=== PATIENT | male | born 1960 | race Caucasian/White ===

== ENCOUNTER 2016-06-27 09:33 | Emergency (ER) | payer MEDICAID, OTHER ==
[~2016-06-27 09:33] MED LIST: /CELE20CA; /CELE20CA OR; /CELE20CA PO; /DULO30CA OR; ASPI81TA21 PO; CARISOPRODOL; CARISOPRODOL PO; CLEO300C2 PO; CYMB1CAP PO; DICL0.1S7 TOP; DICL75TA PO; DRIS50002 PO; DULO30CA PO; FLEXERIL OR; HYDROCODONE OR; NICO21DI5 TD; OMEP40CA2 PO; SIMV40TA2 PO; SOMA350T PO; TPS CREAM TOP; TRAM100T; TRAM50TA2 OR; TRAM50TA2 PO; ULTR200T; ULTR200T OR; ULTR50TA PO; VICO5TAB; VOLT1GEL EX; ZANA4CAP
[2016-06-27] MEDS ORDERED: AMIODARONE 150MG/3ML INJ (J0282) ONE (09:34)
[2016-06-27] MEDS ORDERED: ASPIRIN 81 MG CHEW TABLET As Ordered ONE (10:31)
[2016-06-27] MEDS ORDERED: CLOPIDOGREL 300 MG TAB (PLAVIX) As Ordered ONE (10:32)
[2016-06-27 10:41] LABS: BASO % 0.4 % (0.0-1.0); EOS % 0.4 % (0.0-3.0); LARGE UNSTAINED CELL # 0.2 K/mm3 (0.0-0.4); LARGE UNSTAINED CELL % 1.4 % (0.0-4.0); LYMPH # 1.5 K/mm3 (1.5-4.5); LYMPH % 13.8 % (24.0-44.0); MEAN CORPUSCULAR HEMOGLOBIN 31.2 pg (27.0-33.0); MEAN CORPUSCULAR HGB CONC 32.9 g/dl (32.0-36.5); MEAN CORPUSCULAR VOLUME 94.7 fl (80.0-96.0); MONO # 0.4 K/mm3 (0.0-0.8); MONO % 3.5 % (0.0-5.0); NEUTROPHILS # 8.7 K/mm3 (1.8-7.7); NEUTROPHILS % 80.5 % (36.0-66.0); PLATELET COUNT, AUTOMATED 509 k/mm3 (150-450); RED CELL DISTRIBUTION WIDTH 13.9 % (11.5-14.5); WHITE BLOOD COUNT 10.8 K/mm3 (4.0-10.0)
[2016-06-27 10:44] LABS: INR 0.95
[2016-06-27 10:54] LABS: ANION GAP 10 MEQ/L (8-16); BLOOD UREA NITROGEN 19 MG/DL (7-18); CALCIUM LEVEL 9.1 MG/DL (8.5-10.1); CARBON DIOXIDE LEVEL 23 MEQ/L (21-32); CHLORIDE LEVEL 108 MEQ/L (98-107); CREATININE FOR GFR 0.99 MG/DL (0.70-1.30); GLOMERULAR FILTRATION RATE > 60.0 (>56); GLUCOSE, FASTING 103 MG/DL (70-105); POTASSIUM SERUM 4.1 MEQ/L (3.5-5.1); SODIUM LEVEL 141 MEQ/L (136-145)
--- NOTE | 2016-06-27 11:02 | REP ---
PORTABLE CHEST X-RAY: Supine AP view. HISTORY: Chest pain. FINDINGS: EKG monitoring electrodes overlie the chest. The lungs are well inflated and clear. Pleural angles are sharp. Heart size is borderline. Pulmonary vasculature is not increased. No significant bony abnormality is seen. IMPRESSION: No active disease. Borderline heart size. Signed by Doe Navarro MD 06/27/2016 08:10 P
[2016-06-27] MEDS ORDERED: HEPARIN SOD (PORCINE) 5000 UNITS/ML VIAL As Ordered ONE (11:05)
[2016-06-27] MEDS ORDERED: HEPARIN 25,000 UNITS/250 ML D5W BAG (100 UNITS/ML) As Ordered ONE (11:05)
[2016-06-27] MEDS ORDERED: ONDANSETRON 4MG/2ML VIAL (J2405) As Ordered ONE (11:16)
[2016-06-27 11:18] LABS: FREE T4 1.12 NG/DL (0.76-1.46); MAGNESIUM LEVEL 2.1 MG/DL (1.8-2.4)
--- NOTE | 2016-06-27 11:50 | EDDOCDS ---
Physician Documentation [facility] Name: Wilmar Josue Age: 55 yrs Sex: Male : 1960 Arrival Date: 06/27/2016 Time: 09:33 Bed 3 Private MD: Berhane Pereyra MD Disposition: 06/27 11:22 Critical Care:. pc Disposition: 06/27/16 11:[address] [facility]. Diagnosis are Cardiac arrest, Ventricular fibrillation, Non-ST elevation (NSTEMI) myocardial infarction. - Reason for transfer: Higher level of care. - Accepting physician is Dr. Moncada. - Condition is Stable. - Problem is new. - Symptoms have improved. HPI: 11:09 This 55 yrs old Male presents to ER via Walkin/Carried/Asstd with complaints pc of General Weakness. 11:09 The history is obtained from the patient. He says he has felt unwell, "like crap", for pc a few weeks. He has been treated for an infected puncture wound to his left knee, with 2 days of ABX left. He awoke at 1am this morning drenched in sweat. He felt SOB but denies any pain. Just as the EKG was performed, while starting this interview, the patient went into VFib arrest. CPR was started by myself and a LINING MAKER, and the patient moved into a CC room. CPR was continued and he was hooked up to the LifePak and defibrillated once at 300J. He was converted to NSR with frequent PVCs. He regained consciousness soon after defibrillation. He received 300mg of amiodarone. His pulse is 55-60, his BP 117/59 and his only complaint is of feeling tired. 11:15 The patient has been recently seen at an urgent care, a couple of weeks ago. pc Historical: - Allergies: hydrocodone (Vomit); - Home Meds: 1. unknown antibiotic three times a day - PMHx: Chronic Back pain; hyperlipidemia; vit d defic; Erectile Dysfunction; GERD; - PSHx: left total hip replacement; closed reduction right hip with revision; Endoscopy, Upper; Colonoscopy; Cataract Surgery- Bilateral; - The history from nurses notes was reviewed: and I agree with what is documented. - Social history: Smoking status: Patient uses tobacco products, heavy tobacco smoker. No barriers to communication noted, The patient speaks fluent Luxembourgish, Speaks appropriately for age. - Family history: Not pertinent. - : The pt / caregiver states he / she is not on anticoagulants. Home medication list is obtained from the patient. - Hospitalizations: : No recent hospitalization is reported. - Exposure Risk Screening:: None identified. - Immunization history:: All immunizations up-to-date. - Social history:: the patient smokes cigarettes the patient drinks alcohol. ROS: 11:15 All systems are negative except as listed. pc Exam: 11:15 General Appearance: no acute distress, alert. pc 11:15 EENT: normal eye inspection, ears, nose and throat normal, pharynx normal, mucous membranes moist 11:15 Neck: The exam reveals no acute abnormalities. ROM is normal and painless. No nuchal rigidity is noted.. 11:15 Respiratory: no respiratory distress, Breath sounds: wheezing, scattered. 11:15 CVS: regular pulse rate, regular rhythm, normal S1 and S2, no murmurs, strong peripheral pulses, normal capillary refill. 11:15 Abdomen: soft, non-tender, no organomegaly, normal bowel sounds. 11:15 Back: normal inspection. 11:15 Skin: skin color is normal, warm, dry. 11:15 Extremities: grossly normal except: noted in the left knee: healing wound at lateral edge of patella superiorly.. 11:15 Neuro: oriented x 3, cranial nerves normal as tested, no motor deficits, no sensory deficits. 11:15 Psych: normal mood. Vital Signs: 09:35 BP 107 / 60; Pulse 93; Resp 18; Temp 96.6(O); Pulse Ox 100% on R/A; Weight 63.5 kg / elp 139.99 lbs (R); Height 5 ft. 5 in. (165.10 cm) (R); 10:14 Resp 30; Temp 98.3(TE); kc3 10:15 Pulse 66 MON; Pulse Ox 100% ; kc3 10:16 BP 119 / 57 (auto/); kc3 10:23 BP 109 / 51 (auto/); kc3 10:26 BP 189 / 83 (auto/); kc3 10:27 Pulse 133 MON; Pulse Ox 100% ; kc3 10:29 BP 114 / 58 (auto/); kc3 10:29 Pulse 69 MON; Pulse Ox 100% ; kc3 10:32 BP 107 / 57 (auto/); kc3 10:32 Pulse 67 MON; Pulse Ox 100% ; kc3 10:34 Pulse 73 MON; Pulse Ox 100% ; kc3 10:35 BP 106 / 55 (auto/); kc3 10:38 BP 121 / 56 (auto/); kc3 10:38 Pulse 65 MON; Pulse Ox 100% ; kc3 10:41 BP 101 / 59 (auto/); kc3 10:41 Pulse 65 MON; Pulse Ox 100% ; kc3 10:50 BP 112 / 62 (auto/); kc3 10:50 Pulse 63 MON; Pulse Ox 100% ; kc3 11:00 BP 118 / 60 (auto/); kc3 11:00 Pulse 62 MON; Pulse Ox 100% ; kc3 11:10 BP 117 / 59 (auto/); kc3 11:10 Pulse 58 MON; Pulse Ox 100% ; kc3 11:20 BP 122 / 63 (auto/); kc3 11:20 Pulse 60 MON; Pulse Ox 100% ; kc3 11:30 BP 123 / 60 (auto/); kc3 11:30 Pulse 57 MON; Pulse Ox 100% ; kc3 11:46 BP 124 / 64; Pulse 60; Resp 22; Temp 97.3(O); Pulse Ox 99% 3 lpm ; Pain 8/10; kc3 09:35 Body Mass Index 23.30 (63.50 kg, 165.10 cm) elp 10:14 Dr. Dickerson aware of pt status. kc3 MDM: 10:14 ECG WITH READING ER PHYS+CARDIAG ordered. EDMS 10:29 Face And Fill Packer/Pulse Ox/q 15 min VS ordered. pc 10:29 IV Saline Lock ordered. pc 10:29 Rhythm Strip to chart ordered. pc 10:29 Oxygen at 15 Liters/Minute NRB Mask ordered. pc 10:29 Aspirin Chewable Tablet 324 mg PO once ordered. pc 10:30 Plavix - Clopidogrel 300 mg PO once ordered. pc 10:31 B-Type Natiuretic Peptide Ordered. EDMS 10:31 Basic Metabolic Profile Ordered. EDMS 10:31 CBC with Diff Ordered. EDMS 10:31 Cardiac Injury Profile Ordered. EDMS 10:31 Partial Thromboplastin Time Ordered. EDMS 10:31 Prothrombin Time Profile\\E\\INR Ordered. EDMS 10:31 Troponin Ordered. EDMS 10:31 portable chest Ordered. EDMS 10:31 amiodarone 300 mg IVP once ordered. pc 11:01 FT4&TSH PANEL Ordered. EDMS 11:01 MAGNESIUM LEVEL Ordered. EDMS 11:03 heparin (Thrombolytic Protocol, 60 units/kg)) 3800 units IVP once; max 4000 units. pc Ensure no Lovenox in past 18hr, labs drawn ordered. 11:04 heparin (Thrombolytic Protocol, 12 units/kg/hr)) 62994 units IV at 760 units/hr once; pc Max. dose 1000units/hr. No Lovenox past 18hrs/ draw labs. ordered. 11:15 Ondansetron 4 mg IVP once ordered. pc 11:15 Differential Diagnosis: VFib arrest of unknown etiology. Plan: labs, CXR, meds, d/w Dr. corona Moncada. Data reviewed: old medical records, vital signs, nurses notes, EKG(s), lab test results, all radiology studies and available results. Test interpretation: EKG. 11:21 Test interpretation: EKG. pc 11:21 Test interpretation: X-RAY - interpreted by Radiologist and personally reviewed, 1 view pc chest borderline CM, else nad. 11:22 Basic Metabolic Profile Reviewed. pc 11:22 CBC with Diff Reviewed. pc 11:22 Troponin Reviewed. pc 11:22 Cardiac Injury Profile Reviewed. pc 11:22 Partial Thromboplastin Time Reviewed. pc 11:22 Prothrombin Time Profile\\E\\INR Reviewed. pc 11:22 FT4&TSH PANEL Reviewed. pc 11:22 MAGNESIUM LEVEL Reviewed. pc 11:22 The patient has been re-examined and re-evaluated. The patient's symptoms have resolved pc after treatment. Physician consultation: Dr. Nancie Moncada regarding patient's condition, and he accepts in transfer to [facility]. Disposition: The historical points, examination findings, and any diagnostic results supporting the provided diagnosis, were discussed with the patient or legal guardian. The decision to transfer to the patient to another facility was explained, based on the need for a required specialist that [facility] does not immediately have available. 11:34 ECG WITH READING ER PHYS+CARDIAG ordered. EDMS 11:36 Repeat EKG (put time details section) ordered. pc 11:39 ECG WITH READING ER PHYS ordered. EDMS 11:42 Repeat EKG (put time details section) complete. [email or web address] 11:47 Test interpretation: EKG. EC:22 Rate is 68 beats/min. Rhythm is regular, Normal Sinus Rhythm with Occasional PVCs. QRS pc [place] is Normal. [place] interval is normal. QRS interval is normal. QT interval is normal. No Q waves. T waves are Normal. ST Segment is elevated in leads aVF, V2, V3, V4, V5, V6, <1mm. Clinical impression: Normal Sinus Rhythm, Nonspecific ST-T changes, and occ. PVC. 10:33 Rate is 67 beats/min. Rhythm is regular, Normal Sinus Rhythm. Left axis deviation pc noted. QRS is negative in leads II, aVF. [place] interval is normal. QRS interval is normal. QT interval is normal. No Q waves. T waves are Normal. No ST changes noted. Clinical impression: Normal Sinus Rhythm. 11:47 Rate is 57 beats/min. Rhythm is regular, Sinus bradycardia. QRS [place] is Normal. [place] pc interval is normal. QRS interval is normal. QT interval is normal. No Q waves. T waves are Normal. ST Segment is elevated in leads II, III, aVF, <1mm. Clinical impression: Normal Sinus Rhythm and possible early IMII, but asymptomatic. Administered Medications: 10:28 Drug: amiodarone 300 mg [amiodarone 150 mg/100 mL (1.5 mg/mL) in dextrose, iso-osmotic kc3 IV (200 mL)] {Note: administered by AMANDA Cummings.} Route: IVP; Site: left antecubital; 10:41 Drug: Aspirin 324 mg [aspirin 81 mg chewable tablet (4 tabs)] Route: PO; kc3 10:41 Drug: Plavix - Clopidogrel 300 mg [clopidogrel 75 mg tablet (4 tabs)] Route: PO; kc3 11:13 Drug: heparin (Thrombolytic Protocol, 60 units/kg)) 3800 units [heparin (porcine) 5,000 mcp unit/mL injection solution (0.76 mL)] {Co-Signature: bckaylee (Emiliano Yarbrough RN).} Route: IVP; Site: right antecubital; 11:13 Drug: heparin (Thrombolytic Protocol, 12 units/kg/hr)) 74549 units [heparin (porcine) mcp 25,000 unit/250 mL (100 unit/mL) in dextrose 5 % IV] {Co-Signature: artie (Emiliano Yarbrough RN).} Route: IV; Rate: 760 units/hr; Site: right antecubital; 11:24 Drug: Ondansetron 4 mg [ondansetron HCl 2 mg/mL intravenous solution (2 mL)] Route: kc3 IVP; Site: left antecubital; Critical Care Time: 11:22 Critical care time: Bedside Care: 45 minutes, Consultation: 20 minutes, Family pc Intervention: 15 minutes. Total time: 80 minutes Signatures: Dispatcher [employer] EDMS Ubaldo Dickerson MD MD pc Peters, Mary, RN RN mcp Barney, Michael B, RN RN mlb1 Forney, Jordain, PCA PCA jlf Crane, Kelsi, RN RN kc3 Bruce Johnson RN bcj The chart was reviewed and I authenticate all verbal orders and agree with the evaluation and treatment provided.Corrections: (The following items were deleted from the chart) 10:43 09:46 PSHx: none; mlb1 [facility] 11:01 10:52 MAGNESIUM LEVEL+LAB ordered. EDPA EDPA 11:01 10:52 FT4&TSH PANEL+LAB ordered. EDPA EDPA 11:16 11:09 He says he has felt unwell, "like crap", for a few weeks. He has been treated for pc an infected puncture wound to his left knee, with 2 days of ABX left. He awoke at 1am this morning drenched in sweat. He felt SOB but denies any pain. Just as the EKG was performed, while starting this interview, the patient went into VFib arrest. CPR was started by myself and a LINING MAKER, and the patient moved into a CC room. CPR was continued and he was hooked up to the LifePak and defibrillated once at 300J. He was converted to NSR with frequent PVCs. He regained consciousness soon after defibrillation. He received 300mg of amiodarone pc MTDD
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
--- NOTE | 2016-06-28 08:25 | ECGEPIP ---
Stationary ECG Study 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
--- NOTE | 2016-06-28 08:26 | ECGEPIP ---
Stationary ECG Study [facility] - ED Test Date: 2016-06-27 Pat Name: MIAH BENNETT Department: Room: - Gender: M Deputy Register Of Deeds: marlin : 1960 Requested By: Ubaldo Whitfield Order Number: [id number] Reading MD: Ubaldo Dickerson Measurements Intervals [place] Rate: 57 P: 60 MO: 194 QRS: 10 QRSD: 94 T: 47 QT: 402 QTc: 392 Interpretive Statements SINUS BRADYCARDIA NONSPECIFIC ST CHANGES Electronically Signed On 06-28-2016 8:26:23 EST by Ubaldo Dickerson
--- NOTE | 2016-06-28 08:26 | ECGEPIP ---
Stationary ECG Study [facility] - ED Test Date: 2016-06-27 Pat Name: MIAH BENNETT Department: Room: - Gender: M Community Coordinator: arnold : 1960 Requested By: Ubaldo Whitfield Order Number: [id number] Reading MD: Ubaldo Dickerson Measurements Intervals [place] Rate: 67 P: 64 [place]: 169 QRS: -30 QRSD: 108 T: 69 QT: 317 QTc: 336 Interpretive Statements SINUS RHYTHM BORDERLINE LEFT AXIS DEVIATION MINIMAL VOLTAGE CRITERIA FOR LVH, CONSIDER NORMAL VARIANT NONSPECIFIC T-WAVE ABNORMALITY Electronically Signed On 06-28-2016 8:25:42 EST by Ubaldo Dickerson
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
--- NOTE | 2016-06-29 12:50 | EDDOCDS ---
Physician Documentation [facility] Name: Wilmar Josue Age: 55 yrs Sex: Male : 1960 Arrival Date: 06/27/2016 Time: 09:33 Bed 3 Private MD: Berhane Pereyra MD Disposition: 06/27 11:22 Critical Care:. pc Disposition: 06/27/16 11:24 Transfer ordered to [facility]. Diagnosis are Cardiac arrest, Ventricular fibrillation, Non-ST elevation (NSTEMI) myocardial infarction. - Reason for transfer: Higher level of care. - Accepting physician is Dr. Moncada. - Condition is Stable. - Problem is new. - Symptoms have improved. HPI: 11:09 This 55 yrs old Male presents to ER via Walkin/Carried/Asstd with complaints pc of General Weakness. 11:09 The history is obtained from the patient. He says he has felt unwell, "like crap", for pc a few weeks. He has been treated for an infected puncture wound to his left knee, with 2 days of ABX left. He awoke at 1am this morning drenched in sweat. He felt SOB but denies any pain. Just as the EKG was performed, while starting this interview, the patient went into VFib arrest. CPR was started by myself and a BRIM SETTER, and the patient moved into a CC room. CPR was continued and he was hooked up to the LifePak and defibrillated once at 300J. He was converted to NSR with frequent PVCs. He regained consciousness soon after defibrillation. He received 300mg of amiodarone. His pulse is 55-60, his BP 117/59 and his only complaint is of feeling tired. 11:15 The patient has been recently seen at an urgent care, a couple of weeks ago. pc Historical: - Allergies: hydrocodone (Vomit); - Home Meds: 1. unknown antibiotic three times a day - PMHx: Chronic Back pain; hyperlipidemia; vit d defic; Erectile Dysfunction; GERD; - PSHx: left total hip replacement; closed reduction right hip with revision; Endoscopy, Upper; Colonoscopy; Cataract Surgery- Bilateral; - The history from nurses notes was reviewed: and I agree with what is documented. - Social history: Smoking status: Patient uses tobacco products, heavy tobacco smoker. No barriers to communication noted, The patient speaks fluent Kiswahili, Speaks appropriately for age. - Family history: Not pertinent. - : The pt / caregiver states he / she is not on anticoagulants. Home medication list is obtained from the patient. - Hospitalizations: : No recent hospitalization is reported. - Exposure Risk Screening:: None identified. - Immunization history:: All immunizations up-to-date. - Social history:: the patient smokes cigarettes the patient drinks alcohol. ROS: 11:15 All systems are negative except as listed. pc Exam: 11:15 General Appearance: no acute distress, alert. pc 11:15 EENT: normal eye inspection, ears, nose and throat normal, pharynx normal, mucous membranes moist 11:15 Neck: The exam reveals no acute abnormalities. ROM is normal and painless. No nuchal rigidity is noted.. 11:15 Respiratory: no respiratory distress, Breath sounds: wheezing, scattered. 11:15 CVS: regular pulse rate, regular rhythm, normal S1 and S2, no murmurs, strong peripheral pulses, normal capillary refill. 11:15 Abdomen: soft, non-tender, no organomegaly, normal bowel sounds. 11:15 Back: normal inspection. 11:15 Skin: skin color is normal, warm, dry. 11:15 Extremities: grossly normal except: noted in the left knee: healing wound at lateral edge of patella superiorly.. 11:15 Neuro: oriented x 3, cranial nerves normal as tested, no motor deficits, no sensory deficits. 11:15 Psych: normal mood. Vital Signs: 09:35 BP 107 / 60; Pulse 93; Resp 18; Temp 96.6(O); Pulse Ox 100% on R/A; Weight 63.5 kg / elp 139.99 lbs (R); Height 5 ft. 5 in. (165.10 cm) (R); 10:14 Resp 30; Temp 98.3(TE); kc3 10:15 Pulse 66 MON; Pulse Ox 100% ; kc3 10:16 BP 119 / 57 (auto/); kc3 10:23 BP 109 / 51 (auto/); kc3 10:26 BP 189 / 83 (auto/); kc3 10:27 Pulse 133 MON; Pulse Ox 100% ; kc3 10:29 BP 114 / 58 (auto/); kc3 10:29 Pulse 69 MON; Pulse Ox 100% ; kc3 10:32 BP 107 / 57 (auto/); kc3 10:32 Pulse 67 MON; Pulse Ox 100% ; kc3 10:34 Pulse 73 MON; Pulse Ox 100% ; kc3 10:35 BP 106 / 55 (auto/); kc3 10:38 BP 121 / 56 (auto/); kc3 10:38 Pulse 65 MON; Pulse Ox 100% ; kc3 10:41 BP 101 / 59 (auto/); kc3 10:41 Pulse 65 MON; Pulse Ox 100% ; kc3 10:50 BP 112 / 62 (auto/); kc3 10:50 Pulse 63 MON; Pulse Ox 100% ; kc3 11:00 BP 118 / 60 (auto/); kc3 11:00 Pulse 62 MON; Pulse Ox 100% ; kc3 11:10 BP 117 / 59 (auto/); kc3 11:10 Pulse 58 MON; Pulse Ox 100% ; kc3 11:20 BP 122 / 63 (auto/); kc3 11:20 Pulse 60 MON; Pulse Ox 100% ; kc3 11:30 BP 123 / 60 (auto/); kc3 11:30 Pulse 57 MON; Pulse Ox 100% ; kc3 11:46 BP 124 / 64; Pulse 60; Resp 22; Temp 97.3(O); Pulse Ox 99% 3 lpm ; Pain 8/10; kc3 09:35 Body Mass Index 23.30 (63.50 kg, 165.10 cm) elp 10:14 Dr. Dickerson aware of pt status. kc3 MDM: 10:14 ECG WITH READING ER PHYS+CARDIAG ordered. EDMS 10:29 Cfd Engineer/Pulse Ox/q 15 min VS ordered. pc 10:29 IV Saline Lock ordered. pc 10:29 Rhythm Strip to chart ordered. pc 10:29 Oxygen at 15 Liters/Minute NRB Mask ordered. pc 10:29 Aspirin Chewable Tablet 324 mg PO once ordered. pc 10:30 Plavix - Clopidogrel 300 mg PO once ordered. pc 10:31 B-Type Natiuretic Peptide Ordered. EDMS 10:31 Basic Metabolic Profile Ordered. EDMS 10:31 CBC with Diff Ordered. EDMS 10:31 Cardiac Injury Profile Ordered. EDMS 10:31 Partial Thromboplastin Time Ordered. EDMS 10:31 Prothrombin Time Profile\\E\\INR Ordered. EDMS 10:31 Troponin Ordered. EDMS 10:31 portable chest Ordered. EDMS 10:31 amiodarone 300 mg IVP once ordered. pc 11:01 FT4&TSH PANEL Ordered. EDMS 11:01 MAGNESIUM LEVEL Ordered. EDMS 11:03 heparin (Thrombolytic Protocol, 60 units/kg)) 3800 units IVP once; max 4000 units. pc Ensure no Lovenox in past 18hr, labs drawn ordered. 11:04 heparin (Thrombolytic Protocol, 12 units/kg/hr)) 82414 units IV at 760 units/hr once; pc Max. dose 1000units/hr. No Lovenox past 18hrs/ draw labs. ordered. 11:15 Ondansetron 4 mg IVP once ordered. pc 11:15 Differential Diagnosis: VFib arrest of unknown etiology. Plan: labs, CXR, meds, d/w Dr. corona Moncada. Data reviewed: old medical records, vital signs, nurses notes, EKG(s), lab test results, all radiology studies and available results. Test interpretation: EKG. 11:21 Test interpretation: EKG. pc 11:21 Test interpretation: X-RAY - interpreted by Radiologist and personally reviewed, 1 view pc chest borderline CM, else nad. 11:22 Basic Metabolic Profile Reviewed. pc 11:22 CBC with Diff Reviewed. pc 11:22 Troponin Reviewed. pc 11:22 Cardiac Injury Profile Reviewed. pc 11:22 Partial Thromboplastin Time Reviewed. pc 11:22 Prothrombin Time Profile\\E\\INR Reviewed. pc 11:22 FT4&TSH PANEL Reviewed. pc 11:22 MAGNESIUM LEVEL Reviewed. pc 11:22 The patient has been re-examined and re-evaluated. The patient's symptoms have resolved pc after treatment. Physician consultation: Dr. Nancie Moncada regarding patient's condition, and he accepts in transfer to [facility]. Disposition: The historical points, examination findings, and any diagnostic results supporting the provided diagnosis, were discussed with the patient or legal guardian. The decision to transfer to the patient to another facility was explained, based on the need for a required specialist that [facility] does not immediately have available. 11:34 ECG WITH READING ER PHYS+CARDIAG ordered. EDMS 11:36 Repeat EKG (put time details section) ordered. pc 11:39 ECG WITH READING ER PHYS ordered. EDMS 11:42 Repeat EKG (put time details section) complete. jlf 11:47 Test interpretation: EKG. pc 12:10 Test interpretation: EKG. ED course: Discussed with Dr. Moncada, re: patient's new pc pleuritic chest pain and ST changes inferiorly, and he advises no thrombolysis and to ship to [facility] immediately. 13:53 ECG/EKG was scanned into [employer] and attached to record. gb 13:53 Rhythm Strip was scanned into [employer] and attached to record. gb EC:22 Rate is 68 beats/min. Rhythm is regular, Normal Sinus Rhythm with Occasional PVCs. QRS pc [place] is Normal. [place] interval is normal. QRS interval is normal. QT interval is normal. No Q waves. T waves are Normal. ST Segment is elevated in leads aVF, V2, V3, V4, V5, V6, <1mm. Clinical impression: Normal Sinus Rhythm, Nonspecific ST-T changes, and occ. PVC. 10:33 Rate is 67 beats/min. Rhythm is regular, Normal Sinus Rhythm. Left axis deviation pc noted. QRS is negative in leads II, aVF. [place] interval is normal. QRS interval is normal. QT interval is normal. No Q waves. T waves are Normal. No ST changes noted. Clinical impression: Normal Sinus Rhythm. 11:47 Rate is 57 beats/min. Rhythm is regular, Sinus bradycardia. QRS [place] is Normal. [place] pc interval is normal. QRS interval is normal. QT interval is normal. No Q waves. T waves are Normal. ST Segment is elevated in leads II, III, aVF, <1mm. Clinical impression: Normal Sinus Rhythm and possible early IMII, but asymptomatic. 12:10 Rate is 76 beats/min. Rhythm is regular, Normal Sinus Rhythm with Occasional PVCs. QRS pc [place] is Normal. [place] interval is normal. QRS interval is normal. QT interval is normal. No Q waves. T waves are Normal. ST Segment is elevated in leads III, aVF, <1mm. Clinical impression: Normal Sinus Rhythm and Nonspecific ST-T changes. Administered Medications: 10:28 Drug: amiodarone 300 mg [amiodarone 150 mg/100 mL (1.5 mg/mL) in dextrose, iso-osmotic kc3 IV (200 mL)] {Note: administered by AMANDA Cummings.} Route: IVP; Site: left antecubital; 10:41 Drug: Aspirin 324 mg [aspirin 81 mg chewable tablet (4 tabs)] Route: PO; kc3 10:41 Drug: Plavix - Clopidogrel 300 mg [clopidogrel 75 mg tablet (4 tabs)] Route: PO; kc3 11:13 Drug: heparin (Thrombolytic Protocol, 60 units/kg)) 3800 units [heparin (porcine) 5,000 mcp unit/mL injection solution (0.76 mL)] {Co-Signature: artie (Emiliano Yarbrough RN).} Route: IVP; Site: right antecubital; 11:13 Drug: heparin (Thrombolytic Protocol, 12 units/kg/hr)) 45226 units [heparin (porcine) mcp 25,000 unit/250 mL (100 unit/mL) in dextrose 5 % IV] {Co-Signature: artie (Emiliano Yarbrough RN).} Route: IV; Rate: 760 units/hr; Site: right antecubital; 11:24 Drug: Ondansetron 4 mg [ondansetron HCl 2 mg/mL intravenous solution (2 mL)] Route: kc3 IVP; Site: left antecubital; Critical Care Time: 11:22 Critical care time: Bedside Care: 45 minutes, Consultation: 20 minutes, Family pc Intervention: 15 minutes. Total time: 80 minutes Signatures: Dispatcher [employer] Ubaldo Grant MD MD pc Peters, Mary, RN RN Maya Oneill, Terrance Wei RN RN mlShanel Montenegro, JEN BRIM SETTER Hazel Ventura RN RN kc3 Bruce Johnson RN bcj The chart was reviewed and I authenticate all verbal orders and agree with the evaluation and treatment provided.Corrections: (The following items were deleted from the chart) 10:43 09:46 PSHx: none; mlb1 [facility] [place] 11:01 10:52 MAGNESIUM LEVEL+LAB ordered. EDDC EDDC 11:01 10:52 FT4&TSH PANEL+LAB ordered. [facility] EDMS 11:16 11:09 He says he has felt unwell, "like crap", for a few weeks. He has been treated for pc an infected puncture wound to his left knee, with 2 days of ABX left. He awoke at 1am this morning drenched in sweat. He felt SOB but denies any pain. Just as the EKG was performed, while starting this interview, the patient went into VFib arrest. CPR was started by myself and a BRIM SETTER, and the patient moved into a CC room. CPR was continued and he was hooked up to the LifePak and defibrillated once at 300J. He was converted to NSR with frequent PVCs. He regained consciousness soon after defibrillation. He received 300mg of amiodarone pc Attachments: 13:53 ECG/EKG gb Chart Complete MTDD
--- NOTE | 2016-06-29 12:50 | EDDOCDS ---
Physician Documentation [facility] Name: Wilmar Josue Age: 55 yrs Sex: Male : 1960 Arrival Date: 06/27/2016 Time: 09:33 Bed 3 Private MD: Berhane Pereyra MD Disposition: 06/27 11:22 Critical Care:. pc Disposition: 06/27/16 11:24 Transfer ordered to [facility]. Diagnosis are Cardiac arrest, Ventricular fibrillation, Non-ST elevation (NSTEMI) myocardial infarction. - Reason for transfer: Higher level of care. - Accepting physician is Dr. Moncada. - Condition is Stable. - Problem is new. - Symptoms have improved. HPI: 11:09 This 55 yrs old Male presents to ER via Walkin/Carried/Asstd with complaints pc of General Weakness. 11:09 The history is obtained from the patient. He says he has felt unwell, "like crap", for pc a few weeks. He has been treated for an infected puncture wound to his left knee, with 2 days of ABX left. He awoke at 1am this morning drenched in sweat. He felt SOB but denies any pain. Just as the EKG was performed, while starting this interview, the patient went into VFib arrest. CPR was started by myself and a MOTOR POWER CONNECTOR, and the patient moved into a CC room. CPR was continued and he was hooked up to the LifePak and defibrillated once at 300J. He was converted to NSR with frequent PVCs. He regained consciousness soon after defibrillation. He received 300mg of amiodarone. His pulse is 55-60, his BP 117/59 and his only complaint is of feeling tired. 11:15 The patient has been recently seen at an urgent care, a couple of weeks ago. pc Historical: - Allergies: hydrocodone (Vomit); - Home Meds: 1. unknown antibiotic three times a day - PMHx: Chronic Back pain; hyperlipidemia; vit d defic; Erectile Dysfunction; GERD; - PSHx: left total hip replacement; closed reduction right hip with revision; Endoscopy, Upper; Colonoscopy; Cataract Surgery- Bilateral; - The history from nurses notes was reviewed: and I agree with what is documented. - Social history: Smoking status: Patient uses tobacco products, heavy tobacco smoker. No barriers to communication noted, The patient speaks fluent Greek, Speaks appropriately for age. - Family history: Not pertinent. - : The pt / caregiver states he / she is not on anticoagulants. Home medication list is obtained from the patient. - Hospitalizations: : No recent hospitalization is reported. - Exposure Risk Screening:: None identified. - Immunization history:: All immunizations up-to-date. - Social history:: the patient smokes cigarettes the patient drinks alcohol. ROS: 11:15 All systems are negative except as listed. pc Exam: 11:15 General Appearance: no acute distress, alert. pc 11:15 EENT: normal eye inspection, ears, nose and throat normal, pharynx normal, mucous membranes moist 11:15 Neck: The exam reveals no acute abnormalities. ROM is normal and painless. No nuchal rigidity is noted.. 11:15 Respiratory: no respiratory distress, Breath sounds: wheezing, scattered. 11:15 CVS: regular pulse rate, regular rhythm, normal S1 and S2, no murmurs, strong peripheral pulses, normal capillary refill. 11:15 Abdomen: soft, non-tender, no organomegaly, normal bowel sounds. 11:15 Back: normal inspection. 11:15 Skin: skin color is normal, warm, dry. 11:15 Extremities: grossly normal except: noted in the left knee: healing wound at lateral edge of patella superiorly.. 11:15 Neuro: oriented x 3, cranial nerves normal as tested, no motor deficits, no sensory deficits. 11:15 Psych: normal mood. Vital Signs: 09:35 BP 107 / 60; Pulse 93; Resp 18; Temp 96.6(O); Pulse Ox 100% on R/A; Weight 63.5 kg / elp 139.99 lbs (R); Height 5 ft. 5 in. (165.10 cm) (R); 10:14 Resp 30; Temp 98.3(TE); kc3 10:15 Pulse 66 MON; Pulse Ox 100% ; kc3 10:16 BP 119 / 57 (auto/); kc3 10:23 BP 109 / 51 (auto/); kc3 10:26 BP 189 / 83 (auto/); kc3 10:27 Pulse 133 MON; Pulse Ox 100% ; kc3 10:29 BP 114 / 58 (auto/); kc3 10:29 Pulse 69 MON; Pulse Ox 100% ; kc3 10:32 BP 107 / 57 (auto/); kc3 10:32 Pulse 67 MON; Pulse Ox 100% ; kc3 10:34 Pulse 73 MON; Pulse Ox 100% ; kc3 10:35 BP 106 / 55 (auto/); kc3 10:38 BP 121 / 56 (auto/); kc3 10:38 Pulse 65 MON; Pulse Ox 100% ; kc3 10:41 BP 101 / 59 (auto/); kc3 10:41 Pulse 65 MON; Pulse Ox 100% ; kc3 10:50 BP 112 / 62 (auto/); kc3 10:50 Pulse 63 MON; Pulse Ox 100% ; kc3 11:00 BP 118 / 60 (auto/); kc3 11:00 Pulse 62 MON; Pulse Ox 100% ; kc3 11:10 BP 117 / 59 (auto/); kc3 11:10 Pulse 58 MON; Pulse Ox 100% ; kc3 11:20 BP 122 / 63 (auto/); kc3 11:20 Pulse 60 MON; Pulse Ox 100% ; kc3 11:30 BP 123 / 60 (auto/); kc3 11:30 Pulse 57 MON; Pulse Ox 100% ; kc3 11:46 BP 124 / 64; Pulse 60; Resp 22; Temp 97.3(O); Pulse Ox 99% 3 lpm ; Pain 8/10; kc3 09:35 Body Mass Index 23.30 (63.50 kg, 165.10 cm) elp 10:14 Dr. Dickerson aware of pt status. kc3 MDM: 10:14 ECG WITH READING ER PHYS+CARDIAG ordered. EDMS 10:29 Senior Manager Creative Services/Pulse Ox/q 15 min VS ordered. pc 10:29 IV Saline Lock ordered. pc 10:29 Rhythm Strip to chart ordered. pc 10:29 Oxygen at 15 Liters/Minute NRB Mask ordered. pc 10:29 Aspirin Chewable Tablet 324 mg PO once ordered. pc 10:30 Plavix - Clopidogrel 300 mg PO once ordered. pc 10:31 B-Type Natiuretic Peptide Ordered. EDMS 10:31 Basic Metabolic Profile Ordered. EDMS 10:31 CBC with Diff Ordered. EDMS 10:31 Cardiac Injury Profile Ordered. EDMS 10:31 Partial Thromboplastin Time Ordered. EDMS 10:31 Prothrombin Time Profile\\E\\INR Ordered. EDMS 10:31 Troponin Ordered. EDMS 10:31 portable chest Ordered. EDMS 10:31 amiodarone 300 mg IVP once ordered. pc 11:01 FT4&TSH PANEL Ordered. EDMS 11:01 MAGNESIUM LEVEL Ordered. EDMS 11:03 heparin (Thrombolytic Protocol, 60 units/kg)) 3800 units IVP once; max 4000 units. pc Ensure no Lovenox in past 18hr, labs drawn ordered. 11:04 heparin (Thrombolytic Protocol, 12 units/kg/hr)) 38708 units IV at 760 units/hr once; pc Max. dose 1000units/hr. No Lovenox past 18hrs/ draw labs. ordered. 11:15 Ondansetron 4 mg IVP once ordered. pc 11:15 Differential Diagnosis: VFib arrest of unknown etiology. Plan: labs, CXR, meds, d/w Dr. corona Moncada. Data reviewed: old medical records, vital signs, nurses notes, EKG(s), lab test results, all radiology studies and available results. Test interpretation: EKG. 11:21 Test interpretation: EKG. pc 11:21 Test interpretation: X-RAY - interpreted by Radiologist and personally reviewed, 1 view pc chest borderline CM, else nad. 11:22 Basic Metabolic Profile Reviewed. pc 11:22 CBC with Diff Reviewed. pc 11:22 Troponin Reviewed. pc 11:22 Cardiac Injury Profile Reviewed. pc 11:22 Partial Thromboplastin Time Reviewed. pc 11:22 Prothrombin Time Profile\\E\\INR Reviewed. pc 11:22 FT4&TSH PANEL Reviewed. pc 11:22 MAGNESIUM LEVEL Reviewed. pc 11:22 The patient has been re-examined and re-evaluated. The patient's symptoms have resolved pc after treatment. Physician consultation: Dr. Nancie Moncada regarding patient's condition, and he accepts in transfer to [facility]. Disposition: The historical points, examination findings, and any diagnostic results supporting the provided diagnosis, were discussed with the patient or legal guardian. The decision to transfer to the patient to another facility was explained, based on the need for a required specialist that [facility] does not immediately have available. 11:34 ECG WITH READING ER PHYS+CARDIAG ordered. EDMS 11:36 Repeat EKG (put time details section) ordered. pc 11:39 ECG WITH READING ER PHYS ordered. EDMS 11:42 Repeat EKG (put time details section) complete. jlf 11:47 Test interpretation: EKG. pc 12:10 Test interpretation: EKG. ED course: Discussed with Dr. Moncada, re: patient's new pc pleuritic chest pain and ST changes inferiorly, and he advises no thrombolysis and to ship to [facility] immediately. 13:53 ECG/EKG was scanned into [email or web address] and attached to record. gb 13:53 Rhythm Strip was scanned into [email or web address] and attached to record. gb EC:22 Rate is 68 beats/min. Rhythm is regular, Normal Sinus Rhythm with Occasional PVCs. QRS pc [place] is Normal. [place] interval is normal. QRS interval is normal. QT interval is normal. No Q waves. T waves are Normal. ST Segment is elevated in leads aVF, V2, V3, V4, V5, V6, <1mm. Clinical impression: Normal Sinus Rhythm, Nonspecific ST-T changes, and occ. PVC. 10:33 Rate is 67 beats/min. Rhythm is regular, Normal Sinus Rhythm. Left axis deviation pc noted. QRS is negative in leads II, aVF. [place] interval is normal. QRS interval is normal. QT interval is normal. No Q waves. T waves are Normal. No ST changes noted. Clinical impression: Normal Sinus Rhythm. 11:47 Rate is 57 beats/min. Rhythm is regular, Sinus bradycardia. QRS [place] is Normal. [place] pc interval is normal. QRS interval is normal. QT interval is normal. No Q waves. T waves are Normal. ST Segment is elevated in leads II, III, aVF, <1mm. Clinical impression: Normal Sinus Rhythm and possible early IMII, but asymptomatic. 12:10 Rate is 76 beats/min. Rhythm is regular, Normal Sinus Rhythm with Occasional PVCs. QRS pc [place] is Normal. [place] interval is normal. QRS interval is normal. QT interval is normal. No Q waves. T waves are Normal. ST Segment is elevated in leads III, aVF, <1mm. Clinical impression: Normal Sinus Rhythm and Nonspecific ST-T changes. Administered Medications: 10:28 Drug: amiodarone 300 mg [amiodarone 150 mg/100 mL (1.5 mg/mL) in dextrose, iso-osmotic kc3 IV (200 mL)] {Note: administered by AMANDA Cummings.} Route: IVP; Site: left antecubital; 10:41 Drug: Aspirin 324 mg [aspirin 81 mg chewable tablet (4 tabs)] Route: PO; kc3 10:41 Drug: Plavix - Clopidogrel 300 mg [clopidogrel 75 mg tablet (4 tabs)] Route: PO; kc3 11:13 Drug: heparin (Thrombolytic Protocol, 60 units/kg)) 3800 units [heparin (porcine) 5,000 mcp unit/mL injection solution (0.76 mL)] {Co-Signature: artie (Emiliano Yarbrough RN).} Route: IVP; Site: right antecubital; 11:13 Drug: heparin (Thrombolytic Protocol, 12 units/kg/hr)) 67465 units [heparin (porcine) mcp 25,000 unit/250 mL (100 unit/mL) in dextrose 5 % IV] {Co-Signature: artie (Emiliano Yarbrough RN).} Route: IV; Rate: 760 units/hr; Site: right antecubital; 11:24 Drug: Ondansetron 4 mg [ondansetron HCl 2 mg/mL intravenous solution (2 mL)] Route: kc3 IVP; Site: left antecubital; Critical Care Time: 11:22 Critical care time: Bedside Care: 45 minutes, Consultation: 20 minutes, Family pc Intervention: 15 minutes. Total time: 80 minutes Signatures: Dispatcher [employer] Ubaldo Grant MD MD pc Peters, Mary, RN RN Maya Oneill, Terrance Wei RN RN mlShanel Montenegro, JEN MOTOR POWER CONNECTOR Hazel Ventura RN RN kc3 Bruce Johnson RN bcj The chart was reviewed and I authenticate all verbal orders and agree with the evaluation and treatment provided.Corrections: (The following items were deleted from the chart) 10:43 09:46 PSHx: none; mlb1 [facility] 11:01 10:52 MAGNESIUM LEVEL+LAB ordered. EDAR EDAR 11:01 10:52 FT4&TSH PANEL+LAB ordered. [facility] EDMS 11:16 11:09 He says he has felt unwell, "like crap", for a few weeks. He has been treated for pc an infected puncture wound to his left knee, with 2 days of ABX left. He awoke at 1am this morning drenched in sweat. He felt SOB but denies any pain. Just as the EKG was performed, while starting this interview, the patient went into VFib arrest. CPR was started by myself and a MOTOR POWER CONNECTOR, and the patient moved into a CC room. CPR was continued and he was hooked up to the LifePak and defibrillated once at 300J. He was converted to NSR with frequent PVCs. He regained consciousness soon after defibrillation. He received 300mg of amiodarone pc Attachments: 13:53 ECG/EKG gb Chart Complete MTDD
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
--- NOTE | 2016-07-01 14:28 | EDDOCDS ---
Physician Documentation [facility] Name: Wilmar Josue Age: 55 yrs Sex: Male : 1960 Arrival Date: 06/27/2016 Time: 09:33 Bed 3 Private MD: Berhane Pereyra MD Disposition: 06/27 11:22 Critical Care:. pc Disposition: 06/27/16 11:24 Transfer ordered to [facility]. Diagnosis are Cardiac arrest, Ventricular fibrillation, Non-ST elevation (NSTEMI) myocardial infarction. - Reason for transfer: Higher level of care. - Accepting physician is Dr. Moncada. - Condition is Stable. - Problem is new. - Symptoms have improved. HPI: 11:09 This 55 yrs old Male presents to ER via Walkin/Carried/Asstd with complaints pc of General Weakness. 11:09 The history is obtained from the patient. He says he has felt unwell, "like crap", for pc a few weeks. He has been treated for an infected puncture wound to his left knee, with 2 days of ABX left. He awoke at 1am this morning drenched in sweat. He felt SOB but denies any pain. Just as the EKG was performed, while starting this interview, the patient went into VFib arrest. CPR was started by myself and a FOOD AND BEVERAGE ASSISTANT, and the patient moved into a CC room. CPR was continued and he was hooked up to the LifePak and defibrillated once at 300J. He was converted to NSR with frequent PVCs. He regained consciousness soon after defibrillation. He received 300mg of amiodarone. His pulse is 55-60, his BP 117/59 and his only complaint is of feeling tired. 11:15 The patient has been recently seen at an urgent care, a couple of weeks ago. pc Historical: - Allergies: hydrocodone (Vomit); - Home Meds: 1. unknown antibiotic three times a day - PMHx: Chronic Back pain; hyperlipidemia; vit d defic; Erectile Dysfunction; GERD; - PSHx: left total hip replacement; closed reduction right hip with revision; Endoscopy, Upper; Colonoscopy; Cataract Surgery- Bilateral; - The history from nurses notes was reviewed: and I agree with what is documented. - Social history: Smoking status: Patient uses tobacco products, heavy tobacco smoker. No barriers to communication noted, The patient speaks fluent Latvian, Speaks appropriately for age. - Family history: Not pertinent. - : The pt / caregiver states he / she is not on anticoagulants. Home medication list is obtained from the patient. - Hospitalizations: : No recent hospitalization is reported. - Exposure Risk Screening:: None identified. - Immunization history:: All immunizations up-to-date. - Social history:: the patient smokes cigarettes the patient drinks alcohol. ROS: 11:15 All systems are negative except as listed. pc Exam: 11:15 General Appearance: no acute distress, alert. pc 11:15 EENT: normal eye inspection, ears, nose and throat normal, pharynx normal, mucous membranes moist 11:15 Neck: The exam reveals no acute abnormalities. ROM is normal and painless. No nuchal rigidity is noted.. 11:15 Respiratory: no respiratory distress, Breath sounds: wheezing, scattered. 11:15 CVS: regular pulse rate, regular rhythm, normal S1 and S2, no murmurs, strong peripheral pulses, normal capillary refill. 11:15 Abdomen: soft, non-tender, no organomegaly, normal bowel sounds. 11:15 Back: normal inspection. 11:15 Skin: skin color is normal, warm, dry. 11:15 Extremities: grossly normal except: noted in the left knee: healing wound at lateral edge of patella superiorly.. 11:15 Neuro: oriented x 3, cranial nerves normal as tested, no motor deficits, no sensory deficits. 11:15 Psych: normal mood. Vital Signs: 09:35 BP 107 / 60; Pulse 93; Resp 18; Temp 96.6(O); Pulse Ox 100% on R/A; Weight 63.5 kg / elp 139.99 lbs (R); Height 5 ft. 5 in. (165.10 cm) (R); 10:14 Resp 30; Temp 98.3(TE); kc3 10:15 Pulse 66 MON; Pulse Ox 100% ; kc3 10:16 BP 119 / 57 (auto/); kc3 10:23 BP 109 / 51 (auto/); kc3 10:26 BP 189 / 83 (auto/); kc3 10:27 Pulse 133 MON; Pulse Ox 100% ; kc3 10:29 BP 114 / 58 (auto/); kc3 10:29 Pulse 69 MON; Pulse Ox 100% ; kc3 10:32 BP 107 / 57 (auto/); kc3 10:32 Pulse 67 MON; Pulse Ox 100% ; kc3 10:34 Pulse 73 MON; Pulse Ox 100% ; kc3 10:35 BP 106 / 55 (auto/); kc3 10:38 BP 121 / 56 (auto/); kc3 10:38 Pulse 65 MON; Pulse Ox 100% ; kc3 10:41 BP 101 / 59 (auto/); kc3 10:41 Pulse 65 MON; Pulse Ox 100% ; kc3 10:50 BP 112 / 62 (auto/); kc3 10:50 Pulse 63 MON; Pulse Ox 100% ; kc3 11:00 BP 118 / 60 (auto/); kc3 11:00 Pulse 62 MON; Pulse Ox 100% ; kc3 11:10 BP 117 / 59 (auto/); kc3 11:10 Pulse 58 MON; Pulse Ox 100% ; kc3 11:20 BP 122 / 63 (auto/); kc3 11:20 Pulse 60 MON; Pulse Ox 100% ; kc3 11:30 BP 123 / 60 (auto/); kc3 11:30 Pulse 57 MON; Pulse Ox 100% ; kc3 11:46 BP 124 / 64; Pulse 60; Resp 22; Temp 97.3(O); Pulse Ox 99% 3 lpm ; Pain 8/10; kc3 09:35 Body Mass Index 23.30 (63.50 kg, 165.10 cm) elp 10:14 Dr. Dickerson aware of pt status. kc3 MDM: 10:14 ECG WITH READING ER PHYS+CARDIAG ordered. EDMS 10:29 Ball Fringe Machine Operator/Pulse Ox/q 15 min VS ordered. pc 10:29 IV Saline Lock ordered. pc 10:29 Rhythm Strip to chart ordered. pc 10:29 Oxygen at 15 Liters/Minute NRB Mask ordered. pc 10:29 Aspirin Chewable Tablet 324 mg PO once ordered. pc 10:30 Plavix - Clopidogrel 300 mg PO once ordered. pc 10:31 B-Type Natiuretic Peptide Ordered. EDMS 10:31 Basic Metabolic Profile Ordered. EDMS 10:31 CBC with Diff Ordered. EDMS 10:31 Cardiac Injury Profile Ordered. EDMS 10:31 Partial Thromboplastin Time Ordered. EDMS 10:31 Prothrombin Time Profile\\E\\INR Ordered. EDMS 10:31 Troponin Ordered. EDMS 10:31 portable chest Ordered. EDMS 10:31 amiodarone 300 mg IVP once ordered. pc 11:01 FT4&TSH PANEL Ordered. EDMS 11:01 MAGNESIUM LEVEL Ordered. EDMS 11:03 heparin (Thrombolytic Protocol, 60 units/kg)) 3800 units IVP once; max 4000 units. pc Ensure no Lovenox in past 18hr, labs drawn ordered. 11:04 heparin (Thrombolytic Protocol, 12 units/kg/hr)) 95206 units IV at 760 units/hr once; pc Max. dose 1000units/hr. No Lovenox past 18hrs/ draw labs. ordered. 11:15 Ondansetron 4 mg IVP once ordered. pc 11:15 Differential Diagnosis: VFib arrest of unknown etiology. Plan: labs, CXR, meds, d/w Dr. corona Moncada. Data reviewed: old medical records, vital signs, nurses notes, EKG(s), lab test results, all radiology studies and available results. Test interpretation: EKG. 11:21 Test interpretation: EKG. pc 11:21 Test interpretation: X-RAY - interpreted by Radiologist and personally reviewed, 1 view pc chest borderline CM, else nad. 11:22 Basic Metabolic Profile Reviewed. pc 11:22 CBC with Diff Reviewed. pc 11:22 Troponin Reviewed. pc 11:22 Cardiac Injury Profile Reviewed. pc 11:22 Partial Thromboplastin Time Reviewed. pc 11:22 Prothrombin Time Profile\\E\\INR Reviewed. pc 11:22 FT4&TSH PANEL Reviewed. pc 11:22 MAGNESIUM LEVEL Reviewed. pc 11:22 The patient has been re-examined and re-evaluated. The patient's symptoms have resolved pc after treatment. Physician consultation: Dr. Nancie Moncada regarding patient's condition, and he accepts in transfer to [facility]. Disposition: The historical points, examination findings, and any diagnostic results supporting the provided diagnosis, were discussed with the patient or legal guardian. The decision to transfer to the patient to another facility was explained, based on the need for a required specialist that [facility] does not immediately have available. 11:34 ECG WITH READING ER PHYS+CARDIAG ordered. EDMS 11:36 Repeat EKG (put time details section) ordered. pc 11:39 ECG WITH READING ER PHYS ordered. EDMS 11:42 Repeat EKG (put time details section) complete. jlf 11:47 Test interpretation: EKG. pc 12:10 Test interpretation: EKG. ED course: Discussed with Dr. Moncada, re: patient's new pc pleuritic chest pain and ST changes inferiorly, and he advises no thrombolysis and to ship to [facility] immediately. 13:53 ECG/EKG was scanned into [employer] and attached to record. gb 13:53 Rhythm Strip was scanned into [employer] and attached to record. gb EC:22 Rate is 68 beats/min. Rhythm is regular, Normal Sinus Rhythm with Occasional PVCs. QRS pc [place] is Normal. CT interval is normal. QRS interval is normal. QT interval is normal. No Q waves. T waves are Normal. ST Segment is elevated in leads aVF, V2, V3, V4, V5, V6, <1mm. Clinical impression: Normal Sinus Rhythm, Nonspecific ST-T changes, and occ. PVC. 10:33 Rate is 67 beats/min. Rhythm is regular, Normal Sinus Rhythm. Left axis deviation pc noted. QRS is negative in leads II, aVF. CT interval is normal. QRS interval is normal. QT interval is normal. No Q waves. T waves are Normal. No ST changes noted. Clinical impression: Normal Sinus Rhythm. 11:47 Rate is 57 beats/min. Rhythm is regular, Sinus bradycardia. QRS [place] is Normal. CT pc interval is normal. QRS interval is normal. QT interval is normal. No Q waves. T waves are Normal. ST Segment is elevated in leads II, III, aVF, <1mm. Clinical impression: Normal Sinus Rhythm and possible early IMII, but asymptomatic. 12:10 Rate is 76 beats/min. Rhythm is regular, Normal Sinus Rhythm with Occasional PVCs. QRS pc [place] is Normal. CT interval is normal. QRS interval is normal. QT interval is normal. No Q waves. T waves are Normal. ST Segment is elevated in leads III, aVF, <1mm. Clinical impression: Normal Sinus Rhythm and Nonspecific ST-T changes. Administered Medications: 10:28 Drug: amiodarone 300 mg [amiodarone 150 mg/100 mL (1.5 mg/mL) in dextrose, iso-osmotic kc3 IV (200 mL)] {Note: administered by AMANDA Cummings.} Route: IVP; Site: left antecubital; 10:41 Drug: Aspirin 324 mg [aspirin 81 mg chewable tablet (4 tabs)] Route: PO; kc3 10:41 Drug: Plavix - Clopidogrel 300 mg [clopidogrel 75 mg tablet (4 tabs)] Route: PO; kc3 11:13 Drug: heparin (Thrombolytic Protocol, 60 units/kg)) 3800 units [heparin (porcine) 5,000 mcp unit/mL injection solution (0.76 mL)] {Co-Signature: artie (Emiliano Yarbrough RN).} Route: IVP; Site: right antecubital; 11:13 Drug: heparin (Thrombolytic Protocol, 12 units/kg/hr)) 93857 units [heparin (porcine) mcp 25,000 unit/250 mL (100 unit/mL) in dextrose 5 % IV] {Co-Signature: artie (Emiliano Yarbrough RN).} Route: IV; Rate: 760 units/hr; Site: right antecubital; 11:24 Drug: Ondansetron 4 mg [ondansetron HCl 2 mg/mL intravenous solution (2 mL)] Route: kc3 IVP; Site: left antecubital; Critical Care Time: 11:22 Critical care time: Bedside Care: 45 minutes, Consultation: 20 minutes, Family pc Intervention: 15 minutes. Total time: 80 minutes Signatures: Dispatcher [employer] Ubaldo Grant MD MD pc Peters, Mary, RN RN Maya Oneill, Terrance Wei RN RN mlShanel Montenegro, JEN FOOD AND BEVERAGE ASSISTANT Hazel Ventura RN RN kc3 Bruce Johnson RN bcj The chart was reviewed and I authenticate all verbal orders and agree with the evaluation and treatment provided.Corrections: (The following items were deleted from the chart) 10:43 09:46 PSHx: none; mlb1 [facility] 11:01 10:52 MAGNESIUM LEVEL+LAB ordered. EDKY EDKY 11:01 10:52 FT4&TSH PANEL+LAB ordered. [facility] EDMS 11:16 11:09 He says he has felt unwell, "like crap", for a few weeks. He has been treated for pc an infected puncture wound to his left knee, with 2 days of ABX left. He awoke at 1am this morning drenched in sweat. He felt SOB but denies any pain. Just as the EKG was performed, while starting this interview, the patient went into VFib arrest. CPR was started by myself and a FOOD AND BEVERAGE ASSISTANT, and the patient moved into a CC room. CPR was continued and he was hooked up to the LifePak and defibrillated once at 300J. He was converted to NSR with frequent PVCs. He regained consciousness soon after defibrillation. He received 300mg of amiodarone pc Attachments: 13:53 ECG/EKG gb Chart Complete MTDD
--- NOTE | 2016-07-01 14:28 | EDDOCDS ---
Physician Documentation [facility] Name: Wilmar Josue Age: 55 yrs Sex: Male : 1960 Arrival Date: 06/27/2016 Time: 09:33 Bed 3 Private MD: Berhane Pereyra MD Disposition: 06/27 11:22 Critical Care:. pc Disposition: 06/27/16 11:24 Transfer ordered to [facility]. Diagnosis are Cardiac arrest, Ventricular fibrillation, Non-ST elevation (NSTEMI) myocardial infarction. - Reason for transfer: Higher level of care. - Accepting physician is Dr. Moncada. - Condition is Stable. - Problem is new. - Symptoms have improved. HPI: 11:09 This 55 yrs old Male presents to ER via Walkin/Carried/Asstd with complaints pc of General Weakness. 11:09 The history is obtained from the patient. He says he has felt unwell, "like crap", for pc a few weeks. He has been treated for an infected puncture wound to his left knee, with 2 days of ABX left. He awoke at 1am this morning drenched in sweat. He felt SOB but denies any pain. Just as the EKG was performed, while starting this interview, the patient went into VFib arrest. CPR was started by myself and a HIGH SCHOOL MUSIC DIRECTOR, and the patient moved into a CC room. CPR was continued and he was hooked up to the LifePak and defibrillated once at 300J. He was converted to NSR with frequent PVCs. He regained consciousness soon after defibrillation. He received 300mg of amiodarone. His pulse is 55-60, his BP 117/59 and his only complaint is of feeling tired. 11:15 The patient has been recently seen at an urgent care, a couple of weeks ago. pc Historical: - Allergies: hydrocodone (Vomit); - Home Meds: 1. unknown antibiotic three times a day - PMHx: Chronic Back pain; hyperlipidemia; vit d defic; Erectile Dysfunction; GERD; - PSHx: left total hip replacement; closed reduction right hip with revision; Endoscopy, Upper; Colonoscopy; Cataract Surgery- Bilateral; - The history from nurses notes was reviewed: and I agree with what is documented. - Social history: Smoking status: Patient uses tobacco products, heavy tobacco smoker. No barriers to communication noted, The patient speaks fluent Polish, Speaks appropriately for age. - Family history: Not pertinent. - : The pt / caregiver states he / she is not on anticoagulants. Home medication list is obtained from the patient. - Hospitalizations: : No recent hospitalization is reported. - Exposure Risk Screening:: None identified. - Immunization history:: All immunizations up-to-date. - Social history:: the patient smokes cigarettes the patient drinks alcohol. ROS: 11:15 All systems are negative except as listed. pc Exam: 11:15 General Appearance: no acute distress, alert. pc 11:15 EENT: normal eye inspection, ears, nose and throat normal, pharynx normal, mucous membranes moist 11:15 Neck: The exam reveals no acute abnormalities. ROM is normal and painless. No nuchal rigidity is noted.. 11:15 Respiratory: no respiratory distress, Breath sounds: wheezing, scattered. 11:15 CVS: regular pulse rate, regular rhythm, normal S1 and S2, no murmurs, strong peripheral pulses, normal capillary refill. 11:15 Abdomen: soft, non-tender, no organomegaly, normal bowel sounds. 11:15 Back: normal inspection. 11:15 Skin: skin color is normal, warm, dry. 11:15 Extremities: grossly normal except: noted in the left knee: healing wound at lateral edge of patella superiorly.. 11:15 Neuro: oriented x 3, cranial nerves normal as tested, no motor deficits, no sensory deficits. 11:15 Psych: normal mood. Vital Signs: 09:35 BP 107 / 60; Pulse 93; Resp 18; Temp 96.6(O); Pulse Ox 100% on R/A; Weight 63.5 kg / elp 139.99 lbs (R); Height 5 ft. 5 in. (165.10 cm) (R); 10:14 Resp 30; Temp 98.3(TE); kc3 10:15 Pulse 66 MON; Pulse Ox 100% ; kc3 10:16 BP 119 / 57 (auto/); kc3 10:23 BP 109 / 51 (auto/); kc3 10:26 BP 189 / 83 (auto/); kc3 10:27 Pulse 133 MON; Pulse Ox 100% ; kc3 10:29 BP 114 / 58 (auto/); kc3 10:29 Pulse 69 MON; Pulse Ox 100% ; kc3 10:32 BP 107 / 57 (auto/); kc3 10:32 Pulse 67 MON; Pulse Ox 100% ; kc3 10:34 Pulse 73 MON; Pulse Ox 100% ; kc3 10:35 BP 106 / 55 (auto/); kc3 10:38 BP 121 / 56 (auto/); kc3 10:38 Pulse 65 MON; Pulse Ox 100% ; kc3 10:41 BP 101 / 59 (auto/); kc3 10:41 Pulse 65 MON; Pulse Ox 100% ; kc3 10:50 BP 112 / 62 (auto/); kc3 10:50 Pulse 63 MON; Pulse Ox 100% ; kc3 11:00 BP 118 / 60 (auto/); kc3 11:00 Pulse 62 MON; Pulse Ox 100% ; kc3 11:10 BP 117 / 59 (auto/); kc3 11:10 Pulse 58 MON; Pulse Ox 100% ; kc3 11:20 BP 122 / 63 (auto/); kc3 11:20 Pulse 60 MON; Pulse Ox 100% ; kc3 11:30 BP 123 / 60 (auto/); kc3 11:30 Pulse 57 MON; Pulse Ox 100% ; kc3 11:46 BP 124 / 64; Pulse 60; Resp 22; Temp 97.3(O); Pulse Ox 99% 3 lpm ; Pain 8/10; kc3 09:35 Body Mass Index 23.30 (63.50 kg, 165.10 cm) elp 10:14 Dr. Dickerson aware of pt status. kc3 MDM: 10:14 ECG WITH READING ER PHYS+CARDIAG ordered. EDMS 10:29 Event Security Officer/Pulse Ox/q 15 min VS ordered. pc 10:29 IV Saline Lock ordered. pc 10:29 Rhythm Strip to chart ordered. pc 10:29 Oxygen at 15 Liters/Minute NRB Mask ordered. pc 10:29 Aspirin Chewable Tablet 324 mg PO once ordered. pc 10:30 Plavix - Clopidogrel 300 mg PO once ordered. pc 10:31 B-Type Natiuretic Peptide Ordered. EDMS 10:31 Basic Metabolic Profile Ordered. EDMS 10:31 CBC with Diff Ordered. EDMS 10:31 Cardiac Injury Profile Ordered. EDMS 10:31 Partial Thromboplastin Time Ordered. EDMS 10:31 Prothrombin Time Profile\\E\\INR Ordered. EDMS 10:31 Troponin Ordered. EDMS 10:31 portable chest Ordered. EDMS 10:31 amiodarone 300 mg IVP once ordered. pc 11:01 FT4&TSH PANEL Ordered. EDMS 11:01 MAGNESIUM LEVEL Ordered. EDMS 11:03 heparin (Thrombolytic Protocol, 60 units/kg)) 3800 units IVP once; max 4000 units. pc Ensure no Lovenox in past 18hr, labs drawn ordered. 11:04 heparin (Thrombolytic Protocol, 12 units/kg/hr)) 43283 units IV at 760 units/hr once; pc Max. dose 1000units/hr. No Lovenox past 18hrs/ draw labs. ordered. 11:15 Ondansetron 4 mg IVP once ordered. pc 11:15 Differential Diagnosis: VFib arrest of unknown etiology. Plan: labs, CXR, meds, d/w Dr. corona Moncada. Data reviewed: old medical records, vital signs, nurses notes, EKG(s), lab test results, all radiology studies and available results. Test interpretation: EKG. 11:21 Test interpretation: EKG. pc 11:21 Test interpretation: X-RAY - interpreted by Radiologist and personally reviewed, 1 view pc chest borderline CM, else nad. 11:22 Basic Metabolic Profile Reviewed. pc 11:22 CBC with Diff Reviewed. pc 11:22 Troponin Reviewed. pc 11:22 Cardiac Injury Profile Reviewed. pc 11:22 Partial Thromboplastin Time Reviewed. pc 11:22 Prothrombin Time Profile\\E\\INR Reviewed. pc 11:22 FT4&TSH PANEL Reviewed. pc 11:22 MAGNESIUM LEVEL Reviewed. pc 11:22 The patient has been re-examined and re-evaluated. The patient's symptoms have resolved pc after treatment. Physician consultation: Dr. Nancie Moncada regarding patient's condition, and he accepts in transfer to [facility]. Disposition: The historical points, examination findings, and any diagnostic results supporting the provided diagnosis, were discussed with the patient or legal guardian. The decision to transfer to the patient to another facility was explained, based on the need for a required specialist that [facility] does not immediately have available. 11:34 ECG WITH READING ER PHYS+CARDIAG ordered. EDMS 11:36 Repeat EKG (put time details section) ordered. pc 11:39 ECG WITH READING ER PHYS ordered. EDMS 11:42 Repeat EKG (put time details section) complete. jlf 11:47 Test interpretation: EKG. pc 12:10 Test interpretation: EKG. ED course: Discussed with Dr. Moncada, re: patient's new pc pleuritic chest pain and ST changes inferiorly, and he advises no thrombolysis and to ship to [facility] immediately. 13:53 ECG/EKG was scanned into [email or web address] and attached to record. gb 13:53 Rhythm Strip was scanned into [email or web address] and attached to record. gb EC:22 Rate is 68 beats/min. Rhythm is regular, Normal Sinus Rhythm with Occasional PVCs. QRS pc [place] is Normal. [place] interval is normal. QRS interval is normal. QT interval is normal. No Q waves. T waves are Normal. ST Segment is elevated in leads aVF, V2, V3, V4, V5, V6, <1mm. Clinical impression: Normal Sinus Rhythm, Nonspecific ST-T changes, and occ. PVC. 10:33 Rate is 67 beats/min. Rhythm is regular, Normal Sinus Rhythm. Left axis deviation pc noted. QRS is negative in leads II, aVF. ND interval is normal. QRS interval is normal. QT interval is normal. No Q waves. T waves are Normal. No ST changes noted. Clinical impression: Normal Sinus Rhythm. 11:47 Rate is 57 beats/min. Rhythm is regular, Sinus bradycardia. QRS [place] is Normal. ND pc interval is normal. QRS interval is normal. QT interval is normal. No Q waves. T waves are Normal. ST Segment is elevated in leads II, III, aVF, <1mm. Clinical impression: Normal Sinus Rhythm and possible early IMII, but asymptomatic. 12:10 Rate is 76 beats/min. Rhythm is regular, Normal Sinus Rhythm with Occasional PVCs. QRS pc [place] is Normal. ND interval is normal. QRS interval is normal. QT interval is normal. No Q waves. T waves are Normal. ST Segment is elevated in leads III, aVF, <1mm. Clinical impression: Normal Sinus Rhythm and Nonspecific ST-T changes. Administered Medications: 10:28 Drug: amiodarone 300 mg [amiodarone 150 mg/100 mL (1.5 mg/mL) in dextrose, iso-osmotic kc3 IV (200 mL)] {Note: administered by AMANDA Cummings.} Route: IVP; Site: left antecubital; 10:41 Drug: Aspirin 324 mg [aspirin 81 mg chewable tablet (4 tabs)] Route: PO; kc3 10:41 Drug: Plavix - Clopidogrel 300 mg [clopidogrel 75 mg tablet (4 tabs)] Route: PO; kc3 11:13 Drug: heparin (Thrombolytic Protocol, 60 units/kg)) 3800 units [heparin (porcine) 5,000 mcp unit/mL injection solution (0.76 mL)] {Co-Signature: artie (Emiliano Yarbrough RN).} Route: IVP; Site: right antecubital; 11:13 Drug: heparin (Thrombolytic Protocol, 12 units/kg/hr)) 58848 units [heparin (porcine) mcp 25,000 unit/250 mL (100 unit/mL) in dextrose 5 % IV] {Co-Signature: artie (Emiliano Yarbrough RN).} Route: IV; Rate: 760 units/hr; Site: right antecubital; 11:24 Drug: Ondansetron 4 mg [ondansetron HCl 2 mg/mL intravenous solution (2 mL)] Route: kc3 IVP; Site: left antecubital; Critical Care Time: 11:22 Critical care time: Bedside Care: 45 minutes, Consultation: 20 minutes, Family pc Intervention: 15 minutes. Total time: 80 minutes Signatures: Dispatcher [employer] Ubaldo Grant MD MD pc Peters, Mary, RN RN Maya Oneill, Terrance Wei RN RN mlShanel Montenegro, JEN HIGH SCHOOL MUSIC DIRECTOR Hazel Ventura RN RN kc3 Bruce Johnson RN bcj The chart was reviewed and I authenticate all verbal orders and agree with the evaluation and treatment provided.Corrections: (The following items were deleted from the chart) 10:43 09:46 PSHx: none; mlb1 [facility] 11:01 10:52 MAGNESIUM LEVEL+LAB ordered. EDAR EDAR 11:01 10:52 FT4&TSH PANEL+LAB ordered. [facility] EDMS 11:16 11:09 He says he has felt unwell, "like crap", for a few weeks. He has been treated for pc an infected puncture wound to his left knee, with 2 days of ABX left. He awoke at 1am this morning drenched in sweat. He felt SOB but denies any pain. Just as the EKG was performed, while starting this interview, the patient went into VFib arrest. CPR was started by myself and a HIGH SCHOOL MUSIC DIRECTOR, and the patient moved into a CC room. CPR was continued and he was hooked up to the LifePak and defibrillated once at 300J. He was converted to NSR with frequent PVCs. He regained consciousness soon after defibrillation. He received 300mg of amiodarone pc Attachments: 13:53 ECG/EKG gb Chart Complete MTDD
== END 2016-06-27 11:49 | disposition short-term general hospital (02) ==
LOC: M ED 09:33
DX: I21.4 Non-ST elevation (NSTEMI) myocardial infarction (principal); I49.01 Ventricular fibrillation; I46.9 Cardiac arrest, cause unspecified; E78.5 Hyperlipidemia, unspecified; K21.9 Gastro-esophageal reflux disease without esophagitis; M54.9 Dorsalgia, unspecified; G89.29 Other chronic pain; E55.9 Vitamin D deficiency, unspecified; N52.9 Male erectile dysfunction, unspecified; Z88.5 Allergy status to narcotic agent; F17.210 Nicotine dependence, cigarettes, uncomplicated
CPT/HCPCS: 36415; 71010; 80048; 82550; 82553; 83735; 83880; 84439; 84443; 85025; 85610; 85730; 92950; 93005; 93041; 96374; 96375; 99291; J0282; J2405

== ENCOUNTER → 2016-07-03 | Outpatient (REF) | payer OTHER, MEDICAID ==
[2016-07-03 15:43] LABS: ALBUMIN 3.6 GM/DL (3.2-5.2); ALBUMIN/GLOBULIN RATIO 0.92 (1.00-1.93); ALKALINE PHOSPHATASE 92 U/L (45-117); ALT/SGPT 57 U/L (12-78); ANION GAP 8 MEQ/L (8-16); AST/SGOT 26 U/L (15-37); BILIRUBIN,TOTAL 0.7 MG/DL (0.2-1.0); BLOOD UREA NITROGEN 27 MG/DL (7-18); CALCIUM LEVEL 9.5 MG/DL (8.5-10.1); CARBON DIOXIDE LEVEL 30 MEQ/L (21-32); CHLORIDE LEVEL 104 MEQ/L (98-107); CHOLESTEROL LEVEL 193 MG/DL (<200); FREE T4 1.05 NG/DL (0.76-1.46); GLOMERULAR FILTRATION RATE > 60.0 (>56); GLUCOSE, FASTING 93 MG/DL (70-105); MAGNESIUM LEVEL 2.3 MG/DL (1.8-2.4); POTASSIUM SERUM 4.8 MEQ/L (3.5-5.1); SODIUM LEVEL 142 MEQ/L (136-145); TOTAL PROTEIN 7.5 GM/DL (6.4-8.2); TRIGLYCERIDES LEVEL 205 MG/DL (<150)
[2016-07-03 15:57] LABS: MEAN CORPUSCULAR HEMOGLOBIN 31.3 pg (27.0-33.0); MEAN CORPUSCULAR HGB CONC 32.9 g/dl (32.0-36.5); MEAN CORPUSCULAR VOLUME 95.2 fl (80.0-96.0); WHITE BLOOD COUNT 10.6 K/mm3 (4.0-10.0)
== END | disposition home or self-care (01) ==
LOC: M SFHCADAM 10:17
PROVIDERS: ATTEND Family Medicine
DX: I21.4 Non-ST elevation (NSTEMI) myocardial infarction (principal); I47.2 Ventricular tachycardia; E78.5 Hyperlipidemia, unspecified

== ENCOUNTER 2016-07-10 07:02 | Inpatient (IN) | payer MEDICAID, OTHER ==
[~2016-07-10] VITALS: Ht 162.6 cm; Wt 63.7 kg
[2016-07-10] MEDS ORDERED: AMIODARONE HCL 150 MG/100 ML PREMIXED BAG (NEXTERONE) As Ordered ONE (07:24)
[2016-07-10 07:36] LABS: BASO # 0.2 K/mm3 (0.0-0.2); BASO % 1.7 % (0.0-1.0); EOS # 0.2 K/mm3 (0.0-0.50); EOS % 1.7 % (0.0-3.0); LARGE UNSTAINED CELL # 0.3 K/mm3 (0.0-0.4); LARGE UNSTAINED CELL % 2.7 % (0.0-4.0); LYMPH # 2.6 K/mm3 (1.5-4.5); LYMPH % 21.7 % (24.0-44.0); MEAN CORPUSCULAR HEMOGLOBIN 30.8 pg (27.0-33.0); MEAN CORPUSCULAR HGB CONC 32.5 g/dl (32.0-36.5); MEAN CORPUSCULAR VOLUME 94.6 fl (80.0-96.0); MONO # 0.5 K/mm3 (0.0-0.8); NEUTROPHILS # 7.1 K/mm3 (1.8-7.7); NEUTROPHILS % 67.2 % (36.0-66.0); PLATELET COUNT, AUTOMATED 381 k/mm3 (150-450); RED CELL DISTRIBUTION WIDTH 14.7 % (11.5-14.5); WHITE BLOOD COUNT 10.6 K/mm3 (4.0-10.0)
--- NOTE | 2016-07-10 07:46 | REP ---
Clinical: Chest pain . Comparison: 06/27/2016 . Findings: The mediastinum and cardiac silhouette are stable and within normal limits for portable technique. The lung varma are clear without acute consolidation, effusion, or pneumothorax. Skeletal structures are intact. Impression: Normal portable chest x-ray Signed by Anish Hale MD 07/10/2016 07:37 A
[2016-07-10] MEDS ORDERED: AMIODARONE HCL 360 MG/200 ML PREMIXED BAG (NEXTERONE) As Ordered ONE (07:48)
[2016-07-10 07:58] LABS: ANION GAP 9 MEQ/L (8-16); BLOOD UREA NITROGEN 20 MG/DL (7-18); CALCIUM LEVEL 9.1 MG/DL (8.5-10.1); CARBON DIOXIDE LEVEL 24 MEQ/L (21-32); CHLORIDE LEVEL 109 MEQ/L (98-107); CREATININE FOR GFR 0.83 MG/DL (0.70-1.30); FREE T4 1.16 NG/DL (0.76-1.46); GLOMERULAR FILTRATION RATE > 60.0 (>56); GLUCOSE, FASTING 107 MG/DL (70-105); PHOSPHORUS LEVEL 0.9 MG/DL (2.5-4.9); POTASSIUM SERUM 4.1 MEQ/L (3.5-5.1); SODIUM LEVEL 142 MEQ/L (136-145)
[2016-07-10] MEDS ORDERED: AMIODARONE HCL 360 MG in APPROPRIATE DILUENT 1 EA IV SCH (08:00)
[2016-07-10] MEDS ORDERED: NEUTRA-PHOS 1.25 GM PACKET PO ONE (08:45)
[2016-07-10] MEDS ORDERED: METO25TA74 PO (09:08)
[2016-07-10] MEDS ORDERED: ASPI1TAB PO (09:08)
[2016-07-10 09:55] VITALS: BP 118/68
--- NOTE | 2016-07-10 11:13 | CR.PDOC ---
[facility] Cardiology Consultation Date of Consultation 07/10/16 Cadiology Consultation REFERRING PHYSICIAN: REASON FOR REFERRAL: Defibrillator discharge HISTORY OF PRESENT ILLNESS: Mr Josue is a 55 y/o male who presents after his defibrillator discharged early this morning. The patient states that two days ago, he woke up in a sweat and had to relocate himself from his bedroom to his couch, where he subsequently fell asleep again. The patient states that he was seen at [facility] Jun 27, 2016 after presenting to [facility] for syncope, upon arrival to our facility he experienced cardiac from ventricular fibrillation, was defibrillated and then transferred to [facility] for angiogram. The cardiac catheterization done at [facility] on 06-27-2016 showed no blockages, thus he had no stent placement. He received a dual chamber defibrillator for prevention of sudden cardiac arrest and bradycardia. He also demonstrated sustained ventricular tachycardia while at [facility]. The patient denies taking any new [id number] or pain medications recently. PAST MEDICAL: chronic back pain GERD hyperlipidemia vitamin D Deficiency SURGICAL HISTORY: b/l cataract surgery FAMILY HISTORY: Uncle had a myocardial infarction of which he from, grandmother had pacemaker implantation. SOCIAL HISTORY: Has not drank in 2-4 weeks, active smoker. 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 REVIEW OF SYSTEMS: Cardiovascular: denies chest pain, palpitations, shortness of breath, syncope. Respiratory: Denies shortness of breath, wheezing or cough. GI/: Denies changes in urinary or bowel habits. HEENT: Denies headache, or blurred vision. . All other 10 point review of systems questions negative. PHYSICAL EXAMINATION: VITAL SIGNS: Please see below. GENERAL APPEARANCE: Appears comfortable, patient is laying in hospital bed, in no active distress. EYES: EOMI ENT/Mouth: Tongue midline, moist mucous membranes. NECK: No JVD appreciated. EXTREMITIES: No edema, cyanosis, clubbing appreciated. SKIN: Intact NEUROLOGIC/PSYCHOLOGIC: No focal deficits appreciated, affect is appropriate. HEART: Normal S1, S2, no murmurs, gallops, rubs appreciated with rate in the 90s. ARTERIAL PULSES: +2 radial bilaterally, +2 dorsalis pedis bilaterally. ABDOMEN: Soft, nondistended. ALLERGIES: Please see below. HOME MEDICATIONS: Please see below. CURRENT MEDICATIONS: Please see below. Electrocardiogram: 06/27/2016. Sinus bradycardia, nonspecific ST changes. LABORATORY DATA: Please see below. IMAGING: Chest x-ray 07/10/2016 Normal portable chest x-ray ASSESSMENT/PLAN: Will obtain old medical records from [facility]. Patient takes aspirin and metoprolol 25 mg daily at home, also given Plavix medical therapy, would suggest continuation of these medications. Interrogation of the patients device showed multiple discharges due to ventricular tachycardia rhythm that occurred early this morning, most spontaneously terminated, however at 6:30 AM the patient apparently had sustaned ventricular tachycardia and was defibrillated twice. It appears that he usually begins with PVC's and then will enter the v. tach. Most recent echocardiogram showed no LV dysfunction, this was done 2 weeks ago at [facility]. After conversation with the EP in [place], it appears that in this relatively young male with no cardiac history and minimal risk factors, that this sudden presentation may be hereditary such as cardiac sarcoid or right ventricular dysplasia. He is on IV Amiodorone therapy now, we will continue this and also add on Amiododonr 400 mg TID. There is a plan in place for cardiac MRI in [place], as per EP physician. However the patient must wait 6 weeks past the device implantation for cardiac MRI to be performed, thus he will be medically managed until that point. No further recommendations at this time. Thank you kindly for asking me to participate in the care of your patient. 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 Appropriate ICD discharges. D/w - EP. Plan for Amiodarone iv and po loading. If effective tentative discharge in 2-3 days. Vital Signs/I&O Vital Signs Date Time Temp Pulse Resp B/P Pulse Ox O2 Delivery O2 Flow Rate FiO2 07/10/16 09:55 98.6 60 20 118/68 97 Room Air Laboratory Data Labs 24H Laboratory Tests 2 07/10/16 07:25: Anion Gap 9, Blood Urea Nitrogen 20H, Creatinine 0.83, Sodium Level 142, Potassium Level 4.1, Chloride Level 109H, Carbon Dioxide Level 24, Calcium Level 9.1, Phosphorus Level 0.9L, Total Creatine Kinase 51, Creatine Kinase MB 1.0, Creatine Kinase MB Relative Index 1.96, Free Thyroxine 1.16, Glomerular Filtration Rate > 60.0, Magnesium Level 2.0, Thyroid Stimulating Hormone (TSH) 4.330H, Troponin I < 0.02 07/10/16 07:26: White Blood Count 10.6H, Red Blood Count 4.49, Hemoglobin 13.8L, Hematocrit 42.5 , Mean Corpuscular Volume 94.6, Mean Corpuscular Hemoglobin 30.8, Mean Corpuscular Hemoglobin Concent 32.5, Red Cell Distribution Width 14.7H, Platelet Count 381, Neutrophils (%) (Auto) 67.2H, Lymphocytes (%) (Auto) 21.7L, Monocytes (%) (Auto) 5.0, Eosinophils (%) (Auto) 1.7, Basophils (%) (Auto) 1.7H , Neutrophils # (Auto) 7.1, Lymphocytes # (Auto) 2.6, Monocytes # (Auto) 0.5, Eosinophils # (Auto) 0.2, Basophils # (Auto) 0.2, Large Unclassified Cells # 0.3 , Large Unclassified Cells % 2.7 CBC/BMP Laboratory Tests 07/10/16 07:25 Calcium Level 9.1, Phosphorus Level 0.9 L, Total Creatine Kinase 51 07/10/16 07:26 Red Blood Count 4.49, Mean Corpuscular Volume 94.6, Mean Corpuscular Hemoglobin 30.8, Mean Corpuscular Hemoglobin Concent 32.5, Red Cell Distribution Width 14.7 H, Neutrophils (%) (Auto) 67.2 H, Lymphocytes (%) (Auto) 21.7 L, Monocytes (%) (Auto) 5.0, Eosinophils (%) (Auto) 1.7, Basophils (%) (Auto) 1.7 H, Neutrophils # (Auto) 7.1, Lymphocytes # (Auto) 2.6, Monocytes # (Auto) 0.5, Eosinophils # (Auto) 0.2, Basophils # (Auto) 0.2 Home Medications Scheduled Aspirin (Aspirin 81) 81 Mg Tab 81 MG PO QHS (Reported) Metoprolol Succinate (Metoprolol Succinate ER) 25 Mg Tab 25 MG PO QHS (Reported ) Current Medications Current Medications Medications (Trade) Dose Ordered Sig/Fariba Route PRN Reason Start Time Stop Time Status Last Admin Dose Admin Home Med (Med Rec Complete!) ASDIRECTED XX 07/10/16 09:15 07/10/16 09:15 DC Allergies Allergies: Coded Allergies: Hydrocodone (Unverified Adverse Reaction, Unknown, N/V, 09/09/12) NORMA QIULES DO Jul 10, 2016 11:13 Meggan Dao MD Jul 11, 2016 23:40
[2016-07-10 11:35] LABS: CREATININE FOR GFR 0.65 MG/DL (0.70-1.30); GLOMERULAR FILTRATION RATE > 60.0 (>56)
--- NOTE | 2016-07-10 13:04 | EDDOCDS ---
Physician Documentation [facility] Name: Wilmar Josue Age: 55 yrs Sex: Male : 1960 Arrival Date: 07/10/2016 Time: 07:02 Bed 3 Private MD: Berhane Pereyra MD Disposition: 07/10/16 08:59 Hospitalization ordered by Marco Antonio Jackson for Inpatient Admission. Preliminary diagnosis is Ventricular tachycardia - Hypophosphatemia. - Bed requested for PCU. - Status is Inpatient Admission. jc4 - Condition is Stable. - Problem is new. - Symptoms are unchanged. Historical: - Allergies: hydrocodone (Vomit); - Home Meds: 1. metoprolol succinate 25 mg Tb24 1 tab once daily 2. aspirin 81 mg Oral tab 1 tab once daily - PMHx: Chronic Back pain; GERD; hyperlipidemia; vit d defic; - PSHx: Cataract Surgery- Bilateral; - Social history: Smoking status: Patient states former smoker of tobacco. No barriers to communication noted. - Family history: Not pertinent. - : The pt / caregiver states he / she is not on anticoagulants. Home medication list is obtained from the patient, Home medication list is obtained from the patient. - Exposure Risk Screening:: None identified. Vital Signs: 07/10 07:10 BP 161 / 83 (auto/); ja5 07:11 Pulse 73 MON; Pulse Ox 100% ; ja5 07:14 Pulse 71 MON; Pulse Ox 100% ; ja5 07:15 BP 148 / 71 (auto/); ja5 07:19 BP 148 / 71; Pulse 91; Resp 24; Temp 97.6(O); Pulse Ox 99% ; Pain 0/10; ja5 07:23 Weight 68.72 kg / 151.5 lbs (M); Height 5 ft. 4 in. (162.56 cm); jrd 07:29 Pulse 73 MON; Pulse Ox 100% ; ja5 07:30 BP 146 / 79 (auto/); ja5 07:44 Pulse 67 MON; Pulse Ox 100% ; ja5 07:45 BP 143 / 72 (auto/); ja5 07:59 Pulse 63 MON; Pulse Ox 99% ; ja5 08:00 BP 129 / 67 (auto/); ja5 08:14 Pulse 61 MON; Pulse Ox 97% ; ja5 08:15 BP 122 / 70 (auto/); ja5 08:29 Pulse 64 MON; Pulse Ox 97% ; ja5 08:30 BP 130 / 73 (auto/); ja5 08:44 Pulse 61 MON; Pulse Ox 97% ; ja5 08:45 BP 116 / 64 (auto/); ja5 08:59 Pulse 67 MON; Pulse Ox 98% ; ja5 09:00 BP 119 / 63 (auto/); ja5 09:14 Pulse 67 MON; Pulse Ox 97% ; ja5 09:15 BP 123 / 69 (auto/); ja5 09:29 Pulse 65 MON; Pulse Ox 98% ; ja5 09:30 BP 130 / 68 (auto/); ja5 09:44 Pulse 65 MON; Pulse Ox 98% ; ja5 09:45 BP 118 / 68 (auto/); ja5 09:59 Pulse 60 MON; Pulse Ox 98% ; ja5 10:00 BP 107 / 63 (auto/); ja5 10:14 Pulse 66 MON; Pulse Ox 97% ; ja5 10:15 BP 143 / 80 (auto/); ja5 10:29 Pulse 65 MON; Pulse Ox 98% ; ja5 10:30 BP 121 / 79 (auto/); ja5 10:44 Pulse 72 MON; Pulse Ox 97% ; ja5 10:45 BP 120 / 61 (auto/); ja5 10:59 Pulse 65 MON; Pulse Ox 97% ; ja5 11:00 BP 121 / 68 (auto/); ja5 11:14 Pulse 64 MON; Pulse Ox 97% ; ja5 11:15 BP 118 / 68 (auto/); ja5 11:29 Pulse 66 MON; Pulse Ox 97% ; ja5 11:30 BP 118 / 67 (auto/); ja5 11:45 BP 145 / 109 (auto/); jc4 11:45 Pulse 60 MON; Pulse Ox 97% ; jc4 11:49 BP 125 / 63; Pulse 62; Resp 16; Temp 98.0(A); Pulse Ox 98% on R/A; Pain 0/10; ja5 11:49 BP 125 / 63 (auto/); jc4 11:49 Pulse 66 MON; Pulse Ox 98% ; jc4 12:00 BP 120 / 76 (auto/); jc4 12:00 Pulse 67 MON; Pulse Ox 98% ; jc4 12:15 BP 121 / 76 (auto/); jc4 12:15 Pulse 64 MON; Pulse Ox 96% ; jc4 12:30 BP 120 / 70 (auto/); jc4 12:30 Pulse 62 MON; Pulse Ox 98% ; jc4 12:45 BP 120 / 59 (auto/); jc4 12:45 Pulse 65 MON; Pulse Ox 97% ; jc4 12:57 BP 123 / 65; Pulse 65; Resp 20; Temp 99.5(TE); Pulse Ox 97% on R/A; Pain 0/10; jc4 07:23 Body Mass Index 26.00 (68.72 kg, 162.56 cm) jrd MDM: 07:09 ECG WITH READING ER PHYS+CARDIAG ordered. EDMS 07:17 Boat Fueler/Pulse Ox/q 30 min VS ordered. br1 07:17 IV Saline Lock ordered. br1 07:17 Rhythm Strip to chart ordered. br1 07:17 Undress patient appropriately for examination ordered. br1 07:17 Basic Metabolic Profile Ordered. EDMS 07:17 CBC with Diff Ordered. EDMS 07:17 Cardiac Injury Profile Ordered. EDMS 07:17 Troponin Ordered. EDMS 07:17 Magnesium Level Ordered. EDMS 07:17 Phosphorous Level Ordered. EDMS 07:17 TSH with Free T4 Ordered. EDMS 07:18 Chest, 1 View Ordered. EDMS 07:27 amiodarone 150 mg IVP once ordered. br1 07:38 Misc Printing Grey Cloth Tender Order ordered. br1 07:45 amiodarone- Slow load (1mg/min) 360 mg IV at 33 mL/hr continuous over 6 hrs; br1 360mg/200mL D5W ordered. 07:45 Misc Printing Grey Cloth Tender Order complete. lbd 07:47 Financial registration complete. lg 08:00 [facility] Payment Agreement was scanned into [employer] and attached to record. lg 08:10 Basic Metabolic Profile Reviewed. br1 08:10 CBC with Diff Reviewed. br1 08:10 Phosphorous Level Reviewed. br1 08:10 TSH with Free T4 Reviewed. br1 08:10 Cardiac Injury Profile Reviewed. br1 08:10 Troponin Reviewed. br1 08:10 Magnesium Level Reviewed. br1 08:10 Chest, 1 View Reviewed. br1 08:12 Potassium & Sodium Phosphates Packet 280 mg-160 mg-250 mg 1 packets PO once; mix packet br1 with 75ml water or juice, stir well and administer promptly ordered. 08:33 BED REQUEST+ADM ordered. EDMS 11:00 Admission / Observation Status ordered. EDMS 11:00 Admission / Observation Status ordered. EDMS 11:00 ELECTROCARDIOGRAM ADULT ordered. EDMS 11:00 REGULAR DIET ordered. EDMS 11:01 CREATININE Ordered. EDMS 11:01 TROPONIN Ordered. EDMS 11:01 TROPONIN Ordered. EDMS 11:01 CARDIAC INJURY PROFILE Ordered. EDMS 11:02 CARDIAC INJURY PROFILE Ordered. EDMS Administered Medications: 07:28 Drug: amiodarone 150 mg [amiodarone 150 mg/100 mL (1.5 mg/mL) in dextrose, iso-osmotic jc4 IV (100 mL)] Route: IVP; Site: right antecubital; 07:39 Follow up: IV infusion complete jc4 07:55 Drug: amiodarone- Slow load (1mg/min) 360 mg [amiodarone 360 mg/200 mL (1.8 mg/mL) in ja5 dextrose, iso-osmotic IV] Route: IV; Rate: 33 mL/hr; Infused Over: 6 hrs; Site: right antecubital; 13:01 Follow up: IV Status: Infusion continued upon admit; IV Intake: 150ml 4 09:08 Drug: Potassium & Sodium Phosphates 1 packets [potassium, sodium phosphates 280 mg-160 ja5 mg-250 mg oral powder packet (1 powder in packet)] Route: PO; Signatures: Dispatcher [employer] EDMS Danette Miguel, Packing Room Worker Unit lbd Milind Erwin, Reg Reg lg Dave Corrales MD MD br1 Hilary Oliver, RN RN jc4 Xenia Koch RN RN lmg Anderson, JessicaRN RN ja5 The chart was reviewed and I authenticate all verbal orders and agree with the evaluation and treatment provided.Attachments: 08:00 [facility] Payment Agreement lg [email or web address]
--- NOTE | 2016-07-10 13:04 | EDDOCDS ---
Nurse's Notes Name: Wilmar Josue Age: 55 yrs Sex: Male : 1960 Arrival Date: 07/10/2016 Time: 07:02 Bed 3 Private MD: Berhane Pereyra MD Diagnosis: Ventricular tachycardia-Hypophosphatemia Presentation: 07/10 07:05 Presenting complaint: Patient states: Defib went off at 05:00 and 06:15, woke patient ja5 from a dream. He called EMS. Presenting complaint: EMS states: 06/27 came from [facility] with pacemaker, difib implant after MO. Today he awoke to defib going off in his chest 05:00 and again at 06:15. EMS arrived and patient went into vtach, 150mg amiodarone. Vtach became intermittent. Patient arrived to ED in . Adult Sepsis Screening: The patient does not have new or worsening altered mentation. Patient has a respiratory rate of greater than or equal to 22 (1 point). Adult Sepsis Screening: Systolic blood pressure is greater than 100. Patient has a qSOFA score of 1- Negative Sepsis Screen. Suicide/Homicide risk assessment- the patient denies having any suicidal and/or homicidal ideations and does not present with any other emotional, behavioral or mental health complaints. Status: Patient is not a medical services coordinator or dependent. Transition of care: patient was not received from another setting of care. 07:05 Acuity: TRACEY Level 2 ja5 07:05 Method Of Arrival: Ambulance ja5 Triage Assessment: 07:15 General: Appears distressed, Behavior is anxious, cooperative. Pain: Denies pain. Pt ja5 Declines HIV testing. Neurological: Level of Consciousness is awake, alert, Oriented to person, place, time. Cardiovascular: Rhythm is sinus rhythm No ectopy. Respiratory: Airway is patent Respiratory effort is even, labored. Derm: Skin is intact, Skin is pink, warm & dry. Historical: - Allergies: hydrocodone (Vomit); - Home Meds: 1. metoprolol succinate 25 mg Tb24 1 tab once daily 2. aspirin 81 mg Oral tab 1 tab once daily - PMHx: Chronic Back pain; GERD; hyperlipidemia; vit d defic; - PSHx: Cataract Surgery- Bilateral; - Social history: Smoking status: Patient states former smoker of tobacco. No barriers to communication noted. - Family history: Not pertinent. - : The pt / caregiver states he / she is not on anticoagulants. Home medication list is obtained from the patient, Home medication list is obtained from the patient. - Exposure Risk Screening:: None identified. Screenin:28 Screening information is obtained from the patient. Fall risk: No risks identified. ja5 07:29 Assistance ADL's: requires no assistance with activities of daily living. Abuse/DV ja5 Screen: The patient / caregiver reports he/she is: not in a situation that causes fear, pain or injury. Nutritional screening: On no prescribed diet. Advance Directives: Currently, there is no health care proxy. There is no active DNR order. There is no living will. There is no Power of Private Duty Rn. home support is adequate. Assessment: 07:21 General: Appears comfortable, Behavior is anxious, cooperative. Pain: Denies pain. ja5 Neurological: Level of Consciousness is awake, alert, Oriented to person, place, time. Cardiovascular: Capillary refill Heart tones S1 S2 present Rhythm is SR with intermittent vtac. Respiratory: Airway is patent Respiratory effort is even, unlabored. Derm: Skin is intact, Skin is pink, warm & dry. 08:53 General: Dr. Dao in to examine patient at this time. jc4 09:09 General: Patient resting in stretcher, no complaints of pain or dizziness at this time..ja5 10:07 General: Patient resting comfortably in stretcher, in no apparent distress, HR 69 NSR ja5 at this time, color is pink, IV amiodarone infusing, IV site x2 are clear.. Respiratory: Breath sounds are clear bilaterally. 11:52 General: Patient eating lunch in stretcher, no pain or dizziness noted, color is pink, ja5 amiodarone is still infusing through IV at this time.. 13:00 General: Appears in no apparent distress, comfortable, Behavior is cooperative. Pain: jc4 Denies pain. Neurological: Level of Consciousness is awake, alert, Oriented to person, place, time, Denies dizziness. Cardiovascular: Capillary refill < 3 seconds Rhythm is sinus rhythm with unifocal PVCs. Respiratory: Airway is patent Respiratory effort is even, unlabored, Respiratory pattern is regular, symmetrical. Derm: Skin is pink, warm & dry. Vital Signs: 07:10 BP 161 / 83 (auto/); ja5 07:11 Pulse 73 MON; Pulse Ox 100% ; ja5 07:14 Pulse 71 MON; Pulse Ox 100% ; ja5 07:15 BP 148 / 71 (auto/); ja5 07:19 BP 148 / 71; Pulse 91; Resp 24; Temp 97.6(O); Pulse Ox 99% ; Pain 0/10; ja5 07:23 Weight 68.72 kg (M); Height 5 ft. 4 in. (162.56 cm); jrd 07:29 Pulse 73 MON; Pulse Ox 100% ; ja5 07:30 BP 146 / 79 (auto/); ja5 07:44 Pulse 67 MON; Pulse Ox 100% ; ja5 07:45 BP 143 / 72 (auto/); ja5 07:59 Pulse 63 MON; Pulse Ox 99% ; ja5 08:00 BP 129 / 67 (auto/); ja5 08:14 Pulse 61 MON; Pulse Ox 97% ; ja5 08:15 BP 122 / 70 (auto/); ja5 08:29 Pulse 64 MON; Pulse Ox 97% ; ja5 08:30 BP 130 / 73 (auto/); ja5 08:44 Pulse 61 MON; Pulse Ox 97% ; ja5 08:45 BP 116 / 64 (auto/); ja5 08:59 Pulse 67 MON; Pulse Ox 98% ; ja5 09:00 BP 119 / 63 (auto/); ja5 09:14 Pulse 67 MON; Pulse Ox 97% ; ja5 09:15 BP 123 / 69 (auto/); ja5 09:29 Pulse 65 MON; Pulse Ox 98% ; ja5 09:30 BP 130 / 68 (auto/); ja5 09:44 Pulse 65 MON; Pulse Ox 98% ; ja5 09:45 BP 118 / 68 (auto/); ja5 09:59 Pulse 60 MON; Pulse Ox 98% ; ja5 10:00 BP 107 / 63 (auto/); ja5 10:14 Pulse 66 MON; Pulse Ox 97% ; ja5 10:15 BP 143 / 80 (auto/); ja5 10:29 Pulse 65 MON; Pulse Ox 98% ; ja5 10:30 BP 121 / 79 (auto/); ja5 10:44 Pulse 72 MON; Pulse Ox 97% ; ja5 10:45 BP 120 / 61 (auto/); ja5 10:59 Pulse 65 MON; Pulse Ox 97% ; ja5 11:00 BP 121 / 68 (auto/); ja5 11:14 Pulse 64 MON; Pulse Ox 97% ; ja5 11:15 BP 118 / 68 (auto/); ja5 11:29 Pulse 66 MON; Pulse Ox 97% ; ja5 11:30 BP 118 / 67 (auto/); ja5 11:45 BP 145 / 109 (auto/); jc4 11:45 Pulse 60 MON; Pulse Ox 97% ; jc4 11:49 BP 125 / 63; Pulse 62; Resp 16; Temp 98.0(A); Pulse Ox 98% on R/A; Pain 0/10; ja5 11:49 BP 125 / 63 (auto/); jc4 11:49 Pulse 66 MON; Pulse Ox 98% ; jc4 12:00 BP 120 / 76 (auto/); jc4 12:00 Pulse 67 MON; Pulse Ox 98% ; jc4 12:15 BP 121 / 76 (auto/); jc4 12:15 Pulse 64 MON; Pulse Ox 96% ; jc4 12:30 BP 120 / 70 (auto/); jc4 12:30 Pulse 62 MON; Pulse Ox 98% ; jc4 12:45 BP 120 / 59 (auto/); jc4 12:45 Pulse 65 MON; Pulse Ox 97% ; jc4 12:57 BP 123 / 65; Pulse 65; Resp 20; Temp 99.5(TE); Pulse Ox 97% on R/A; Pain 0/10; jc4 07:23 Body Mass Index 26.00 (68.72 kg, 162.56 cm) [facility] Vitals: 07:19 Log In Time: July 10, 2016 at 07:10. ja5 ED Course: 07:03 Patient visited by Danette Miguel, International Specialist. lbd 07:03 Patient moved to Waiting lbd 07:04 Berhane Pereyra is Private Physician. lbd 07:04 Agnes Jamil,RN is Primary Nurse. lbd 07:04 Patient moved to 3 lbd 07:12 Triage Initiated ja5 07:12 The patient / caregiver is instructed regarding the plan of care and ED course. Cardiac ja5 monitor on. Pulse ox on. NIBP on. 07:19 EKG done. (by ED staff). Reviewed by Dave Corrales MD. jrd 07:24 Patient visited by Berhane Buchanan PCA. jrd 07:27 Dave Corrales MD is Attending Physician. br1 07:27 Patient visited by Dave Corrales MD. br1 07:29 Inserted saline lock: 20 gauge in right antecubital area The patient tolerated the jc4 procedure well. 07:30 Hilary Oliver, AMANDA is Primary Nurse. jc4 07:32 Maintain field IV. Dressing intact. Site clean & dry. Gauge & site: 18g LAC. ja5 07:56 Chest, 1 View Returned. EDMS 08:00 [facility] Payment Agreement was scanned into [employer] and attached to record. lg 08:21 Patient visited by Rimma Romero PCA. ct3 08:53 Patient visited by Hilary Oliver, AMANDA. jc4 08:54 Primary Nurse role handed off by Agnes Jamil RN jc4 08:59 Marco Antonio Jackson MD is Hospitalizing Provider. br1 09:09 Patient visited by Mindy Josue,AMANDA. ja5 10:11 Patient visited by Mindy Josue RN. ja5 13:00 No procedures done that require assistance. jc4 Administered Medications: 07:28 Drug: amiodarone 150 mg [amiodarone 150 mg/100 mL (1.5 mg/mL) in dextrose, iso-osmotic jc4 IV (100 mL)] Route: IVP; Site: right antecubital; 07:39 Follow up: IV infusion complete jc4 07:55 Drug: amiodarone- Slow load (1mg/min) 360 mg [amiodarone 360 mg/200 mL (1.8 mg/mL) in ja5 dextrose, iso-osmotic IV] Route: IV; Rate: 33 mL/hr; Infused Over: 6 hrs; Site: right antecubital; 13:01 Follow up: IV Status: Infusion continued upon admit; IV Intake: 150ml jc4 09:08 Drug: Potassium & Sodium Phosphates 1 packets [potassium, sodium phosphates 280 mg-160 ja5 mg-250 mg oral powder packet (1 powder in packet)] Route: PO; Intake: 07:39 IV: 100.00ml; Total: 100.00ml. jc4 13:01 IV: 150.00ml; Total: 250.00ml. jc4 Order Results: Lab Order: Basic Metabolic Profile; SPEC'M 07/10/16 07:25 Test: GLUCOSE, FASTING; Value: 107; Range: 70-105; Abnormal: Above high normal; Units: MG/DL; Status: F Test: BLOOD UREA NITROGEN; Value: 20; Range: 7-18; Abnormal: Above high normal; Units: MG/DL; Status: F Test: CREATININE FOR GFR; Value: 0.83; Range: 0.70-1.30; Units: MG/DL; Status: F Test: GLOMERULAR FILTRATION RATE; Value: > 60.0; Range: >56; Status: F Test: SODIUM LEVEL; Value: 142; Range: 136-145; Units: MEQ/L; Status: F Test: POTASSIUM SERUM; Value: 4.1; Range: 3.5-5.1; Units: MEQ/L; Status: F Test: CHLORIDE LEVEL; Value: 109; Range: 98-107; Abnormal: Above high normal; Units: MEQ/L; Status: F Test: CARBON DIOXIDE LEVEL; Value: 24; Range: 21-32; Units: MEQ/L; Status: F Test: ANION GAP; Value: 9; Range: 8-16; Units: MEQ/L; Status: F Test: CALCIUM LEVEL; Value: 9.1; Range: 8.5-10.1; Units: MG/DL; Status: F Test Note: ; Units are mL/min/1.73 m2 Chronic Kidney Disease Staging per NKF: Stage I & II GFR >=60 Normal to Mildly Decreased Stage III GFR 30-59 Moderately Decreased Stage IV GFR 15-29 Severely Decreased Stage V GFR <15 Very Little GFR Left ESRD GFR <15 on COMPUTER NUMERICAL CONTROL MACHINIST Lab Order: CBC with Diff; SPEC'M 07/10/16 07:26 Test: WHITE BLOOD COUNT; Value: 10.6; Range: 4.0-10.0; Abnormal: Above high normal; Units: K/mm3; Status: F Test: RED BLOOD COUNT; Value: 4.49; Range: 4.30-6.10; Units: M/mm3; Status: F Test: HEMOGLOBIN; Value: 13.8; Range: 14.0-18.0; Abnormal: Below low normal; Units: g/dl; Status: F Test: HEMATOCRIT; Value: 42.5; Range: 42.0-52.0; Units: %; Status: F Test: MEAN CORPUSCULAR VOLUME; Value: 94.6; Range: 80.0-96.0; Units: fl; Status: F Test: MEAN CORPUSCULAR HEMOGLOBIN; Value: 30.8; Range: 27.0-33.0; Units: pg; Status: F Test: MEAN CORPUSCULAR HGB CONC; Value: 32.5; Range: 32.0-36.5; Units: g/dl; Status: F Test: RED CELL DISTRIBUTION WIDTH; Value: 14.7; Range: 11.5-14.5; Abnormal: Above high normal; Units: %; Status: F Test: PLATELET COUNT, AUTOMATED; Value: 381; Range: 150-450; Units: k/mm3; Status: F Test: NEUTROPHILS %; Value: 67.2; Range: 36.0-66.0; Abnormal: Above high normal; Units: %; Status: F Test: LYMPH %; Value: 21.7; Range: 24.0-44.0; Abnormal: Below low normal; Units: %; Status: F Test: MONO %; Value: 5.0; Range: 0.0-5.0; Units: %; Status: F Test: EOS %; Value: 1.7; Range: 0.0-3.0; Units: %; Status: F Test: BASO %; Value: 1.7; Range: 0.0-1.0; Abnormal: Above high normal; Units: %; Status: F Test: LARGE UNSTAINED CELL %; Value: 2.7; Range: 0.0-4.0; Units: %; Status: F Test: NEUTROPHILS #; Value: 7.1; Range: 1.8-7.7; Units: K/mm3; Status: F Test: LYMPH #; Value: 2.6; Range: 1.5-4.5; Units: K/mm3; Status: F Test: MONO #; Value: 0.5; Range: 0.0-0.8; Units: K/mm3; Status: F Test: EOS #; Value: 0.2; Range: 0.0-0.50; Units: K/mm3; Status: F Test: BASO #; Value: 0.2; Range: 0.0-0.2; Units: K/mm3; Status: F Test: LARGE UNSTAINED CELL #; Value: 0.3; Range: 0.0-0.4; Units: K/mm3; Status: F Lab Order: Cardiac Injury Profile; [facility]07/10/16 07:25 Test: CPK CREATINE PHOSPHOKINASE; Value: 51; Range: 39-308; Units: U/L; Status: F Test: CK-MB VALUE MASS; Value: 1.0; Range: 0.0-3.6; Units: NG/ML; Status: F Test: MB/CK RELATIVE INDEX; Value: 1.96; Range: < OR =4; Status: F Test Note: ; DIAGNOSIS CRITERIA MMB ng/ml Relative Index (RI) NON-AMI < or = 5 N/A PAULINO ZONE > 5 < or = 4 AMI > 5 > 4 Lab Order: Troponin; 07/10/16 07:25 Test: TROPONIN I; Value: < 0.02; Range: < 0.10; Units: NG/ML; Status: F Test Note: ; Troponin I Reference Interval for [employer] LOCI: 99th Percentile= 0.00-0.045 ng/ml Risk Stratification: <= 0.10 ng/ml Decreased Risk for Adverse Clinical Events. 0.10-1.50 ng/ml Increased Risk for Adverse Clinical Events. Evaluation of additional criterion and/or repeat testing in 2-6 hours is suggested to rule out myocardial damage. >= 1.50 ng/ml Indicative of Myocardial Injury. Lab Order: Magnesium Level; 07/10/16 07:25 Test: MAGNESIUM LEVEL; Value: 2.0; Range: 1.8-2.4; Units: MG/DL; Status: F Lab Order: Phosphorous Level; 07/10/16 07:25 Test: PHOSPHORUS LEVEL; Value: 0.9; Range: 2.5-4.9; Abnormal: Below low normal; Units: MG/DL; Status: F Lab Order: TSH with Free T4; 07/10/16 07:25 Test: THYROID STIMULATING HORMONE; Value: 4.330; Range: 0.358-3.740; Abnormal: Above high normal; Units: uIU/ML; Status: F Test: FREE T4; Value: 1.16; Range: 0.76-1.46; Units: NG/DL; Status: F Lab Order: CREATININE; SPEC'M 07/10/16 11:09 Test: CREATININE FOR GFR; Value: 0.65; Range: 0.70-1.30; Abnormal: Below low normal; Units: MG/DL; Status: F Test: GLOMERULAR FILTRATION RATE; Value: > 60.0; Range: >56; Status: F Test Note: ; Units are mL/min/1.73 m2 Chronic Kidney Disease Staging per NKF: Stage I & II GFR >=60 Normal to Mildly Decreased Stage III GFR 30-59 Moderately Decreased Stage IV GFR 15-29 Severely Decreased Stage V GFR <15 Very Little GFR Left ESRD GFR <15 on COMPUTER NUMERICAL CONTROL MACHINIST Lab Order: TROPONIN; SPEC'M 07/10/16 11:09 Test: TROPONIN I; Value: < 0.02; Range: < 0.10; Units: NG/ML; Status: F Test Note: ; Troponin I Reference Interval for [employer] LOCI: 99th Percentile= 0.00-0.045 ng/ml Risk Stratification: <= 0.10 ng/ml Decreased Risk for Adverse Clinical Events. 0.10-1.50 ng/ml Increased Risk for Adverse Clinical Events. Evaluation of additional criterion and/or repeat testing in 2-6 hours is suggested to rule out myocardial damage. >= 1.50 ng/ml Indicative of Myocardial Injury. Lab Order: CARDIAC INJURY PROFILE; SPEC'M 07/10/16 11:09 Test: CPK CREATINE PHOSPHOKINASE; Value: 41; Range: 39-308; Units: U/L; Status: F Test: CK-MB VALUE MASS; Value: 1.0; Range: 0.0-3.6; Units: NG/ML; Status: F Test: MB/CK RELATIVE INDEX; Value: 2.43; Range: < OR =4; Status: F Test Note: ; DIAGNOSIS CRITERIA MMB ng/ml Relative Index (RI) NON-AMI < or = 5 N/A PAULINO ZONE > 5 < or = 4 AMI > 5 > 4 Radiology Order: Chest, 1 View Test: Chest, 1 View REASON FOR EXAMINATION: Chest Pain; Clinical: Chest pain .; ; Comparison: 06/27/2016 .; ; Findings:; The mediastinum and cardiac silhouette are stable and within normal limits for; portable technique. The lung varma are clear without acute consolidation,; effusion, or pneumothorax. Skeletal structures are intact.; ; Impression:; Normal portable chest x-ray; ; ; Signed by; Anish Hale MD 07/10/2016 07:37 A; Outcome: 08:59 Decision to Hospitalize by Provider. br1 12:59 Discharge Assessment: Patient awake, alert and oriented x 3. No cognitive and/or jc4 functional deficits noted. Patient verbalized understanding of disposition instructions. patient administered narcotics - no. The following High Risk Discharge criteria are identified: None. Admitted to PCU accompanied by nurse, family with patient, via stretcher, on monitor, with chart. Condition: stable. No special radiology studies were completed. Admission hand-off: Report Faxed Fax receipt verified by Amy. Property :Personal belongings accompany Pt. 13:02 Patient left the ED. jc4 Signatures: Dispatcher [employer] EDMS Danette Miguel, International Specialist Unit lbd Milind Erwin, Reg Reg Dave Ferrera MD MD br1 Hilary Oliver, RN RN jc4 Rimma Romero, PIG FARMER PIG FARMER ct3 Berhane Buchanan, PIG FARMER PIG FARMER d Mindy Josue,RN RN ja5 Corrections: (The following items were deleted from the chart) 09:16 07:05 Presenting complaint: EMS states: 06/27 came from [facility] pacemaker, difib ja5 implant after MO. Today he awoke to defib going off in his chest 05:00 and again at 06:15. EMS arrived and patient went into vtac, 150mg amiodarone. Vtac became intermittent. Patient arrived to ED in SR. ja5 MTDD
[2016-07-10 13:08] VITALS: BP 130/58
[2016-07-10] MEDS: ENOXAPARIN 40 MG/0.4 ML SYRINGE (J1650) SC SCH (13:36)
[2016-07-10] MEDS: METOPROLOL SUCC *XL* 25MG TAB (TopROL *XL*) PO SCH ×2 (13:37→21:28)
[2016-07-10] MEDS: AMIODARONE HCL 360 MG in APPROPRIATE DILUENT 1 EA IV SCH (14:00)
[2016-07-10 15:45] VITALS: BP 111/65
--- NOTE | 2016-07-10 20:49 | ECGEPIP ---
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
[2016-07-10 23:25] VITALS: BP 118/67
[2016-07-11] VITALS (8 sets, daily range): BP systolic 108–137; BP diastolic 66–76
[2016-07-11] MEDS: AMIODARONE HCL 360 MG in APPROPRIATE DILUENT 1 EA IV SCH (01:39)
[2016-07-11] MEDS ORDERED: SLF 3 ML SYR IV PRN (02:00)
[2016-07-11] MEDS: SLF 3 ML SYR IV SCH ×3 (05:16→21:37)
[2016-07-11 05:31] LABS: MEAN CORPUSCULAR HEMOGLOBIN 30.5 pg (27.0-33.0); MEAN CORPUSCULAR VOLUME 95.4 fl (80.0-96.0); WHITE BLOOD COUNT 10.5 K/mm3 (4.0-10.0)
[2016-07-11 05:44] LABS: ALBUMIN/GLOBULIN RATIO 0.86 (1.00-1.93); ALKALINE PHOSPHATASE 82 U/L (45-117); ALT/SGPT 25 U/L (12-78); ANION GAP 7 MEQ/L (8-16); AST/SGOT 13 U/L (15-37); BILIRUBIN,TOTAL 0.4 MG/DL (0.2-1.0); BLOOD UREA NITROGEN 17 MG/DL (7-18); CALCIUM LEVEL 8.4 MG/DL (8.5-10.1); CARBON DIOXIDE LEVEL 26 MEQ/L (21-32); CHLORIDE LEVEL 110 MEQ/L (98-107); CREATININE FOR GFR 0.85 MG/DL (0.70-1.30); GLOMERULAR FILTRATION RATE > 60.0 (>56); GLUCOSE, FASTING 91 MG/DL (70-105); POTASSIUM SERUM 3.9 MEQ/L (3.5-5.1); SODIUM LEVEL 143 MEQ/L (136-145); TOTAL PROTEIN 6.5 GM/DL (6.4-8.2)
--- NOTE | 2016-07-11 07:29 | IPN ---
DATE: 07/11/2016 Mr. Josue had a good night since his admission and since he got two doses of amiodarone there has not been any recurrence of ventricular tachycardia (VT) and he does not have hardly any PVCs. He has no complaints. Blood pressure 120/66. Heart rate is 60s. He is afebrile. Saturation 96% on room air. Weight 64 kg. He is alert and oriented and appropriate. Lungs are clear to auscultation. Heart exam reveals regular rhythm without gallop, rub or murmur. Abdomen is soft and nontender. There is no peripheral edema. Peripheral pulses are of good quality. LABORATORY DATA: His ECG from yesterday was essentially normal with minimal right ventricle conduction delay. Blood work is also unremarkable. ASSESSMENT AND PLAN: Mr. Josue is a 55-year-old man who presents with primary ventricle tachycardia. He has a structurally normal heart and has no coronary artery disease based on recent evaluation at [facility] in [place]. It appears that the episode of ventricular tachycardia that did tend to quickly degenerate into ventricular fibrillation are triggered by PVCs. His laboratory data are unremarkable. There is no QT prolongation. The differential diagnosis includes primary ventricular fibrillation versus RV dysplasia even though the ECG is not typical of this abnormality. At this point, we will continue loading with amiodarone. He will continue the IV loading protocol and will finish later today. I would continue the oral administration. If no arrhythmias occur, I think he can be discharged home tomorrow.
--- NOTE | 2016-07-11 08:25 | IPNPDOC ---
Assessment/Plan Date Seen The patient was seen on 07/11/16. Attending Note: Patient seen and examined and discussed with KAYLAH Head and I agree with her note below. The patient has no complaints at present. Loading dose of amiodarone was completed today and patient is now on oral amiodarone only. If tele remains uneventful overnight, will consider discharge home tomorrow. (KES) Problems Problems: (1) Ventricular tachycardia Status: Acute Response to Treatment: Improving Problem Text: 07/11 - continue Amiodarone load per protocol Switching to oral amiodarone today continue to monitor on tele No events since admission Dr. 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 Events since last encounter Feels well. No concerns or complaints Constitutional: Denies: Chills, Fever Pulmonary: Denies: Cough, Dyspnea Cardiovascular: Denies: Chest Pain, Orthopnea, Palpitations Gastrointestinal: Denies: Abdominal Pain, Constipation, Diarrhea, Nausea, Vomiting Objective Physical Examination General Exam: Positive: Alert, No Acute Distress Chest Exam: Positive: Diminished (No W/R/R) Heart Exam: Positive: Rate Normal, Negative: Murmurs Telemetry: Positive: No significant arrhythmia Abdomen Exam: Positive: Normal bowel sounds, Soft, Negative: Tenderness Male Exam: Negative: Edema Vital Signs/I&O Vital Signs Date Time Temp Pulse Resp B/P Pulse Ox O2 Delivery O2 Flow Rate FiO2 07/11/16 05:17 96.7 66 18 120/66 96 Room Air I&O- Last 24 Hours up to 6 AM 07/11/16 06:00 Intake Total 824 ml Output Total 1100 ml Balance -276 ml Laboratory Data Labs 24H Laboratory Tests 2 07/10/16 11:09: Creatine Kinase MB 1.0, Creatine Kinase MB Relative Index 2.43, Glomerular Filtration Rate > 60.0, Total Creatine Kinase 41, Troponin I < 0.02 07/10/16 18:03: Creatine Kinase MB 1.0, Creatine Kinase MB Relative Index 2.22, Total Creatine Kinase 45, Troponin I < 0.02 07/11/16 04:50: Creatine Kinase MB 1.0, Creatine Kinase MB Relative Index 2.56, Glomerular Filtration Rate > 60.0, Total Creatine Kinase 39, Troponin I < 0.02, Blood Urea Nitrogen 17, Creatinine 0.85, Sodium Level 143, Potassium Level 3.9, Chloride Level 110H, Carbon Dioxide Level 26, Calcium Level 8.4L, Aspartate Amino Transf (AST/SGOT) 13L, Alanine Aminotransferase (ALT/SGPT) 25, Alkaline Phosphatase 82 , Total Bilirubin 0.4, Total Protein 6.5, Albumin 3.0L, Albumin/Globulin Ratio 0.86L, Anion Gap 7L CBC/BMP Laboratory Tests 07/10/16 11:09 07/11/16 04:50 Calcium Level 8.4 L, Aspartate Amino Transf (AST/SGOT) 13 L, Alanine Aminotransferase (ALT/SGPT) 25, Total Creatine Kinase 39, Alkaline Phosphatase 82, Total Bilirubin 0.4, Total Protein 6.5, Albumin 3.0 L 07/11/16 04:51 Red Blood Count 4.09 L, Mean Corpuscular Volume 95.4, Mean Corpuscular Hemoglobin 30.5, Mean Corpuscular Hemoglobin Concent 32.0, Red Cell Distribution Width 14.0 SOHAM BAH PA-C Jul 11, 2016 08:25 AYSHA JOHNSON MD Jul 11, 2016 16:19
[2016-07-11] MEDS: ENOXAPARIN 40 MG/0.4 ML SYRINGE (J1650) SC SCH (08:29)
[2016-07-11] MEDS: AMIODARONE 200 MG TAB (PACERONE) PO SCH ×3 (08:30→21:37)
[2016-07-11] MEDS ORDERED: METOPROLOL SUCC *XL* 25MG TAB (TopROL *XL*) PO SCH (09:00)
--- NOTE | 2016-07-11 23:10 | ECGEPIP ---
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
[2016-07-12 04:00] VITALS: BP 132/60
[2016-07-12] MEDS: SLF 3 ML SYR IV SCH (06:00)
[2016-07-12 07:30] VITALS: BP 126/70
[2016-07-12] MEDS ORDERED: AMIO20TA PO (08:38)
[2016-07-12] MEDS: AMIODARONE 200 MG TAB (PACERONE) PO SCH (08:41)
[2016-07-12] MEDS: ENOXAPARIN 40 MG/0.4 ML SYRINGE (J1650) SC SCH (08:42)
--- NOTE | 2016-07-12 09:12 | DSES ---
DATE OF ADMISSION: 07/10/2016 DATE OF DISCHARGE: BRIEF HISTORY AND PHYSICAL: The patient is a 55-year-old patient with past medical history of sudden cardiac arrest with ventricular tachycardia requiring implantable cardioverter defibrillator (ICD) placement who was recently discharged from [facility] after ICD was placed and after undergoing cardiac catheterization which showed no blockages. He was doing well on metoprolol and aspirin after that discharge and was sitting at home when he felt his defibrillator shock him at night. The next morning, it did it again and prompted him to come to the emergency room where he was admitted for ventricular tachycardia. Amiodarone was loaded in the emergency room. He has undergone loading with amiodarone IV and has been transitioned to oral amiodarone at this time. The dose of this will be tapered gradually as an outpatient. At this time, he will go home on 400 mg three times a day for a week and then 400 mg twice a day for a week and then 400 mg daily indefinitely. He will be following up with Dr. Dao next week. He remains on his usual dose of metoprolol 25 mg daily as well as aspirin. He has had no further arrhythmias during the hospitalization. He feels fairly well at the time of discharge. He gets a little dizzy which he attributes to the metoprolol and states that when he takes that at night that he feels better. DISPOSITION: He is stable for discharge home. He will followup with Dr. Pereyra in one week. Diet regular. Activity as tolerated. MEDICATIONS: - aspirin 81 mg daily - metoprolol 25 mg at bedtime - amiodarone 400 mg three times a day for a week, then 400 mg twice a day, then 400 mg daily indefinitely DISCHARGE DIAGNOSES: 1. Ventricular tachycardia. 2. History of sudden cardiac arrest with ICD dual chamber defibrillator placement. 3. Chronic back pain. 4. Nicotine dependence. 5. Gastroesophageal reflux disease. 6. Hyperlipidemia. 7. Vitamin D deficiency. [facility]
--- NOTE | 2016-07-12 14:04 | EDDOCDS ---
Physician Documentation [facility] Name: Wilmar Josue Age: 55 yrs Sex: Male : 1960 Arrival Date: 07/10/2016 Time: 07:02 Bed 3 Private MD: Berhane Pereyra MD Disposition: 07/10/16 08:59 Hospitalization ordered by Marco Antonio Jackson for Inpatient Admission. Preliminary diagnosis is Ventricular tachycardia - Hypophosphatemia. - Bed requested for PCU. - Status is Inpatient Admission. jc4 - Condition is Stable. - Problem is new. - Symptoms are unchanged. Historical: - Allergies: hydrocodone (Vomit); - Home Meds: 1. metoprolol succinate 25 mg Tb24 1 tab once daily 2. aspirin 81 mg Oral tab 1 tab once daily - PMHx: Chronic Back pain; GERD; hyperlipidemia; vit d defic; - PSHx: Cataract Surgery- Bilateral; - Social history: Smoking status: Patient states former smoker of tobacco. No barriers to communication noted. - Family history: Not pertinent. - : The pt / caregiver states he / she is not on anticoagulants. Home medication list is obtained from the patient, Home medication list is obtained from the patient. - Exposure Risk Screening:: None identified. Vital Signs: 07/10 07:10 BP 161 / 83 (auto/); ja5 07:11 Pulse 73 MON; Pulse Ox 100% ; ja5 07:14 Pulse 71 MON; Pulse Ox 100% ; ja5 07:15 BP 148 / 71 (auto/); ja5 07:19 BP 148 / 71; Pulse 91; Resp 24; Temp 97.6(O); Pulse Ox 99% ; Pain 0/10; ja5 07:23 Weight 68.72 kg / 151.5 lbs (M); Height 5 ft. 4 in. (162.56 cm); jrd 07:29 Pulse 73 MON; Pulse Ox 100% ; ja5 07:30 BP 146 / 79 (auto/); ja5 07:44 Pulse 67 MON; Pulse Ox 100% ; ja5 07:45 BP 143 / 72 (auto/); ja5 07:59 Pulse 63 MON; Pulse Ox 99% ; ja5 08:00 BP 129 / 67 (auto/); ja5 08:14 Pulse 61 MON; Pulse Ox 97% ; ja5 08:15 BP 122 / 70 (auto/); ja5 08:29 Pulse 64 MON; Pulse Ox 97% ; ja5 08:30 BP 130 / 73 (auto/); ja5 08:44 Pulse 61 MON; Pulse Ox 97% ; ja5 08:45 BP 116 / 64 (auto/); ja5 08:59 Pulse 67 MON; Pulse Ox 98% ; ja5 09:00 BP 119 / 63 (auto/); ja5 09:14 Pulse 67 MON; Pulse Ox 97% ; ja5 09:15 BP 123 / 69 (auto/); ja5 09:29 Pulse 65 MON; Pulse Ox 98% ; ja5 09:30 BP 130 / 68 (auto/); ja5 09:44 Pulse 65 MON; Pulse Ox 98% ; ja5 09:45 BP 118 / 68 (auto/); ja5 09:59 Pulse 60 MON; Pulse Ox 98% ; ja5 10:00 BP 107 / 63 (auto/); ja5 10:14 Pulse 66 MON; Pulse Ox 97% ; ja5 10:15 BP 143 / 80 (auto/); ja5 10:29 Pulse 65 MON; Pulse Ox 98% ; ja5 10:30 BP 121 / 79 (auto/); ja5 10:44 Pulse 72 MON; Pulse Ox 97% ; ja5 10:45 BP 120 / 61 (auto/); ja5 10:59 Pulse 65 MON; Pulse Ox 97% ; ja5 11:00 BP 121 / 68 (auto/); ja5 11:14 Pulse 64 MON; Pulse Ox 97% ; ja5 11:15 BP 118 / 68 (auto/); ja5 11:29 Pulse 66 MON; Pulse Ox 97% ; ja5 11:30 BP 118 / 67 (auto/); ja5 11:45 BP 145 / 109 (auto/); jc4 11:45 Pulse 60 MON; Pulse Ox 97% ; jc4 11:49 BP 125 / 63; Pulse 62; Resp 16; Temp 98.0(A); Pulse Ox 98% on R/A; Pain 0/10; ja5 11:49 BP 125 / 63 (auto/); jc4 11:49 Pulse 66 MON; Pulse Ox 98% ; jc4 12:00 BP 120 / 76 (auto/); jc4 12:00 Pulse 67 MON; Pulse Ox 98% ; jc4 12:15 BP 121 / 76 (auto/); jc4 12:15 Pulse 64 MON; Pulse Ox 96% ; jc4 12:30 BP 120 / 70 (auto/); jc4 12:30 Pulse 62 MON; Pulse Ox 98% ; jc4 12:45 BP 120 / 59 (auto/); jc4 12:45 Pulse 65 MON; Pulse Ox 97% ; jc4 12:57 BP 123 / 65; Pulse 65; Resp 20; Temp 99.5(TE); Pulse Ox 97% on R/A; Pain 0/10; jc4 07:23 Body Mass Index 26.00 (68.72 kg, 162.56 cm) jrd MDM: 07:09 ECG WITH READING ER PHYS+CARDIAG ordered. EDMS 07:17 Collar Turner Operator/Pulse Ox/q 30 min VS ordered. br1 07:17 IV Saline Lock ordered. br1 07:17 Rhythm Strip to chart ordered. br1 07:17 Undress patient appropriately for examination ordered. br1 07:17 Basic Metabolic Profile Ordered. EDMS 07:17 CBC with Diff Ordered. EDMS 07:17 Cardiac Injury Profile Ordered. EDMS 07:17 Troponin Ordered. EDMS 07:17 Magnesium Level Ordered. EDMS 07:17 Phosphorous Level Ordered. EDMS 07:17 TSH with Free T4 Ordered. EDMS 07:18 Chest, 1 View Ordered. EDMS 07:27 amiodarone 150 mg IVP once ordered. br1 07:38 Misc Electrical Checkout Mechanic Order ordered. br1 07:45 amiodarone- Slow load (1mg/min) 360 mg IV at 33 mL/hr continuous over 6 hrs; br1 360mg/200mL D5W ordered. 07:45 Misc Electrical Checkout Mechanic Order complete. lbd 07:47 Financial registration complete. lg 08:00 [facility] Payment Agreement was scanned into [employer] and attached to record. lg 08:10 Basic Metabolic Profile Reviewed. br1 08:10 CBC with Diff Reviewed. br1 08:10 Phosphorous Level Reviewed. br1 08:10 TSH with Free T4 Reviewed. br1 08:10 Cardiac Injury Profile Reviewed. br1 08:10 Troponin Reviewed. br1 08:10 Magnesium Level Reviewed. br1 08:10 Chest, 1 View Reviewed. br1 08:12 Potassium & Sodium Phosphates Packet 280 mg-160 mg-250 mg 1 packets PO once; mix packet br1 with 75ml water or juice, stir well and administer promptly ordered. 08:33 BED REQUEST+ADM ordered. EDMS 11:00 Admission / Observation Status ordered. EDMS 11:00 Admission / Observation Status ordered. EDMS 11:00 ELECTROCARDIOGRAM ADULT ordered. EDMS 11:00 REGULAR DIET ordered. EDMS 11:01 CREATININE Ordered. EDMS 11:01 TROPONIN Ordered. EDMS 11:01 TROPONIN Ordered. EDMS 11:01 CARDIAC INJURY PROFILE Ordered. EDMS 11:02 CARDIAC INJURY PROFILE Ordered. EDMS 15:13 T-Sheet-- Draft Copy was scanned into [employer] and attached to record. gb 15:36 ECG/EKG was scanned into [employer] and attached to record. gb 15:36 Trend VS was scanned into [employer] and attached to record. gb Administered Medications: 07:28 Drug: amiodarone 150 mg [amiodarone 150 mg/100 mL (1.5 mg/mL) in dextrose, iso-osmotic 4 IV (100 mL)] Route: IVP; Site: right antecubital; 07:39 Follow up: IV infusion complete jc4 07:55 Drug: amiodarone- Slow load (1mg/min) 360 mg [amiodarone 360 mg/200 mL (1.8 mg/mL) in ja5 dextrose, iso-osmotic IV] Route: IV; Rate: 33 mL/hr; Infused Over: 6 hrs; Site: right antecubital; 13:01 Follow up: IV Status: Infusion continued upon admit; IV Intake: 150ml 4 09:08 Drug: Potassium & Sodium Phosphates 1 packets [potassium, sodium phosphates 280 mg-160 ja5 mg-250 mg oral powder packet (1 powder in packet)] Route: PO; Signatures: Dispatcher [employer] EDMS Danette Miguel, Upper Shaper Unit lbd Maya Rose, Reg Reg gb Milind Erwin, Reg Reg lg Dave Corrales MD MD br1 Hilary Oliver, RN RN jc4 Xenia Koch RN RN Mindy AlcarazRN RN ja5 The chart was reviewed and I authenticate all verbal orders and agree with the evaluation and treatment provided.Attachments: 08:00 [facility] Payment Agreement lg 15:13 T-Sheet-- Draft Copy gb 15:36 ECG/EKG gb Chart Complete MTDD
--- NOTE | 2016-07-12 14:04 | EDDOCDS ---
Nurse's Notes [facility] Name: Wilmar Josue Age: 55 yrs Sex: Male : 1960 Arrival Date: 07/10/2016 Time: 07:02 Bed 3 Private MD: Berhane Pereyra MD Diagnosis: Ventricular tachycardia-Hypophosphatemia Presentation: 07/10 07:05 Presenting complaint: Patient states: Defib went off at 05:00 and 06:15, woke patient ja5 from a dream. He called EMS. Presenting complaint: EMS states: 06/27 came from [facility] with pacemaker, difib implant after [place]. Today he awoke to defib going off in his chest 05:00 and again at 06:15. EMS arrived and patient went into vtach, 150mg amiodarone. Vtach became intermittent. Patient arrived to ED in . Adult Sepsis Screening: The patient does not have new or worsening altered mentation. Patient has a respiratory rate of greater than or equal to 22 (1 point). Adult Sepsis Screening: Systolic blood pressure is greater than 100. Patient has a qSOFA score of 1- Negative Sepsis Screen. Suicide/Homicide risk assessment- the patient denies having any suicidal and/or homicidal ideations and does not present with any other emotional, behavioral or mental health complaints. Status: Patient is not a cash register servicer or dependent. Transition of care: patient was not received from another setting of care. 07:05 Acuity: TRACEY Level 2 ja5 07:05 Method Of Arrival: Ambulance ja5 Triage Assessment: 07:15 General: Appears distressed, Behavior is anxious, cooperative. Pain: Denies pain. Pt ja5 Declines HIV testing. Neurological: Level of Consciousness is awake, alert, Oriented to person, place, time. Cardiovascular: Rhythm is sinus rhythm No ectopy. Respiratory: Airway is patent Respiratory effort is even, labored. Derm: Skin is intact, Skin is pink, warm & dry. Historical: - Allergies: hydrocodone (Vomit); - Home Meds: 1. metoprolol succinate 25 mg Tb24 1 tab once daily 2. aspirin 81 mg Oral tab 1 tab once daily - PMHx: Chronic Back pain; GERD; hyperlipidemia; vit d defic; - PSHx: Cataract Surgery- Bilateral; - Social history: Smoking status: Patient states former smoker of tobacco. No barriers to communication noted. - Family history: Not pertinent. - : The pt / caregiver states he / she is not on anticoagulants. Home medication list is obtained from the patient, Home medication list is obtained from the patient. - Exposure Risk Screening:: None identified. Screenin:28 Screening information is obtained from the patient. Fall risk: No risks identified. ja5 07:29 Assistance ADL's: requires no assistance with activities of daily living. Abuse/DV ja5 Screen: The patient / caregiver reports he/she is: not in a situation that causes fear, pain or injury. Nutritional screening: On no prescribed diet. Advance Directives: Currently, there is no health care proxy. There is no active DNR order. There is no living will. There is no Power of Clinical Trials Assistant. home support is adequate. Assessment: 07:21 General: Appears comfortable, Behavior is anxious, cooperative. Pain: Denies pain. ja5 Neurological: Level of Consciousness is awake, alert, Oriented to person, place, time. Cardiovascular: Capillary refill Heart tones S1 S2 present Rhythm is SR with intermittent vtac. Respiratory: Airway is patent Respiratory effort is even, unlabored. Derm: Skin is intact, Skin is pink, warm & dry. 08:53 General: Dr. Dao in to examine patient at this time. jc4 09:09 General: Patient resting in stretcher, no complaints of pain or dizziness at this time..ja5 10:07 General: Patient resting comfortably in stretcher, in no apparent distress, HR 69 NSR ja5 at this time, color is pink, IV amiodarone infusing, IV site x2 are clear.. Respiratory: Breath sounds are clear bilaterally. 11:52 General: Patient eating lunch in stretcher, no pain or dizziness noted, color is pink, ja5 amiodarone is still infusing through IV at this time.. 13:00 General: Appears in no apparent distress, comfortable, Behavior is cooperative. Pain: jc4 Denies pain. Neurological: Level of Consciousness is awake, alert, Oriented to person, place, time, Denies dizziness. Cardiovascular: Capillary refill < 3 seconds Rhythm is sinus rhythm with unifocal PVCs. Respiratory: Airway is patent Respiratory effort is even, unlabored, Respiratory pattern is regular, symmetrical. Derm: Skin is pink, warm & dry. Vital Signs: 07:10 BP 161 / 83 (auto/); ja5 07:11 Pulse 73 MON; Pulse Ox 100% ; ja5 07:14 Pulse 71 MON; Pulse Ox 100% ; ja5 07:15 BP 148 / 71 (auto/); ja5 07:19 BP 148 / 71; Pulse 91; Resp 24; Temp 97.6(O); Pulse Ox 99% ; Pain 0/10; ja5 07:23 Weight 68.72 kg (M); Height 5 ft. 4 in. (162.56 cm); jrd 07:29 Pulse 73 MON; Pulse Ox 100% ; ja5 07:30 BP 146 / 79 (auto/); ja5 07:44 Pulse 67 MON; Pulse Ox 100% ; ja5 07:45 BP 143 / 72 (auto/); ja5 07:59 Pulse 63 MON; Pulse Ox 99% ; ja5 08:00 BP 129 / 67 (auto/); ja5 08:14 Pulse 61 MON; Pulse Ox 97% ; ja5 08:15 BP 122 / 70 (auto/); ja5 08:29 Pulse 64 MON; Pulse Ox 97% ; ja5 08:30 BP 130 / 73 (auto/); ja5 08:44 Pulse 61 MON; Pulse Ox 97% ; ja5 08:45 BP 116 / 64 (auto/); ja5 08:59 Pulse 67 MON; Pulse Ox 98% ; ja5 09:00 BP 119 / 63 (auto/); ja5 09:14 Pulse 67 MON; Pulse Ox 97% ; ja5 09:15 BP 123 / 69 (auto/); ja5 09:29 Pulse 65 MON; Pulse Ox 98% ; ja5 09:30 BP 130 / 68 (auto/); ja5 09:44 Pulse 65 MON; Pulse Ox 98% ; ja5 09:45 BP 118 / 68 (auto/); ja5 09:59 Pulse 60 MON; Pulse Ox 98% ; ja5 10:00 BP 107 / 63 (auto/); ja5 10:14 Pulse 66 MON; Pulse Ox 97% ; ja5 10:15 BP 143 / 80 (auto/); ja5 10:29 Pulse 65 MON; Pulse Ox 98% ; ja5 10:30 BP 121 / 79 (auto/); ja5 10:44 Pulse 72 MON; Pulse Ox 97% ; ja5 10:45 BP 120 / 61 (auto/); ja5 10:59 Pulse 65 MON; Pulse Ox 97% ; ja5 11:00 BP 121 / 68 (auto/); ja5 11:14 Pulse 64 MON; Pulse Ox 97% ; ja5 11:15 BP 118 / 68 (auto/); ja5 11:29 Pulse 66 MON; Pulse Ox 97% ; ja5 11:30 BP 118 / 67 (auto/); ja5 11:45 BP 145 / 109 (auto/); jc4 11:45 Pulse 60 MON; Pulse Ox 97% ; jc4 11:49 BP 125 / 63; Pulse 62; Resp 16; Temp 98.0(A); Pulse Ox 98% on R/A; Pain 0/10; ja5 11:49 BP 125 / 63 (auto/); jc4 11:49 Pulse 66 MON; Pulse Ox 98% ; jc4 12:00 BP 120 / 76 (auto/); jc4 12:00 Pulse 67 MON; Pulse Ox 98% ; jc4 12:15 BP 121 / 76 (auto/); jc4 12:15 Pulse 64 MON; Pulse Ox 96% ; jc4 12:30 BP 120 / 70 (auto/); jc4 12:30 Pulse 62 MON; Pulse Ox 98% ; jc4 12:45 BP 120 / 59 (auto/); jc4 12:45 Pulse 65 MON; Pulse Ox 97% ; jc4 12:57 BP 123 / 65; Pulse 65; Resp 20; Temp 99.5(TE); Pulse Ox 97% on R/A; Pain 0/10; jc4 07:23 Body Mass Index 26.00 (68.72 kg, 162.56 cm) [facility] Vitals: 07:19 Log In Time: July 10, 2016 at 07:10. ja5 ED Course: 07:03 Patient visited by Danette Miguel, Airplane Navigator. lbd 07:03 Patient moved to Waiting lbd 07:04 Berhane Pereyra is Private Physician. lbd 07:04 Agnes Jamil,RN is Primary Nurse. lbd 07:04 Patient moved to 3 lbd 07:12 Triage Initiated ja5 07:12 The patient / caregiver is instructed regarding the plan of care and ED course. Cardiac ja5 monitor on. Pulse ox on. NIBP on. 07:19 EKG done. (by ED staff). Reviewed by Dave Corrales MD. jrd 07:24 Patient visited by Berhane Buchanan PCA. jrd 07:27 Dave Corrales MD is Attending Physician. br1 07:27 Patient visited by Dave Corrales MD. br1 07:29 Inserted saline lock: 20 gauge in right antecubital area The patient tolerated the jc4 procedure well. 07:30 Hilary Oliver, RN is Primary Nurse. jc4 07:32 Maintain field IV. Dressing intact. Site clean & dry. Gauge & site: 18g LAC. ja5 07:56 Chest, 1 View Returned. EDMS 08:00 [facility] Payment Agreement was scanned into [employer] and attached to record. lg 08:21 Patient visited by Rimma Romero PCA. ct3 08:53 Patient visited by Hilary Oliver, AMANDA. jc4 08:54 Primary Nurse role handed off by Agnes Jamil RN jc4 08:59 Marco Antonio Jackson MD is Hospitalizing Provider. br1 09:09 Patient visited by Mindy Josue,AMANDA. ja5 10:11 Patient visited by Mindy Josue,AMANDA. ja5 13:00 No procedures done that require assistance. jc4 15:13 T-Sheet-- Draft Copy was scanned into [employer] and attached to record. gb 15:36 ECG/EKG was scanned into [employer] and attached to record. gb 15:36 Trend VS was scanned into [employer] and attached to record. gb Administered Medications: 07:28 Drug: amiodarone 150 mg [amiodarone 150 mg/100 mL (1.5 mg/mL) in dextrose, iso-osmotic jc4 IV (100 mL)] Route: IVP; Site: right antecubital; 07:39 Follow up: IV infusion complete jc4 07:55 Drug: amiodarone- Slow load (1mg/min) 360 mg [amiodarone 360 mg/200 mL (1.8 mg/mL) in ja5 dextrose, iso-osmotic IV] Route: IV; Rate: 33 mL/hr; Infused Over: 6 hrs; Site: right antecubital; 13:01 Follow up: IV Status: Infusion continued upon admit; IV Intake: 150ml jc4 09:08 Drug: Potassium & Sodium Phosphates 1 packets [potassium, sodium phosphates 280 mg-160 ja5 mg-250 mg oral powder packet (1 powder in packet)] Route: PO; Attachments: 15:36 Trend VS gb Intake: 07:39 IV: 100.00ml; Total: 100.00ml. jc4 13:01 IV: 150.00ml; Total: 250.00ml. jc4 Order Results: Lab Order: Basic Metabolic Profile; SPEC'M 07/10/16 07:25 Test: GLUCOSE, FASTING; Value: 107; Range: 70-105; Abnormal: Above high normal; Units: MG/DL; Status: F Test: BLOOD UREA NITROGEN; Value: 20; Range: 7-18; Abnormal: Above high normal; Units: MG/DL; Status: F Test: CREATININE FOR GFR; Value: 0.83; Range: 0.70-1.30; Units: MG/DL; Status: F Test: GLOMERULAR FILTRATION RATE; Value: > 60.0; Range: >56; Status: F Test: SODIUM LEVEL; Value: 142; Range: 136-145; Units: MEQ/L; Status: F Test: POTASSIUM SERUM; Value: 4.1; Range: 3.5-5.1; Units: MEQ/L; Status: F Test: CHLORIDE LEVEL; Value: 109; Range: 98-107; Abnormal: Above high normal; Units: MEQ/L; Status: F Test: CARBON DIOXIDE LEVEL; Value: 24; Range: 21-32; Units: MEQ/L; Status: F Test: ANION GAP; Value: 9; Range: 8-16; Units: MEQ/L; Status: F Test: CALCIUM LEVEL; Value: 9.1; Range: 8.5-10.1; Units: MG/DL; Status: F Test Note: ; Units are mL/min/1.73 m2 Chronic Kidney Disease Staging per NKF: Stage I & II GFR >=60 Normal to Mildly Decreased Stage III GFR 30-59 Moderately Decreased Stage IV GFR 15-29 Severely Decreased Stage V GFR <15 Very Little GFR Left ESRD GFR <15 on FRAMING SPECIALIST Lab Order: CBC with Diff; SPEC'M 07/10/16 07:26 Test: WHITE BLOOD COUNT; Value: 10.6; Range: 4.0-10.0; Abnormal: Above high normal; Units: K/mm3; Status: F Test: RED BLOOD COUNT; Value: 4.49; Range: 4.30-6.10; Units: M/mm3; Status: F Test: HEMOGLOBIN; Value: 13.8; Range: 14.0-18.0; Abnormal: Below low normal; Units: g/dl; Status: F Test: HEMATOCRIT; Value: 42.5; Range: 42.0-52.0; Units: %; Status: F Test: MEAN CORPUSCULAR VOLUME; Value: 94.6; Range: 80.0-96.0; Units: fl; Status: F Test: MEAN CORPUSCULAR HEMOGLOBIN; Value: 30.8; Range: 27.0-33.0; Units: pg; Status: F Test: MEAN CORPUSCULAR HGB CONC; Value: 32.5; Range: 32.0-36.5; Units: g/dl; Status: F Test: RED CELL DISTRIBUTION WIDTH; Value: 14.7; Range: 11.5-14.5; Abnormal: Above high normal; Units: %; Status: F Test: PLATELET COUNT, AUTOMATED; Value: 381; Range: 150-450; Units: k/mm3; Status: F Test: NEUTROPHILS %; Value: 67.2; Range: 36.0-66.0; Abnormal: Above high normal; Units: %; Status: F Test: LYMPH %; Value: 21.7; Range: 24.0-44.0; Abnormal: Below low normal; Units: %; Status: F Test: MONO %; Value: 5.0; Range: 0.0-5.0; Units: %; Status: F Test: EOS %; Value: 1.7; Range: 0.0-3.0; Units: %; Status: F Test: BASO %; Value: 1.7; Range: 0.0-1.0; Abnormal: Above high normal; Units: %; Status: F Test: LARGE UNSTAINED CELL %; Value: 2.7; Range: 0.0-4.0; Units: %; Status: F Test: NEUTROPHILS #; Value: 7.1; Range: 1.8-7.7; Units: K/mm3; Status: F Test: LYMPH #; Value: 2.6; Range: 1.5-4.5; Units: K/mm3; Status: F Test: MONO #; Value: 0.5; Range: 0.0-0.8; Units: K/mm3; Status: F Test: EOS #; Value: 0.2; Range: 0.0-0.50; Units: K/mm3; Status: F Test: BASO #; Value: 0.2; Range: 0.0-0.2; Units: K/mm3; Status: F Test: LARGE UNSTAINED CELL #; Value: 0.3; Range: 0.0-0.4; Units: K/mm3; Status: F Lab Order: Cardiac Injury Profile; [facility]07/10/16 07:25 Test: CPK CREATINE PHOSPHOKINASE; Value: 51; Range: 39-308; Units: U/L; Status: F Test: CK-MB VALUE MASS; Value: 1.0; Range: 0.0-3.6; Units: NG/ML; Status: F Test: MB/CK RELATIVE INDEX; Value: 1.96; Range: < OR =4; Status: F Test Note: ; DIAGNOSIS CRITERIA MMB ng/ml Relative Index (RI) NON-AMI < or = 5 N/A PAULINO ZONE > 5 < or = 4 AMI > 5 > 4 Lab Order: Troponin; 07/10/16 07:25 Test: TROPONIN I; Value: < 0.02; Range: < 0.10; Units: NG/ML; Status: F Test Note: ; Troponin I Reference Interval for seedchange LOCI: 99th Percentile= 0.00-0.045 ng/ml Risk Stratification: <= 0.10 ng/ml Decreased Risk for Adverse Clinical Events. 0.10-1.50 ng/ml Increased Risk for Adverse Clinical Events. Evaluation of additional criterion and/or repeat testing in 2-6 hours is suggested to rule out myocardial damage. >= 1.50 ng/ml Indicative of Myocardial Injury. Lab Order: Magnesium Level; [facility]07/10/16 07:25 Test: MAGNESIUM LEVEL; Value: 2.0; Range: 1.8-2.4; Units: MG/DL; Status: F Lab Order: Phosphorous Level; 07/10/16 07:25 Test: PHOSPHORUS LEVEL; Value: 0.9; Range: 2.5-4.9; Abnormal: Below low normal; Units: MG/DL; Status: F Lab Order: TSH with Free T4; [facility]07/10/16 07:25 Test: THYROID STIMULATING HORMONE; Value: 4.330; Range: 0.358-3.740; Abnormal: Above high normal; Units: uIU/ML; Status: F Test: FREE T4; Value: 1.16; Range: 0.76-1.46; Units: NG/DL; Status: F Lab Order: CREATININE; 07/10/16 11:09 Test: CREATININE FOR GFR; Value: 0.65; Range: 0.70-1.30; Abnormal: Below low normal; Units: MG/DL; Status: F Test: GLOMERULAR FILTRATION RATE; Value: > 60.0; Range: >56; Status: F Test Note: ; Units are mL/min/1.73 m2 Chronic Kidney Disease Staging per NKF: Stage I & II GFR >=60 Normal to Mildly Decreased Stage III GFR 30-59 Moderately Decreased Stage IV GFR 15-29 Severely Decreased Stage V GFR <15 Very Little GFR Left ESRD GFR <15 on FRAMING SPECIALIST Lab Order: TROPONIN; 07/10/16 11:09 Test: TROPONIN I; Value: < 0.02; Range: < 0.10; Units: NG/ML; Status: F Test Note: ; Troponin I Reference Interval for seedchange LOCI: 99th Percentile= 0.00-0.045 ng/ml Risk Stratification: <= 0.10 ng/ml Decreased Risk for Adverse Clinical Events. 0.10-1.50 ng/ml Increased Risk for Adverse Clinical Events. Evaluation of additional criterion and/or repeat testing in 2-6 hours is suggested to rule out myocardial damage. >= 1.50 ng/ml Indicative of Myocardial Injury. Lab Order: CARDIAC INJURY PROFILE; 07/10/16 11:09 Test: CPK CREATINE PHOSPHOKINASE; Value: 41; Range: 39-308; Units: U/L; Status: F Test: CK-MB VALUE MASS; Value: 1.0; Range: 0.0-3.6; Units: NG/ML; Status: F Test: MB/CK RELATIVE INDEX; Value: 2.43; Range: < OR =4; Status: F Test Note: ; DIAGNOSIS CRITERIA MMB ng/ml Relative Index (RI) NON-AMI < or = 5 N/A PAULINO ZONE > 5 < or = 4 AMI > 5 > 4 Radiology Order: Chest, 1 View Test: Chest, 1 View REASON FOR EXAMINATION: Chest Pain; Clinical: Chest pain .; ; Comparison: 06/27/2016 .; ; Findings:; The mediastinum and cardiac silhouette are stable and within normal limits for; portable technique. The lung varma are clear without acute consolidation,; effusion, or pneumothorax. Skeletal structures are intact.; ; Impression:; Normal portable chest x-ray; ; ; Signed by; Anish Hale MD 07/10/2016 07:37 A; Outcome: 08:59 Decision to Hospitalize by Provider. br1 12:59 Discharge Assessment: Patient awake, alert and oriented x 3. No cognitive and/or jc4 functional deficits noted. Patient verbalized understanding of disposition instructions. patient administered narcotics - no. The following High Risk Discharge criteria are identified: None. Admitted to PCU accompanied by nurse, family with patient, via stretcher, on monitor, with chart. Condition: stable. No special radiology studies were completed. Admission hand-off: Report Faxed Fax receipt verified by Amy. Property :Personal belongings accompany Pt. 13:02 Patient left the ED. jc4 Signatures: Dispatcher [employer] EDMS Danette Miguel, Airplane Navigator Unit lbd Maya Rose, Reg Reg gb Milind Erwin, Reg Reg lg Dave Corrales MD MD br1 Hilary Oliver, RN RN jc4 Rimma Romero, RAILROAD CAR INSPECTOR RAILROAD CAR INSPECTOR ct3 Berhane Buchanan, RAILROAD CAR INSPECTOR RAILROAD CAR INSPECTOR Mindy Montanez,RN RN ja5 Corrections: (The following items were deleted from the chart) 09:16 07:05 Presenting complaint: EMS states: 06/27 came from [facility] pacemaker, difib ja5 implant after [place]. Today he awoke to defib going off in his chest 05:00 and again at 06:15. EMS arrived and patient went into vtac, 150mg amiodarone. Vtac became intermittent. Patient arrived to ED in SR. ja5 Chart Complete MTDD
--- NOTE | 2016-07-12 14:04 | EDDOCDS ---
Physician Documentation [facility] Name: Wilmar Josue Age: 55 yrs Sex: Male : 1960 Arrival Date: 07/10/2016 Time: 07:02 Bed 3 Private MD: Berhane Pereyra MD Disposition: 07/10/16 08:59 Hospitalization ordered by Marco Antonio Jackson for Inpatient Admission. Preliminary diagnosis is Ventricular tachycardia - Hypophosphatemia. - Bed requested for PCU. - Status is Inpatient Admission. jc4 - Condition is Stable. - Problem is new. - Symptoms are unchanged. Historical: - Allergies: hydrocodone (Vomit); - Home Meds: 1. metoprolol succinate 25 mg Tb24 1 tab once daily 2. aspirin 81 mg Oral tab 1 tab once daily - PMHx: Chronic Back pain; GERD; hyperlipidemia; vit d defic; - PSHx: Cataract Surgery- Bilateral; - Social history: Smoking status: Patient states former smoker of tobacco. No barriers to communication noted. - Family history: Not pertinent. - : The pt / caregiver states he / she is not on anticoagulants. Home medication list is obtained from the patient, Home medication list is obtained from the patient. - Exposure Risk Screening:: None identified. Vital Signs: 07/10 07:10 BP 161 / 83 (auto/); ja5 07:11 Pulse 73 MON; Pulse Ox 100% ; ja5 07:14 Pulse 71 MON; Pulse Ox 100% ; ja5 07:15 BP 148 / 71 (auto/); ja5 07:19 BP 148 / 71; Pulse 91; Resp 24; Temp 97.6(O); Pulse Ox 99% ; Pain 0/10; ja5 07:23 Weight 68.72 kg / 151.5 lbs (M); Height 5 ft. 4 in. (162.56 cm); jrd 07:29 Pulse 73 MON; Pulse Ox 100% ; ja5 07:30 BP 146 / 79 (auto/); ja5 07:44 Pulse 67 MON; Pulse Ox 100% ; ja5 07:45 BP 143 / 72 (auto/); ja5 07:59 Pulse 63 MON; Pulse Ox 99% ; ja5 08:00 BP 129 / 67 (auto/); ja5 08:14 Pulse 61 MON; Pulse Ox 97% ; ja5 08:15 BP 122 / 70 (auto/); ja5 08:29 Pulse 64 MON; Pulse Ox 97% ; ja5 08:30 BP 130 / 73 (auto/); ja5 08:44 Pulse 61 MON; Pulse Ox 97% ; ja5 08:45 BP 116 / 64 (auto/); ja5 08:59 Pulse 67 MON; Pulse Ox 98% ; ja5 09:00 BP 119 / 63 (auto/); ja5 09:14 Pulse 67 MON; Pulse Ox 97% ; ja5 09:15 BP 123 / 69 (auto/); ja5 09:29 Pulse 65 MON; Pulse Ox 98% ; ja5 09:30 BP 130 / 68 (auto/); ja5 09:44 Pulse 65 MON; Pulse Ox 98% ; ja5 09:45 BP 118 / 68 (auto/); ja5 09:59 Pulse 60 MON; Pulse Ox 98% ; ja5 10:00 BP 107 / 63 (auto/); ja5 10:14 Pulse 66 MON; Pulse Ox 97% ; ja5 10:15 BP 143 / 80 (auto/); ja5 10:29 Pulse 65 MON; Pulse Ox 98% ; ja5 10:30 BP 121 / 79 (auto/); ja5 10:44 Pulse 72 MON; Pulse Ox 97% ; ja5 10:45 BP 120 / 61 (auto/); ja5 10:59 Pulse 65 MON; Pulse Ox 97% ; ja5 11:00 BP 121 / 68 (auto/); ja5 11:14 Pulse 64 MON; Pulse Ox 97% ; ja5 11:15 BP 118 / 68 (auto/); ja5 11:29 Pulse 66 MON; Pulse Ox 97% ; ja5 11:30 BP 118 / 67 (auto/); ja5 11:45 BP 145 / 109 (auto/); jc4 11:45 Pulse 60 MON; Pulse Ox 97% ; jc4 11:49 BP 125 / 63; Pulse 62; Resp 16; Temp 98.0(A); Pulse Ox 98% on R/A; Pain 0/10; ja5 11:49 BP 125 / 63 (auto/); jc4 11:49 Pulse 66 MON; Pulse Ox 98% ; jc4 12:00 BP 120 / 76 (auto/); jc4 12:00 Pulse 67 MON; Pulse Ox 98% ; jc4 12:15 BP 121 / 76 (auto/); jc4 12:15 Pulse 64 MON; Pulse Ox 96% ; jc4 12:30 BP 120 / 70 (auto/); jc4 12:30 Pulse 62 MON; Pulse Ox 98% ; jc4 12:45 BP 120 / 59 (auto/); jc4 12:45 Pulse 65 MON; Pulse Ox 97% ; jc4 12:57 BP 123 / 65; Pulse 65; Resp 20; Temp 99.5(TE); Pulse Ox 97% on R/A; Pain 0/10; jc4 07:23 Body Mass Index 26.00 (68.72 kg, 162.56 cm) jrd MDM: 07:09 ECG WITH READING ER PHYS+CARDIAG ordered. EDMS 07:17 Occupational Therapist Home Based/Pulse Ox/q 30 min VS ordered. br1 07:17 IV Saline Lock ordered. br1 07:17 Rhythm Strip to chart ordered. br1 07:17 Undress patient appropriately for examination ordered. br1 07:17 Basic Metabolic Profile Ordered. EDMS 07:17 CBC with Diff Ordered. EDMS 07:17 Cardiac Injury Profile Ordered. EDMS 07:17 Troponin Ordered. EDMS 07:17 Magnesium Level Ordered. EDMS 07:17 Phosphorous Level Ordered. EDMS 07:17 TSH with Free T4 Ordered. EDMS 07:18 Chest, 1 View Ordered. EDMS 07:27 amiodarone 150 mg IVP once ordered. br1 07:38 Misc Certified Professional Coder Order ordered. br1 07:45 amiodarone- Slow load (1mg/min) 360 mg IV at 33 mL/hr continuous over 6 hrs; br1 360mg/200mL D5W ordered. 07:45 Misc Certified Professional Coder Order complete. lbd 07:47 Financial registration complete. lg 08:00 [facility] Payment Agreement was scanned into [employer] and attached to record. lg 08:10 Basic Metabolic Profile Reviewed. br1 08:10 CBC with Diff Reviewed. br1 08:10 Phosphorous Level Reviewed. br1 08:10 TSH with Free T4 Reviewed. br1 08:10 Cardiac Injury Profile Reviewed. br1 08:10 Troponin Reviewed. br1 08:10 Magnesium Level Reviewed. br1 08:10 Chest, 1 View Reviewed. br1 08:12 Potassium & Sodium Phosphates Packet 280 mg-160 mg-250 mg 1 packets PO once; mix packet br1 with 75ml water or juice, stir well and administer promptly ordered. 08:33 BED REQUEST+ADM ordered. EDMS 11:00 Admission / Observation Status ordered. EDMS 11:00 Admission / Observation Status ordered. EDMS 11:00 ELECTROCARDIOGRAM ADULT ordered. EDMS 11:00 REGULAR DIET ordered. EDMS 11:01 CREATININE Ordered. EDMS 11:01 TROPONIN Ordered. EDMS 11:01 TROPONIN Ordered. EDMS 11:01 CARDIAC INJURY PROFILE Ordered. EDMS 11:02 CARDIAC INJURY PROFILE Ordered. EDMS 15:13 T-Sheet-- Draft Copy was scanned into [employer] and attached to record. gb 15:36 ECG/EKG was scanned into [employer] and attached to record. gb 15:36 Trend VS was scanned into [employer] and attached to record. gb Administered Medications: 07:28 Drug: amiodarone 150 mg [amiodarone 150 mg/100 mL (1.5 mg/mL) in dextrose, iso-osmotic 4 IV (100 mL)] Route: IVP; Site: right antecubital; 07:39 Follow up: IV infusion complete jc4 07:55 Drug: amiodarone- Slow load (1mg/min) 360 mg [amiodarone 360 mg/200 mL (1.8 mg/mL) in ja5 dextrose, iso-osmotic IV] Route: IV; Rate: 33 mL/hr; Infused Over: 6 hrs; Site: right antecubital; 13:01 Follow up: IV Status: Infusion continued upon admit; IV Intake: 150ml 4 09:08 Drug: Potassium & Sodium Phosphates 1 packets [potassium, sodium phosphates 280 mg-160 ja5 mg-250 mg oral powder packet (1 powder in packet)] Route: PO; Signatures: Dispatcher [employer] EDMS Danette Miguel, Mend Worker Unit lbd Maya Rose, Reg Reg gb Milind Erwin, Reg Reg lg Dave Corrales MD MD br1 Hilary Oliver, RN RN jc4 Xenia Koch RN RN Mindy AlcarazRN RN ja5 The chart was reviewed and I authenticate all verbal orders and agree with the evaluation and treatment provided.Attachments: 08:00 [facility] Payment Agreement lg 15:13 T-Sheet-- Draft Copy gb 15:36 ECG/EKG gb Chart Complete MTDD
--- NOTE | 2016-07-12 18:36 | ECGEPIP ---
Stationary ECG Study [place] Test Date: 2016-07-12 Pat Name: MIAH BENNETT Department: Room: [place] [address] Gender: M Resin Painter: OBDULIA : 1960 Requested By: Meggan Dao Order Number: [id number] Reading MD: Meggan Dao Measurements Intervals [place] Rate: 63 P: 67 ID: [id number] QRS: -5 QRSD: 90 T: 30 QT: 408 QTc: 420 Interpretive Statements ATRIAL PACED RHYTHM AV CONDUCTION 260MS NORMAL QRS MORPHOLOGY Electronically Signed On 07-12-2016 18:36:05 EST by Meggan Dao
== END 2016-07-12 09:57 | disposition home or self-care (01) | DRG 201 ==
LOC: M ED 07:02 → M ED INP 10:45 → M PCU 13:08
PROVIDERS: ADMIT Family Medicine; ATTEND Family Medicine
DX: I47.2 Ventricular tachycardia (principal); I49.01 Ventricular fibrillation; Z86.74 Personal history of sudden cardiac arrest; E55.9 Vitamin D deficiency, unspecified; F17.211 Nicotine dependence, cigarettes, in remission; N52.9 Male erectile dysfunction, unspecified; M51.36 Other intervertebral disc degeneration, lumbar region; K21.9 Gastro-esophageal reflux disease without esophagitis; E78.5 Hyperlipidemia, unspecified; Z95.810 Presence of automatic (implantable) cardiac defibrillator; Z88.6 Allergy status to analgesic agent; Z79.899 Other long term (current) drug therapy; Z79.82 Long term (current) use of aspirin

== ENCOUNTER → 2016-07-17 | Outpatient (REF) | payer MEDICAID, OTHER ==
[~2016-07-17] MED LIST changes: +AMIO20TA PO; +ASPI1TAB PO; +METO25TA74 PO
[2016-07-17 12:24] LABS: MEAN CORPUSCULAR HEMOGLOBIN 30.1 pg (27.0-33.0); MEAN CORPUSCULAR HGB CONC 31.4 g/dl (32.0-36.5); MEAN CORPUSCULAR VOLUME 95.6 fl (80.0-96.0); RED CELL DISTRIBUTION WIDTH 14.2 % (11.5-14.5); WHITE BLOOD COUNT 9.7 K/mm3 (4.0-10.0)
[2016-07-17 12:34] LABS: ALBUMIN 3.8 GM/DL (3.2-5.2); ALBUMIN/GLOBULIN RATIO 0.95 (1.00-1.93); ALKALINE PHOSPHATASE 102 U/L (45-117); ALT/SGPT 27 U/L (12-78); ANION GAP 7 MEQ/L (8-16); AST/SGOT 13 U/L (15-37); BILIRUBIN,TOTAL 0.7 MG/DL (0.2-1.0); BLOOD UREA NITROGEN 25 MG/DL (7-18); CALCIUM LEVEL 9.1 MG/DL (8.5-10.1); CARBON DIOXIDE LEVEL 28 MEQ/L (21-32); CHLORIDE LEVEL 106 MEQ/L (98-107); CREATININE FOR GFR 0.85 MG/DL (0.70-1.30); FREE T4 1.19 NG/DL (0.76-1.46); GLOMERULAR FILTRATION RATE > 60.0 (>56); GLUCOSE, FASTING 68 MG/DL (70-105); POTASSIUM SERUM 4.5 MEQ/L (3.5-5.1); SODIUM LEVEL 141 MEQ/L (136-145); TOTAL PROTEIN 7.8 GM/DL (6.4-8.2)
[2016-07-17 12:52] LABS: EOSINOPHILS 1 % (0-5)
--- NOTE | 2016-07-19 08:11 | ECWPN ---
PATIENT NAME: MIAH BENNETT : 1960 GENDER: MALE VISIT DATE: 07/10/2016 DISCHARGE DATE: 07/10/16 0000 VISIT LOCKED DATE TIME: PHYSICIAN: SOHAM BAH PHYSICIAN PAGER NO: [phone] RESOURCE: SOHAM BAH REASON FOR APPOINTMENT 1. ADMISSION H & P HISTORY OF PRESENT ILLNESS GENERAL: PATIENT'S ICD WENT OFF WHILE HE WAS SLEEPING LAST NIGHT AND THEN AGAIN THIS MORNING. OTHERWISE FEELS WELL. HAS SLIGHT COUGH THE LAST COUPLE OF DAY. NO SOB. NO CP. NO PALPATIONS. EATING AND DRINKING WELL. NON/V, DIARRHEA.HE IS TAKING METOPROLOL AND ASA ONLY. NO OTC MEDS. DENIES RECREATIONAL DRUGS OF ANY KIND. NO VIAGRA. HE HAS NOT ESTABLISHED WITH A LOCAL INFORMATION SERVICES ASSISTANT SINCE HIS EPISODE OF V-TACH WITH SUDDEN CARDIAC EARLIER THIS MONTH. CURRENT MEDICATIONS TAKING ASPIR-81 81 MG TABLET DELAYED RELEASE 1 TABLET ORALLY ONCE A DAY TAKING TOPROL XL 25 MG TABLET EXTENDED RELEASE 24 HOUR 1 TABLET ORALLY ONCE A DAY PAST MEDICAL HISTORY SUDDEN CARDIAC , V TACH IN ER 06/26, IMMEDIATE CPR/ACLS/SHOCK; ICD [facility] CARDIAC CATH 06/26 [facility]: EF 65%, NORMAL CORONARIES (MINIMAL PLAQUE) BACK INJURY APRIL 2004 WITH CHRONIC LBP AND DDD (COMP) SMOKER VIT D DEFIC HYPERLIPIDEMIA--PT STOPPED SIMVASTATIN 08/22 10 YR ASCVD RISK 10% 07/26 (IF QUITS SMOKING, RISK 5%--SEE NOTE) ERECTILE DYSFUNCTION ALLERGIES HYDROCODONE-ACETAMINOPHEN: NAUSEA/VOMITING: ALLERGY VITAL SIGNS WT 145 LBS, HT 63 IN, BMI 25.68 INDEX, BP 118/68 MM HG, HR 60 /MIN, RR 20 /MIN, TEMP 98.6 F, OXYGEN SAT % 97SEE ER VITAL SHEET. EXAMINATION GENERAL EXAMINATION: GENERAL APPEARANCE:WELL NOURISHED, WELL DEVELOPED, NO APPARENT DISTRESS. HEENT: EOMS INTACT, NO SCLERAL ICTERIS . NECK:NO LYMPHADENOPATHY, SUPPLE, NO THYROMEGALY, NO JVD, NO CAROTID BRUIT PRESENT. LUNGS:FEW BIBASILAR INSP CREPS. NO WHEEZES, RHONCHI, RALES. HEART:NO MURMURS, REGULAR RATE AND RHYTHM. ABDOMEN:SOFT, NONTENDER, BOWEL SOUNDS PRESENT, NO HEPATOSPLENOMEGALY, NO MASSES PALPATED. EXTREMITIES:NO CLUBBING, NO EDEMA. 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 SOLIS CONSULTED. HE RECOMMENDS CONTINUE IV AMIODARONE WITH LOADING PROTOCOLMONITOR ON PCUHE IS CONTACTING THE COMPANY THAT CAN COME AND INTEROGATE THE DEFIBRILLATOR. ELECTRONICALLY SIGNED BY SARAHI SKINNER ON 07/10/2016 AT 11:00 AM EST DISCLAIMER : THIS IS A VISIT SUMMARY EXTRACTED FROM THE [employer] retargeting CHART. IT IS NOT A COPY OF THE [employer] retargeting PROGRESS NOTE. NINA
== END | disposition home or self-care (01) ==
LOC: M SFHCADAM 08:59
PROVIDERS: ATTEND Family Medicine
DX: R61 Generalized hyperhidrosis (principal)

== ENCOUNTER 2016-08-05 19:20 | Emergency (ER) | payer MEDICAID, OTHER ==
--- NOTE | 2016-08-05 21:48 | EDDOCDS ---
Physician Documentation [facility] Name: Wilmar Josue Age: 55 yrs Sex: Male : 1960 Arrival Date: 08/05/2016 Time: 19:20 Bed 9 Private MD: Berhane Pereyra MD Disposition: 08/05/16 21:31 Discharged to Home/Self Care. Impression: Viral agents as the cause of diseases classified elsewhere. - Condition is Stable. - Medication Reconciliation, Local Pharmacy Hours form. - Follow up: Berhane Pereyra; When: Call to arrange an appointment; Reason: Recheck today's complaints. - Problem is new. - Symptoms have improved. Historical: - Allergies: hydrocodone (Vomit); - Home Meds: 1. aspirin 81 mg Oral tab 1 tab once daily (Last dose: 08/05/2016 07:30) 2. metoprolol succinate 25 mg Tb24 0.5 tabs once daily 3. amiodarone 200 mg Oral tab 1 tab 2 times per day (Last dose: 08/05/2016 07:00) - PMHx: Chronic Back pain; GERD; hyperlipidemia; vit d defic; 2 OR's---jun 27 2016; - PSHx: pacemaker --defibrillator; - Social history: Smoking status: Patient uses tobacco products, light tobacco smoker. No barriers to communication noted, The patient speaks fluent [place]. - Family history: Not pertinent. - : The pt / caregiver states he / she is not on anticoagulants. Home medication list is obtained from the patient, family members, [employer] import data. - Exposure Risk Screening:: None identified. Vital Signs: 08/05 19:32 BP 115 / 98; Pulse 67; Resp 20 S; Pulse Ox 96% on R/A; Weight 59.42 kg / 131 lbs (R); ms2 Height 5 ft. 4 in. (162.56 cm) (R); Pain 0/10; 19:34 BP 115 / 98 (auto/); ms2 19:36 Pulse 64 MON; Resp 20 S; Pulse Ox 97% ; ms2 19:49 BP 148 / 62 (auto/); ms2 19:49 Pulse 62 MON; Resp 20 S; Pulse Ox 97% ; ms2 20:04 BP 133 / 62 (auto/); ms2 20:05 Pulse 62 MON; Resp 20 S; Pulse Ox 95% ; ms2 20:13 Temp 98.4(O); cln 20:19 BP 129 / 64 (auto/); ms2 20:19 Pulse 68 MON; Resp 20 S; Pulse Ox 95% ; ms2 20:34 BP 124 / 62 (auto/); ms2 20:35 Pulse 62 MON; Resp 20 S; Pulse Ox 94% ; ms2 20:49 BP 120 / 60 (auto/); ms2 20:50 Pulse 62 MON; Resp 20 S; Pulse Ox 95% ; ms2 21:04 BP 122 / 64 (auto/); ms2 21:05 Pulse 62 MON; Resp 20 S; Pulse Ox 96% ; ms2 21:15 BP 123 / 63 Supine; Pulse 99; Resp 20 S; Pulse Ox 94% on R/A; ms2 21:15 BP 126 / 69 Sitting; Pulse 66; Resp 20 S; Pulse Ox 96% on R/A; ms2 21:15 BP 138 / 66 Standing; Pulse 63; Resp 20 S; Pulse Ox 97% on R/A; ms2 21:45 BP 127 / 63; Pulse 62; Resp 20 S; Temp 97(O); Pulse Ox 96% on R/A; Pain 0/10; ms2 19:32 Body Mass Index 22.49 (59.42 kg, 162.56 cm) ms2 21:15 pt states some dizziness with standing---states just adri up and feels that may be ms2 reason---pt nasally congested MDM: 19:43 Chest, 2 View (pa\E\lat) Ordered. EDMS 20:07 NS 0.9% 1000 ml IV at bolus once ordered. cs11 20:08 Vital Signs ordered. cs11 20:17 -Influenza A&B Rapid Antigen - Nose Ordered. EDMS 20:20 Metoprolol (Tartrate) 12.5 mg PO once; pt may take own med ordered. ms2 20:21 amiodarone 200 mg PO once; pt may take own med ordered. ms2 21:08 -Influenza A&B Rapid Antigen - Nose Reviewed. cs11 21:10 Orthostatic VS ordered. cs11 21:38 Financial registration complete. zo Administered Medications: 20:17 Drug: NS 0.9% 1000 ml [sodium chloride 0.9 % intravenous solution] Route: IV; Rate: ms2 bolus; Site: left antecubital; 20:33 Drug: amiodarone 200 mg [amiodarone 200 mg tablet (1 tabs)] Route: PO; ms2 20:34 Drug: Metoprolol 12.5 mg [metoprolol tartrate 25 mg tablet (0.5 tabs)] Route: PO; ms2 Signatures: Dispatcher [employer] Timothy Gomez RN RN ms2 Tena Rhodes Craig, DO DO cs11 MTDD
--- NOTE | 2016-08-05 21:48 | EDDOCDS ---
Nurse's Notes [facility] Name: Wilmar Josue Age: 55 yrs Sex: Male : 1960 Arrival Date: 08/05/2016 Time: 19:20 Bed 9 Private MD: Berhane Pereyra MD Diagnosis: Viral agents as the cause of diseases classified elsewhere Presentation: 08/05 19:25 Presenting complaint: EMS states: Sudden onset of fever, shaking and shortness of kmg1 breath. Recent placement of spacer. SR on monitor. Suicide/Homicide risk assessment- the patient denies having any suicidal and/or homicidal ideations and does not present with any other emotional, behavioral or mental health complaints. Status: Patient is not a business services sales agent or dependent. Transition of care: patient was not received from another setting of care. 19:25 Acuity: TRACYE Level 3 kmg1 19:25 Method Of Arrival: Walkin/Carried/Asstd kmg1 19:25 Care prior to arrival: See EMS report. IV initiated. Saline lock initiated. Oxygen kmg1 administered by EMS. 19:25 Adult Sepsis Screening: The patient does not have new or worsening altered mentation. ms2 Patient's respiratory rate is less than 22. Systolic blood pressure is greater than 100. Patient has a qSOFA score of 0- Negative Sepsis Screen. 19:25 Presenting complaint: Patient states: states only sleeps 2 hrs at a time --is afraid is ms2 going to in sleep --recent [place] pt was told he had this during his sleep. Triage Assessment: 19:40 General: Appears in no apparent distress, Behavior is anxious. Pain: Denies pain. HIV ms2 screening NA for this visit Offered previously. The patient is triaged at the bedside. See Assessment in Nurses Notes section of ED record. Neurological: Level of Consciousness is awake, alert, obeys commands. Cardiovascular: Rhythm is sinus rhythm No ectopy. Respiratory: Onset: The symptoms/episode began/occurred today. GI: Abdomen is flat, non- distended. Derm: Skin is pink, warm & dry. back noted to be mildly moist --did have chills and sweating short time ago. Musculoskeletal: Range of motion intact in all extremities. Historical: - Allergies: hydrocodone (Vomit); - Home Meds: 1. aspirin 81 mg Oral tab 1 tab once daily (Last dose: 08/05/2016 07:30) 2. metoprolol succinate 25 mg Tb24 0.5 tabs once daily 3. amiodarone 200 mg Oral tab 1 tab 2 times per day (Last dose: 08/05/2016 07:00) - PMHx: Chronic Back pain; GERD; hyperlipidemia; vit d defic; 2 AK's---jun 27 2016; - PSHx: pacemaker --defibrillator; - Social history: Smoking status: Patient uses tobacco products, light tobacco smoker. No barriers to communication noted, The patient speaks fluent Italian. - Family history: Not pertinent. - : The pt / caregiver states he / she is not on anticoagulants. Home medication list is obtained from the patient, family members, [employer] import data. - Exposure Risk Screening:: None identified. Screenin:36 Screening information is obtained from the patient. Fall risk: No risks identified. ms2 Assistance ADL's: requires no assistance with activities of daily living. Abuse/DV Screen: The patient / caregiver reports he/she is: not in a situation that causes fear, pain or injury. Nutritional screening: No deficits noted. Advance Directives: Currently, there is no health care proxy. There is no active DNR order. There is no living will. There is no Power of Tire Trucker. Advance directive information has not previously been placed in an [facility] medical record. Further advance directive information is declined. home support is adequate. Assessment: 19:37 Cardiovascular: Rhythm is Chest pain is denied. Respiratory: Airway is patent ms2 Respiratory effort is even, unlabored, Respiratory pattern is regular, symmetrical. Respiratory: occasional cough noted. GI: Abdomen is flat, non- distended. Derm: Skin is pink, warm & dry. Musculoskeletal: Range of motion intact in all extremities. 20:21 Respiratory: Breath sounds are clear bilaterally. GI: Bowel sounds present X 4 quads. ms2 20:21 General: given box lunch per order. ms2 20:34 General: took box lunch well. Neurological: No deficits noted. Cardiovascular: Rhythm ms2 is sinus rhythm No ectopy. Respiratory: No deficits noted. Derm: Skin is pink, warm & dry. Musculoskeletal: No deficits noted. 21:10 Adult Sepsis Screening: The patient does not have new or worsening altered mentation. ms2 Patient's respiratory rate is less than 22. Systolic blood pressure is greater than 100. Patient has a qSOFA score of 0- Negative Sepsis Screen. General: Appears in no apparent distress, comfortable, family with pt. Behavior is cooperative. Pain: Denies pain. Neurological: No deficits noted. Cardiovascular: Rhythm is sinus rhythm. Respiratory: No deficits noted. Derm: Skin is pink, warm & dry. Musculoskeletal: No deficits noted. 21:45 General: Appears in no apparent distress, comfortable, Behavior is cooperative. Pain: ms2 Denies pain. Neurological: Level of Consciousness is awake, alert, obeys commands. Cardiovascular: Rhythm is sinus rhythm No ectopy. Respiratory: No deficits noted. Airway is patent Respiratory effort is even, unlabored, Respiratory pattern is regular, symmetrical. Derm: Skin is pink, warm & dry. Musculoskeletal: Range of motion intact in all extremities. Vital Signs: 19:32 BP 115 / 98; Pulse 67; Resp 20 S; Pulse Ox 96% on R/A; Weight 59.42 kg (R); Height 5 ms2 ft. 4 in. (162.56 cm) (R); Pain 0/10; 19:34 BP 115 / 98 (auto/); ms2 19:36 Pulse 64 MON; Resp 20 S; Pulse Ox 97% ; ms2 19:49 BP 148 / 62 (auto/); ms2 19:49 Pulse 62 MON; Resp 20 S; Pulse Ox 97% ; ms2 20:04 BP 133 / 62 (auto/); ms2 20:05 Pulse 62 MON; Resp 20 S; Pulse Ox 95% ; ms2 20:13 Temp 98.4(O); cln 20:19 BP 129 / 64 (auto/); ms2 20:19 Pulse 68 MON; Resp 20 S; Pulse Ox 95% ; ms2 20:34 BP 124 / 62 (auto/); ms2 20:35 Pulse 62 MON; Resp 20 S; Pulse Ox 94% ; ms2 20:49 BP 120 / 60 (auto/); ms2 20:50 Pulse 62 MON; Resp 20 S; Pulse Ox 95% ; ms2 21:04 BP 122 / 64 (auto/); ms2 21:05 Pulse 62 MON; Resp 20 S; Pulse Ox 96% ; ms2 21:15 BP 123 / 63 Supine; Pulse 99; Resp 20 S; Pulse Ox 94% on R/A; ms2 21:15 BP 126 / 69 Sitting; Pulse 66; Resp 20 S; Pulse Ox 96% on R/A; ms2 21:15 BP 138 / 66 Standing; Pulse 63; Resp 20 S; Pulse Ox 97% on R/A; ms2 21:45 BP 127 / 63; Pulse 62; Resp 20 S; Temp 97(O); Pulse Ox 96% on R/A; Pain 0/10; ms2 19:32 Body Mass Index 22.49 (59.42 kg, 162.56 cm) ms2 21:15 pt states some dizziness with standing---states just adri up and feels that may be ms2 reason---pt nasally congested Vitals: 19:32 Log In Time N/A - ambulance arrival. ms2 ED Course: 19:21 Patient visited by Shanti Rob PCA. tmm1 19:21 Berhane Pereyra is Private Physician. tmm1 19:21 Patient moved to Waiting tmm1 19:21 Patient moved to 9 tmm1 19:27 Triage Initiated kmg1 19:29 Patient visited by Timothy Levine RN. ms2 19:35 IV is intact, is free of redness or swelling. has #18 in left ac by EMS. No procedures ms2 done that require assistance. 19:42 Jacob Santiago DO is Attending Physician. cs11 19:42 Patient visited by Jacob Santiago DO. cs11 19:44 Patient visited by Timothy Levine RN. ms2 20:13 Patient visited by Emily Perry PCA. cln 20:21 -Influenza A&B Rapid Antigen - Nose Sent. ms2 20:34 The patient / caregiver is instructed regarding the plan of care and ED course. Cardiac ms2 monitor on. Pulse ox on. NIBP on. 20:34 IV is patent, is intact, is free of redness or swelling. solution is infusing as ms2 ordered. 21:09 Patient visited by Timothy Levine RN. ms2 21:11 The patient / caregiver is instructed regarding the plan of care and ED course. Cardiac ms2 monitor on. Pulse ox on. NIBP on. 21:11 IV is patent, is intact, is free of redness or swelling. ms2 21:30 Berhane Pereyra is Referral Physician. cs11 21:45 Patient visited by Timothy Levine RN. ms2 21:46 The patient / caregiver is instructed regarding the plan of care and ED course. monitor ms2 dc'd. 21:46 Discontinued IV intact, bleeding controlled, pressure dressing applied, No ms2 redness/swelling at site. Administered Medications: 20:17 Drug: NS 0.9% 1000 ml [sodium chloride 0.9 % intravenous solution] Route: IV; Rate: ms2 bolus; Site: left antecubital; 20:33 Drug: amiodarone 200 mg [amiodarone 200 mg tablet (1 tabs)] Route: PO; ms2 20:34 Drug: Metoprolol 12.5 mg [metoprolol tartrate 25 mg tablet (0.5 tabs)] Route: PO; ms2 Intake: 21:17 PO: 236.00ml; IV: 1000.00ml (NS); Total: 1236.00ml. ms2 Output: 21:45 Urine: 0.00ml; Total: 0.00ml. ms2 Order Results: Lab Order: -Influenza A&B Rapid Antigen - Nose; SPEC'M 08/05/16 20:12 Test: INFLUENZA A RAPID SCR by ICA; Value: INFLUENZA A RESULTS NEGATIVE; Status: F Test: INFLUENZA A RAPID SCR by ICA; Value: Comments:; Status: F Test: INFLUENZA B RAPID SCR by ICA; Value: INFLUENZA B RESULTS NEGATIVE; Status: F Test Note: ; The Influenza test is a direct rapid immunoassay for the qualitative detection of Influenza viral antigen. Cell culture (Viral Culture) testing should be considered to confirm NEGATIVE results and to assist in detecting other viruses that can provide similar clinical symptoms. Please contact the lab within 24 hours ([phone]) if confirmatory testing is desired. Outcome: 21:31 Discharge ordered by Provider. cs11 21:46 Discharge Assessment: patient administered narcotics - no. The following High Risk ms2 Discharge criteria are identified: None. Discharged to home ambulatory, with family. Condition: stable. Discharge instructions given to patient, Instructed on discharge instructions, follow up and referral plans. Demonstrated understanding of instructions, Pt was receptive of discharge instructions/ teaching. No special radiology studies were completed. Property sent home with patient. 21:47 Patient left the ED. ms2 Signatures: Timothy Levine RN RN ms2 Rea Anders RN RN kmg1 Jacob Santiago, DO cs11 Shanti Rob, CORRECTIONAL OFFICER CAPTAIN CORRECTIONAL OFFICER CAPTAIN tmm1 Emily Perry, CORRECTIONAL OFFICER CAPTAIN CORRECTIONAL OFFICER CAPTAIN cln Corrections: (The following items were deleted from the chart) 20:38 19:40 Derm: Skin is pink, warm & dry. ms2 ms2 21:17 21:10 PO 120, IV 1000, (NS), Intake Total 1120. ms2 ms2 21:18 21:15 BP 138 / 66 Standing; Pulse 63bpm; Resp 20bpm; Spontaneous; Pulse Ox 97% RA; pt ms2 states some dizziness with standing---states just adri up and feels that may be reason; ms2 MTDD
--- NOTE | 2016-08-06 00:40 | REP ---
Clinical: Shortness of breath . Comparison: 07/10/2016 . Technique: PA and lateral. Findings: The mediastinum and cardiac silhouette are normal; pacemaker stable. The lung varma are clear and without acute consolidation, effusion, or pneumothorax. The skeletal structures are intact and normal. Impression: No acute cardiopulmonary process. Signed by Anish Hale MD 08/06/2016 12:31 A
--- NOTE | 2016-08-07 22:48 | EDDOCDS ---
Physician Documentation [facility] Name: Wilmar Josue Age: 55 yrs Sex: Male : 1960 Arrival Date: 08/05/2016 Time: 19:20 Bed 9 Private MD: Berhane Pereyra MD Disposition: 08/05/16 21:31 Discharged to Home/Self Care. Impression: Viral agents as the cause of diseases classified elsewhere. - Condition is Stable. - Medication Reconciliation, Local Pharmacy Hours form. - Follow up: Berhane Pereyra; When: Call to arrange an appointment; Reason: Recheck today's complaints. - Problem is new. - Symptoms have improved. Historical: - Allergies: hydrocodone (Vomit); - Home Meds: 1. aspirin 81 mg Oral tab 1 tab once daily (Last dose: 08/05/2016 07:30) 2. metoprolol succinate 25 mg Tb24 0.5 tabs once daily 3. amiodarone 200 mg Oral tab 1 tab 2 times per day (Last dose: 08/05/2016 07:00) - PMHx: Chronic Back pain; GERD; hyperlipidemia; vit d defic; 2 MA's---jun 27 2016; - PSHx: pacemaker --defibrillator; - Social history: Smoking status: Patient uses tobacco products, light tobacco smoker. No barriers to communication noted, The patient speaks fluent [place]. - Family history: Not pertinent. - : The pt / caregiver states he / she is not on anticoagulants. Home medication list is obtained from the patient, family members, [employer] import data. - Exposure Risk Screening:: None identified. Vital Signs: 08/05 19:32 BP 115 / 98; Pulse 67; Resp 20 S; Pulse Ox 96% on R/A; Weight 59.42 kg / 131 lbs (R); ms2 Height 5 ft. 4 in. (162.56 cm) (R); Pain 0/10; 19:34 BP 115 / 98 (auto/); ms2 19:36 Pulse 64 MON; Resp 20 S; Pulse Ox 97% ; ms2 19:49 BP 148 / 62 (auto/); ms2 19:49 Pulse 62 MON; Resp 20 S; Pulse Ox 97% ; ms2 20:04 BP 133 / 62 (auto/); ms2 20:05 Pulse 62 MON; Resp 20 S; Pulse Ox 95% ; ms2 20:13 Temp 98.4(O); cln 20:19 BP 129 / 64 (auto/); ms2 20:19 Pulse 68 MON; Resp 20 S; Pulse Ox 95% ; ms2 20:34 BP 124 / 62 (auto/); ms2 20:35 Pulse 62 MON; Resp 20 S; Pulse Ox 94% ; ms2 20:49 BP 120 / 60 (auto/); ms2 20:50 Pulse 62 MON; Resp 20 S; Pulse Ox 95% ; ms2 21:04 BP 122 / 64 (auto/); ms2 21:05 Pulse 62 MON; Resp 20 S; Pulse Ox 96% ; ms2 21:15 BP 123 / 63 Supine; Pulse 99; Resp 20 S; Pulse Ox 94% on R/A; ms2 21:15 BP 126 / 69 Sitting; Pulse 66; Resp 20 S; Pulse Ox 96% on R/A; ms2 21:15 BP 138 / 66 Standing; Pulse 63; Resp 20 S; Pulse Ox 97% on R/A; ms2 21:45 BP 127 / 63; Pulse 62; Resp 20 S; Temp 97(O); Pulse Ox 96% on R/A; Pain 0/10; ms2 19:32 Body Mass Index 22.49 (59.42 kg, 162.56 cm) ms2 21:15 pt states some dizziness with standing---states just adri up and feels that may be ms2 reason---pt nasally congested MDM: 19:43 Chest, 2 View (pa\E\lat) Ordered. EDMS 20:07 NS 0.9% 1000 ml IV at bolus once ordered. cs11 20:08 Vital Signs ordered. cs11 20:17 -Influenza A&B Rapid Antigen - Nose Ordered. EDMS 20:20 Metoprolol (Tartrate) 12.5 mg PO once; pt may take own med ordered. ms2 20:21 amiodarone 200 mg PO once; pt may take own med ordered. ms2 21:08 -Influenza A&B Rapid Antigen - Nose Reviewed. cs11 21:10 Orthostatic VS ordered. cs11 21:38 Financial registration complete. zo 22:10 [facility] Payment Agreement was scanned into [employer] and attached to record. zo 08/06 09:19 T-Sheet-- Draft Copy was scanned into [employer] and attached to record. gb Administered Medications: 08/05 20:17 Drug: NS 0.9% 1000 ml [sodium chloride 0.9 % intravenous solution] Route: IV; Rate: ms2 bolus; Site: left antecubital; 20:33 Drug: amiodarone 200 mg [amiodarone 200 mg tablet (1 tabs)] Route: PO; ms2 20:34 Drug: Metoprolol 12.5 mg [metoprolol tartrate 25 mg tablet (0.5 tabs)] Route: PO; ms2 Signatures: Dispatcher [employer] EDTimothy Brito,RN RN ms2 Maya Rose, Reg Reg gb Carmelo, Jacob Sigala DO DO cs11 The chart was reviewed and I authenticate all verbal orders and agree with the evaluation and treatment provided.Attachments: 22:10 [facility] Payment Agreement zo 08/06 09:19 T-Sheet-- Draft Copy Chart Complete MTDD
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
== END 2016-08-05 21:47 | disposition home or self-care (01) ==
LOC: M ED 19:20
DX: B34.9 Viral infection, unspecified (principal); G89.29 Other chronic pain; M54.9 Dorsalgia, unspecified; K21.9 Gastro-esophageal reflux disease without esophagitis; E78.00 Pure hypercholesterolemia, unspecified; E55.9 Vitamin D deficiency, unspecified; I25.2 Old myocardial infarction; Z79.899 Other long term (current) drug therapy; Z79.82 Long term (current) use of aspirin; Z88.5 Allergy status to narcotic agent; F17.210 Nicotine dependence, cigarettes, uncomplicated

== ENCOUNTER → 2016-08-14 | Outpatient (CLI) | payer OTHER, MEDICAID ==
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
== END ==
LOC: M PAIN 09:00
PROVIDERS: ATTEND Anesthesiology
DX: Z09 Encounter for follow-up examination after completed treatment for conditions other than malignant neoplasm (principal); G89.29 Other chronic pain; M79.1 Myalgia; M54.2 Cervicalgia; M54.5 Low back pain; I21.4 Non-ST elevation (NSTEMI) myocardial infarction; I47.2 Ventricular tachycardia; E55.9 Vitamin D deficiency, unspecified; E78.5 Hyperlipidemia, unspecified; Z88.5 Allergy status to narcotic agent; Z79.82 Long term (current) use of aspirin; Z79.899 Other long term (current) drug therapy; Z86.74 Personal history of sudden cardiac arrest; Z95.0 Presence of cardiac pacemaker

== ENCOUNTER 2016-08-17 14:33 | Emergency (ER) | payer MEDICAID, OTHER ==
[~2016-08-17] VITALS: Ht 162.6 cm; Wt 65.8 kg
[2016-08-17] MEDS ORDERED: MORPHINE 2 MG/ML 1ML SYRINGE IV PRN (14:45)
[2016-08-17 15:04] LABS: BASO % 0.5 % (0.0-1.0); EOS # 0.2 K/mm3 (0.0-0.50); EOS % 1.9 % (0.0-3.0); LARGE UNSTAINED CELL # 0.3 K/mm3 (0.0-0.4); LARGE UNSTAINED CELL % 2.5 % (0.0-4.0); LYMPH # 2.6 K/mm3 (1.5-4.5); LYMPH % 22.5 % (24.0-44.0); MEAN CORPUSCULAR HGB CONC 32.1 g/dl (32.0-36.5); MEAN CORPUSCULAR VOLUME 93.4 fl (80.0-96.0); MONO # 0.6 K/mm3 (0.0-0.8); MONO % 5.3 % (0.0-5.0); NEUTROPHILS # 7.7 K/mm3 (1.8-7.7); NEUTROPHILS % 67.3 % (36.0-66.0); PLATELET COUNT, AUTOMATED 450 k/mm3 (150-450); RED CELL DISTRIBUTION WIDTH 14.7 % (11.5-14.5); WHITE BLOOD COUNT 11.4 K/mm3 (4.0-10.0)
[2016-08-17 15:14] LABS: INR 0.97
[2016-08-17 15:33] LABS: ANION GAP 10 MEQ/L (8-16); BLOOD UREA NITROGEN 18 MG/DL (7-18); CARBON DIOXIDE LEVEL 25 MEQ/L (21-32); CHLORIDE LEVEL 109 MEQ/L (98-107); CREATININE FOR GFR 1.04 MG/DL (0.70-1.30); FREE T4 1.15 NG/DL (0.76-1.46); GLOMERULAR FILTRATION RATE > 60.0 (>56); GLUCOSE, FASTING 145 MG/DL (70-105); POTASSIUM SERUM 3.7 MEQ/L (3.5-5.1); SODIUM LEVEL 144 MEQ/L (136-145)
--- NOTE | 2016-08-17 16:15 | REP ---
Portable chest x-ray: Sitting AP view: History: Chest pain. Comparison chest x-ray 08/05/2016. Findings: EKG monitoring electrodes overlie the chest. Lungs are well inflated and clear. Heart size is normal. A multi lead pacemaker device is seen in place in the right heart via the left subclavian vein unchanged. Pulmonary vasculature is not increased. There is no evidence of pleural effusion or pulmonary edema. Impression: No active disease. Pacemaker in place. Signed by Doe Navarro MD 08/17/2016 05:19 P
[2016-08-17 16:27] LABS: ERYTHROCYTE SEDIMENTATION RATE 9 mm/hr (0-20)
[2016-08-17] MEDS ORDERED: ACETAMINOPHEN 325 MG TAB PO ONE (17:30)
[2016-08-17 21:21] VITALS: BP 117/64
--- NOTE | 2016-08-18 09:02 | ECGEPIP ---
Stationary ECG Study [facility] - ED Test Date: 2016-08-17 Pat Name: MIAH BENNETT Department: Room: - Gender: M Educational Technology Specialist: lynne : 1960 Requested By: KALYAN CUEVA Order Number: [id number] Reading MD: Vicki Vicente Measurements Intervals [place] Rate: 69 P: 55 [place]: 187 QRS: -16 QRSD: 97 T: 42 QT: 427 QTc: 459 Interpretive Statements SINUS RHYTHM POSSIBLE RIGHT VENTRICULAR CONDUCTION DELAY SEPTAL MYOCARDIAL INFARCTION, OF INDETERMINATE AGE PRIOR ATRIAL PACED 07/12/16 Electronically Signed On 08-18-2016 9:02:23 EST by Vicki Vicente
--- NOTE | 2016-08-18 09:08 | ECGEPIP ---
Stationary ECG Study [facility] - ED Test Date: 2016-08-17 Pat Name: MIAH BENNETT Department: Room: - Gender: M Grade Foreman: elzbieta : 1960 Requested By: KALYAN CUEVA Order Number: [id number] Reading MD: Vicki Vicente Measurements Intervals [place] Rate: 66 P: 101 [place]: 205 QRS: -13 QRSD: 98 T: 39 QT: 415 QTc: 438 Interpretive Statements ELECTRONIC ATRIAL PACEMAKER POSSIBLE RIGHT VENTRICULAR CONDUCTION DELAY ABNORMAL RHYTHM ECG ?PRIOR SEPTAL INFARCT Electronically Signed On 08-18-2016 9:08:10 EST by Vicki Vicente
== END 2016-08-17 21:22 | disposition home or self-care (01) ==
LOC: M ED 15:35
DX: R07.89 Other chest pain (principal); M25.50 Pain in unspecified joint; R51 Headache; I25.2 Old myocardial infarction; Z95.0 Presence of cardiac pacemaker; F17.200 Nicotine dependence, unspecified, uncomplicated; Z82.49 Family history of ischemic heart disease and other diseases of the circulatory system; Z79.82 Long term (current) use of aspirin; Z79.899 Other long term (current) drug therapy; Z88.5 Allergy status to narcotic agent

== ENCOUNTER 2016-10-16 07:49 | Emergency (ER) | payer OTHER ==
[~2016-10-16] VITALS: Ht 162.6 cm; Wt 65.8 kg
[2016-10-16] MEDS ORDERED: LISI10TA4 PO (08:03)
[2016-10-16] MEDS ORDERED: LIDOCAINE 1% MDV 20ML VIAL SC ONE (09:00)
[2016-10-16] MEDS ORDERED: BACT800T5 PO (09:34)
[2016-10-16] MEDS ORDERED: PERC5TAB6 PO (09:34)
[2016-10-16 09:36] VITALS: BP 160/77
[2016-10-17] MEDS ORDERED: AMIO20TA PO (11:49)
== END 2016-10-16 09:46 | disposition home or self-care (01) ==
LOC: M ED 09:03
DX: L02.416 Cutaneous abscess of left lower limb (principal); B95.62 Methicillin resistant Staphylococcus aureus infection as the cause of diseases classified elsewhere; F17.200 Nicotine dependence, unspecified, uncomplicated; Z79.82 Long term (current) use of aspirin; Z79.899 Other long term (current) drug therapy; Z88.5 Allergy status to narcotic agent

== ENCOUNTER 2016-10-17 09:05 | Inpatient (IN) | payer OTHER ==
[~2016-10-17] VITALS: Ht 162.6 cm; Wt 61.4 kg
[~2016-10-17 09:05] MED LIST changes: +BACT800T5 PO; +LISI10TA4 PO; +PERC5TAB6 PO
[2016-10-17] MEDS ORDERED: KETOROLAC 30 MG/ML VIAL (J1885) IV ONE (10:30)
[2016-10-17] MEDS ORDERED: CLINDAMYCIN 900 MG in APPROPRIATE DILUENT 1 EA IV ONE (10:30)
[2016-10-17] MEDS ORDERED: NS 1,000 ML IV ONE (10:30)
[2016-10-17 10:45] LABS: BASO % 0.2 % (0.0-1.0); EOS # 0.3 K/mm3 (0.0-0.50); EOS % 1.7 % (0.0-3.0); LARGE UNSTAINED CELL # 0.2 K/mm3 (0.0-0.4); LARGE UNSTAINED CELL % 1.2 % (0.0-4.0); LYMPH # 1.2 K/mm3 (1.5-4.5); MEAN CORPUSCULAR HEMOGLOBIN 31.5 pg (27.0-33.0); MEAN CORPUSCULAR HGB CONC 32.6 g/dl (32.0-36.5); MEAN CORPUSCULAR VOLUME 96.6 fl (80.0-96.0); MONO # 0.6 K/mm3 (0.0-0.8); MONO % 4.1 % (0.0-5.0); NEUTROPHILS # 12.8 K/mm3 (1.8-7.7); NEUTROPHILS % 84.8 % (36.0-66.0); PLATELET COUNT, AUTOMATED 421 k/mm3 (150-450); RED CELL DISTRIBUTION WIDTH 14.7 % (11.5-14.5); WHITE BLOOD COUNT 15.1 K/mm3 (4.0-10.0)
[2016-10-17 11:03] LABS: ANION GAP 5 MEQ/L (8-16); BLOOD UREA NITROGEN 20 MG/DL (7-18); CALCIUM LEVEL 8.9 MG/DL (8.5-10.1); CARBON DIOXIDE LEVEL 26 MEQ/L (21-32); CHLORIDE LEVEL 106 MEQ/L (98-107); CREATININE FOR GFR 0.88 MG/DL (0.70-1.30); GLOMERULAR FILTRATION RATE > 60.0 (>56); GLUCOSE, FASTING 85 MG/DL (70-105); POTASSIUM SERUM 4.4 MEQ/L (3.5-5.1); SODIUM LEVEL 137 MEQ/L (136-145)
--- NOTE | 2016-10-17 11:16 | REP ---
ULTRASOUND LEFT THIGH SOFT TISSUES: Real-time sonographic evaluation of the left thigh soft tissues performed in the region of redness. At this location, there is a small area of complex fluid which measures approximately 1.6 x 0.5 x 2.3 cm. This may represent an abscess. Signed by Andry Ulloa MD 10/17/2016 04:55 P
[2016-10-17] MEDS ORDERED: AMIO20TA PO (11:49)
[2016-10-17] MEDS ORDERED: PERCOCET 5MG/325MG TAB PO PRN (12:00)
[2016-10-17] MEDS ORDERED: CEFTAROLINE FOSAMIL 600 MG in D5W MINI-BAG PLUS 50 ML IV SCH (12:00)
[2016-10-17 14:00] VITALS: BP 111/69
[2016-10-17] MEDS ORDERED: NS 1,000 ML IV SCH (14:45)
--- NOTE | 2016-10-17 15:00 | HPEPDOC ---
General Date of Admission October 17, 2016 at 12:13 Chief Complaint The patient is a 56-year-old male Presented to the ER with complaints of left thigh pain after he had an I&D the day prior. History of Present Illness Patient is a 56 year old male with a PMHx of CAD, NSTEMI, s/p AICD placement who presented to the ER with complaints of left thigh pain. He noted that over the last 3 days he has been had a small bump on his left thigh that progressed to a large red bump that was tender without any drainage. He denied any trauma or bug bites to the area. Patient presented to the ER on 10/16/2016 and had an incision and drainage. After that point he was discharged home with Bactrim. He had taken 2 doses and woke up the next day with fever, chills and worsening erythema in the area. He did note that he was nauseous, but has not had any vomiting episodes. Patient denies any chest pain shortness of breath, cough, abdominal pain, constipation, diarrhea or urinary symptoms. Home Medications Scheduled Amiodarone HCl (Amiodarone HCl) 200 Mg Tab, 200 MG PO BID, (Reported) Aspirin (Aspirin 81) 81 Mg Tab, 81 MG PO QAM, (Reported) Lisinopril (Lisinopril) 10 Mg Tab, 10 MG PO QPM, (Reported) Metoprolol Succinate (Metoprolol Succinate ER) 25 Mg Tab, 12.5 MG PO QPM, ( Reported) Trimethoprim/Sulfamethoxazole (Bactrim Ds 800-160 mg) 1 Tab Tab, 1 TAB PO Q12H Scheduled PRN Oxycodone/Acetaminophen (Percocet 5-325 mg) 1 Tab Tab, 1 TAB PO Q6H PRN for PAIN Allergies Coded Allergies: Hydrocodone (Unverified Adverse Reaction, Mild, N/V, 08/17/16) Past Medical History Medical History CAD, NSTEMI, s/p AICD Surgical History Bilateral hip surgeries Skin grafts Bilateral cataract surgeries Right arm fracture s/p ORIF Left wrist fracture s/p ORIF Family History - Non-contributory Social History - Denies the use of alcohol or illicit drugs; Smoker of 40 years at [facility] - Denies recent travel or sick contacts - 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; 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 Review of Symptoms Other systems Constitutional: Denies weight loss, change in appetite, or recent trauma Eyes: No visual changes or eye pain Ears, Nose, Throat: Denies nose bleeds, or difficulty swallowing Cardiovascular: Denies chest pain, sweating, or orthopnea Respiratory: Denies cough, wheezing, or shortness of breath GI: Positive nausea, No vomiting, abdominal pain, diarrhea or constipation : Denies pain with urination or frequency Musculoskeletal: Denies joint pain or swelling Neuro / Psych: Denies muscle weakness or sensory loss Skin: Left inner thigh with draining wound, redness and tenderness All other review of systems negative; otherwise stated in history of present illness Screening: - Colonoscopy done 6 months ago; found to have several polyps Vital Signs - Vitals: BP 135/75, HR 73, RR 18, Sat 97%RA, Temp 100.9F - General: Lying in bed, No acute distress, Speaking in full sentences, AAOx3 - HEENT: NC, AT, PERRLA, EOMI - CVS: RRR, +S1S2, - Murmurs / rubs / gallops - Lungs: Fair air entry bilaterally, Clear to auscultation, No wheezing / rales / rhonchi - Abdomen: Soft, Non-distended, Non-tender, + Bowel sounds x 4 - Extremities: + PPx4, No lower extremity edema, No calf tenderness - Neuro: No focal motor or sensory deficit - Skin: Left inner thigh with 2.0 x 2.5cm indurated area with drainage, surrounding area with 10 by 20 cm erythema / tenderness Laboratory Data Labs 24H Laboratory Tests 2 10/17/16 00:00: Lactic Acid Level 1.1 10/17/16 10:29: White Blood Count 15.1H, Red Blood Count 4.77, Hemoglobin 15.0, Hematocrit 46.1 , Mean Corpuscular Volume 96.6H, Mean Corpuscular Hemoglobin 31.5, Mean Corpuscular Hemoglobin Concent 32.6, Red Cell Distribution Width 14.7H, Platelet Count 421, Neutrophils (%) (Auto) 84.8H, Lymphocytes (%) (Auto) 8.0L, Monocytes (%) (Auto) 4.1, Eosinophils (%) (Auto) 1.7, Basophils (%) (Auto) 0.2, Neutrophils # (Auto) 12.8H, Lymphocytes # (Auto) 1.2L, Monocytes # (Auto) 0.6, Eosinophils # (Auto) 0.3, Basophils # (Auto) 0.0, Large Unclassified Cells % 1.2 , Large Unclassified Cells # 0.2, Anion Gap 5L, Glomerular Filtration Rate > 60.0, Blood Urea Nitrogen 20H, Creatinine 0.88, Sodium Level 137, Potassium Level 4.4, Chloride Level 106, Carbon Dioxide Level 26, Calcium Level 8.9, C- Reactive Protein, Quantitative 9.95H CBC/BMP Laboratory Tests 10/17/16 10:29 Red Blood Count 4.77, Mean Corpuscular Volume 96.6 H, Mean Corpuscular Hemoglobin 31.5, Mean Corpuscular Hemoglobin Concent 32.6, Red Cell Distribution Width 14.7 H, Neutrophils (%) (Auto) 84.8 H, Lymphocytes (%) (Auto ) 8.0 L, Monocytes (%) (Auto) 4.1, Eosinophils (%) (Auto) 1.7, Basophils (%) ( Auto) 0.2, Neutrophils # (Auto) 12.8 H, Lymphocytes # (Auto) 1.2 L, Monocytes # (Auto) 0.6, Eosinophils # (Auto) 0.3, Basophils # (Auto) 0.0, Calcium Level 8.9 Microbiology Microbiology 10/17/16 Blood Culture, Received Pending 10/17/16 Blood Culture, Received Pending 10/17/16 Gram Stain, Received Pending 10/17/16 Wound Culture, Received Pending Plan / VTE VTE Prophylaxis Ordered?: Yes Plan Plan Left inner thigh cellulitis / abscess - Presented after he received an incision and drainage - Physical with large area of erythema, tenderness and drainage - Fever of 100.9F - Labs reveal leukocytosis and elevation in CRP - US 10/17: 1.5 x 0.5 x 2.3 cm fluid collection - Will trend CRP, check blood cultures - c/w Vancomycin and Zosyn CAD - History of NSTEMI - s/p AICD - c/w Amiodarone, ASA, Lisinopril and Metoprolol DVT prophylaxis - Will start YANET Garza MD October 17, 2016 15:00
[2016-10-17] MEDS: ENOXAPARIN 40 MG/0.4 ML SYRINGE (J1650) SC SCH (15:07)
[2016-10-17] MEDS: PIPERACILLIN/TAZOBACTAM SOD 3.375 GM in D5W MINI-BAG PLUS 50 ML IV SCH ×2 (15:18→22:36)
[2016-10-17] MEDS: VANCOMYCIN HCL 1,000 MG, VIAL MATE ADAPTER 1 EACH in D5W 250 ML IV SCH (16:37)
[2016-10-17] MEDS: ACETAMINOPHEN TAB 650MG DOSE (2X325MG) PO PRN (16:49)
[2016-10-17] MEDS ORDERED: VANCOMYCIN HCL 1,000 MG, VIAL MATE ADAPTER 1 EACH in D5W 250 ML IV SCH (17:00)
[2016-10-17 18:00] VITALS: BP 119/64
--- NOTE | 2016-10-17 18:39 | PHACANCOPD ---
PHARMACY VANCOMYCIN DOSING Pt Demographics Demographics Patient Age:56 , Weight:64.900 , Gender: male Adjusted Body Weight Date: 10/17/16, Adjusted Body Weight: [63.5] KgACTUAL WEIGHT Vancomycin Vancomycin indication: CELLULITIS Vancomycin Target Ranges: 15-20 mcg/ml Vancomycin Load Y/N: Yes Load Dose Date Time Vancomycin Load Dose: 2 GM Date: 10/17 Time: 1600 Vancomycin Dose Date: 10/17/16. Current Vancomycin Dose: [1 GM Q12H] Intermittent Dosing?: No Labs Labs Laboratory Tests 10/17/16 10:29 Red Blood Count 4.77, Mean Corpuscular Volume 96.6 H, Mean Corpuscular Hemoglobin 31.5, Mean Corpuscular Hemoglobin Concent 32.6, Red Cell Distribution Width 14.7 H, Neutrophils (%) (Auto) 84.8 H, Lymphocytes (%) (Auto ) 8.0 L, Monocytes (%) (Auto) 4.1, Eosinophils (%) (Auto) 1.7, Basophils (%) ( Auto) 0.2, Neutrophils # (Auto) 12.8 H, Lymphocytes # (Auto) 1.2 L, Monocytes # (Auto) 0.6, Eosinophils # (Auto) 0.3, Basophils # (Auto) 0.0, Calcium Level 8.9 Micro Microbiology 10/17/16 Blood Culture, Received Pending 10/17/16 Blood Culture, Received Pending 10/17/16 Gram Stain - Final, Resulted 10/17/16 Wound Culture, Resulted Pending Creatinine Clearance Date:10/17/16. Creatinine Clearance: [84].CALCULATED Pending Labs Vancomycin trough for 10/18@1500 Assessment and Plan Maintaining Current Dose?: Yes Reason for dose change: No Dose Change Pharmacist Note Pharmacist Note Date: 10/17/16. Pharmacist note:patient admitted for l.thigh cellulitis :therapy to include pip/tazo 3.375GM q8h and Vancomycin per consult. allergies: hydrocodone: scr=0.88: calculated crcl=84: Vancomycin 2 GM load administered @ 1600 10/17 with 1 GM iv Q12h regimen continued: Vancomycin trough to be drawn @1500: will continue to follow labs and levels IMAN ANAYA PHARMACY October 17, 2016 18:39
[2016-10-17] MEDS: LISINOPRIL 10 MG TAB PO SCH (21:00)
[2016-10-17] MEDS: METOPROLOL SUCC *XL* 25MG TAB (TopROL *XL*) PO SCH (21:00)
[2016-10-17] MEDS: AMIODARONE 200 MG TAB (PACERONE) PO SCH (21:34)
[2016-10-17 22:00] VITALS: BP 109/56
[2016-10-18] VITALS (8 sets, daily range): BP systolic 106–140; BP diastolic 54–80
[2016-10-18] MEDS: VANCOMYCIN HCL 1,000 MG, VIAL MATE ADAPTER 1 EACH in D5W 250 ML IV SCH ×2 (04:31→16:33)
[2016-10-18] MEDS: PIPERACILLIN/TAZOBACTAM SOD 3.375 GM in D5W MINI-BAG PLUS 50 ML IV SCH ×3 (06:15→23:10)
[2016-10-18 06:31] LABS: BASO % 0.3 % (0.0-1.0); EOS # 0.4 K/mm3 (0.0-0.50); EOS % 2.6 % (0.0-3.0); LARGE UNSTAINED CELL # 0.3 K/mm3 (0.0-0.4); LARGE UNSTAINED CELL % 1.9 % (0.0-4.0); LYMPH # 1.6 K/mm3 (1.5-4.5); LYMPH % 11.1 % (24.0-44.0); MEAN CORPUSCULAR HEMOGLOBIN 30.9 pg (27.0-33.0); MEAN CORPUSCULAR VOLUME 96.8 fl (80.0-96.0); MONO % 7.1 % (0.0-5.0); NEUTROPHILS # 11.2 K/mm3 (1.8-7.7); NEUTROPHILS % 77.1 % (36.0-66.0); PLATELET COUNT, AUTOMATED 379 k/mm3 (150-450); RED CELL DISTRIBUTION WIDTH 14.6 % (11.5-14.5); WHITE BLOOD COUNT 14.6 K/mm3 (4.0-10.0)
[2016-10-18] MEDS: ACETAMINOPHEN TAB 650MG DOSE (2X325MG) PO PRN (06:57)
[2016-10-18 07:13] LABS: ALBUMIN 2.6 GM/DL (3.2-5.2); ALBUMIN/GLOBULIN RATIO 0.67 (1.00-1.93); ALKALINE PHOSPHATASE 72 U/L (45-117); ALT/SGPT 30 U/L (12-78); ANION GAP 6 MEQ/L (8-16); AST/SGOT 19 U/L (15-37); BILIRUBIN,TOTAL 0.4 MG/DL (0.2-1.0); BLOOD UREA NITROGEN 17 MG/DL (7-18); CALCIUM LEVEL 7.6 MG/DL (8.5-10.1); CARBON DIOXIDE LEVEL 24 MEQ/L (21-32); CHLORIDE LEVEL 110 MEQ/L (98-107); CREATININE FOR GFR 1.14 MG/DL (0.70-1.30); GLOMERULAR FILTRATION RATE > 60.0 (>56); GLUCOSE, FASTING 103 MG/DL (70-105); SODIUM LEVEL 140 MEQ/L (136-145); TOTAL PROTEIN 6.5 GM/DL (6.4-8.2)
[2016-10-18] MEDS: AMIODARONE 200 MG TAB (PACERONE) PO SCH ×2 (08:00→20:39)
[2016-10-18] MEDS: ASPIRIN 81 MG ENTERIC TAB PO SCH (08:00)
[2016-10-18] MEDS: ENOXAPARIN 40 MG/0.4 ML SYRINGE (J1650) SC SCH (08:01)
[2016-10-18] MEDS: NITROGLYCERIN 0.4 MG SUBL TABLET SL PRN ×2 (17:45→18:00)
[2016-10-18] MEDS ORDERED: MORPHINE 2 MG/ML 1ML SYRINGE IV PRN (17:45)
[2016-10-18] MEDS ORDERED: ASPIRIN 81 MG CHEW TABLET PO ONE (18:00)
--- NOTE | 2016-10-18 20:09 | ECGEPIP ---
Stationary ECG Study [facility] Test Date: 2016-10-18 Pat Name: MIAH BENNETT Department: Room: [place] [address] Gender: M [employer]: : [id number] Requested By: Dipak Johnson Order Number: [id number] Reading MD: Meggan Dao Measurements Intervals [place] Rate: 63 P: 98 MT: 211 QRS: -17 QRSD: 100 T: 51 QT: 420 QTc: 430 Interpretive Statements ATRIAL PACED RHYTHM POSSIBLE RIGHT VENTRICULAR CONDUCTION DELAY SEPTAL MYOCARDIAL INFARCTION, OF INDETERMINATE AGE NO CHANGE SINCE 08/17/16 Electronically Signed On 10-18-2016 20:09:42 EDT by Meggan Dao
[2016-10-18] MEDS: LISINOPRIL 10 MG TAB PO SCH (20:25)
[2016-10-18] MEDS: METOPROLOL SUCC *XL* 25MG TAB (TopROL *XL*) PO SCH (20:25)
--- NOTE | 2016-10-19 03:07 | CR ---
DATE OF CONSULTATION: 10/18/2016 REFERRING PROVIDER: Dipak Castrejon MD. PRIMARY PHYSICIAN: Berhane Pereyra MD. REASON FOR CONSULTATION: Chest pain, abnormal EKG. HISTORY OF PRESENT ILLNESS: 56-year-old male well known by the office was admitted on 10/17/2016, with cellulitis/abscess of the left inner thigh. Patient came to the hospital earlier this week and his abscess was drained, but came back on 10/17/2016, because of continuous pain and the dressing was coming out. He was discharged first on Bactrim DS. He also was having fever and chills. He was then admitted for further management and monitoring. He was started on vancomycin and Zosyn. Today, he developed chest pain and he was found to have abnormal EKG, cardiology consult was called. He was transferred from the medical/surgical floor to progressive care unit (PCU) to be on telemetry. When I saw Mr. Josue, he was supine in bed in no acute distress at rest. He described his chest pain as an aching sensation in the left upper chest and left shoulder and this pain increases with motion of the left upper extremity. Earlier today, he was having a heaviness in the retrosternal area associated with shortness of breath. He also thinks it was diaphoresis. He denied any palpitations. He denies any orthopnea or paroxysmal nocturnal dyspnea (PND). There is no report of syncope or near syncope. He has a cough, but denies any hemoptysis. He denies any nausea, vomiting, diarrhea, melena or hematemesis. He has a past medical history positive for ventricular tachycardia/ventricular fibrillation, and cardiac arrest. On 06/27/2016, he woke up with dizziness and because he was not feeling well, he came to the emergency room (ER) for further evaluation and was found to be in ventricular tachycardia (V tach)/ventricular fibrillation (V fib). At the time, he had a cardiac arrest. He was resuscitated then transferred to [facility] for further evaluation. His serum troponin was minimally abnormal. His cardiac catheterization revealed a patent coronary artery tree with a normal left ventricular ejection fraction (LVEF). An automatic implantable cardioverter-defibrillator (AICD) was implanted, a dual-chamber AICD 2 days after his cardiac catheterization. While at [facility], he continued to have ventricular tachycardia. He was discharged home and came to the ER on 07/10/2016, with ventricular tachycardia and was started on amiodarone. Since then, he has been stable without any episode of ventricular tachycardia. On the last office visit on 09/16/2016, his blood pressure was elevated and he was started on lisinopril. He does have a history of hyperlipidemia, arthritis, and smoking. There is no history of CVA, significant valvular heart disease, atrial fibrillation, diabetes mellitus, kidney disease, thyroid disorders. PAST SURGICAL HISTORY: Positive for bilateral cataract extraction and AICD implantation on 06/29/2016, at [facility]. FAMILY HISTORY: Positive for heart disease. 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 He denies ethyl alcohol (EtOH) abuse. He does smoke. He has a son who is healthy. Both parents from complication of cancer. ALLERGIES: He has a critical reaction to HYDROCODONE. ADVANCED DIRECTIVES: Patient is a FULL CODE. MEDICATIONS: Prior to coming to the hospital: - amiodarone 200 mg by mouth twice a day - aspirin 81 mg by mouth daily - metoprolol succinate 12.5 mg by mouth daily - lisinopril 10 mg by mouth daily CURRENT MEDICATIONS: - nitroglycerin sublingually as needed for chest pain - morphine 2 mg intravenous (IV) every 2 hours as needed for pain - aspirin 81 mg by mouth daily - amiodarone 200 mg by mouth twice daily - lisinopril 10 mg by mouth daily - metoprolol succinate 12.5 mg by mouth daily - vancomycin 1 gram IV every 12 hours - piperacillin 3.375 grams IV every 8 hours - Percocet one tablet by mouth every 6 hours as needed for pain - Tylenol 650 mg every 4 hours as needed for mild pain or fever - Lovenox 40 mg subcutaneously daily PHYSICAL EXAMINATION: Patient is alert and oriented, in no acute distress at rest. His vital signs when I saw him revealed a blood pressure of 106/65 with a pulse of 64, respirations 18-20, and his temperature was 99.3 degrees Fahrenheit with an oxygen saturation of 99% on 2-liter nasal cannula. Examination of the head, ears, eyes, nose and throat: Atraumatic. Neck is supple. No jugular venous distention (JVD). The lungs did not reveal any wheezing or crackles. The heart examination revealed normal S1 and S2 without gallops. The point of maximal impulse (PMI) is not displaced. There is no rub. Abdomen is soft and nontender. Bowel sounds are active. Extremities reveal no pedal edema. Neurological examination grossly is negative for focal deficit. LABORATORIES: CBC done today revealed a WBC of 14.6, hemoglobin 13.0, hematocrit 40.8, and platelets 379,000. On admission, the CBC revealed a WBC of 15.1, hemoglobin 15.0, hematocrit 46.1, and platelets 421,000. BMP on 10/18/2016, revealed a sodium of 140, potassium 4.0, chloride 110, CO2 24, BUN 17, creatinine 1.14, GFR more than 60, fasting glucose 103, and calcium 7.6. Serum magnesium is 2.0. Liver enzymes reveal a total bilirubin of 0.4, AST 19, ALT 13, alkaline phosphatase 72, total protein 6.5, albumin 2.6. Serum troponin was less than 0.02 times two. Serum lactic acid on admission was 1.1. Ultrasound of the left thigh on 10/17/2016, revealed findings that may represent an abscess. Electrocardiogram was reviewed, done on 10/18/2016 at 1733:45, and it revealed at 63 beats per minute, Q waves noted in V1 and V2 with poor R wave progression from V1-V4 and minimal ST elevation noted in the same leads. This was compared to last EKG done in the office on 07/20/2016, there was then lead misplacement, poor R wave progression and more ST elevation noted on today's EKG. IMPRESSION: 1. Chest pain, atypical and most likely not related to angina in this 56-year-old male with recent cardiac catheterization that revealed patent coronary arteries. His EKG is abnormal likely related to lead misplacement versus underlying automatic implantable cardioverter-defibrillator (AICD) also from localized pericarditis. Unlikely to be myocarditis because his serum troponin is negative. His chest pain is currently not relieved with nitroglycerin, but morphine. He will continue the same, with the morphine. He will have an echocardiogram done tomorrow and it will be reviewed and further recommendation will be given. This was discussed with the patient, he was reassured. 2. History of ventricular tachycardia/ventricular fibrillation and cardiac arrest. Currently, has an AICD and also on antiarrhythmic with amiodarone. 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 3. Hypertension. He will be monitored for now, the lisinopril was discontinued because his blood pressure is now running low. It can be restarted as needed. He will continue with the beta emmy. 4. History of hyperlipidemia. On diet. 5. History of smoking. Patient is aware that he needs to quit smoking. 6. Cellulitis. This is being addressed. It was a pleasure to participate in the care of . Wilmar Josue for his underlying cardiac condition. I will continue to monitor him along with you while in the hospital. From a cardiac point of view, he appears to be stable.
--- NOTE | 2016-10-19 03:37 | IPN ---
DATE OF SERVICE: 10/18/2016 SUBJECTIVE: The patient was admitted yesterday with cellulitis involving the left thigh abscess, presumably methicillin-resistant Staphylococcus aureus (MRSA). Preliminary wound cultures collected yesterday have grown gram-positive cocci in clusters and Staphylococcus aureus identified. Sensitivities are pending. He has had previous infections on his face and most recent previous on his left knee a few months ago, which is healed. This one on his medial thigh, he was seen in the emergency department (ED) and started on antibiotics and then returned with worsening and actually beginning to drain. The large area of erythema in the medial thigh was encircled with purple marker. Today, he believes the size of redness within the purple marker is a little bit less, although it is tracking more proximally and up his thigh. There is some drainage and pain associated with this ventrally. He initially denied chest pain, dyspnea or palpitations, but about 2 minutes after I left the exam room, nurse reported the was having some substernal chest discomfort and was somewhat clammy. EKG shows ST-segment elevations In V3 and V4, which are more notable than the previous EKG. There is some difference in R-wave progression in V3 and V4 with loss of positive forces in V3 and V4 compared to previous record done on 08/17. The patient does have significant heart problem with known history of being a cardiac arrest survivor with ventricular tachycardia. He now has an implantable defibrillator pacemaker. His usual family services worker is Dr. Goddard. He had undergone coronary artery catheterization in June, which showed no significant coronary artery disease. 06/27/2016 catheterization [facility] revealed patent coronary arteries with an ejection fraction of 65% and implantable cardioverter defibrillator was implanted on 06/29 at [facility]. The patient was admitted 07/10 with defibrillator discharge. Coronary artery catheterization on 06/27 showed no significant coronary disease according to Dr. Moncada. ASSESSMENT: At this time, the cellulitis seems to be improving and he is on appropriate treatment. He has new chest pain with EKG abnormalities. Dr. Goddard has been contacted, situation reviewed, and plan of treatment outlined and the patient will be moving to progressive care unit (PCU) and nitroglycerin will be given, enzymes checked, morphine given for pain control and Dr. Goddard will see the patient this evening. History of ventricular tachycardia and implantable cardioverter defibrillator in place.
[2016-10-19 04:00] VITALS: BP 107/64
[2016-10-19] MEDS: VANCOMYCIN HCL 1,000 MG, VIAL MATE ADAPTER 1 EACH in D5W 250 ML IV SCH ×2 (04:02→15:56)
[2016-10-19 05:12] LABS: BASO % 0.4 % (0.0-1.0); EOS # 0.3 K/mm3 (0.0-0.50); LARGE UNSTAINED CELL # 0.2 K/mm3 (0.0-0.4); LARGE UNSTAINED CELL % 2.1 % (0.0-4.0); LYMPH # 1.3 K/mm3 (1.5-4.5); LYMPH % 12.1 % (24.0-44.0); MEAN CORPUSCULAR HEMOGLOBIN 31.1 pg (27.0-33.0); MEAN CORPUSCULAR HGB CONC 31.7 g/dl (32.0-36.5); MEAN CORPUSCULAR VOLUME 98.2 fl (80.0-96.0); MONO # 0.8 K/mm3 (0.0-0.8); MONO % 6.9 % (0.0-5.0); NEUTROPHILS # 8.4 K/mm3 (1.8-7.7); NEUTROPHILS % 75.5 % (36.0-66.0); PLATELET COUNT, AUTOMATED 389 k/mm3 (150-450); RED CELL DISTRIBUTION WIDTH 14.7 % (11.5-14.5); WHITE BLOOD COUNT 11.1 K/mm3 (4.0-10.0)
[2016-10-19 05:31] LABS: ALBUMIN 2.6 GM/DL (3.2-5.2); ALBUMIN/GLOBULIN RATIO 0.62 (1.00-1.93); ALKALINE PHOSPHATASE 71 U/L (45-117); ALT/SGPT 36 U/L (12-78); ANION GAP 5 MEQ/L (8-16); AST/SGOT 29 U/L (15-37); BILIRUBIN,TOTAL 0.3 MG/DL (0.2-1.0); BLOOD UREA NITROGEN 14 MG/DL (7-18); CALCIUM LEVEL 8.3 MG/DL (8.5-10.1); CARBON DIOXIDE LEVEL 27 MEQ/L (21-32); CHLORIDE LEVEL 109 MEQ/L (98-107); CREATININE FOR GFR 1.01 MG/DL (0.70-1.30); GLOMERULAR FILTRATION RATE > 60.0 (>56); GLUCOSE, FASTING 131 MG/DL (70-105); MAGNESIUM LEVEL 2.3 MG/DL (1.8-2.4); POTASSIUM SERUM 4.2 MEQ/L (3.5-5.1); SODIUM LEVEL 141 MEQ/L (136-145); TOTAL PROTEIN 6.8 GM/DL (6.4-8.2)
[2016-10-19] MEDS: PIPERACILLIN/TAZOBACTAM SOD 3.375 GM in D5W MINI-BAG PLUS 50 ML IV SCH (06:29)
[2016-10-19 08:00] VITALS: BP_SYST 122; BP_SYST 146; BP_DIAS 70; BP_DIAS 82
[2016-10-19] MEDS: AMIODARONE 200 MG TAB (PACERONE) PO SCH ×2 (09:03→20:41)
[2016-10-19] MEDS: ENOXAPARIN 40 MG/0.4 ML SYRINGE (J1650) SC SCH (09:03)
[2016-10-19] MEDS: ASPIRIN 81 MG ENTERIC TAB PO SCH (09:03)
--- NOTE | 2016-10-19 09:50 | IPNPDOC ---
Subjective Date Seen The patient was seen on 10/19/16. Subjective Chief Complaint/HPI The patient is a 56-year-old male admitted with a reason for visit of Cellulitis Of Left Thigh. General: Denies: Chills Constitutional: Denies: Malaise, Night Sweats ENT: Denies: Head Aches, Dysphagia Skin: Reports: Other (left thigh cellulitis hurts less, still draining) Pulmonary: Denies: Dyspnea, Cough, Pleuritic Chest Pain Cardiovascular: Reports: Other Symptoms (chest pain last night, not clearly responsive to nitro, was improved by MS and now symptom free. ), Denies: Chest Pain, Palpitations, Paroxysmal Noc. Dyspnea Gastrointestinal: Denies: Nausea, Abdominal Pain Hematologic: Denies: Bruising Endocrine: Denies: Polydipsia, Polyuria Objective Physical Examination General Exam: Positive: Alert, Cooperative, No Acute Distress Eye Exam: Positive: PERRLA Neck Exam: Positive: Supple, Negative: Lymphadenopathy Chest Exam: Positive: Clear to auscultation, Normal air movement, Negative: Rales, Rhonchi Heart Exam: Positive: Regular Rhythm, Negative: Murmurs Telemetry: Positive: No significant arrhythmia, Other Telemetry: (atrial pacing from AICD device) Abdomen Exam: Positive: Soft, Negative: Tenderness, Hepatospenomegaly Extremity Exam: Negative: Clubbing, Cyanosis, Edema Skin Exam: Positive: Lesion (left medial thigh. induration a little smaller. draining scant amount. culture pos for MRSA) Neuro Exam: Positive: Normal Speech, Normal Tone Psych Exam: Positive: Mental status NL, Oriented x 3, Negative: Anxiety Assessment /Plan Problems (1) Cellulitis of left thigh Status: Acute Response to Treatment: Improving Problem Specific Plan: Monitor Clinically Problem Text: MRSA on culture so drop zosyn, continue vanco (consider ceftaroline) order zyvox for outpatient when ready. Anticipate another 2 days. (2) Chest pain of uncertain etiology (3) Ventricular tachycardia Status: Acute Plan/VTE VTE Prophylaxis Ordered?: Yes Plan Activity: Continue Current Anticipated Discharge: Home VS, I&O, 24H, Fishbone Vital Signs/I&O Vital Signs Date Time Temp Pulse Resp B/P (MAP) Pulse Ox O2 Delivery O2 Flow Rate FiO2 10/19/16 08:00 98.2 80 18 122/70 (87) 96 Room Air 10/19/16 00:00 2.0 I&O- Last 24 Hours up to 6 AM 10/19/16 06:00 Intake Total 1280 ml Output Total 2300 ml Balance -1020 ml Laboratory Data 24H LABS Laboratory Tests 2 10/18/16 15:02: Vancomycin Level Trough 12.7 10/18/16 17:57: Total Creatine Kinase 38L, Creatine Kinase MB 1.0, Creatine Kinase MB Relative Index 2.63, Troponin I < 0.02 10/18/16 22:21: Total Creatine Kinase 36L, Creatine Kinase MB 1.0, Creatine Kinase MB Relative Index 2.77, Troponin I < 0.02 10/19/16 05:02: White Blood Count 11.1H, Red Blood Count 4.38, Hemoglobin 13.6L, Hematocrit 43.0 , Mean Corpuscular Volume 98.2H, Mean Corpuscular Hemoglobin 31.1, Mean Corpuscular Hemoglobin Concent 31.7L, Red Cell Distribution Width 14.7H, Platelet Count 389, Neutrophils (%) (Auto) 75.5H, Lymphocytes (%) (Auto) 12.1L, Monocytes (%) (Auto) 6.9H, Eosinophils (%) (Auto) 3.0, Basophils (%) (Auto) 0.4 , Neutrophils # (Auto) 8.4H, Lymphocytes # (Auto) 1.3L, Monocytes # (Auto) 0.8, Eosinophils # (Auto) 0.3, Basophils # (Auto) 0.0, Large Unclassified Cells % 2.1 , Large Unclassified Cells # 0.2, Anion Gap 5L, Glomerular Filtration Rate > 60.0, Blood Urea Nitrogen 14, Creatinine 1.01, Sodium Level 141, Potassium Level 4.2, Chloride Level 109H, Carbon Dioxide Level 27, Calcium Level 8.3L, Aspartate Amino Transf (AST/SGOT) 29, Alanine Aminotransferase (ALT/SGPT) 36, Alkaline Phosphatase 71, Total Bilirubin 0.3, Total Protein 6.8, Albumin 2.6L, Magnesium Level 2.3, C-Reactive Protein, Quantitative 10.60H, Albumin/Globulin Ratio 0.62L CBC/BMP Laboratory Tests 10/19/16 05:02 Red Blood Count 4.38, Mean Corpuscular Volume 98.2 H, Mean Corpuscular Hemoglobin 31.1, Mean Corpuscular Hemoglobin Concent 31.7 L, Red Cell Distribution Width 14.7 H, Neutrophils (%) (Auto) 75.5 H, Lymphocytes (%) (Auto ) 12.1 L, Monocytes (%) (Auto) 6.9 H, Eosinophils (%) (Auto) 3.0, Basophils (%) (Auto) 0.4, Neutrophils # (Auto) 8.4 H, Lymphocytes # (Auto) 1.3 L, Monocytes # (Auto) 0.8, Eosinophils # (Auto) 0.3, Basophils # (Auto) 0.0, Calcium Level 8.3 L, Aspartate Amino Transf (AST/SGOT) 29, Alanine Aminotransferase (ALT/SGPT) 36 , Alkaline Phosphatase 71, Total Bilirubin 0.3, Total Protein 6.8, Albumin 2.6 L Microbiology Microbiology 10/17/16 Blood Culture - Preliminary, Resulted No growth after 24 hours . All specim... 10/17/16 Blood Culture - Preliminary, Resulted No growth after 24 hours . All specim... 10/17/16 Gram Stain - Final, Complete 10/17/16 Wound Culture - Final, Complete Staph.aureus Methicillin Resis Dipak Castrejon MD October 19, 2016 09:50
[2016-10-19 12:00] VITALS: BP 120/68
[2016-10-19 16:00] VITALS: BP 119/75
[2016-10-19 19:36] VITALS: BP 110/57
--- NOTE | 2016-10-19 20:27 | IPN ---
DATE: 10/19/2016 Mr. Wilmar Josue was seen earlier this morning. He was supine in bed, in no acute distress at rest. He was seen yesterday because of chest pain and EKG changes that were thought to be new. His serum troponin remained negative. This morning, he denies any complaint of chest pain, shortness of breath, palpitations. He stated that he feels better, and he is having less pain in his left lower extremity. There is no report of nausea, vomiting, diarrhea, melena or hematemesis. There is no bleeding. There is no focal manifestation. On physical examination, the patient is alert and oriented, in no acute distress at rest and his vital signs this morning when I saw him revealed a blood pressure of 122/70, pulse 80, respirations 18 and his maximum temperature was 98.2 degrees Fahrenheit with an oxygen saturation of 96% on room air. He had a negative fluid balance of about 840 mL. Examination of the head, ears, eyes, nose and throat: Atraumatic. Neck is supple. No jugular venous distention (JVD). Lungs were clear bilaterally without any wheezing or crackles. The heart examination revealed normal S1 and S2 without gallops. The point of maximum impulse (PMI) is not displaced. There is no rub. I could not appreciate any murmurs. Abdomen is soft and nontender. Bowel sounds are active. Extremities revealed no pedal edema. Neurologic examination revealed no focal deficits. LABORATORY: CBC done today revealed a WBC of 11.1, hemoglobin 13.6, hematocrit 43.0 and platelets 389,000. BMP revealed a sodium of 141, potassium 4.2, chloride 109, CO2 27, BUN 14, creatinine 1.01, GFR more than 60, fasting glucose 131, calcium 8.3. Serum magnesium is 2.3. Liver enzymes revealed a total bilirubin of 0.3, AST 29, ALT 36, alkaline phosphatase 71 and total protein 6.8. Serum C-reactive protein is 10.6. Wound culture grew moderate gram-positive cocci in clusters, positive for methicillin-resistant Staphylococcus aureus (MRSA). Blood culture after 48 hours have been negative. Mr. Wilmar Josue is stable from a cardiac point of view. His chest pain was noncardiac in origin. He had an echocardiogram done earlier today and it revealed a normal global left ventricular systolic function, minimal valvular heart disease. Last evening, his lisinopril was discontinued because his blood pressure was low. He will continue current medications, and if his blood pressure increases, can restart the lisinopril at the same dose or it can be restarted upon discharge. At the present time, no further workup for his chest pain, I will only see him as needed. Please do not hesitate to call if any questions.
--- NOTE | 2016-10-19 20:36 | ECHO ---
DATE OF PROCEDURE: 10/19/2016 DATE OF : 1960 AGE: 56 REFERRING PROVIDER: Dr. Goddard PRIMARY PROVIDER: Dr. Berhane Pereyra REASON FOR THE ECHOCARDIOGRAM: Chest pain, abnormal EKG. 2D MEASUREMENT: IVS: 1.1 cm LV: 4.3 cm LVPW: 1.1 cm LA: 3.3 cm Aorta: 3.3 cm DOPPLER MEASUREMENT: Peak velocity across the aortic lilia: 1.3 m/s Peak velocity across the LVOT: 0.92 m/s Mitral E: 0.81, Mitral A: 0.61 with a ratio of 1.2 2D COMMENTS: 1. Normal left ventricular size, wall thickness and normal global left ventricular systolic function estimated at 60-65%. 2. Normal left atrium. Normal right atrium and right ventricle. 3. The atrial septum appeared to be normal without evidence of defect or shunt. 4. Normal aortic root. 5. No pericardial effusion seen. 6. Normal aortic valve. Minimally calcified mitral annulus with normal anterior mitral valve leaflet motion. Normal tricuspid valve and pulmonic valve. The proximal pulmonary artery branches were not well visualized. 7. Subjectively, the inferior vena cava appeared to be normal in size. DOPPLER: It detects trace aortic regurgitation, mild mitral regurgitation, trace tricuspid regurgitation, and trace pulmonic regurgitation. The calculated pulmonary artery systolic pressure was normal. Assessment of the left ventricular diastolic function was normal. IMPRESSION: 1. Normal global left ventricular systolic and diastolic function. 2. Trace aortic regurgitation and not mentioned above, minimal aortic valve sclerosis was noted. 3. Mitral annulus calcification with mild mitral regurgitation. No evidence of mitral stenosis. 4. Trace tricuspid regurgitation with a normal pulmonary artery systolic pressure. 5. Trace pulmonic regurgitation. 6. Pacemaker/automatic implantable cardioverter defibrillator (AICD) wire artifact noted in the right heart chamber.
[2016-10-19] MEDS: METOPROLOL SUCC *XL* 25MG TAB (TopROL *XL*) PO SCH (20:41)
[2016-10-20 00:20] VITALS: BP 111/57
[2016-10-20] MEDS: ACETAMINOPHEN TAB 650MG DOSE (2X325MG) PO PRN (00:29)
[2016-10-20] MEDS ORDERED: SLF 3 ML SYR IV PRN (01:15)
[2016-10-20] MEDS: VANCOMYCIN HCL 1,000 MG, VIAL MATE ADAPTER 1 EACH in D5W 250 ML IV SCH ×2 (04:00→16:30)
[2016-10-20 04:43] VITALS: BP 114/66
[2016-10-20 05:22] LABS: BASO % 0.4 % (0.0-1.0); EOS # 0.3 K/mm3 (0.0-0.50); LARGE UNSTAINED CELL # 0.3 K/mm3 (0.0-0.4); LARGE UNSTAINED CELL % 2.8 % (0.0-4.0); LYMPH # 1.8 K/mm3 (1.5-4.5); LYMPH % 16.7 % (24.0-44.0); MEAN CORPUSCULAR HEMOGLOBIN 31.3 pg (27.0-33.0); MEAN CORPUSCULAR HGB CONC 32.3 g/dl (32.0-36.5); MEAN CORPUSCULAR VOLUME 96.9 fl (80.0-96.0); MONO # 0.8 K/mm3 (0.0-0.8); MONO % 7.4 % (0.0-5.0); NEUTROPHILS # 7.5 K/mm3 (1.8-7.7); NEUTROPHILS % 69.8 % (36.0-66.0); PLATELET COUNT, AUTOMATED 422 k/mm3 (150-450); RED CELL DISTRIBUTION WIDTH 14.5 % (11.5-14.5); WHITE BLOOD COUNT 10.7 K/mm3 (4.0-10.0)
[2016-10-20 05:44] LABS: ALBUMIN 2.6 GM/DL (3.2-5.2); ALBUMIN/GLOBULIN RATIO 0.58 (1.00-1.93); ALKALINE PHOSPHATASE 71 U/L (45-117); ALT/SGPT 45 U/L (12-78); ANION GAP 8 MEQ/L (8-16); AST/SGOT 27 U/L (15-37); BILIRUBIN,TOTAL 0.3 MG/DL (0.2-1.0); BLOOD UREA NITROGEN 18 MG/DL (7-18); CALCIUM LEVEL 8.2 MG/DL (8.5-10.1); CARBON DIOXIDE LEVEL 24 MEQ/L (21-32); CHLORIDE LEVEL 109 MEQ/L (98-107); CREATININE FOR GFR 0.89 MG/DL (0.70-1.30); GLOMERULAR FILTRATION RATE > 60.0 (>56); GLUCOSE, FASTING 96 MG/DL (70-105); MAGNESIUM LEVEL 2.4 MG/DL (1.8-2.4); POTASSIUM SERUM 4.1 MEQ/L (3.5-5.1); SODIUM LEVEL 141 MEQ/L (136-145); TOTAL PROTEIN 7.1 GM/DL (6.4-8.2)
[2016-10-20] MEDS: SLF 3 ML SYR IV SCH ×3 (06:00→20:39)
[2016-10-20 08:00] VITALS: BP 131/80
[2016-10-20] MEDS: ASPIRIN 81 MG ENTERIC TAB PO SCH (08:16)
[2016-10-20] MEDS: AMIODARONE 200 MG TAB (PACERONE) PO SCH ×2 (08:16→20:40)
[2016-10-20] MEDS: ENOXAPARIN 40 MG/0.4 ML SYRINGE (J1650) SC SCH (08:17)
--- NOTE | 2016-10-20 11:01 | IPNPDOC ---
Subjective Date Seen The patient was seen on 10/20/16. Subjective Chief Complaint/HPI The patient is a 56-year-old male admitted with a reason for visit of Cellulitis Of Left Thigh. Events since last encounter States he is feeling a bit better. States he had hot packs on his leg yesterday , and has noted more drainage today. His leg is still sore. Chest feels fine unless he moves his L arm over his head. State the area around and just above his AICD is tender to the touch. Constitutional: Reports: Fatigue, Denies: Chills, Fever, Malaise ENT: Denies: Head Aches Pulmonary: Denies: Dyspnea, Cough Cardiovascular: Denies: Chest Pain Gastrointestinal: Reports: Diarrhea (loose stool this a.m. after constipation this week), Constipation, Denies: Nausea, Vomiting Psych: Reports: Mood Normal Objective Physical Examination General Exam: Positive: Alert, Cooperative, No Acute Distress Eye Exam: Positive: PERRLA Neck Exam: Positive: Supple, Negative: Lymphadenopathy Chest Exam: Positive: Clear to auscultation, Normal air movement, Negative: Rales, Rhonchi Heart Exam: Positive: Regular Rhythm, Negative: Murmurs Telemetry: Positive: No significant arrhythmia, Other Telemetry: (atrial pacing from AICD device) Abdomen Exam: Positive: Soft, Negative: Tenderness, Hepatospenomegaly Extremity Exam: Negative: Clubbing, Cyanosis, Edema Skin Exam: Positive: Lesion (left medial thigh. drainage on bandage. culture pos for MRSA) Neuro Exam: Positive: Normal Speech, Normal Tone Psych Exam: Positive: Mental status NL, Oriented x 3, Negative: Anxiety Assessment /Plan Problems (1) Cellulitis of left thigh Status: Acute Response to Treatment: Improving Problem Specific Plan: Monitor Clinically Problem Text: 10/20 Erythematous area decreasing, with good drainage today. May discharge tomorrow. MRSA on culture so drop zosyn, continue vanco (consider ceftaroline) order zyvox for outpatient when ready. Anticipate another 2 days. (2) Chest pain of uncertain etiology Status: Resolved Problem Text: 10/20 Seen by cardiology, s/p ECHO. Positional aspects sound more musculoskeletal, and cardiology feels that it is unlikely of cardiac etiology. (3) Ventricular tachycardia Status: Chronic Problem Text: 10/[address] for repeated episodes of VT/VF. Cardiology has seen during this admission. Plan/VTE VTE Prophylaxis Ordered?: Yes Plan Activity: Continue Current Anticipated Discharge: Home VS, I&O, 24H, [facility] Vital Signs/I&O Vital Signs Date Time Temp Pulse Resp B/P (MAP) Pulse Ox O2 Delivery O2 Flow Rate FiO2 10/20/16 08:00 97.2 67 18 131/80 (97) 98 Room Air 10/19/16 00:00 2.0 I&O- Last 24 Hours up to 6 AM 10/20/16 06:00 Intake Total 1200 ml Output Total 1425 ml Balance -225 ml Laboratory Data 24H LABS Laboratory Tests 2 10/20/16 05:06: White Blood Count 10.7H, Red Blood Count 4.40, Hemoglobin 13.8L, Hematocrit 42.7 , Mean Corpuscular Volume 96.9H, Mean Corpuscular Hemoglobin 31.3, Mean Corpuscular Hemoglobin Concent 32.3, Red Cell Distribution Width 14.5, Platelet Count 422, Neutrophils (%) (Auto) 69.8H, Lymphocytes (%) (Auto) 16.7L, Monocytes (%) (Auto) 7.4H, Eosinophils (%) (Auto) 3.0, Basophils (%) (Auto) 0.4 , Neutrophils # (Auto) 7.5, Lymphocytes # (Auto) 1.8, Monocytes # (Auto) 0.8, Eosinophils # (Auto) 0.3, Basophils # (Auto) 0.0, Large Unclassified Cells % 2.8 , Large Unclassified Cells # 0.3, Anion Gap 8, Glomerular Filtration Rate > 60.0 , Blood Urea Nitrogen 18, Creatinine 0.89, Sodium Level 141, Potassium Level 4.1 , Chloride Level 109H, Carbon Dioxide Level 24, Calcium Level 8.2L, Aspartate Amino Transf (AST/SGOT) 27, Alanine Aminotransferase (ALT/SGPT) 45, Alkaline Phosphatase 71, Total Bilirubin 0.3, Total Protein 7.1, Albumin 2.6L, Magnesium Level 2.4, C-Reactive Protein, Quantitative 8.72H, Albumin/Globulin Ratio 0.58L CBC/BMP Laboratory Tests 10/20/16 05:06 Red Blood Count 4.40, Mean Corpuscular Volume 96.9 H, Mean Corpuscular Hemoglobin 31.3, Mean Corpuscular Hemoglobin Concent 32.3, Red Cell Distribution Width 14.5, Neutrophils (%) (Auto) 69.8 H, Lymphocytes (%) (Auto) 16.7 L, Monocytes (%) (Auto) 7.4 H, Eosinophils (%) (Auto) 3.0, Basophils (%) ( Auto) 0.4, Neutrophils # (Auto) 7.5, Lymphocytes # (Auto) 1.8, Monocytes # (Auto ) 0.8, Eosinophils # (Auto) 0.3, Basophils # (Auto) 0.0, Calcium Level 8.2 L, Aspartate Amino Transf (AST/SGOT) 27, Alanine Aminotransferase (ALT/SGPT) 45, Alkaline Phosphatase 71, Total Bilirubin 0.3, Total Protein 7.1, Albumin 2.6 L Microbiology Microbiology 10/17/16 Blood Culture - Preliminary, Resulted No Growth after 72 hours. All specime... 10/17/16 Blood Culture - Preliminary, Resulted No Growth after 72 hours. All specime... 10/17/16 Gram Stain - Final, Complete 10/17/16 Wound Culture - Final, Complete Staph.aureus Methicillin Resis CELIA TOBAR DO October 20, 2016 11:01
[2016-10-20 12:00] VITALS: BP 112/62
[2016-10-20 16:00] VITALS: BP 125/58
[2016-10-20 19:45] VITALS: BP 138/75
[2016-10-20] MEDS: METOPROLOL SUCC *XL* 25MG TAB (TopROL *XL*) PO SCH (20:40)
[2016-10-21] VITALS (7 sets, daily range): BP systolic 99–121; BP diastolic 63–73
[2016-10-21] MEDS: UNRESOLVED CLARIFICATION ENTRY XX SCH (00:01)
[2016-10-21] MEDS: SLF 3 ML SYR IV SCH ×3 (04:18→20:23)
[2016-10-21] MEDS: VANCOMYCIN HCL 1,000 MG, VIAL MATE ADAPTER 1 EACH in D5W 250 ML IV SCH ×2 (04:18→17:20)
[2016-10-21 05:14] LABS: BASO % 0.4 % (0.0-1.0); EOS # 0.3 K/mm3 (0.0-0.50); EOS % 2.4 % (0.0-3.0); LARGE UNSTAINED CELL # 0.2 K/mm3 (0.0-0.4); LARGE UNSTAINED CELL % 1.9 % (0.0-4.0); LYMPH % 16.5 % (24.0-44.0); MEAN CORPUSCULAR HEMOGLOBIN 30.3 pg (27.0-33.0); MEAN CORPUSCULAR HGB CONC 32.2 g/dl (32.0-36.5); MEAN CORPUSCULAR VOLUME 94.1 fl (80.0-96.0); MONO # 0.9 K/mm3 (0.0-0.8); MONO % 8.2 % (0.0-5.0); NEUTROPHILS # 7.7 K/mm3 (1.8-7.7); NEUTROPHILS % 70.6 % (36.0-66.0); PLATELET COUNT, AUTOMATED 421 k/mm3 (150-450); RED CELL DISTRIBUTION WIDTH 14.4 % (11.5-14.5); WHITE BLOOD COUNT 10.9 K/mm3 (4.0-10.0)
[2016-10-21 05:41] LABS: ALBUMIN 2.7 GM/DL (3.2-5.2); ALKALINE PHOSPHATASE 77 U/L (45-117); ALT/SGPT 59 U/L (12-78); ANION GAP 6 MEQ/L (8-16); AST/SGOT 36 U/L (15-37); BILIRUBIN,TOTAL 0.4 MG/DL (0.2-1.0); BLOOD UREA NITROGEN 18 MG/DL (7-18); CALCIUM LEVEL 8.3 MG/DL (8.5-10.1); CARBON DIOXIDE LEVEL 24 MEQ/L (21-32); CHLORIDE LEVEL 108 MEQ/L (98-107); CREATININE FOR GFR 0.87 MG/DL (0.70-1.30); GLOMERULAR FILTRATION RATE > 60.0 (>56); GLUCOSE, FASTING 112 MG/DL (70-105); POTASSIUM SERUM 3.9 MEQ/L (3.5-5.1); SODIUM LEVEL 138 MEQ/L (136-145); TOTAL PROTEIN 7.2 GM/DL (6.4-8.2)
[2016-10-21] MEDS: ENOXAPARIN 40 MG/0.4 ML SYRINGE (J1650) SC SCH (09:55)
[2016-10-21] MEDS: ASPIRIN 81 MG ENTERIC TAB PO SCH (09:55)
[2016-10-21] MEDS: AMIODARONE 200 MG TAB (PACERONE) PO SCH ×2 (09:55→20:24)
[2016-10-21] MEDS: METOPROLOL SUCC *XL* 25MG TAB (TopROL *XL*) PO SCH (20:24)
--- NOTE | 2016-10-21 21:42 | IPNPDOC ---
Subjective Date Seen The patient was seen on 10/21/16. Subjective Chief Complaint/HPI The patient is a 56-year-old male admitted with a reason for visit of Cellulitis Of Left Thigh. Events since last encounter Patient seen in the a.m. He is anxious to leave the hospital, but had a low- grade temperature yesterday with a Tmax of 100.1 Otherwise, he reports that he is feeling fairly well. He notes that the cellulitis is much improved. Constitutional: Reports: Fever, Fatigue, Denies: Chills, Malaise Skin: Reports: Rash Pulmonary: Denies: Dyspnea, Cough Cardiovascular: Denies: Chest Pain Gastrointestinal: Denies: Nausea, Vomiting, Abdominal Pain, Diarrhea, Constipation Musculoskeletal: Reports: Leg Pain Objective Physical Examination General Exam: Positive: Alert, Cooperative, No Acute Distress Eye Exam: Positive: PERRLA Neck Exam: Positive: Supple, Negative: Lymphadenopathy Chest Exam: Positive: Clear to auscultation, Normal air movement, Negative: Rales, Rhonchi Heart Exam: Positive: Regular Rhythm, Negative: Murmurs Telemetry: Positive: No significant arrhythmia, Other Telemetry: (atrial pacing from AICD device) Abdomen Exam: Positive: Soft, Negative: Tenderness, Hepatospenomegaly Extremity Exam: Negative: Clubbing, Cyanosis, Edema Skin Exam: Positive: Lesion (left medial thigh. drainage on bandage. culture pos for MRSA) Neuro Exam: Positive: Normal Speech, Normal Tone Psych Exam: Positive: Mental status NL, Oriented x 3, Negative: Anxiety Assessment /Plan Problems (1) Cellulitis of left thigh Status: Acute Response to Treatment: Improving Problem Specific Plan: Monitor Clinically Problem Text: 10/21 Less drainage on bandage, erythema resolving. If afebrile today, probably DC tomorrow. 10/20 Erythematous area decreasing, with good drainage today. May discharge tomorrow. MRSA on culture so drop zosyn, continue vanco (consider ceftaroline) order zyvox for outpatient when ready. Anticipate another 2 days. (2) Chest pain of uncertain etiology Status: Resolved Problem Text: 10/21 Denies chest discomfort today 10/20 Seen by cardiology, s/p ECHO. Positional aspects sound more musculoskeletal, and cardiology feels that it is unlikely of cardiac etiology. (3) Ventricular tachycardia Status: Chronic Problem Text: 10/[address] for repeated episodes of VT/VF. Cardiology has seen during this admission. Plan/VTE VTE Prophylaxis Ordered?: Yes Plan Activity: Continue Current Anticipated Discharge: [facility] Vital Signs/I&O Vital Signs Date Time Temp Pulse Resp B/P (MAP) Pulse Ox O2 Delivery O2 Flow Rate FiO2 10/21/16 20:26 Room Air 10/21/16 20:24 60 119/69 10/21/16 19:28 98.8 18 96 10/19/16 00:00 2.0 I&O- Last 24 Hours up to 6 AM 10/21/16 05:59 Intake Total 2220 ml Output Total 1350 ml Balance 870 ml Laboratory Data 24H LABS Laboratory Tests 2 10/21/16 04:49: White Blood Count 10.9H, Red Blood Count 4.46, Hemoglobin 13.5L, Hematocrit 42.0 , Mean Corpuscular Volume 94.1, Mean Corpuscular Hemoglobin 30.3, Mean Corpuscular Hemoglobin Concent 32.2, Red Cell Distribution Width 14.4, Platelet Count 421, Neutrophils (%) (Auto) 70.6H, Lymphocytes (%) (Auto) 16.5L, Monocytes (%) (Auto) 8.2H, Eosinophils (%) (Auto) 2.4, Basophils (%) (Auto) 0.4 , Neutrophils # (Auto) 7.7, Lymphocytes # (Auto) 2.0, Monocytes # (Auto) 0.9H, Eosinophils # (Auto) 0.3, Basophils # (Auto) 0.0, Large Unclassified Cells % 1.9 , Large Unclassified Cells # 0.2, Anion Gap 6L, Glomerular Filtration Rate > 60.0, Blood Urea Nitrogen 18, Creatinine 0.87, Sodium Level 138, Potassium Level 3.9, Chloride Level 108H, Carbon Dioxide Level 24, Calcium Level 8.3L, Aspartate Amino Transf (AST/SGOT) 36, Alanine Aminotransferase (ALT/SGPT) 59, Alkaline Phosphatase 77, Total Bilirubin 0.4, Total Protein 7.2, Albumin 2.7L, Magnesium Level 2.0, C-Reactive Protein, Quantitative 7.10H, Albumin/Globulin Ratio 0.60L CBC/BMP Laboratory Tests 10/21/16 04:49 Red Blood Count 4.46, Mean Corpuscular Volume 94.1, Mean Corpuscular Hemoglobin 30.3, Mean Corpuscular Hemoglobin Concent 32.2, Red Cell Distribution Width 14.4 , Neutrophils (%) (Auto) 70.6 H, Lymphocytes (%) (Auto) 16.5 L, Monocytes (%) ( Auto) 8.2 H, Eosinophils (%) (Auto) 2.4, Basophils (%) (Auto) 0.4, Neutrophils # (Auto) 7.7, Lymphocytes # (Auto) 2.0, Monocytes # (Auto) 0.9 H, Eosinophils # (Auto) 0.3, Basophils # (Auto) 0.0, Calcium Level 8.3 L, Aspartate Amino Transf (AST/SGOT) 36, Alanine Aminotransferase (ALT/SGPT) 59, Alkaline Phosphatase 77, Total Bilirubin 0.4, Total Protein 7.2, Albumin 2.7 L Microbiology Microbiology 10/17/16 Blood Culture - Preliminary, Resulted No Growth after 72 hours. All specime... 10/17/16 Blood Culture - Preliminary, Resulted No Growth after 72 hours. All specime... 10/17/16 Gram Stain - Final, Complete 10/17/16 Wound Culture - Final, Complete Staph.aureus Methicillin Resis CELIA TOBAR DO October 21, 2016 21:42
[2016-10-22] MEDS: UNRESOLVED CLARIFICATION ENTRY XX SCH (00:01)
[2016-10-22 00:19] VITALS: BP 127/68
[2016-10-22 03:15] VITALS: BP 124/74
[2016-10-22] MEDS: VANCOMYCIN HCL 1,000 MG, VIAL MATE ADAPTER 1 EACH in D5W 250 ML IV SCH (04:32)
[2016-10-22] MEDS: SLF 3 ML SYR IV SCH (04:32)
[2016-10-22 06:00] VITALS: BP 116/66
[2016-10-22 06:13] LABS: BASO # 0.1 K/mm3 (0.0-0.2); BASO % 0.7 % (0.0-1.0); EOS # 0.2 K/mm3 (0.0-0.50); EOS % 2.4 % (0.0-3.0); LARGE UNSTAINED CELL # 0.2 K/mm3 (0.0-0.4); LARGE UNSTAINED CELL % 1.9 % (0.0-4.0); LYMPH # 1.8 K/mm3 (1.5-4.5); LYMPH % 15.5 % (24.0-44.0); MEAN CORPUSCULAR HEMOGLOBIN 30.6 pg (27.0-33.0); MEAN CORPUSCULAR HGB CONC 32.3 g/dl (32.0-36.5); MEAN CORPUSCULAR VOLUME 94.8 fl (80.0-96.0); MONO # 0.9 K/mm3 (0.0-0.8); MONO % 8.8 % (0.0-5.0); NEUTROPHILS # 7.4 K/mm3 (1.8-7.7); NEUTROPHILS % 70.6 % (36.0-66.0); PLATELET COUNT, AUTOMATED 460 k/mm3 (150-450); RED CELL DISTRIBUTION WIDTH 14.4 % (11.5-14.5); WHITE BLOOD COUNT 10.5 K/mm3 (4.0-10.0)
[2016-10-22 06:35] LABS: ALBUMIN 2.8 GM/DL (3.2-5.2); ALBUMIN/GLOBULIN RATIO 0.68 (1.00-1.93); ALKALINE PHOSPHATASE 78 U/L (45-117); ALT/SGPT 66 U/L (12-78); ANION GAP 7 MEQ/L (8-16); AST/SGOT 38 U/L (15-37); BILIRUBIN,TOTAL 0.3 MG/DL (0.2-1.0); BLOOD UREA NITROGEN 21 MG/DL (7-18); CALCIUM LEVEL 8.6 MG/DL (8.5-10.1); CARBON DIOXIDE LEVEL 25 MEQ/L (21-32); CHLORIDE LEVEL 108 MEQ/L (98-107); CREATININE FOR GFR 0.96 MG/DL (0.70-1.30); GLOMERULAR FILTRATION RATE > 60.0 (>56); GLUCOSE, FASTING 107 MG/DL (70-105); MAGNESIUM LEVEL 2.2 MG/DL (1.8-2.4); POTASSIUM SERUM 4.7 MEQ/L (3.5-5.1); SODIUM LEVEL 140 MEQ/L (136-145); TOTAL PROTEIN 6.9 GM/DL (6.4-8.2)
[2016-10-22] MEDS ORDERED: ZYVO100T PO (08:48)
[2016-10-22] MEDS: ENOXAPARIN 40 MG/0.4 ML SYRINGE (J1650) SC SCH (09:00)
[2016-10-22] MEDS: AMIODARONE 200 MG TAB (PACERONE) PO SCH (09:39)
[2016-10-22] MEDS: ASPIRIN 81 MG ENTERIC TAB PO SCH (09:39)
--- NOTE | 2016-10-22 09:57 | DSES ---
DATE OF ADMISSION: 10/17/2016 DATE OF DISCHARGE: 10/22/2016 PRIMARY CARE PHYSICIAN: Roddy Davis PA-C CONSULTATION: Edwin Goddard MD, cardiology. ATTENDING PHYSICIAN: Marco Antonio Jackson MD HISTORY OF PRESENT ILLNESS: 56-year-old male with past medical history of coronary artery disease (CAD) and non-ST elevation myocardial infarction (non-STEMI) with automatic implantable cardio converter-defibrillator (AICD) placement who presented to the emergency department with complaints of left side pain. The patient had noted three days prior a small bump on the left thigh that progressed as a large red bump, tender without any drainage. Denied any active trauma, insect bites, scratches to that area. He had presented to the emergency room the day prior and was discharged back on Bactrim. He had taken two doses, woke up the next day with fever, chills, worsening erythema. He presented himself again to the emergency room, subsequently deemed failed outpatient and admitted. Initial work-up proved a white blood cell count of 15,000 with a hemoglobin of 15 and hematocrit of 46. The rest of his labs were normal. IMAGING: Ultrasound of the left thigh soft tissues shows small area of complex fluid which measured 1.6 by 0.5 by 2.3 cm representing an abscess. HOSPITAL COURSE: The patient was subsequently admitted to progressive care unit (PCU) for monitoring as he did have some complaints of chest pain. Work-up was negative. See cardiology consultation for further recommendations. Echocardiogram was completed. The patient showed normal global left ventricular systolic and diastolic function, trace aortic regurgitation, mild annulus calcification with mild mitral regurgitation, trace tricuspid and pulmonic regurgitation and pacemaker with AICD wire artifact was noted in the right heart chamber. The patient was placed on vancomycin intravenous (IV) on 10/17, last dose was at 04:32 this morning. The patient did have fevers throughout hospitalizations which have slowly subsided and he has been afebrile for the last 24 hours. Wound culture positive for methicillin resistant Staphylococcus aureus (MRSA) with sensitivity to vancomycin, linezolid and trimethoprim sulfamethizole which the patient failed as an outpatient. PHYSICAL EXAMINATION: The patient denies chest pain, headache, blurry vision, dizziness, shortness of breath, dyspnea with exertion, or cough. He does admit to some mild tenderness to the left posterior thigh and is able to manage his dressing on his own. VITAL SIGNS: Stable. Blood pressure 116/66, respiratory rate 18, oxygen saturation 95% on room air, heart rate 63, temperature 98.2. HEENT: Neck is supple without lymphadenopathy or jugular venous distention (JVD). CARDIOVASCULAR: Heart rate and rhythm regular. PULMONARY: Lungs are clear. ABDOMEN: Soft, nontender with positive bowel sounds in all four quadrants. EXTREMITIES: Bilateral lower extremities are without edema. SKIN: The patient does have a dressing to the left thigh which was removed, very small nickel sized amount of drainage noted. No severe odor. The abscessed area has some mild erythema without warmth. Mildly tender. ASSESSMENT: 1. Cellulitis of the left lower extremity. 2. Chest pain, resolved. 3. History of coronary artery disease . PLAN: The patient will be discharged home. DIET: Two gram sodium. FOLLOWUP: He will followup with his PCP within the next 1-2 weeks. Activities as tolerated. DISCHARGE MEDICATIONS: - linezolid 600 mg 1 by mouth twice a day for the next ten days - Amiodarone 200 mg tablet, one by mouth twice a day - aspirin 81 mg one daily in the morning - lisinopril 10 mg by mouth every evening - metoprolol succinate 25 mg tablets, he is to take one-half tablet by mouth every evening - oxycodone with acetaminophen one tablet by mouth every six hours as needed for pain with a maximum daily dose of four. The patient is discharged in stable and satisfactory condition. No further questions at the time of discharge.
[2016-10-22 10:00] VITALS: BP 123/77
== END 2016-10-22 11:16 | disposition home or self-care (01) | DRG 383 ==
LOC: M ED 11:59 → M ED INP 12:13 → EEVIPCON 12:13 → M MSPAV 13:53 → M PCU 10-18 18:25 → M MSPAV 10-22 03:14
PROVIDERS: ADMIT Internal Medicine; ATTEND Family Medicine
DX: L03.116 Cellulitis of left lower limb (principal); Z86.74 Personal history of sudden cardiac arrest; R07.9 Chest pain, unspecified; F17.210 Nicotine dependence, cigarettes, uncomplicated; I25.10 Atherosclerotic heart disease of native coronary artery without angina pectoris; B95.62 Methicillin resistant Staphylococcus aureus infection as the cause of diseases classified elsewhere; I10 Essential (primary) hypertension; Z79.82 Long term (current) use of aspirin; Z79.899 Other long term (current) drug therapy; I25.2 Old myocardial infarction; Z95.810 Presence of automatic (implantable) cardiac defibrillator; Z88.5 Allergy status to narcotic agent; Z80.9 Family history of malignant neoplasm, unspecified; L02.416 Cutaneous abscess of left lower limb

== ENCOUNTER → 2016-11-13 | Outpatient (CLI) | payer OTHER, MEDICAID ==
[~2016-11-13] MED LIST changes: +ZYVO100T PO
--- NOTE | 2016-11-29 01:45 | ECWPNPC ---
PATIENT NAME: MIAH BENNETT : 1960 GENDER: MALE VISIT DATE: 11/13/2016 DISCHARGE DATE: 11/13/16 1412 VISIT LOCKED DATE TIME: PHYSICIAN: MARK DRUMMOND PHYSICIAN PAGER NO: [phone] RESOURCE: MARK DRUMMOND REASON FOR APPOINTMENT 1. NO FAULT HISTORY OF PRESENT ILLNESS HISTORY OF PRESENT ILLNESS: PAIN THE PATIENT DESCRIBES THE PAIN... 56 YEAR OLD MALE PATIENT WITH HISTORY OF CHRONIC NECK AND BACK PAIN. PATIENT DESCRIBES THE PAIN ACHING, TENDER, AND IT COMES AND GOES WITH A PAIN SCORE OF 0/10 ON TODAY'S VISIT. 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 PATIENT STATES THAT HE HAS NOT HAD ANY BACK SURGERIES. PATIENT REPORTS THAT HE HAS TRIED PHYSICAL THERAPY IN THE PAST WITHOUT ANY IMPROVEMENT IN PAIN RELIEF. PATIENT REPORTS THAT HE IS NOT ENGAGED IN ANY ACTIVITIES AT THIS TIME DUE TO A CARDIAC EVENT. , PATIENT DENIES UNEXPLAINABLE WEIGHT LOSS, FEVER, CHILLS, NEW CHANGES ON HER URINARY OR BOWEL CONTROL. FALL RISK SCREENING: SCREENING :NO FALLS IN THE PAST YEAR CURRENT MEDICATIONS TAKING ASPIR-81 81 MG TABLET DELAYED RELEASE 1 TABLET ORALLY ONCE A DAY TAKING TYLENOL EXTRA STRENGTH 500 MG TABLET 1 TABLETS NEEDED ORALLY DAILY TAKING TOPROL XL 25 MG TABLET EXTENDED RELEASE 24 HOUR 1/2 TABLET ORALLY ONCE A DAY TAKING AMIODARONE HCL 200 MG TABLET 1 TABLET ORALLY TWICE A DAY NOT-TAKING MUPIROCIN 2 % OINTMENT 1 APPLICATION TO AFFECTED AREA EXTERNALLY THREE TIMES A DAY TO NOSE SORE MEDICATION LIST REVIEWED AND RECONCILED WITH THE PATIENT PAST MEDICAL HISTORY SUDDEN CARDIAC , V TACH IN ER 06/26, IMMEDIATE CPR/ACLS/SHOCK; S/P AICD DUAL CHAMBER PACER [facility] CARDIAC CATH 06/26 [facility]: EF 65%, NORMAL CORONARIES (MINIMAL PLAQUE) BACK INJURY APRIL 2004 WITH CHRONIC LBP AND DDD (COMP) SMOKER VIT D DEFIC HYPERLIPIDEMIA--PT STOPPED SIMVASTATIN 08/22 10 YR ASCVD RISK 10% 07/26 (IF QUITS SMOKING, RISK 5%--SEE NOTE) ERECTILE DYSFUNCTION ALLERGIES HYDROCODONE-ACETAMINOPHEN: NAUSEA/VOMITING: ALLERGY SURGICAL HISTORY R HIP REVISION 11/2005 CLOSED REDUCTION R HIP 06/2006 L TOTAL HIP ARTHROPLASTY EGD (NL) COLONSOCOPY (MULTIPLE TUBULLOVILLOUS ADENOMAS) 01/21 CATARACTS BOTH EYES ICD 06/26 FAMILY HISTORY NO FAMILY HISTORY DOCUMENTED. SOCIAL HISTORY GENERAL: TOBACCO USE ARE YOU A:NONSMOKER ALCOHOL SCREENING DID YOU HAVE A DRINK CONTAINING ALCOHOL IN THE PAST YEAR?NO POINTS0 INTERPRETATIONNEGATIVE RECREATIONAL DRUG USE DRUG USE?NO CAFFEINE CAFFEINE USE?YES HOW OFTEN AND HOW MUCH? 2 CUPS OF COFFEE DAILY SEXUAL HX HAD SEX IN THE LAST 12 MONTHS (VAGINAL, ORAL, OR ANAL)?YES WITHWOMEN ONLY USE PROTECTION?YES HOW OFTEN?ALL OF THE TIME HAVE YOU EVER HAD AN STD?NO DIET: REGULAR. LANGUAGE [place]ONE[place]. LEARNING BARRIERS / SPECIAL NEEDS CHANGE FROM LAST VISIT?NO BARRIERS TO LEARNING?NO HEARING IMPAIRED?NO VISION IMPAIRED?NO COGNITIVELY IMPAIRED?NO READINESS TO LEARN?YES LEARNING PREFERENCES?NO LEARNING CAPABILITIES PRESENT?YES EMOTIONAL BARRIERS?NO SPECIAL DEVICES?NO REGISTERED MEDICAL TRANSCRIPTIONIST NEEDED?NO NEW PATIENT PAIN DIARY TODAY'S VISITNOTES FROM 0-10, WHAT LEVEL IS YOUR PAIN TODAY?0 PAIN CLINIC PFS, CLERGY, PUBLIC HEALTH REFERRALS PFS REFERRAL NEEDED?NO PFS REFERRAL NEEDED?NO CLERGY REFERRAL NEEDED?NO CLERGY REFERRAL NEEDED?NO PUBLIC HEALTH REFERRAL NEEDED?NO PUBLIC HEALTH REFERRAL NEEDED?NO WAS THE PROVIDER NOTIFIED OF ANY PERTINENT INFO?NO WAS THE PROVIDER NOTIFIED OF ANY PERTINENT INFO?NO HOSPITALIZATION/MAJOR DIAGNOSTIC PROCEDURE SURGERY RELATED [facility] STAPH INFECTION IN FACE 11/23 [facility]--ICD 06/26 [facility] 07/27 INFECTION-LEFT THIGH 10/2016 REVIEW OF SYSTEMS CONSTITUTIONAL: ANY CHANGE IN YOUR MEDICAL CONDITION? NO . CHILLS NO . FEVER NO . INFECTION: DO YOU HAVE NEW INFECTIONS? NO . DO YOU HAVE HISTORY OF MRSA? NO . MUSCULOSKELETAL: ANY NEW PATTERNS OF PAIN OR NUMBNESS? NO . GASTROENTEROLOGY: ANY NEW CHANGE IN BOWEL CONTROL? NO . GENITOURINARY: ANY NEW CHANGE IN BLADDER CONTROL? NO . IS THERE A CHANCE YOU COULD BE ? NO . HEMATOLOGY/LYMPH: DO YOU TAKE ANY BLOOD THINNERS? (FOR EXAMPLE- COUMADIN, PLAVIX, AGGRENOX, PLATEL, PRADAXA, OR XARELTO) NO . WHEN WAS YOUR LAST DOSE? DATE: TIME: . NEUROLOGY: HAVE YOU FALLEN IN THE PAST 6 MONTHS? NO . ANY NEW EXTREMITY NUMBNESS OR WEAKNESS? NO . CARDIOLOGY: DO YOU HAVE A PACEMAKER OR DEFIBRILLATOR? YES, PACEMAKER/DEFIBRILLATOR . RESPIRATORY: HAVE YOU BEEN SICK IN THE PAST WEEK? NO . FEVER NO . FLU LIKE SYMPTOMS? NO . COUGH NO . INTEGUMENTARY: DO YOU HAVE ANY RASHES OR OPEN SORES? NO . ALLERGIC/IMMUNO: ARE YOU ALLERGIC TO SHELLFISH OR IV DYE? NO . ANY NEW ALLERGIES? NO . PSYCHIATRIC: DO YOU HAVE THOUGHTS OF HURTING YOURSELF OR SOMEONE ELSE? NO . ARE YOU ABUSED, NEGLECTED, OR IN AN UNSAFE ENVIRONMENT? NO . ENDOCRINOLOGY: ARE YOU DIABETIC? NO . OTHER: DO YOU NEED ANY PRESCRIPTIONS? NO . IF YES, PLEASE LIST: ____ . ANY NEW PROBLEMS WITH YOUR MEDICATIONS? NO . WHEN DID YOU LAST EAT? ____ . WHEN DID YOU LAST DRINK? ____ . WHAT DID YOU LAST DRINK? ____ . NAME OF PERSON DRIVING YOU HOME? ____ . DO YOU HAVE ANY OTHER QUESTIONS OR CONCERNS YES, PATIENT IS TRYING TO QUIT SMOKING. . REVIEWED BY: PROVIDER: MARK DRUMMOND MD . VITAL SIGNS WT 148.0 LBS, HT 63 IN, BMI 26.21 INDEX, BP 126/74 MM HG, HR 60 /MIN, RR 16 /MIN, TEMP 98.4 F, OXYGEN SAT % 97%, NA INITIALS TL 1315, REVIEWED BY: CM. EXAMINATION : PATIENT IS ALERT O X 3 AND COOPERATIVE. THERE IS TENDERNESS IN THE LOW BACK PARASPINAL MUSCLE GROUP WITH BANDS OF TISSUES, RESTRICTION OF MOVEMENT, AND PRESENCE OF TRIGGER POINTS. PATIENT IS ABLE TO FLEX HIS BACK TO 80 DEGREES AND FLEX TO 20 DEGREES. MRI OF THE LUMBAR SPINE DONE ON 04-07-2016 SHOWS A DIFFUSE DISC BULGE AND SMALL RIGHT PARACENTRAL DISC EXTRUSION AT L2-L3. DIFFUSE DISC BULGE AT L3-L4. DIFFUSE DISC BULGE AND SMALL LEFT PARACENTRAL PROTRUSION AT L5-S1. ASSESSMENTS MYALGIA - M79.1 (PRIMARY) LOW BACK PAIN - M54.5 TREATMENT MYALGIA NOTES: WE DISCUSSED SEVERAL ISSUES WITH MR. BENNETT'S PAIN MANAGEMENT CASE. AT THIS TIME THE PATIENT WILL CONTINUE ON THE SAME MEDICATION REGIMEN BEFORE. WITH THE PATIENT REPORTING THAT HIS PAIN IS MANAGEABLE AT THIS TIME, MR. BENNETT WILL FOLLOW UP WITH ME IN 3 MONTHS. I DISCUSSED WITH THE PATIENT SHOULD HIS PAIN RETURN TO GIVE US A CALL. INSTRUCTIONS WERE GIVEN, QUESTIONS WERE ANSWERED, PATIENT REPORTS UNDERSTANDING AND AGREES WITH THE PLAN. I, [employer], DOCUMENTED THE ABOVE INFORMATION ACTING A SCRIBE FOR DR. DRUMMOND. I HAVE REVIEWED THE ABOVE DOCUMENT, WRITTEN BY [employer] SCRIBE AND I VERIFY THAT IT IS ACCURATE. PROCEDURES PN WORKMANS' COMP OPINION IN YOUR OPINION, WAS THE INCIDENT THAT THE PATIENT DESCRIBED THE COMPETENT MEDICAL CAUSE OF THIS INJURY/ILLNESS? YES ARE THE PATIENT'S COMPLAINTS CONSISTENT WITH HIS/HER HISTORY OF THE INJURY/ILLNESS? YES IS THE PATIENT'S HISTORY OF THE INJURY/ILLNESS CONSISTENT WITH YOUR OBJECTIVE FINDING? YES WHAT IS THE PERCENTAGE OF TEMPORARY IMPAIRMENT? MODERATE = 50% IS THE PATIENT WORKING? NO DOCTOR ON SITE: MARK SALAZAR MD PROCEDURE CODES FA211 ESTABILISHED PATIENT [facility] FACILITY CHARGE G8730 PAIN ASSESS POS TOOL F/U PLAN DOC G8427 DOC MEDS VERIFIED W/PT OR RE DISPOSITION & COMMUNICATION FOLLOW UP 3 WEEKS ELECTRONICALLY SIGNED BY MARK DRUMMOND MD ON 11/26/2016 AT 03:06 PM EDT DISCLAIMER : THIS IS A VISIT SUMMARY EXTRACTED FROM THE [employer] CHART. IT IS NOT A COPY OF THE [employer] PROGRESS NOTE. NINA
== END ==
LOC: M PAIN 13:00
PROVIDERS: ATTEND Anesthesiology
DX: G89.29 Other chronic pain (principal); M79.1 Myalgia; M54.5 Low back pain; E55.9 Vitamin D deficiency, unspecified; E78.5 Hyperlipidemia, unspecified; N52.9 Male erectile dysfunction, unspecified; Z79.82 Long term (current) use of aspirin; Z96.642 Presence of left artificial hip joint; Z95.0 Presence of cardiac pacemaker; Z87.891 Personal history of nicotine dependence; Z86.74 Personal history of sudden cardiac arrest; Z88.5 Allergy status to narcotic agent

== ENCOUNTER 2016-12-26 07:59 | Inpatient (IN) | payer MEDICAID, OTHER ==
[~2016-12-26] VITALS: Ht 165.1 cm; Wt 63.6 kg
[~2016-12-26 07:59] MED LIST changes: +AMIO200T PO; -AMIO20TA PO; +METO1TAB32 PO; -METO25TA74 PO; +PERC5TAB12 PO; -PERC5TAB6 PO
[2016-12-26] MEDS ORDERED: NITROGLYCERIN 0.4 MG SUBL TABLET SL STA (08:26)
[2016-12-26] MEDS ORDERED: ASPIRIN 81 MG CHEW TABLET PO ONE (08:30)
[2016-12-26 08:35] LABS: BASO # 0.1 K/mm3 (0.0-0.2); BASO % 0.6 % (0.0-1.0); EOS # 0.3 K/mm3 (0.0-0.50); EOS % 2.5 % (0.0-3.0); LARGE UNSTAINED CELL # 0.3 K/mm3 (0.0-0.4); LARGE UNSTAINED CELL % 2.6 % (0.0-4.0); LYMPH # 3.2 K/mm3 (1.5-4.5); LYMPH % 27.7 % (24.0-44.0); MEAN CORPUSCULAR HEMOGLOBIN 31.3 pg (27.0-33.0); MEAN CORPUSCULAR HGB CONC 33.1 g/dl (32.0-36.5); MEAN CORPUSCULAR VOLUME 94.6 fl (80.0-96.0); MONO # 0.7 K/mm3 (0.0-0.8); MONO % 6.2 % (0.0-5.0); NEUTROPHILS # 6.3 K/mm3 (1.8-7.7); NEUTROPHILS % 60.4 % (36.0-66.0); PLATELET COUNT, AUTOMATED 423 k/mm3 (150-450); RED CELL DISTRIBUTION WIDTH 15.7 % (11.5-14.5); WHITE BLOOD COUNT 10.4 K/mm3 (4.0-10.0)
--- NOTE | 2016-12-26 08:52 | REP ---
Chest x-ray: Two views. History: Chest pain. Comparison chest x-ray August 17, 2016. Findings: Bipolar pacemaker remains in the right heart via the left subclavian vein region. EKG electrodes are seen. The lungs are symmetrically aerated and clear. Pleural angles are sharp. The heart is not enlarged. Pulmonary vasculature is not increased. No significant bony abnormality is seen. Impression: No active disease. Pacemaker noted. Signed by Doe Navarro MD 12/26/2016 10:45 A
[2016-12-26 08:55] LABS: ALBUMIN 3.6 GM/DL (3.2-5.2); ALBUMIN/GLOBULIN RATIO 0.86 (1.00-1.93); ALKALINE PHOSPHATASE 78 U/L (45-117); ALT/SGPT 36 U/L (12-78); ANION GAP 9 MEQ/L (8-16); AST/SGOT 18 U/L (15-37); BILIRUBIN,DIRECT < 0.1 MG/DL (0.0-0.2); BILIRUBIN,TOTAL 0.5 MG/DL (0.2-1.0); BLOOD UREA NITROGEN 21 MG/DL (7-18); CARBON DIOXIDE LEVEL 22 MEQ/L (21-32); CHLORIDE LEVEL 106 MEQ/L (98-107); CREATININE FOR GFR 1.12 MG/DL (0.70-1.30); GLOMERULAR FILTRATION RATE > 60.0 (>56); GLUCOSE, FASTING 173 MG/DL (70-105); POTASSIUM SERUM 3.8 MEQ/L (3.5-5.1); SODIUM LEVEL 137 MEQ/L (136-145); TOTAL PROTEIN 7.8 GM/DL (6.4-8.2)
[2016-12-26] MEDS ORDERED: ISOVUE-370 76% 100ML VIAL (Q9967) As Ordered ONE (09:27)
--- NOTE | 2016-12-26 10:01 | REP ---
CT of the chest with IV contrast, CT pulmonary angiography: There are no emboli in the pulmonary trunk or central pulmonary arteries. There are no emboli in the lobe or segment branches of the pulmonary arteries. There are no infiltrates, effusions, masses or nodules except for A 6 mm calcified granuloma in the left lower lobe. There is a smaller calcified granuloma more inferiorly in the left lower lobe. There is no hilar, mediastinal or axillary adenopathy. The thoracic aorta is unremarkable. Cardiac size is normal. The visualized upper abdominal contents are unremarkable except for a nonobstructive left renal calculus. Impression: There is no pulmonary embolus. There are no infiltrates, effusions or masses. There are left lower lobe calcified granulomas. There is a nonobstructive left renal calculus. There is a left renal 2.0 cm cyst. Signed by Andry Dorsey MD 12/26/2016 09:52 A
[2016-12-26] MEDS ORDERED: ACETAMINOPHEN TAB 650MG DOSE (2X325MG) PO ONE (13:15)
[2016-12-26] MEDS ORDERED: NS 500 ML IV ONE (14:00)
[2016-12-26] MEDS ORDERED: NS 1,000 ML IV SCH (14:07)
[2016-12-26] MEDS ORDERED: ACETAMINOPHEN TAB 650MG DOSE (2X325MG) PO PRN (14:15)
[2016-12-26 14:57] LABS: MAGNESIUM LEVEL 2.3 MG/DL (1.8-2.4)
[2016-12-26] MEDS ORDERED: cefTRIAXone SOD 2 GM in D5W MINI-BAG PLUS 50 ML IV SCH (16:00)
--- NOTE | 2016-12-26 16:15 | HPE ---
DATE OF ADMISSION: 12/26/2016 PRIMARY CARE PHYSICIAN: Berhane Pereyra MD FLOW MANAGER: Edwin Goddard MD CHIEF COMPLAINT: Chest pain, lightheadedness and dizziness with coughing. HISTORY OF PRESENT ILLNESS: Mr. Josue is a 56-year-old male with multiple past medical history who presented to the emergency room (ER) due to experiencing 3 days of coughing as well as chest pain which started this morning around 7:10 a.m. and lasted for about 2 hours. Patient expressed that 3 days ago, patient noticed that he had a cough that usually produces sputum and patient described the sputum as white. Patient expressed that the coughing has increased. However, this morning when he woke up around 7:10 a.m., he noticed chest pain which was located in the mid sternum with no radiation. Patient described the pain as sharp, stationary, 5/10. Patient, however, denies coughing or movement increasing the pain. However, patient noticed that the coughing caused him to have lightheadedness and dizziness which had started 3 days ago and has been increased. The same time that patient developed coughing, patient was brought to the ER. Patient received two doses of aspirin, however, aspirin did not decrease the chest pain. However, after patient received one dose of nitroglycerin, patient expressed that the chest pain was decreased. At the time of interview, patient expressed that the chest pain is gone. However, patient continued to feel lightheaded and dizzy with coughing. Patient denies sick contacts. Patient denies fever, however, patient feels that he has chills and he continues to have chills in the ER. Patient also feels weak, however, this weakness started when patient had the heart attack on 06/27/2016. On 06/27/2016, patient came to the ER for further evaluation due to not feeling well and was found to have ventricular tachycardia/ventricular fibrillation. At that time, patient had cardiac arrest. Patient was resuscitated and transferred to [facility] for further evaluation. His serum troponin was mildly elevated. The cardiac catheterization revealed patent coronary artery tree with a normal left ventricular ejection fraction. An automatic implantable cardioverter defibrillator (AICD) was implanted. While patient was at [facility], he continued to have ventricular tachycardia. He was discharged home. He came to the ER on 07/10/2016, with the ventricular tachycardia and was started on amiodarone. However, patient was following with Dr. Goddard who continued patient on amiodarone and started patient on lisinopril. Patient has a history of hyperlipidemia, arthritis, and smoking. Patient has no history of CVA, significant valvular heart disease, atrial fibrillation, diabetes mellitus, thyroid disorder or kidney disorders. Patient has been smoking marijuana, however, patient denies using other illegal drugs. While patient was in the ER today, patient had 15 runs of ventricular tachycardia. However, the second EKG which was done in the ER, shows sinus rhythm. Patient was admitted. ALLERGIES: HYDROCODONE/ACETAMINOPHEN causes nausea and vomiting. PAST MEDICAL HISTORY: 1. Sudden cardiac arrest, ventricular tachycardia in ER 06/26/2016, immediate cardiopulmonary resuscitation (CPR), ACLS/shock status post AICD dual chamber pacemaker at [facility]. 2. Cardiac catheterization 06/26/2016, at [facility], shows ejection fraction of 65%. 3. Back injury in April 2004, with chronic lower back pain. 4. Tobacco abuse. 5. Vitamin D deficiency. 6. Hyperlipidemia. Patient stopped simvastatin on 08/22. 7. 10 year atherosclerotic cardiovascular disease (ASCVD) risk 10%. 8. Erectile dysfunction. PAST SURGICAL HISTORY: 1. Right hip revision November 2005. 2. Closed reduction of the right hip June 2006. 3. Left total hip arthroplasty. 4. EGD and colonoscopy in 2013. 5. Cataracts both eyes. 6. AICD. SOCIAL HISTORY: Patient lives alone, however, patient lives close to his brother. Patient stopped using alcohol when he had a heart attack, however, before that patient would occasionally drink alcoholic beverages. Patient still smokes cigarettes, about a pack a day. Patient said that he has been smoking for the past 25-30 years. Patient has been smoking marijuana occasionally, the last use of marijuana was last night. Patient expressed that he will occasionally use marijuana. Patient has no pets at home. Patient has not traveled outside of the [place]. Patient has one son. FAMILY HISTORY: Patient has a total of ten brothers and sisters (seven brothers , three sisters). One of his sisters has breast cancer. Patient's father in his 60s due to cancer and massive heart attack. Patient's mother in her 60s due to breast cancer. REVIEW OF SYSTEMS: GENERAL: Patient denies fever, however, patient has chills and night sweats. Patient also expressed that his weight has been fluctuating, both increase and decrease, for the past several months. HEENT: Patient denies acute hearing changes, however, when he has lightheadedness and dizziness he feels blurry vision. Patient denies problem with chewing food or sinusitis. NECK: Patient denies lumps, bumps, or decreased range of motion of his neck. HEART: Patient expressed that he had chest pain in the mid sternum, stationary, 5/10, which has not increased with activities. Patient expressed that the pain stayed for 2 hours, however, it was gone after patient took nitroglycerin. However, patient had two doses of aspirin which did not help with the pain. LUNGS: Patient expressed that he has been having cough with white sputum production that started 3 days ago and has been increased for the past 3 days. Patient also expressed lightheadedness and dizziness with the cough. However, patient denies shortness of breath. ABDOMEN: Patient denies abdominal pain, nausea, vomiting, diarrhea, constipation, melena, hematochezia, or hemoptysis. NEUROLOGIC: Patient denies history of transient ischemic attack (TIA), seizure or seizure-type activities. OBJECTIVE: VITAL SIGNS: Temperature 98.2, pulse 76, respiratory rate 16, blood pressure 153/73, pulse oximetry 98% on room air. GENERAL APPEARANCE: Patient was lying in bed, in no acute distress. Patient was awake, alert, and oriented to time, place, and person. HEENT: Normocephalic, atraumatic. Pupils are equal and reactive to light. Oral mucosa is moist. NECK: Soft, supple. No lymphadenopathy. No thyromegaly. No jugular venous distention (JVD). HEART: Regular rate and rhythm, normal S1, S2. ABDOMEN: Soft, nontender. Positive bowel sounds in all quadrants. LUNGS: Clear breath sounds bilaterally, good air movement. EXTREMITIES: No lower extremity edema. +2 pulses in both lower extremities. Patient has normal range of motion in both upper and lower extremities. NEUROLOGIC: Cranial nerves II-XII was intact. LABORATORY DATA: White blood cells 10.4, red blood cells 4.67, hemoglobin 14.6, hematocrit 44.2, MCV 94.6, MCH 31.3, MCHC 33.1, RDW 15.7, platelet count 423, neutrophil percentage 60.4, lymphocyte percentage 27.7, monocyte percentage 6.2, eosinophil percentage 2.5, basophil percentage 0.6, leukocyte percentage 2.6. Sodium 137, potassium 3.8, chloride 106, carbon dioxide 22, anion gap 9, BUN 21, creatinine 1.12, glomerular filtration rate more than 60, fasting glucose 173, calcium 9, total bilirubin 0.5, direct bilirubin less than 0.1, AST 18, ALT 36, alkaline phosphatase 78, total creatine kinase 61, CK-MB 1, CK-MB relative index 1.63, troponin I less than 0.02, BNP 19.5, total protein 7.8, albumin 3.6, lipase 258. Urine color yellow, urine appearance clear, urine pH 6, urine specific gravity 1.049, urine protein negative, urine glucose 1+, urine ketones negative, urine blood negative, urine nitrite negative, urine bilirubin negative, urine urobilinogen 0.2, urine leukocyte esterase negative, urine white blood cells 0, urine red blood cells 1, urine hyaline casts 0, urine bacteria 1+, urine squamous epithelial cells 0. Blood culture is pending. IMAGING STUDIES: Chest x-ray shows no active disease. Pacemaker noted. CT angio of the chest which shows no pulmonary embolism. There are no infiltrations, effusions, or masses. There are left lower lobe calcified granulomas. There is a nonobstructive left renal calculus. There is a left renal 2 cm cyst. ASSESSMENT AND PLAN: 1. Chest pain. The first EKG which was performed on the patient's arrival indicated sinus rhythm. Patient received aspirin as well as the nitroglycerin, however, after nitroglycerin patient's chest pain subsided. While patient was in the ER, patient had 15 runs of ventricular tachycardia. Patient has dual chamber automatic implantable cardioverter defibrillator (AICD), however, AICD did not activate, therefore we consulted Dr. Goddard and Dr. Goddard will evaluate the patient. We ordered a second EKG which indicated normal sinus. The first cardiac marker upon patient's arrival was negative. The second cardiac marker is pending. We will repeat it one more time. Also, we have ordered a magnesium level, result is pending. Due to history of illicit drug use (marijuana), I have added a urine toxicology, result is pending. Also, we have ordered a thyroid stimulating hormone (TSH), result is pending at this time. Also, we checked the orthostatic vitals due to patient's lightheadedness and dizziness, however it was negative. At this time, we will continue patient on home dosage, however, after speaking with Dr. Goddard we have increased the amiodarone to 200 mg twice a day. However, we will continue patient on the current dosage of Toprol XL and aspirin. 2. Deep venous thrombosis (DVT) prophylaxis. Patient is on heparin 5000 subcutaneous every 8 hours. 3. Hypertension. Will continue patient on current dosage of lisinopril (10 mg by mouth every evening). Patient is also on metoprolol succinate 25 mg by mouth every evening. 4. Hyperlipidemia. Based on the primary care note, patient was on simvastatin, however, it was stopped on 08/22, possibly secondary to adverse effect. 5. Smoker. This is a chronic issue. I have spoken with the patient regarding not smoking, however, at this time I have ordered a nicotine patch as needed daily. 6. Chronic back pain. Patient had the back injury in April 2004, with chronic low back pain, however, at this time patient is stable. My preceptor for this patient encounter was Dr. Montes. The preceptor was physically present in the building during the encounter and was fully available. As needed, all aspects of the patient interview, examination, medical decision making process, and medical care plan development were reviewed and approved by the preceptor. The preceptor is aware and concurs with the plan as stated in the body of this note and will attest to such by his/her cosignature. I, Rohan Montes, have both independently examined this patient as well as reviewed the documentation. I have discussed in detail with the resident the findings and plan of treatment as documented in the residents documentation. I will continue to follow the patient and offer further guidance to the patients care as necessary during this hospital stay. NINA
[2016-12-26 16:27] VITALS: BP 130/68
[2016-12-26] MEDS: HEPARIN SOD (PORCINE) 5000 UNITS/ML VIAL SC SCH ×2 (16:47→20:56)
[2016-12-26] MEDS ORDERED: AZITHROMYCIN INJ 500 MG, VIAL MATE ADAPTER 1 EACH in D5W 250 ML IV SCH (17:00)
[2016-12-26] MEDS ORDERED: ONDANSETRON 4 MG TAB (S0181) PO ONE (17:15)
--- NOTE | 2016-12-26 19:40 | ECGEPIP ---
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 RBBB NONSPECIFIC T-WAVE ABNORMALITY SIMILAR TO 10/18/16 Electronically Signed On 12-26-2016 19:39:30 EDT by Ubaldo Dickerson
--- NOTE | 2016-12-26 19:46 | ECGEPIP ---
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 RBBB SIMILAR TO PRIOR ON SAME DATE Electronically Signed On 12-26-2016 19:46:19 EDT by Ubaldo Dickerson
[2016-12-26 20:00] VITALS: BP 110/60
[2016-12-26] MEDS: AMIODARONE 200 MG TAB (PACERONE) PO SCH (20:55)
[2016-12-26] MEDS: METOPROLOL SUCC *XL* 25MG TAB (TopROL *XL*) PO SCH (20:55)
[2016-12-26] MEDS: LISINOPRIL 10 MG TAB PO SCH (20:55)
[2016-12-27] VITALS (7 sets, daily range): BP systolic 112–134; BP diastolic 56–78
[2016-12-27 01:46] LABS: METHADONE URINE NEGATIVE (NEGATIVE)
[2016-12-27] MEDS: HEPARIN SOD (PORCINE) 5000 UNITS/ML VIAL SC SCH ×3 (05:39→21:06)
[2016-12-27 05:47] LABS: BASO % 0.6 % (0.0-1.0); EOS # 0.2 K/mm3 (0.0-0.50); EOS % 2.5 % (0.0-3.0); LARGE UNSTAINED CELL # 0.2 K/mm3 (0.0-0.4); LYMPH # 2.5 K/mm3 (1.5-4.5); LYMPH % 25.2 % (24.0-44.0); MEAN CORPUSCULAR HGB CONC 32.4 g/dl (32.0-36.5); MEAN CORPUSCULAR VOLUME 95.6 fl (80.0-96.0); MONO # 0.7 K/mm3 (0.0-0.8); MONO % 7.8 % (0.0-5.0); NEUTROPHILS # 5.6 K/mm3 (1.8-7.7); NEUTROPHILS % 61.9 % (36.0-66.0); PLATELET COUNT, AUTOMATED 358 k/mm3 (150-450); RED CELL DISTRIBUTION WIDTH 15.7 % (11.5-14.5); WHITE BLOOD COUNT 9.1 K/mm3 (4.0-10.0)
[2016-12-27 06:02] LABS: ALBUMIN 2.8 GM/DL (3.2-5.2); ALBUMIN/GLOBULIN RATIO 0.74 (1.00-1.93); ALKALINE PHOSPHATASE 64 U/L (45-117); ALT/SGPT 30 U/L (12-78); ANION GAP 4 MEQ/L (8-16); AST/SGOT 17 U/L (15-37); BILIRUBIN,TOTAL 0.5 MG/DL (0.2-1.0); BLOOD UREA NITROGEN 15 MG/DL (7-18); CALCIUM LEVEL 8.2 MG/DL (8.5-10.1); CARBON DIOXIDE LEVEL 27 MEQ/L (21-32); CHLORIDE LEVEL 112 MEQ/L (98-107); GLOMERULAR FILTRATION RATE > 60.0 (>56); GLUCOSE, FASTING 82 MG/DL (70-105); MAGNESIUM LEVEL 2.2 MG/DL (1.8-2.4); POTASSIUM SERUM 4.4 MEQ/L (3.5-5.1); SODIUM LEVEL 143 MEQ/L (136-145); TOTAL PROTEIN 6.6 GM/DL (6.4-8.2)
[2016-12-27] MEDS: AMIODARONE 200 MG TAB (PACERONE) PO SCH ×2 (09:00→21:04)
[2016-12-27] MEDS: ASPIRIN 81 MG ENTERIC TAB PO SCH (09:00)
--- NOTE | 2016-12-27 09:59 | IPNPDOC ---
Subjective Date Seen The patient was seen on 12/27/16. Subjective Chief Complaint/HPI The patient is a 56-year-old male admitted with a reason for visit of Ventricular Tachycardia. Events since last encounter stated improvement in symptoms. has some residual dizziness, yet is improved. s/ p cardiology evaluation and Amiodarone increased to 200 mg po bid. Planned AICD interrogation today. Constitutional: Denies: Chills, Fever, Night Sweats ENT: Denies: Head Aches, Ear Pain, Dysphagia Skin: Denies: Rash, Lesions, Breakdown Pulmonary: Denies: Dyspnea, Cough Cardiovascular: Reports: Chest Pain (muskulosekeletal, reproducible), Lt Headedness, Denies: Palpitations Gastrointestinal: Denies: Nausea, Vomiting, Abdominal Pain, Diarrhea, Constipation Genitourinary: Denies: Dysuria, Frequency, Incontinence, Retention Psych: Reports: Mood Normal, Denies: Depression, Memory Issues Objective Physical Examination General Exam: Positive: Alert, No Acute Distress Eye Exam: Positive: PERRLA, Conjunctiva & lids normal, EOMI, Negative: Sclera icteric ENT Exam: Positive: Atraumatic, Mucous membr. moist/pink, Pharynx Normal Neck Exam: Positive: Supple, Negative: JVD, thyromegaly Chest Exam: Positive: Clear to auscultation, Normal air movement Heart Exam: Positive: Rate Normal, Regular Rhythm, Normal S1, Normal S2, Negative: Murmurs, Rubs Telemetry: Positive: No significant arrhythmia Abdomen Exam: Negative: Normal bowel sounds, BS Hyperactive, BS Hypoactive, Soft, Tenderness, Hepatospenomegaly, Mass, Hernia, Other Extremity Exam: Positive: Normal pulses, Negative: Clubbing, Cyanosis, Edema Skin Exam: Positive: Nl turgor and temperature, Negative: Rash, Breakdown Psych Exam: Positive: Mental status NL, Mood NL, Oriented x 3 Assessment /Plan Problems (1) Ventricular tachycardia Status: Acute Problem Specific Plan: Consult Specialist Problem Text: No recurrence c increased amiodarone 200 QD to BID, continues HD Toprol XL 25 12/27 K 4.4, Mg 2.2 appreciate Cardiology input (2) Chest pain Status: Acute Problem Text: Probably musculoskeletal due to cough and recent cardiac surgery. negative CIP. monitor. 12/26 - CTA chest for PE 12/26 BCX - x 2 12/26 UCX NGCS (3) ICD (implantable cardioverter-defibrillator) in place Status: Chronic Problem Specific Plan: Consult Specialist, Monitor Clinically Problem Text: AICD interrogation today with cardiology. (4) Chest pain, musculoskeletal Status: Acute Problem Specific Plan: Monitor Clinically Problem Text: encouraged to apply compression with pillow when coughing. Tylenol prn pain. Plan/VTE VTE Prophylaxis Ordered?: Yes (heparin) VS, I&O, 24H, Fishbone Vital Signs/I&O Vital Signs Date Time Temp Pulse Resp B/P (MAP) Pulse Ox O2 Delivery O2 Flow Rate FiO2 12/27/16 08:00 Room Air 12/27/16 07:48 98.8 63 18 112/67 (82) 97 I&O- Last 24 Hours up to 6 AM 12/27/16 06:00 Intake Total 1145 ml Output Total 825 ml Balance 320 ml Laboratory Data 24H LABS Laboratory Tests 2 12/26/16 13:24: Urine Appearance CLEAR, Urine Color YELLOW, Urine pH 6.0, Urine Specific [place] 1.049, Urine Protein NEGATIVE, Urine Glucose (UA) 1+H, Urine Ketones NEGATIVE, Urine Urobilinogen 0.2, Urine Bilirubin NEGATIVE, Urine Leukocyte Esterase NEGATIVE, Urine Blood NEGATIVE, Urine Nitrite NEGATIVE, Urine WBC (Auto ) 0, Urine RBC (Auto) 1, Urine Hyaline Casts (Auto) 0, Urine Bacteria (Auto) 1+H , Urine Squamous Epithelial Cells 0, Urine Sperm (Auto) 12/26/16 14:15: Magnesium Level 2.3, Total Creatine Kinase 57, Creatine Kinase MB 1.0, Creatine Kinase MB Relative Index 1.75, Troponin I < 0.02, Thyroid Stimulating Hormone ( TSH) 2.650 12/26/16 14:26: Lactic Acid Level 1.3 12/26/16 20:04: Total Creatine Kinase 60, Creatine Kinase MB 1.0, Creatine Kinase MB Relative Index 1.66, Troponin I < 0.02 12/27/16 00:25: Urine Amphetamines Screen NEGATIVE, Urine Benzodiazepines Screen NEGATIVE, Urine Opiates Screen NEGATIVE, Urine Methadone Screen NEGATIVE, Urine Barbiturates Screen NEGATIVE, Urine Phencyclidine Screen NEGATIVE, Urine Cocaine Metabolite Screen NEGATIVE, Urine Cannabinoids Screen POSITIVEH 12/27/16 04:36: White Blood Count 9.1, Red Blood Count 4.18L, Hemoglobin 13.0L, Hematocrit 40.0L , Mean Corpuscular Volume 95.6, Mean Corpuscular Hemoglobin 31.0, Mean Corpuscular Hemoglobin Concent 32.4, Red Cell Distribution Width 15.7H, Platelet Count 358, Neutrophils (%) (Auto) 61.9, Lymphocytes (%) (Auto) 25.2, Monocytes (%) (Auto) 7.8H, Eosinophils (%) (Auto) 2.5, Basophils (%) (Auto) 0.6 , Neutrophils # (Auto) 5.6, Lymphocytes # (Auto) 2.5, Monocytes # (Auto) 0.7, Eosinophils # (Auto) 0.2, Basophils # (Auto) 0.0, Large Unclassified Cells % 2.0 , Large Unclassified Cells # 0.2, Anion Gap 4L, Glomerular Filtration Rate > 60.0, Blood Urea Nitrogen 15, Creatinine 1.00, Sodium Level 143, Potassium Level 4.4, Chloride Level 112H, Carbon Dioxide Level 27, Calcium Level 8.2L, Aspartate Amino Transf (AST/SGOT) 17, Alanine Aminotransferase (ALT/SGPT) 30, Alkaline Phosphatase 64, Total Bilirubin 0.5, Total Protein 6.6, Albumin 2.8#L, Magnesium Level 2.2, Albumin/Globulin Ratio 0.74L CBC/BMP Laboratory Tests 12/27/16 04:36 Red Blood Count 4.18 L, Mean Corpuscular Volume 95.6, Mean Corpuscular Hemoglobin 31.0, Mean Corpuscular Hemoglobin Concent 32.4, Red Cell Distribution Width 15.7 H, Neutrophils (%) (Auto) 61.9, Lymphocytes (%) (Auto) 25.2, Monocytes (%) (Auto) 7.8 H, Eosinophils (%) (Auto) 2.5, Basophils (%) ( Auto) 0.6, Neutrophils # (Auto) 5.6, Lymphocytes # (Auto) 2.5, Monocytes # (Auto ) 0.7, Eosinophils # (Auto) 0.2, Basophils # (Auto) 0.0, Calcium Level 8.2 L, Aspartate Amino Transf (AST/SGOT) 17, Alanine Aminotransferase (ALT/SGPT) 30, Alkaline Phosphatase 64, Total Bilirubin 0.5, Total Protein 6.6, Albumin 2.8 #L Microbiology Microbiology 7/19/17 Blood Culture, Received Pending 12/26/16 Blood Culture, Received Pending 12/26/16 Urine Culture, Received Pending Caitlin Barrera Dec 27, 2016 09:59 Wily Rubin M.D. Dec 27, 2016 15:32
[2016-12-27] MEDS ORDERED: SLF 3 ML SYR IV PRN (11:00)
[2016-12-27] MEDS: SLF 3 ML SYR IV SCH ×2 (13:31→21:06)
--- NOTE | 2016-12-27 18:30 | CR ---
DATE OF CONSULTATION: 12/26/2016 REFERRING PROVIDER: Dr. Nery Montes. REASON FOR CONSULTATION: Ventricular tachycardia. PRIMARY PHYSICIAN: Drew Almanzar/Dr. Berhane Pereyra. HISTORY OF PRESENT ILLNESS: A 56-year-old male well known by the office with a history of ventricular fibrillation (V-fib) arrest/sudden cardiac on 06/26/2016, has been relatively stable from the cardiac point of view on current cardiac medications. She woke up this morning with chest pain described as an aching sensation across his chest without any severe radiation or associated shortness of breath or diaphoresis. He took nitroglycerin sublingual at home without any relief, and he also took aspirin. He decided to come to the emergency room (ER) for further evaluation. While in the ER, he was found to a 15-beat ventricular tachycardia, cardiology consult was called. When I saw Mr. Wilmar Josue, he was supine in bed in no acute distress at rest. He stated that about three days ago, he started having a cough associated with dizziness, but denies any hemoptysis or fever. He, however, was found to have low-grade fever since in the hospital. He has no nausea, vomiting, diarrhea , melena, or hematochezia. He has no pitting edema, orthopnea or paroxysmal nocturnal dyspnea (PND). He has no syncope or near syncope. He has been taking his medications regularly and recently he was started on lisinopril for uncontrolled hypertension. He also was recently treated for a cellulitis of his left lower extremity. He was admitted at that time for intravenous (IV) antibiotics. He has a past medical history positive for V-fib arrest on 06/26/2016, and at that time, he was resuscitated and was found to have abnormal serum troponin. He was transferred to [facility] and cardiac catheterization revealed a normal left ventricular ejection fraction (LVEF), no coronary artery disease (CAD). He was discharged home with an automatic implantable cardioverter defibrillator (AICD). This is being monitored at the [facility] and has been working well and has been functioning well. He also has a history of hypertension, hyperlipidemia, smoking, arthritis with degenerative joint disease and degenerative disc disease. There is no history of atrial fibrillation, significant valvular heart disease, left ventricular systolic dysfunction, cerebrovascular accident (CVA), diabetes mellitus, kidney disease, thyroid disorders. PAST SURGICAL HISTORY: Positive for right hip replacement in 2005, left total hip arthroplasty, bilateral cataracts, and in June 2016, he had an AICD implantation. FAMILY HISTORY: Noncontributory. 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 He denies any ethyl alcohol (EtOH) abuse. He was reported in his chart that he uses marijuana on occasion, and the last time was last night. ALLERGIES: HYDROCODONE and adverse reaction described were nausea and vomiting. ADVANCE DIRECTIVE: The patient is a FULL CODE. PHYSICAL EXAMINATION: On physical examination, the patient is alert and oriented, in no acute distress at rest, and his last vital signs revealed a blood pressure of 110/60 with a pulse os 62, respirations 16, and his maximum temperature was 99.4 degrees Fahrenheit, with an oxygen saturation of 97% on room air. HEENT: Atraumatic. NECK: Supple. No jugular venous distention (JVD) or carotid bruits. LUNGS: Clear bilaterally on auscultation without any wheezing or crackles. HEART: Examination revealed normal S1, S2 without gallops. The point of maximum impulse (PMI) is not displaced. There is no rub. I could not appreciate any murmurs. ABDOMEN: Soft and nontender, bowel sounds active. EXTREMITIES: Reveal no pitting edema. Peripheral pulses, dorsalis pedis are +2 and equal. NEUROLOGIC: Negative for focal deficit. LABORATORY DATA: CBC done today revealed a WBC of 10.4, hemoglobin 14.6, hematocrit 44.2, and platelets 423,000. BMP revealed a sodium 137, potassium 3.8, chloride 106, CO2 22, BUN 21, creatinine 1.12, GFR more than 60, fasting glucose 173, and calcium 9.0. Liver enzymes revealed a total bilirubin of 0.5, AST 18, ALT 36, alkaline phosphatase 78. Total protein 7.8, albumin 3.6. Serum TSH was 2.65. Serum troponin is less than 0.02 times three. Serum BNP was 19.5. Serum magnesium was 2.3. Serum lactic acid was 1.3. Urinalysis was positive for glucose and +1 bacteria. Urine and blood cultures are pending. IMAGING: Electrocardiogram on admission today, 12/26/2016, at 8:10:46, revealed underlying sinus rhythm, incomplete right bundle branch block, and there was artifact on the baseline. Repeat electrocardiogram done on the same day at 14:22:38, revealed sinus rhythm at 62 beats per minute and also incomplete right bundle branch block, and on demand atrial pacing. Chest x-ray done on admission 12/26/2016, revealed no acute disease process. No cardiomegaly. No manifestation of heart failure. CT angiogram of the chest done on 12/26/2016, revealed no evidence of pulmonary embolism. Calcified granulomas noted in the left lower lobe. There was also a small, nonobstructive left renal calculus and a left renal cyst of about 2 cm in diameter. IMPRESSION: 1. A 56-year-old male with history of ventricular fibrillation (V-fib) arrest with normal left ventricular ejection fraction (LVEF) and automatic implantable cardioverter defibrillator (AICD) implantation, no coronary artery disease, came to the hospital with chest pain and was found to have a 15-beat ventricular tachycardia. The patient has been on amiodarone, and it was decreased earlier this year, and his chart in the office will be reviewed, then further recommendation will be given. In the meantime, he will continue current medications. Since that episode, no significant arrhythmias noted on telemetry. He has some concern, he stated that at work there was a kid working and playing with magnet close to AICD, and I will try to re-interrogate the AICD prior to his discharge. 2. Chest pain, atypical, and this may be related to the underlying cough. He is currently on intravenous (IV) antibiotics in view of his low-grade fever. Urine and blood cultures are pending. 3. History of hyperlipidemia. It was a pleasure to participate in the care of Mr. Wilmar Josue for his underlying cardiac condition. Case was discussed on admission with emergency room (ER) physician and admitting hospitalist. I will continue to monitor him along with you. Please do not hesitate to call if any questions. NINA
--- NOTE | 2016-12-27 19:04 | ECGEPIP ---
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 First-degree AV block. Left axis deviation; Rule out prior IWMI Incomplete RBBB Q waves V1 through V3; rule out prior septal injury No change from earlier this same day Electronically Signed On 12-27-2016 19:03:45 EDT by Rich Almonte
--- NOTE | 2016-12-27 19:07 | ECGEPIP ---
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 Spontaneous AV conduction with first-degree AV block. Left axis deviation Incomplete RBBB. Marginal axis shift and slightly different precordial lead placement. From 12/26/16. Electronically Signed On 12-27-2016 19:06:39 EDT by Rich Almonte
[2016-12-27] MEDS: LISINOPRIL 10 MG TAB PO SCH (21:04)
[2016-12-27] MEDS: METOPROLOL SUCC *XL* 25MG TAB (TopROL *XL*) PO SCH (21:05)
[2016-12-28] VITALS: BP 131/73
[2016-12-28 04:00] VITALS: BP 121/72
[2016-12-28 05:33] LABS: BASO # 0.1 K/mm3 (0.0-0.2); BASO % 0.8 % (0.0-1.0); EOS # 0.2 K/mm3 (0.0-0.50); EOS % 2.3 % (0.0-3.0); LARGE UNSTAINED CELL # 0.2 K/mm3 (0.0-0.4); LARGE UNSTAINED CELL % 2.2 % (0.0-4.0); LYMPH # 2.3 K/mm3 (1.5-4.5); LYMPH % 25.5 % (24.0-44.0); MEAN CORPUSCULAR HEMOGLOBIN 30.9 pg (27.0-33.0); MEAN CORPUSCULAR HGB CONC 32.3 g/dl (32.0-36.5); MEAN CORPUSCULAR VOLUME 95.7 fl (80.0-96.0); MONO # 0.6 K/mm3 (0.0-0.8); MONO % 6.5 % (0.0-5.0); NEUTROPHILS # 5.6 K/mm3 (1.8-7.7); NEUTROPHILS % 62.7 % (36.0-66.0); PLATELET COUNT, AUTOMATED 404 k/mm3 (150-450); RED CELL DISTRIBUTION WIDTH 15.4 % (11.5-14.5)
[2016-12-28 05:52] LABS: ALBUMIN/GLOBULIN RATIO 0.79 (1.00-1.93); ALKALINE PHOSPHATASE 65 U/L (45-117); ALT/SGPT 27 U/L (12-78); ANION GAP 6 MEQ/L (8-16); AST/SGOT 16 U/L (15-37); BILIRUBIN,TOTAL 0.4 MG/DL (0.2-1.0); BLOOD UREA NITROGEN 19 MG/DL (7-18); CALCIUM LEVEL 8.6 MG/DL (8.5-10.1); CARBON DIOXIDE LEVEL 24 MEQ/L (21-32); CHLORIDE LEVEL 109 MEQ/L (98-107); CREATININE FOR GFR 0.91 MG/DL (0.70-1.30); GLOMERULAR FILTRATION RATE > 60.0 (>56); GLUCOSE, FASTING 94 MG/DL (70-105); MAGNESIUM LEVEL 2.3 MG/DL (1.8-2.4); POTASSIUM SERUM 4.2 MEQ/L (3.5-5.1); SODIUM LEVEL 139 MEQ/L (136-145); TOTAL PROTEIN 6.8 GM/DL (6.4-8.2)
[2016-12-28] MEDS: HEPARIN SOD (PORCINE) 5000 UNITS/ML VIAL SC SCH (06:26)
[2016-12-28] MEDS: SLF 3 ML SYR IV SCH (06:26)
[2016-12-28] MEDS: AMIODARONE 200 MG TAB (PACERONE) PO SCH (08:20)
[2016-12-28] MEDS: ASPIRIN 81 MG ENTERIC TAB PO SCH (08:20)
[2016-12-28 08:38] VITALS: BP 111/66
[2016-12-28] MEDS ORDERED: AMIO200T PO (10:02)
--- NOTE | 2016-12-28 20:40 | IPN ---
DATE: 12/27/2016 Mr. Wilmar Josue was seen in the morning of 12/27/2016 as well as in the evening after his automatic implantable cardioverter defibrillator (AICD) was interrogated. He was initially admitted with atypical chest pain, coughing and low grade fever. While in the emergency room (ER), he was found to have a 15- beat run ventricular tachycardia. Cardiology consult was called. Myocardial infarction was ruled out. He also was having episodes of dizziness and lightheadedness with his coughing. There was no hemoptysis. There was no nausea, vomiting, diarrhea, melena or hematemesis. He was treated with intravenous (IV) fluids and IV antibiotics. He was concerned with the pacemaker, and it was checked by the [employer] cash applications representative was called in order to check it prior to his discharge. Otherwise, he was doing fine and felt much better. His cough has improved significantly, and he was not having any chest pain. He also was not having any dizziness or lightheadedness, and he has been ambulating. On physical examination, the patient is alert and oriented, in no acute distress at rest and his vital signs when I saw him yesterday revealed a blood pressure of 112/67 with a pulse of 63, respirations 18 and his maximum temperature was 98.8 degrees Fahrenheit with an oxygen saturation of 97% on room air. Examination of the head, ears, eyes, nose and throat: Atraumatic. Neck is supple. No jugular venous distention (JVD) or carotid bruits. The lungs were clear bilaterally without any wheezing or crackles. The heart examination revealed normal S1 and S2 without gallops. The point of maximum impulse (PMI) is not displaced. There is no rub. Abdominal examination was unremarkable. Extremities reveal no pedal edema. Neurologic examination was negative for focal deficit. LABORATORY: CBC on 12/27/2016 revealed a WBC of 9.1, hemoglobin 13.0, hematocrit 40.0 and platelets 358,000. BMP on 12/27/2016 revealed a sodium of 143, potassium 4.4, chloride 112, CO2 27, BUN 15, creatinine 1.0, GFR more than 60, fasting glucose 82, calcium 8.2. Magnesium was 2.2. Liver enzymes revealed a total bilirubin of 0.5, AST 17, ALT 30, alkaline phosphatase 64, total protein 6.6, albumin 2.8. Toxicology was positive for cannabinoids. Urinalysis revealed +1 glucose and +1 bacteria. Urine culture revealed no growth. Blood culture: No growth. Final report is pending for the blood culture. IMPRESSION: Mr. Wilmar Josue has been stable since in the hospital from a cardiac point of view. No other arrhythmias were detected by telemetry. His automatic implantable cardioverter defibrillator (AICD) was interrogated by the cash applications representative from [employer] and it is working good. Besides that arrhythmia while in the ER on 12/26/2016, he has not had any other arrhythmias. If there is no other concern, he can be discharged home on current cardiac medications and I will follow him as an outpatient. When I see him again, I most likely will decrease the amiodarone. MTDD
--- NOTE | 2016-12-29 14:34 | DSES ---
DATE OF ADMISSION: 12/26/2016 DATE OF DISCHARGE: 12/28/2016 ATTENDING PHYSICIAN: Wily Rubin MD PRIMARY CARE PHYSICIAN: Berhane Pereyra MD HISTORY OF PRESENT ILLNESS: This is a 56-year-old with a significant cardiovascular medical history including heart attack, V-tach and ventricular fibrillation in June 2016, who presented to [facility] for complaints of coughing and chest pain for 2 hours prior to presentation. Three days prior, the patient had begun with cough with white productive sputum and the cough had increased. Workup in the emergency room demonstrated sinus rhythm. The patient received aspirin and nitroglycerin, and upon his presentation to the ER the patient's chest pain did subside after the nitroglycerin was given. The patient did have 15 runs of ventricular tachycardia in the ED. The patient's net architect was consulted and his amiodarone was increased from 200 mg daily to 200 mg twice a day. The patient was subsequently admitted to the family medicine service for monitoring and his net architect was consulted. HOSPITAL COURSE: The patient continued with amiodarone 200 mg by mouth twice a day. He is status post interrogation of his automatic implantable cardioverter-defibrillator (AICD) as there was some questionable disruption due to a child poking his back with a magnetic stick at his place of employment. The AICD did prove functional. The patient has remained without any further episodes of ventricular tachycardia on current dosing of amiodarone 200 mg twice a day and continuing his home dose of Toprol XL 25 mg daily. The patient does have reproducible chest pain on palpation of the left chest wall. The patient's CIPs were negative as well as repeat EKGs negative for any questionable recurrent cardiac injury. The patient did have a CT angio completed of the chest to rule pulmonary embolism to rule out PE and that was negative. Blood cultures and urine cultures obtained were both negative. On physical exam today, blood pressure is stable at 110/66. Heart rate 63. Temperature 98.1. Oxygen saturation is 98% on room air. HEENT: Neck is supple without lymphadenopathy or jugular venous distention (JVD). CARDIOVASCULAR: Heart rate and rhythm are regular. PULMONARY: Lungs are clear. ABDOMEN: Soft and nontender. DISCHARGE DIAGNOSES: Include: 1. Ventricular tachycardia. 2. Probable viral upper respiratory infection. 3. Chest pain, musculoskeletal in nature. SECONDARY DIAGNOSES: 1. Hypertension. PLAN: Patient will be discharged home. Diet is 2 gram sodium. Activity is as tolerated. He will followup with primary care physician Dr. Berhane Pereyra within the next 5-7 days. He will followup with is net architect Dr. Goddard within the next two weeks. MEDICATIONS: - amiodarone 200 mg by mouth twice a day - aspirin 81 mg daily - lisinopril 10 mg by mouth every evening - metoprolol succinate 25 mg by mouth every evening Patient is discharged in stable and satisfactory condition with no further questions at the time of discharge.
== END 2016-12-28 11:56 | disposition home or self-care (01) | DRG 198 ==
LOC: M ED 07:59 → M ED INP 14:07 → M PCU 16:13
PROVIDERS: ADMIT Internal Medicine; ATTEND Family Medicine
DX: R07.89 Other chest pain (principal); I47.2 Ventricular tachycardia; I25.2 Old myocardial infarction; Z86.74 Personal history of sudden cardiac arrest; E55.9 Vitamin D deficiency, unspecified; I25.10 Atherosclerotic heart disease of native coronary artery without angina pectoris; J06.9 Acute upper respiratory infection, unspecified; R42 Dizziness and giddiness; R05 Cough; M54.5 Low back pain; E78.5 Hyperlipidemia, unspecified; F17.210 Nicotine dependence, cigarettes, uncomplicated; N52.9 Male erectile dysfunction, unspecified; Z96.642 Presence of left artificial hip joint; Z95.810 Presence of automatic (implantable) cardiac defibrillator; Z88.5 Allergy status to narcotic agent; Z79.899 Other long term (current) drug therapy

== ENCOUNTER 2017-01-25 23:35 | Emergency (ER) | payer MEDICAID, OTHER ==
[~2017-01-25] VITALS: Ht 162.6 cm; Wt 64.0 kg
[2017-01-26 00:05] LABS: BASO # 0.1 K/mm3 (0.0-0.2); BASO % 1.5 % (0.0-1.0); EOS # 0.3 K/mm3 (0.0-0.50); EOS % 3.3 % (0.0-3.0); LARGE UNSTAINED CELL # 0.3 K/mm3 (0.0-0.4); LARGE UNSTAINED CELL % 2.9 % (0.0-4.0); LYMPH # 3.7 K/mm3 (1.5-4.5); LYMPH % 36.1 % (24.0-44.0); MEAN CORPUSCULAR HEMOGLOBIN 30.7 pg (27.0-33.0); MEAN CORPUSCULAR VOLUME 92.8 fl (80.0-96.0); MONO % 10.6 % (0.0-5.0); NEUTROPHILS # 4.3 K/mm3 (1.8-7.7); NEUTROPHILS % 45.6 % (36.0-66.0); PLATELET COUNT, AUTOMATED 398 k/mm3 (150-450); RED CELL DISTRIBUTION WIDTH 15.7 % (11.5-14.5); WHITE BLOOD COUNT 9.5 K/mm3 (4.0-10.0)
[2017-01-26 00:30] LABS: ANION GAP 6 MEQ/L (8-16); BLOOD UREA NITROGEN 29 MG/DL (7-18); CALCIUM LEVEL 8.9 MG/DL (8.5-10.1); CARBON DIOXIDE LEVEL 26 MEQ/L (21-32); CHLORIDE LEVEL 108 MEQ/L (98-107); CREATININE FOR GFR 0.92 MG/DL (0.70-1.30); GLOMERULAR FILTRATION RATE > 60.0 (>56); GLUCOSE, FASTING 98 MG/DL (70-105); POTASSIUM SERUM 4.3 MEQ/L (3.5-5.1); SODIUM LEVEL 140 MEQ/L (136-145)
[2017-01-26 01:33] LABS: MAGNESIUM LEVEL 2.3 MG/DL (1.8-2.4)
[2017-01-26 01:59] VITALS: BP 110/67
--- NOTE | 2017-01-26 08:25 | ECGEPIP ---
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
== END 2017-01-26 02:12 | disposition home or self-care (01) ==
LOC: EDBD 23:35 → M ED 23:35
DX: T82.198A Other mechanical complication of other cardiac electronic device, initial encounter (principal); X58.XXXA Exposure to other specified factors, initial encounter; Y92.9 Unspecified place or not applicable; Y93.9 Activity, unspecified; Y99.8 Other external cause status; I25.10 Atherosclerotic heart disease of native coronary artery without angina pectoris; I25.2 Old myocardial infarction; Z79.82 Long term (current) use of aspirin; Z79.899 Other long term (current) drug therapy; Z88.5 Allergy status to narcotic agent

== ENCOUNTER → 2017-03-28 | Outpatient (CLI) | payer OTHER ==
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
== END ==
LOC: M PAIN 13:45
PROVIDERS: ATTEND Nurse Practitioner Family
DX: G89.29 Other chronic pain (principal); M51.26 Other intervertebral disc displacement, lumbar region; M79.1 Myalgia; E55.9 Vitamin D deficiency, unspecified; E78.5 Hyperlipidemia, unspecified; Z95.810 Presence of automatic (implantable) cardiac defibrillator; F17.210 Nicotine dependence, cigarettes, uncomplicated; N52.9 Male erectile dysfunction, unspecified; Z79.82 Long term (current) use of aspirin; Z79.899 Other long term (current) drug therapy; Z86.74 Personal history of sudden cardiac arrest; Z88.5 Allergy status to narcotic agent

== ENCOUNTER → 2017-04-25 | Outpatient (CLI) | payer OTHER ==
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
== END ==
LOC: M PAIN 10:30
PROVIDERS: ATTEND Nurse Practitioner Family
DX: M51.26 Other intervertebral disc displacement, lumbar region (principal); M79.1 Myalgia; G89.29 Other chronic pain; E78.5 Hyperlipidemia, unspecified; F17.210 Nicotine dependence, cigarettes, uncomplicated; Z79.82 Long term (current) use of aspirin; Z79.891 Long term (current) use of opiate analgesic; Z79.899 Other long term (current) drug therapy

== ENCOUNTER → 2017-05-29 | Outpatient (CLI) | payer OTHER ==
[~2017-05-29] MED LIST changes: -/CELE20CA; -/CELE20CA OR; -/CELE20CA PO; -/DULO30CA OR; -AMIO200T PO; -ASPI1TAB PO; -ASPI81TA21 PO; -BACT800T5 PO; +BUPIVACAINE HCL 0.25% 10 ML VIAL As Ordered; +BUPIVACAINE HCL 0.25% 30 ML VIAL As Ordered; -CARISOPRODOL; -CARISOPRODOL PO; -CLEO300C2 PO; -CYMB1CAP PO; -DICL0.1S7 TOP; -DICL75TA PO; -DRIS50002 PO; -DULO30CA PO; -FLEXERIL OR; -HYDROCODONE OR; -LISI10TA4 PO; -METO1TAB32 PO; -NICO21DI5 TD; -OMEP40CA2 PO; -PERC5TAB12 PO; -SIMV40TA2 PO; -SOMA350T PO; -TPS CREAM TOP; -TRAM100T; -TRAM50TA2 OR; -TRAM50TA2 PO; +TRIAMCINOLONE ACETONIDE SUSP 40 MG/ML VIAL (J3301) As Ordered; -ULTR200T; -ULTR200T OR; -ULTR50TA PO; -VICO5TAB; -VOLT1GEL EX; -ZANA4CAP; -ZYVO100T PO; +diazePAM 5 MG TAB As Ordered; +oxyCODONE 5MG TAB As Ordered
== END ==
LOC: M PAIN 13:45
DX: G89.29 Other chronic pain (principal); M54.5 Low back pain; M79.1 Myalgia; F17.210 Nicotine dependence, cigarettes, uncomplicated; Z88.5 Allergy status to narcotic agent; Z79.82 Long term (current) use of aspirin; Z79.891 Long term (current) use of opiate analgesic; Z79.899 Other long term (current) drug therapy; Z95.0 Presence of cardiac pacemaker
CPT/HCPCS: J3301

== ENCOUNTER → 2017-06-28 | Outpatient (CLI) | payer OTHER | LOC: M PAIN 15:00 | DX: M51.26 Other intervertebral disc displacement, lumbar region (principal); M79.1 Myalgia; F17.210 Nicotine dependence, cigarettes, uncomplicated; E78.5 Hyperlipidemia, unspecified; Z79.82 Long term (current) use of aspirin; Z79.899 Other long term (current) drug therapy; Z88.5 Allergy status to narcotic agent; Z95.0 Presence of cardiac pacemaker | CPT/HCPCS: G0463 ==

== ENCOUNTER → 2017-07-15 | Outpatient (CLI) | payer OTHER | LOC: M RAD 10:43 | DX: R91.8 Other nonspecific abnormal finding of lung field (principal) | CPT/HCPCS: 71250 ==

== ENCOUNTER → 2017-07-22 | Outpatient (REF) | payer OTHER ==
[2017-07-22 14:13] LABS: PLATELET COUNT, AUTOMATED 323 10^3/uL (150-450)
[2017-07-22 14:23] LABS: INR 1.01; PROTHROMBIN TIME 13.4 SECONDS (12.4-14.5)
== END ==
LOC: M LAB REF 13:53
DX: R91.8 Other nonspecific abnormal finding of lung field (principal)

== ENCOUNTER → 2017-08-01 | Outpatient (CLI) | payer OTHER ==
[~2017-08-01] MED LIST changes: -BUPIVACAINE HCL 0.25% 10 ML VIAL As Ordered; -BUPIVACAINE HCL 0.25% 30 ML VIAL As Ordered; +LIDOCAINE 1% MDV 20ML VIAL As Ordered; -TRIAMCINOLONE ACETONIDE SUSP 40 MG/ML VIAL (J3301) As Ordered; -diazePAM 5 MG TAB As Ordered; -oxyCODONE 5MG TAB As Ordered
== END ==
LOC: M RADPRO 10:51
DX: R91.8 Other nonspecific abnormal finding of lung field (principal); C34.90 Malignant neoplasm of unspecified part of unspecified bronchus or lung; Z88.5 Allergy status to narcotic agent; Z79.82 Long term (current) use of aspirin; Z79.899 Other long term (current) drug therapy
CPT/HCPCS: 32405

== ENCOUNTER → 2017-08-10 | Outpatient (CLI) | payer OTHER | LOC: M SLEEP 20:00 | DX: R91.8 Other nonspecific abnormal finding of lung field (principal) | CPT/HCPCS: 95810 ==

== ENCOUNTER → 2017-08-13 | Outpatient (CLI) | payer OTHER | LOC: M PLARAD 09:04 | DX: C34.12 Malignant neoplasm of upper lobe, left bronchus or lung (principal) | CPT/HCPCS: 78815 ==

== ENCOUNTER 2017-08-26 06:54 | Day surgery (SDC) | payer OTHER ==
[2017-08-26] MEDS: LR 1,000 ML IV ×2 (07:30)
[2017-08-26] MEDS ORDERED: ONDANSETRON 4MG/2ML VIAL (J2405) As Ordered ×2 (08:07)
[2017-08-26] MEDS ORDERED: LIDOCAINE 2% INJ 100 MG/5 ML SDV (FOR ANES.) As Ordered ×2 (08:07)
[2017-08-26] MEDS ORDERED: METOCLOPRAMIDE INJ 10MG/2ML VIAL (J2765) As Ordered ×2 (08:07)
[2017-08-26] MEDS ORDERED: PROPOFOL 200 MG/20 ML VIAL As Ordered ×2 (08:07)
[2017-08-26] MEDS ORDERED: ROCURONIUM BROMIDE 50 MG/5 ML VIAL As Ordered ×2 (08:07)
[2017-08-26] MEDS ORDERED: fentaNYL 100 MCG/2 ML INJECTION (J3010) As Ordered ×2 (08:08)
[2017-08-26] MEDS ORDERED: MIDAZOLAM INJ 2 MG/2 ML VIAL (J2250) As Ordered ×2 (08:08)
[2017-08-26] MEDS: LIDOCAINE 1% SDV INJ 30 ML VIAL As Ordered ×2 (08:12)
[2017-08-26] MEDS: CETACAINE SPRAY 5GM As Ordered ×2 (08:47)
[2017-08-26] MEDS: LIDOCAINE VISCOUS 2% SOLN 15ML UDC As Ordered ×2 (08:47)
[2017-08-26] MEDS: EPINEPHrine 1MG/10ML SYRINGE 1.5IN As Ordered ×2 (08:47)
[2017-08-26] MEDS: THROMBIN SOLN 5,000 UNITS VIAL As Ordered ×2 (09:04)
[2017-08-26] MEDS ORDERED: GLYCOPYRROLATE INJ 0.2 MG/ML 2 ML VIAL As Ordered ×2 (09:31)
[2017-08-26] MEDS ORDERED: NEOSTIGMINE 10 MG/10 ML VIAL (J2710) As Ordered ×2 (09:31)
[2017-08-26] MEDS ORDERED: fentaNYL 100 MCG/2 ML INJECTION (J3010) IV ×2 (10:00)
[2017-08-26] MEDS ORDERED: METOCLOPRAMIDE INJ 10MG/2ML VIAL (J2765) IV ×2 (10:00)
[2017-08-26] MEDS ORDERED: LR 1,000 ML IV ×2 (10:00)
[2017-08-26] MEDS ORDERED: ONDANSETRON 4MG/2ML VIAL (J2405) IV ×2 (10:00)
[2017-08-26] MEDS: PERCOCET 5MG/325MG TAB PO ×2 (10:41)
== END 2017-08-26 15:15 | disposition home or self-care (01) ==
LOC: M SDC 06:54
DX: C34.12 Malignant neoplasm of upper lobe, left bronchus or lung (principal); F17.218 Nicotine dependence, cigarettes, with other nicotine-induced disorders; I25.2 Old myocardial infarction; M54.5 Low back pain; G89.29 Other chronic pain; M51.9 Unspecified thoracic, thoracolumbar and lumbosacral intervertebral disc disorder; E55.9 Vitamin D deficiency, unspecified; E78.5 Hyperlipidemia, unspecified; I48.91 Unspecified atrial fibrillation; I10 Essential (primary) hypertension; K21.9 Gastro-esophageal reflux disease without esophagitis; R51 Headache; F12.90 Cannabis use, unspecified, uncomplicated; Z88.5 Allergy status to narcotic agent; Z79.899 Other long term (current) drug therapy; Z79.82 Long term (current) use of aspirin; Z96.641 Presence of right artificial hip joint; Z96.1 Presence of intraocular lens; Z95.810 Presence of automatic (implantable) cardiac defibrillator
CPT/HCPCS: 31625

== ENCOUNTER → 2017-10-28 | Outpatient (CLI) | payer OTHER ==
[~2017-10-28] MED LIST changes: +ISOVUE-370 76% 100ML VIAL (Q9967) As Ordered; -LIDOCAINE 1% MDV 20ML VIAL As Ordered
[2017-10-28 09:36] LABS: HEMOGLOBIN 13.2 g/dl (13.5-17.5); MEAN CORPUSCULAR HEMOGLOBIN 31.8 pg (27.0-33.0); MEAN CORPUSCULAR VOLUME 96.4 fl (80.0-96.0); PLATELET COUNT, AUTOMATED 333 10^3/uL (150-450); RED BLOOD COUNT 4.15 10^6/uL (4.30-6.10); WHITE BLOOD COUNT 9.2 10^3/uL (4.0-10.0)
[2017-10-28 10:01] LABS: ANION GAP 4 MEQ/L (8-16); BLOOD UREA NITROGEN 18 MG/DL (7-18); CALCIUM LEVEL 8.2 MG/DL (8.5-10.1); CARBON DIOXIDE LEVEL 28 MEQ/L (21-32); CHLORIDE LEVEL 109 MEQ/L (98-107); CREATININE FOR GFR 0.92 MG/DL (0.70-1.30); GLOMERULAR FILTRATION RATE > 60.0 (>56); GLUCOSE, FASTING 75 MG/DL (70-100); POTASSIUM SERUM 4.7 MEQ/L (3.5-5.1); SODIUM LEVEL 141 MEQ/L (136-145)
[2017-10-28 10:22] LABS: INR 0.99; PROTHROMBIN TIME 13.2 SECONDS (12.4-14.5)
[2017-10-28 10:23] LABS: PARTIAL THROMBOPLASTIN TIME 30.3 SECONDS (26.8-37.9)
== END ==
LOC: M RAD 08:22
DX: K76.9 Liver disease, unspecified (principal); J47.9 Bronchiectasis, uncomplicated
CPT/HCPCS: Q9967

== ENCOUNTER 2017-10-30 08:56 | Day surgery (SDC) | payer OTHER ==
[2017-10-30] MEDS: LR 1,000 ML IV ×2 (09:40)
[2017-10-30] MEDS: EPINEPHrine 1MG/10ML SYRINGE 1.5IN As Ordered ×2 (10:20)
[2017-10-30] MEDS ORDERED: PROPOFOL 200 MG/20 ML VIAL As Ordered ×4 (10:34→12:01)
[2017-10-30] MEDS ORDERED: ROCURONIUM BROMIDE 50 MG/5 ML VIAL As Ordered ×2 (10:34)
[2017-10-30] MEDS ORDERED: LIDOCAINE 2% INJ 100 MG/5 ML SDV (FOR ANES.) As Ordered ×2 (10:34)
[2017-10-30] MEDS ORDERED: fentaNYL 100 MCG/2 ML INJECTION (J3010) As Ordered ×4 (10:35→11:24)
[2017-10-30] MEDS ORDERED: MIDAZOLAM INJ 2 MG/2 ML VIAL (J2250) As Ordered ×2 (10:35)
[2017-10-30] MEDS: MUPIROCIN 2% OINT 22 GM TUBE TOP ×2 (11:05)
[2017-10-30] MEDS: CETACAINE SPRAY 5GM As Ordered ×2 (11:11)
[2017-10-30] MEDS ORDERED: ONDANSETRON 4MG/2ML VIAL (J2405) As Ordered ×2 (11:32)
[2017-10-30] MEDS ORDERED: GLYCOPYRROLATE INJ 0.2 MG/ML 2 ML VIAL As Ordered ×2 (11:32)
[2017-10-30] MEDS ORDERED: dexameTHASONE 4 MG/ML 1ML VIAL (J1100) As Ordered ×4 (11:32→11:33)
[2017-10-30] MEDS ORDERED: NEOSTIGMINE 10 MG/10 ML VIAL (J2710) As Ordered ×2 (11:32)
[2017-10-30] MEDS ORDERED: KETOROLAC 60 MG/2 ML VIAL (J1885) As Ordered ×2 (11:37)
[2017-10-30] MEDS: BUPIVACAINE LIPOSOME/PF 1.3% 20 ML VIAL (13.3MG/ML)(EXPAREL) As Ordered ×2 (12:01)
[2017-10-30] MEDS: THROMBIN SOLN 20,000 UNITS KIT As Ordered ×2 (12:01)
[2017-10-30] MEDS ORDERED: ONDANSETRON 4MG/2ML VIAL (J2405) IV ×2 (12:45)
[2017-10-30] MEDS ORDERED: fentaNYL 100 MCG/2 ML INJECTION (J3010) IV ×2 (12:45)
[2017-10-30] MEDS ORDERED: LR 1,000 ML IV ×2 (12:45)
[2017-10-30] MEDS ORDERED: PERCOCET 5MG/325MG TAB PO ×2 (12:45)
[2017-10-30] MEDS: PERCOCET 5MG/325MG TAB PO ×2 (15:29)
== END 2017-10-30 16:08 | disposition home or self-care (01) ==
LOC: M SDC 16:08
DX: R59.0 Localized enlarged lymph nodes (principal); I10 Essential (primary) hypertension; Z87.891 Personal history of nicotine dependence; C34.31 Malignant neoplasm of lower lobe, right bronchus or lung; C34.12 Malignant neoplasm of upper lobe, left bronchus or lung; M54.9 Dorsalgia, unspecified; K21.9 Gastro-esophageal reflux disease without esophagitis; E78.5 Hyperlipidemia, unspecified; F41.9 Anxiety disorder, unspecified; F32.9 Major depressive disorder, single episode, unspecified; I48.91 Unspecified atrial fibrillation; I25.2 Old myocardial infarction; M51.26 Other intervertebral disc displacement, lumbar region; G47.9 Sleep disorder, unspecified; Z86.14 Personal history of Methicillin resistant Staphylococcus aureus infection; Z95.810 Presence of automatic (implantable) cardiac defibrillator; Z88.5 Allergy status to narcotic agent; Z79.899 Other long term (current) drug therapy; Z79.82 Long term (current) use of aspirin
CPT/HCPCS: 39402

== ENCOUNTER → 2017-11-08 | Outpatient (CLI) | payer OTHER | LOC: M SMT 10:07 | DX: C34.12 Malignant neoplasm of upper lobe, left bronchus or lung (principal) | CPT/HCPCS: 71046 ==

== ENCOUNTER → 2017-11-13 | Outpatient (CLI) | payer OTHER | LOC: M ONCR 09:39 | DX: C34.31 Malignant neoplasm of lower lobe, right bronchus or lung (principal); C34.12 Malignant neoplasm of upper lobe, left bronchus or lung | CPT/HCPCS: 99201 ==

== ENCOUNTER → 2017-12-17 | Outpatient (CLI) | payer OTHER | LOC: M PAIN 09:15 | DX: M51.26 Other intervertebral disc displacement, lumbar region (principal); M79.1 Myalgia; G89.29 Other chronic pain; I25.2 Old myocardial infarction; E78.5 Hyperlipidemia, unspecified; Z88.5 Allergy status to narcotic agent; Z79.82 Long term (current) use of aspirin; Z79.899 Other long term (current) drug therapy; Z95.0 Presence of cardiac pacemaker; Z85.118 Personal history of other malignant neoplasm of bronchus and lung; Z87.891 Personal history of nicotine dependence; Z86.74 Personal history of sudden cardiac arrest; Z96.642 Presence of left artificial hip joint | CPT/HCPCS: G0463 ==

== ENCOUNTER → 2018-01-03 | Outpatient (REF) | payer OTHER ==
[2018-01-03 19:56] LABS: PSA SCREENING 2.24 NG/ML (< 4.0)
[2018-01-03 19:56] LABS: APPEARANCE, URINE CLEAR (CLEAR); BACTERIA, URINE AUTO NEGATIVE (NEGATIVE); BILIRUBIN, URINE AUTO NEGATIVE (NEGATIVE); BLOOD, URINE BLOOD NEGATIVE (NEGATIVE); COLOR, URINE YELLOW (YELLOW); FREE T4 1.09 NG/DL (0.76-1.46); GLUCOSE, URINE (UA) AUTO NEGATIVE (NEGATIVE); KETONE, URINE AUTO NEGATIVE (NEGATIVE); LEUKOCYTE ESTERASE, URINE AUTO NEGATIVE (NEGATIVE); MUCUS, URINE SMALL (NEGATIVE); NITRITE, URINE AUTO NEGATIVE (NEGATIVE); PROTEIN, URINE AUTO NEGATIVE (NEGATIVE); RBC, URINE AUTO 1 /HPF (0-3); SPECIFIC GRAVITY URINE AUTO 1.023 (1.002-1.035); SQUAMOUS EPITHELIAL CELL UR AU 0 /HPF (0-6); UROBILINOGEN, URINE AUTO 0.2 mg/dL (0.0-2.0); WBC, URINE AUTO 1 /HPF (0-3)
== END ==
LOC: M SFHCADAM 14:40
DX: R39.11 Hesitancy of micturition (principal); I47.2 Ventricular tachycardia

== ENCOUNTER → 2018-04-03 | Outpatient (CLI) | payer OTHER ==
[2018-04-03 17:25] LABS: FREE T4 1.46 NG/DL (0.76-1.46)
== END ==
LOC: M WUC 14:47
DX: E03.2 Hypothyroidism due to medicaments and other exogenous substances (principal)
CPT/HCPCS: 84443

== ENCOUNTER → 2018-07-01 | Outpatient (REF) | payer OTHER ==
[~2018-07-01] MED LIST changes: +/CELE20CA; +/CELE20CA OR; +/CELE20CA PO; +/DULO30CA OR; +AMIO200T PO; +ASPI1TAB PO; +ASPI81TA21 PO; +ATOR1TAB21 PO; +BACT800T5 PO; +CARI1TAB7 PO; +CARISOPRODOL; +CARISOPRODOL PO; +CLEO300C2 PO; +CYMB1CAP PO; +DICL0.1S7 TOP; +DICL75TA PO; +DRIS50003 PO; +DULO30CA PO; +FLEXERIL OR; +HYDROCODONE OR; -ISOVUE-370 76% 100ML VIAL (Q9967) As Ordered; +LISI10TA4 PO; +METO1TAB32 PO; +NICO21DI6 TD; +OMEP40CA2 PO; +PERC5TAB12 PO; +SIMV40TA2 PO; +SOMA350T PO; +TPS CREAM TOP; +TRAM100T; +TRAM50TA2 OR; +TRAM50TA2 PO; +ULTR200T; +ULTR200T OR; +ULTR50TA PO; +VICO5TAB; +VOLT1GEL EX; +ZANA4CAP; +ZYVO1TAB PO
--- NOTE | 2018-07-02 06:33 | REP ---
Clinical: Acute upper respiratory tract infection . Comparison: 11/08/2017 . Technique: PA and lateral. Findings: The mediastinum and cardiac silhouette are normal. Dual lead pacemaker in stable position. The lung varma demonstrate chronic stable changes without acute consolidation, effusion, or pneumothorax. The skeletal structures are intact and normal. Impression: 1. No acute cardiopulmonary process. Electronically Signed by Anish Hale MD 07/02/2018 06:22 A
== END ==
LOC: M ADAMS 14:49
PROVIDERS: ATTEND Family Medicine
DX: J06.9 Acute upper respiratory infection, unspecified (principal); C34.90 Malignant neoplasm of unspecified part of unspecified bronchus or lung

== ENCOUNTER 2018-07-24 06:40 | Day surgery (SDC) | payer OTHER ==
[~2018-07-24] VITALS: Ht 165.1 cm; Wt 68.9 kg
[~2018-07-24 06:40] MED LIST changes: +ALBUTEROL SULFATE 2.5 MG/0.5 ML INH NEB SOLN INH ONE; +D5W 1,000 ML IV SCH; +LIDOCAINE 4% INJ 5 ML AMP INH ONE; +SYNT50TA PO
[2018-07-24] MEDS ORDERED: EPINEPHrine 1MG/10ML SYRINGE 1.5IN As Ordered ONE (07:15)
[2018-07-24] MEDS ORDERED: LIDOCAINE 4% INJ 5 ML AMP As Ordered ONE (07:15)
[2018-07-24] MEDS ORDERED: LIDOCAINE 1% MDV 20ML VIAL As Ordered ONE (07:15)
[2018-07-24] MEDS ORDERED: LIDOCAINE VISCOUS 2% SOLN 15ML UDC As Ordered ONE (07:15)
[2018-07-24] MEDS ORDERED: CETACAINE SPRAY 5GM As Ordered ONE (07:17)
[2018-07-24] MEDS ORDERED: fentaNYL 100 MCG/2 ML INJECTION (J3010) As Ordered ONE (07:29)
[2018-07-24] MEDS ORDERED: MIDAZOLAM INJ 2 MG/2 ML VIAL (J2250) As Ordered ONE ×3 (07:30→07:43)
--- NOTE | 2018-07-24 08:54 | REP ---
Portable chest, post bronchoscopy, single AP view, patient sitting, 08:24 a.m.: Comparison is 11/08/2017. There is no pneumothorax or hemothorax. The lung varma are clear and unchanged. Cardiac size is normal and unchanged. There is a dual-chamber pacemaker entering from the left, unchanged. The venu, mediastinum, skeletal structures are unremarkable and unchanged. Impression: No pneumothorax. No interval change. Electronically Signed by Andry Dorsey MD 07/24/2018 08:45 A
[2018-07-24 09:45] VITALS: BP 98/66
--- NOTE | 2018-07-24 10:20 | RO ---
DATE OF PROCEDURE: 07/24/2018 PREOPERATIVE DIAGNOSIS: Abnormal chest CT with primary history of lung cancer. POSTOPERATIVE DIAGNOSIS: Abnormal chest CT with primary history of lung cancer. FINDINGS: Of smokers airways. PROCEDURE: Bronchoscopy with endobronchial ultrasound. SURGEON: Magdy Dyer DO SLAB LIFTING ENGINEER: None ANESTHESIA: Versed 6 mg intravenous (IV) and fentanyl 100 mcg IV and topical lidocaine at 280 mg topical. SPECIMENS OBTAINED: None. DESCRIPTION OF PROCEDURE: Time-out was performed with two patient identifiers identifying correct site, correct procedure. After this, anesthetization of the airway was initiated with topical lidocaine. Conscious sedation was initiated with fentanyl and Versed. Bite block was placed. Cetacaine spray was also used due to prominent cough. The P180 bronchoscope was then introduced transorally into the posterior pharynx. The vocal cords approximated normally. Surrounding tissue was normal. Vocal cords were then anesthetized with 1% lidocaine. The scope was then advanced into the airway. Trachea was midline. Isabel was sharp. Right and left mainstem bronchi were normal. RB 1 through 10 was normal without endobronchial lesion. The superior basal segment of the right lower lobe did have some fishmouth appearance. There was no endobronchial lesion. No evidence of recurrence of the resected squamous cell. The left was also normal without endobronchial lesion. LB 1 through 10 normal. There was minimal pitting and banding. The P180 bronchoscope was then removed, and the endobronchial ultrasound was then inserted. The right hilum and posterior area adjacent to the apical segment was viewed. There was no significant hilar node or mass to be biopsied. Pictures were taken. There was only blood vessel. Therefore, no biopsies were taken. Bronchoscope was removed. The patient is in recovery without any issue. Postprocedure chest x-ray is pending.
== END 2018-07-24 09:59 | disposition home or self-care (01) ==
LOC: M OPP 06:40
PROVIDERS: ATTEND Internal Medicine Pulmonary Disease
DX: R91.8 Other nonspecific abnormal finding of lung field (principal); Z85.118 Personal history of other malignant neoplasm of bronchus and lung; I25.2 Old myocardial infarction; I48.91 Unspecified atrial fibrillation; Z79.899 Other long term (current) drug therapy; Z88.5 Allergy status to narcotic agent; Z87.891 Personal history of nicotine dependence; Z95.810 Presence of automatic (implantable) cardiac defibrillator
CPT/HCPCS: 31622; 31654; 71045; J2250; J3010

== ENCOUNTER 2018-09-19 07:22 | Day surgery (SDC) | payer OTHER ==
[~2018-09-19] VITALS: Ht 167.6 cm; Wt 69.9 kg
[~2018-09-19 07:22] MED LIST changes: -/CELE20CA; -/CELE20CA OR; -/CELE20CA PO; -/DULO30CA OR; -ALBUTEROL SULFATE 2.5 MG/0.5 ML INH NEB SOLN INH ONE; -ASPI1TAB PO; +ASPI81TA26 PO; +CELE1CAP4; +CELE1CAP4 OR; +CELE1CAP4 PO; +CYMB1CAP5 OR; -D5W 1,000 ML IV SCH; -DULO30CA PO; +DULO30CA9 PO; -LIDOCAINE 4% INJ 5 ML AMP INH ONE
[2018-09-19] MEDS ORDERED: NS 1,000 ML IV ONE (07:30)
[2018-09-19] MEDS ORDERED: LIDOCAINE 2% INJ 100 MG/5 ML SDV (FOR ANES.) As Ordered ONE (08:04)
[2018-09-19] MEDS ORDERED: PROPOFOL 500 MG/50 ML VIAL As Ordered ONE (08:05)
--- NOTE | 2018-09-19 08:52 | ROOR ---
Patient Name: Wilmar Josue Procedure Date: 09/19/2018 8:27 AM Date of : 1960 Age: 58 [facility] Gender: Male Note Status: Finalized Procedure: Colonoscopy Indications: High risk colon cancer surveillance: Personal history of colonic polyps, Last colonoscopy: February 2015 Providers: Naveed BENSON MD Referring MD: Berhane Pereyra MD Requesting Provider: Medicines: Monitored Anesthesia Care Complications: No immediate complications. Procedure: Pre-Anesthesia Assessment: - The heart rate, respiratory rate, oxygen saturations, blood pressure, adequacy of pulmonary ventilation, and response to care were monitored throughout the procedure. The Colonoscope was introduced through the anus and advanced to the terminal ileum, with identification of the appendiceal orifice and IC valve. The colonoscopy was performed without difficulty. The patient tolerated the procedure well. The quality of the bowel preparation was good. Findings: The perianal and digital rectal examinations were normal. A 4 mm polyp was found in the cecum. The polyp was sessile. The polyp was removed with a cold snare. Resection and retrieval were complete. Internal hemorrhoids were found during retroflexion. The hemorrhoids were medium-sized. The exam was otherwise without abnormality on direct and retroflexion views. Impression: - One 4 mm polyp in the cecum, removed with a cold snare. Resected and retrieved. - Internal hemorrhoids. - The examination was otherwise normal on direct and retroflexion views. Recommendation: - Repeat colonoscopy in 5 years for surveillance. Naveed Benson MD Naveed BENSON MD 09/19/2018 8:52:18 AM Electronically signed by Naveed BENSON MD Number of Addenda: 0 Note Initiated On: 09/19/2018 8:27 AM Estimated Blood Loss: Estimated blood loss: none.
[2018-09-19 09:10] VITALS: BP 124/78
== END 2018-09-19 09:19 | disposition home or self-care (01) ==
LOC: M OPP 07:22
PROVIDERS: ATTEND Internal Medicine Gastroenterology
DX: D12.0 Benign neoplasm of cecum (principal); K64.8 Other hemorrhoids; Z86.010 Personal history of colon polyps

== ENCOUNTER → 2018-12-30 | Outpatient (REF) | payer OTHER ==
[2018-12-30 20:05] LABS: HEMOGLOBIN 14.2 g/dl (13.5-17.5); MEAN CORPUSCULAR HEMOGLOBIN 31.3 pg (27.0-33.0); MEAN CORPUSCULAR VOLUME 94.9 fl (80.0-96.0); PLATELET COUNT, AUTOMATED 289 10^3/uL (150-450); RED BLOOD COUNT 4.53 10^6/uL (4.30-6.10); WHITE BLOOD COUNT 9.3 10^3/uL (4.0-10.0)
[2018-12-30 20:09] LABS: ALBUMIN 3.7 GM/DL (3.2-5.2); ALT/SGPT 21 U/L (12-78); BILIRUBIN,TOTAL 0.6 MG/DL (0.2-1.0); BLOOD UREA NITROGEN 22 MG/DL (7-18); CALCIUM LEVEL 9.6 MG/DL (8.5-10.1); CARBON DIOXIDE LEVEL 28 MEQ/L (21-32); CHLORIDE LEVEL 110 MEQ/L (98-107); CHOLESTEROL LEVEL 161 MG/DL (<200); CHOLESTEROL RISK RATIO 3.744 (<5); CREATININE FOR GFR 1.07 MG/DL (0.70-1.30); FREE T4 1.33 NG/DL (0.76-1.46); GLOMERULAR FILTRATION RATE > 60.0 (>56); GLUCOSE, FASTING 92 MG/DL (70-100); HDL CHOLESTEROL 43 MG/DL (>40); LDL CHOLESTEROL 87 MG/DL (<100); MAGNESIUM LEVEL 2.1 MG/DL (1.8-2.4); NON-HDL-C 118 MG/DL; SODIUM LEVEL 143 MEQ/L (136-145); TOTAL PROTEIN 7.3 GM/DL (6.4-8.2); TRIGLYCERIDES LEVEL 154 MG/DL (<150)
== END ==
LOC: M SFHCADAM 14:49
PROVIDERS: ATTEND Family Medicine
DX: C34.90 Malignant neoplasm of unspecified part of unspecified bronchus or lung (principal); E03.2 Hypothyroidism due to medicaments and other exogenous substances; I47.2 Ventricular tachycardia

== ENCOUNTER 2019-02-07 18:42 | Emergency (ER) | payer OTHER ==
[~2019-02-07] VITALS: Ht 160 cm; Wt 72.7 kg
[2019-02-07 18:42] VITALS: BP 155/72
[2019-02-07] MEDS ORDERED: DOXYCYCLINE HYCLATE 100 MG TAB PO ONE (21:00)
[2019-02-07] MEDS ORDERED: LIDOCAINE 1% MDV 20ML VIAL IM ONE (21:00)
[2019-02-07] MEDS ORDERED: DOXY100C37 PO (21:00)
[2019-02-07] MEDS ORDERED: LIDOCAINE 1% MDV 20ML VIAL SC ONE (21:15)
== END 2019-02-07 21:07 | disposition home or self-care (01) ==
LOC: M ED 18:42
DX: L03.116 Cellulitis of left lower limb (principal); L02.416 Cutaneous abscess of left lower limb; I11.9 Hypertensive heart disease without heart failure; I25.2 Old myocardial infarction; Z95.0 Presence of cardiac pacemaker; Z86.14 Personal history of Methicillin resistant Staphylococcus aureus infection; F17.210 Nicotine dependence, cigarettes, uncomplicated; Z79.899 Other long term (current) drug therapy; Z79.82 Long term (current) use of aspirin; Z88.5 Allergy status to narcotic agent

== ENCOUNTER 2019-02-26 07:27 | Day surgery (SDC) | payer OTHER ==
[~2019-02-26] VITALS: Ht 162.6 cm; Wt 68.9 kg
[~2019-02-26 07:27] MED LIST changes: +DOXY100C37 PO; -OMEP40CA2 PO; +OMEP40CA97 PO; -SIMV40TA2 PO; +SIMV40TA20 PO
[2019-02-26 07:46] LABS: HEMATOCRIT 44.5 % (42.0-52.0); HEMOGLOBIN 14.6 g/dl (13.5-17.5); MEAN CORPUSCULAR HEMOGLOBIN 31.8 pg (27.0-33.0); MEAN CORPUSCULAR HGB CONC 32.8 g/dl (32.0-36.5); MEAN CORPUSCULAR VOLUME 96.9 fl (80.0-96.0); PLATELET COUNT, AUTOMATED 267 10^3/uL (150-450); RED BLOOD COUNT 4.59 10^6/uL (4.30-6.10); WHITE BLOOD COUNT 8.4 10^3/uL (4.0-10.0)
[2019-02-26] MEDS ORDERED: LIDOCAINE 2% INJ 100 MG/5 ML SDV (FOR ANES.) As Ordered ONE (08:04)
[2019-02-26] MEDS ORDERED: ROCURONIUM BROMIDE 50 MG/5 ML VIAL As Ordered ONE (08:04)
[2019-02-26] MEDS ORDERED: ONDANSETRON 4MG/2ML VIAL (J2405) As Ordered ONE (08:04)
[2019-02-26] MEDS ORDERED: propofoL 200 MG/20 ML VIAL As Ordered ONE (08:04)
[2019-02-26] MEDS ORDERED: dexameTHASONE 4 MG/ML 1ML VIAL (J1100) As Ordered ONE (08:04)
[2019-02-26] MEDS ORDERED: fentaNYL 100 MCG/2 ML INJECTION (J3010) As Ordered ONE (08:05)
[2019-02-26] MEDS ORDERED: MIDAZOLAM INJ 2 MG/2 ML VIAL (J2250) As Ordered ONE (08:05)
[2019-02-26 08:06] LABS: BLOOD UREA NITROGEN 24 MG/DL (7-18); CALCIUM LEVEL 8.9 MG/DL (8.5-10.1); CARBON DIOXIDE LEVEL 26 MEQ/L (21-32); CHLORIDE LEVEL 111 MEQ/L (98-107); CREATININE FOR GFR 0.93 MG/DL (0.70-1.30); GLOMERULAR FILTRATION RATE > 60.0 (>56); GLUCOSE, FASTING 86 MG/DL (70-100); POTASSIUM SERUM 4.8 MEQ/L (3.5-5.1); SODIUM LEVEL 142 MEQ/L (136-145)
[2019-02-26] MEDS ORDERED: CETACAINE SPRAY 5GM As Ordered ONE (08:46)
[2019-02-26] MEDS ORDERED: LIDOCAINE 4% TOPICAL SOLN 50 ML BTL As Ordered ONE (08:46)
[2019-02-26] MEDS ORDERED: LIDOCAINE 1% SDV INJ 30 ML VIAL As Ordered ONE (08:46)
[2019-02-26] MEDS ORDERED: EPINEPHrine 1MG/10ML SYRINGE 1.5IN As Ordered ONE (08:46)
[2019-02-26] MEDS ORDERED: THROMBIN SOLN 20,000 UNITS KIT As Ordered ONE (08:46)
[2019-02-26] MEDS ORDERED: LIDOCAINE VISCOUS 2% SOLN 15ML UDC As Ordered ONE (08:47)
[2019-02-26] MEDS ORDERED: SUGAMMADEX SODIUM 500 MG/5 ML VIAL (BRIDION) As Ordered ONE (09:17)
[2019-02-26] MEDS ORDERED: ONDANSETRON 4MG/2ML VIAL (J2405) IV PRN (10:00)
[2019-02-26] MEDS ORDERED: oxyCODONE 5MG TAB PO PRN (10:00)
[2019-02-26] MEDS ORDERED: LR 1,000 ML IV SCH (10:00)
[2019-02-26] MEDS ORDERED: fentaNYL 100 MCG/2 ML INJECTION (J3010) IV PRN (10:00)
--- NOTE | 2019-02-26 10:11 | RO ---
DATE OF PROCEDURE: 02/26/2019 PREOPERATIVE DIAGNOSIS: Prior history of lung cancer, abnormal chest CT. POSTOPERATIVE DIAGNOSIS: Prior history of lung cancer, abnormal chest CT. FINDINGS: Medial basal segment fish mouthing, but without endobronchial lesions. PROCEDURE: Bronchoscopy. No biopsies taken. SURGEON: Dr. Magdy Dyer ASSISTSANT: None. ANETHESIA: General anesthesia. Please refer to their records for details. DESCRIPTION OF PROCEDURE: After informed consent was reviewed with the patient in the preoperative area, he was brought back to OR number two. A time out was performed with two patient identifiers, identifying correct site and correct procedure. General anesthesia was initiated with an endotracheal tube. The case was then handed over to me. Cetacaine spray was used to anesthetize the airway. The 1T-190 bronchoscope was inserted into the area. The trachea was rotated, but not deviated. There was a rotation of the airways to the left such that the take off of the right mainstem was anterior, the left mainstem was posterior; however, the anatomy otherwise appeared normal. The ted was sharp. Right and left mainstem bronchus was normal. RB1 through 10 was normal. I paid specific detailed attention to the superior medial basal segment, the medial basal segment and the right lower lobe segments as there was a prior history of malignancy in the airway that was resected with biopsy. I placed saline to distend all of these airways to ensure there were no endobronchial lesions. After reviewing all airways, there were no endobronchial lesions. The left was examined. LB1 through 10 without endobronchial lesions. After exam showed no endobronchial lesions, the bronchoscope was removed. The case was handed over to anesthesia. There were no observed complications. A postprocedure chest x-ray is pending.
--- NOTE | 2019-02-26 10:28 | REP ---
CHEST, PORTABLE: AP portable view of the chest is performed. Comparison 07/24/2018. There is no pneumothorax. Bibasilar interstitial prominence is stable. There is mild left ventricular prominence which is stable. The mediastinal silhouette is unchanged. There is a left dual lead pacemaker again noted. Electronically Signed by Andry Ulloa MD 02/26/2019 05:35 P
[2019-02-26 11:30] VITALS: BP 100/60
== END 2019-02-26 11:35 | disposition home or self-care (01) ==
LOC: M SDC 07:27
PROVIDERS: ATTEND Internal Medicine Pulmonary Disease
DX: R91.8 Other nonspecific abnormal finding of lung field (principal); I48.91 Unspecified atrial fibrillation; I10 Essential (primary) hypertension; E78.5 Hyperlipidemia, unspecified; E03.9 Hypothyroidism, unspecified; E55.9 Vitamin D deficiency, unspecified; Z95.810 Presence of automatic (implantable) cardiac defibrillator; K21.9 Gastro-esophageal reflux disease without esophagitis; F17.210 Nicotine dependence, cigarettes, uncomplicated; Z92.3 Personal history of irradiation; Z79.899 Other long term (current) drug therapy; Z88.8 Allergy status to other drugs, medicaments and biological substances
CPT/HCPCS: 31622; 36415; 71045; 80048; 85027; J1100; J2250; J2405; J3010

== ENCOUNTER → 2019-09-11 | Outpatient (CLI) | payer OTHER ==
--- NOTE | 2019-09-11 10:18 | REP ---
REASON FOR EXAM: Followup carcinoma. COMPARISON: Multiple, the latest 10/28/2017. The lack of intravenous contrast decreases the sensitivity of the exam. The mediastinal and right hilar adenopathy has markedly worsened. The subcarinal adenopathy, which previously measured approximately 1.6 x 1.1 cm now measures approximately 3.8 x 3.2 cm. In addition, the right hilar adenopathy has markedly worsened when there was only mild right hilar adenopathy on the prior exam. There is marked right hilar adenopathy somewhat difficult to evaluate without intravenous contrast overall measuring approximately 3 x 2.3 cm. No pleural or pericardial effusions have developed. The imaged upper abdomen now shows numerable low density foci scattered throughout the imaged hepatic parenchyma representing a marked change from the prior exam. Evaluation of the osseous structures shows no evidence of significant change from the prior exam. Evaluation of the lung varma shows a new right lower lobe satellite lesion extending from the right infrahilar mass. This measures approximately 2.6 x 1.2 cm and is spiculated. There are some stable chronic lung field changes with rather marked appearing cylindrical bronchiectasis in the right lung medial basal segment status quo with scattered incidental calcified granulomas. A few asymmetric densities have developed in the inferior lingula which are obscuring the previously well-demarcated nodule which measured 8 mm on the prior exam. IMPRESSION: 1. Worsening adenopathy and right infrahilar mass as described above. 2. Worsened pulmonary findings as described above and seen in conjunction with chronic changes. 3. Spiculated left apical nodule seen on the prior exam now having a more band-like irregular appearance. 4. Worsened hepatic metastasis. 5. Other findings as discussed above. Electronically Signed by Theo So DO 09/11/2019 10:32 A
== END ==
LOC: M RAD 06:48
PROVIDERS: ATTEND Internal Medicine Pulmonary Disease
DX: R91.8 Other nonspecific abnormal finding of lung field (principal); R59.0 Localized enlarged lymph nodes; R91.1 Solitary pulmonary nodule; C78.7 Secondary malignant neoplasm of liver and intrahepatic bile duct

== ENCOUNTER → 2019-09-29 | Outpatient (REF) | payer OTHER ==
[2019-09-29 13:03] LABS: PLATELET COUNT, AUTOMATED 327 10^3/uL (150-450)
[2019-09-29 13:41] LABS: INR 1.08; PROTHROMBIN TIME 13.7 SECONDS (11.8-14.0)
[2019-09-29 13:42] LABS: PARTIAL THROMBOPLASTIN TIME 29.3 SECONDS (25.0-38.4)
== END ==
LOC: M LAB REF 12:23
PROVIDERS: ATTEND Internal Medicine Pulmonary Disease
DX: Z85.118 Personal history of other malignant neoplasm of bronchus and lung (principal)

== ENCOUNTER → 2019-10-12 | Outpatient (CLI) | payer OTHER ==
[~2019-10-12] MED LIST changes: +LIDOCAINE 1% MDV 20ML VIAL As Ordered ONE
[2019-10-12 11:10] VITALS: BP 108/57
--- NOTE | 2019-10-12 16:14 | REP ---
ULTRASOUND-GUIDED LIVER BIOPSY The procedure was performed under the direct supervision of Dr. Ulloa. In the the patient has a history of innumerable low density foci scattered throughout the liver seen on a previous CT scan dated 09/11/2019. The risks and benefits of the procedure were explained to the patient and informed consent was obtained. A lesion in the left lobe of the liver was localized using ultrasound guidance. The skin was prepped and draped in a sterile fashion. 1% lidocaine was used as a local anesthetic. Using ultrasound guidance a 19/20 gauge coaxial needle biopsy system was inserted and advanced into the lesion. Five core biopsy samples were obtained and sent to lab. The patient tolerated the procedure well and there were no immediate complications. After the appropriate amount of monitored convalescence the patient was discharged from the department. Electronically Signed by KAITLIN Gregory 10/12/2019 03:23 P Electronically Signed by Andry Ulloa MD 10/12/2019 04:05 P
== END ==
LOC: M IRPRO 08:30
PROVIDERS: ATTEND Internal Medicine Pulmonary Disease
DX: C7B.02 Secondary carcinoid tumors of liver (principal); Z85.118 Personal history of other malignant neoplasm of bronchus and lung

== ENCOUNTER → 2019-11-05 | Outpatient (REF) | payer OTHER ==
[~2019-11-05] MED LIST changes: -LIDOCAINE 1% MDV 20ML VIAL As Ordered ONE
[2019-11-05 18:25] LABS: HEMATOCRIT 40.2 % (42.0-52.0); HEMOGLOBIN 12.7 g/dl (13.5-17.5); MEAN CORPUSCULAR HEMOGLOBIN 30.3 pg (27.0-33.0); MEAN CORPUSCULAR HGB CONC 31.6 g/dl (32.0-36.5); MEAN CORPUSCULAR VOLUME 95.9 fl (80.0-96.0); PLATELET COUNT, AUTOMATED 446 10^3/uL (150-450); RED BLOOD COUNT 4.19 10^6/uL (4.30-6.10); WHITE BLOOD COUNT 15.7 10^3/uL (4.0-10.0)
[2019-11-05 18:50] LABS: ALBUMIN 3.1 GM/DL (3.2-5.2); ALT/SGPT 148 U/L (12-78); BILIRUBIN,TOTAL 0.5 MG/DL (0.2-1.0); BLOOD UREA NITROGEN 23 MG/DL (7-18); CALCIUM LEVEL 9.6 MG/DL (8.5-10.1); CARBON DIOXIDE LEVEL 26 MEQ/L (21-32); CHLORIDE LEVEL 101 MEQ/L (98-107); CHOLESTEROL LEVEL 134 MG/DL (<200); CREATININE FOR GFR 1.02 MG/DL (0.70-1.30); FREE T4 1.79 NG/DL (0.76-1.46); GLOMERULAR FILTRATION RATE > 60.0 (>56); GLUCOSE, FASTING 74 MG/DL (70-100); HDL CHOLESTEROL 42 MG/DL (>40); LDL CHOLESTEROL 62 MG/DL (<100); NON-HDL-C 92 MG/DL; POTASSIUM SERUM 4.9 MEQ/L (3.5-5.1); SODIUM LEVEL 138 MEQ/L (136-145); TOTAL PROTEIN 7.3 GM/DL (6.4-8.2); TRIGLYCERIDES LEVEL 152 MG/DL (<150)
== END ==
LOC: M SFHCADAM 11:28
PROVIDERS: ATTEND Family Medicine
DX: E03.2 Hypothyroidism due to medicaments and other exogenous substances (principal); R53.83 Other fatigue

== ENCOUNTER → 2019-11-09 | Outpatient (CLI) | payer OTHER ==
[~2019-11-09] MED LIST changes: +ACET-683 PO; +CEFD300CAP PO; +DOCU100C16 PO; +DOXY100T PO; +HYDR1OIN12 RC; +MIRA3350 PO
--- NOTE | 2019-11-09 13:55 | REP ---
WHOLE BODY BONE SCAN: Following the intravenous administration of 22 millicuries technetium 99m MDP, patient's whole body is imaged in the anterior and posterior projections. Additional oblique and lateral views are obtained. There is a focus of increased uptake in the anterior left 8th rib. Two faint subtle foci of increased uptake are seen in the right posterior parietal region as well as the left posterior parietal region of the calvarium. No other significant abnormal uptake is seen in the axial or appendicular skeleton. Renal and bladder activity are seen. IMPRESSION: Focus of increased uptake in the anterior left 8th rib is of uncertain significance. No abnormality is seen at that location on CT chest 09/11/2019. There are two subtle foci of increased uptake in both the right posterior parietal calvarium and left posterior parietal calvarium. Further evaluation may be made with CT. Electronically Signed by Andry Ulloa MD 11/10/2019 01:06 P
== END ==
LOC: M RAD 07:59
PROVIDERS: ATTEND Internal Medicine Pulmonary Disease
DX: C34.11 Malignant neoplasm of upper lobe, right bronchus or lung (principal); C78.7 Secondary malignant neoplasm of liver and intrahepatic bile duct
CPT/HCPCS: 78306; A9503

== ENCOUNTER 2019-11-13 12:31 | Inpatient (IN) | payer OTHER ==
[~2019-11-13] VITALS: Ht 162.6 cm; Wt 63.4 kg
[~2019-11-13 12:31] MED LIST changes: -ACET-683 PO; -CEFD300CAP PO; -DOCU100C16 PO; -DOXY100T PO; -HYDR1OIN12 RC; -MIRA3350 PO
[2019-11-13 13:31] LABS: BASO # 0.1 10^3/uL (0.0-0.2); BASO % 0.5 % (0.0-1.0); EOS # 0.2 10^3/uL (0.0-0.5); EOS % 0.9 % (0.0-3.0); HEMATOCRIT 33.5 % (42.0-52.0); HEMOGLOBIN 11.2 g/dl (13.5-17.5); LYMPH # 1.6 10^3/uL (1.5-5.0); LYMPH % 8.9 % (24.0-44.0); MEAN CORPUSCULAR HEMOGLOBIN 31.4 pg (27.0-33.0); MEAN CORPUSCULAR HGB CONC 33.4 g/dl (32.0-36.5); MEAN CORPUSCULAR VOLUME 93.8 fl (80.0-96.0); MONO # 1.6 10^3/uL (0.0-0.8); MONO % 8.9 % (0.0-5.0); NEUTROPHILS # 13.6 10^3/uL (1.5-8.5); NEUTROPHILS % 77.3 % (36.0-66.0); PLATELET COUNT, AUTOMATED 483 10^3/uL (150-450); RED BLOOD COUNT 3.57 10^6/uL (4.30-6.10); WHITE BLOOD COUNT 17.6 10^3/uL (4.0-10.0)
[2019-11-13 13:44] LABS: INR 1.08; PROTHROMBIN TIME 13.7 SECONDS (11.8-14.0)
[2019-11-13 13:45] LABS: PARTIAL THROMBOPLASTIN TIME 28.8 SECONDS (25.0-38.4)
[2019-11-13] MEDS ORDERED: ONDANSETRON 4MG/2ML VIAL IV ONE (13:45)
[2019-11-13 13:54] LABS: ALBUMIN 2.7 GM/DL (3.2-5.2); BILIRUBIN,DIRECT 0.4 MG/DL (0.0-0.2); BILIRUBIN,TOTAL 0.6 MG/DL (0.2-1.0); TOTAL PROTEIN 6.8 GM/DL (6.4-8.2)
[2019-11-13] MEDS: GASTROGRAFIN SOLUTION 30ML PO SCH ×2 (14:13→14:54)
[2019-11-13] MEDS ORDERED: ISOVUE-370 76% 100ML VIAL As Ordered ONE (15:23)
--- NOTE | 2019-11-13 15:43 | REP ---
KUB: REASON: Constipation. FINDINGS: KUB shows the intestinal gas pattern to be nonspecific. The organ silhouettes insofar as delineated are unremarkable. There is no evidence of free intraperitoneal air. IMPRESSION: Nonspecific. The stool pattern appears appropriate. Hepatomegaly can not be rule out by this exam. Electronically Signed by Theo So DO 11/13/2019 05:05 P
--- NOTE | 2019-11-13 16:02 | REPVR ---
PROCEDURE INFORMATION: Exam: CT Head Without Contrast Exam date and time: 11/13/2019 3:44 PM Age: 59 years old Clinical indication: Pain; Headache; Additional info: Chronic headaches TECHNIQUE: Imaging protocol: Computed tomography of the head without contrast. Radiation optimization: All CT scans at this facility use at least one of these dose optimization techniques: automated exposure control; mA and/or kV adjustment per patient size (includes targeted exams where dose is matched to clinical indication); or iterative reconstruction. COMPARISON: MRI-Brain without Contrast 08/26/2015 9:10 AM FINDINGS: Brain: There is no evidence of infarct, barnard-white matter differentiation is preserved. There is no hemorrhage or extra-axial collection. There is no mass. There is no evidence of subarachnoid hemorrhage. Ventricles: There is no hydrocephalus. Bones/joints: Unremarkable. No acute fracture. Sinuses: Visualized sinuses are unremarkable. No fluid levels. Mastoid air cells: Visualized mastoid air cells are well aerated. Soft tissues: Unremarkable. IMPRESSION: No intracranial lesion or injury. Electronically signed by: Darci King On 11/13/2019 16:02:31 PM
[2019-11-13] MEDS ORDERED: FLEET OIL RETENTION ENEMA PR ONE (17:15)
[2019-11-13] MEDS ORDERED: HYDR1OIN12 RC (20:37)
[2019-11-13] MEDS ORDERED: ACET-683 PO ×2 (20:37)
[2019-11-13] MEDS ORDERED: MOM 30ML SUSPENSION UDC PO PRN (21:00)
[2019-11-13] MEDS ORDERED: MAALOX 30 ML SUSP *UDC PO PRN (21:00)
--- NOTE | 2019-11-13 21:18 | HPEPDOC ---
General Date of Admission Date of Service: Nov 13, 2019 Chief Complaint The patient is a 59-year-old male admitted with a reason for visit of No Bm X3 Weeks. Source: Patient, Old records Timing/Duration: Other (3 weeks) Severity: Moderate Associated Symptoms: Other (, constipation, loss of appetite, early satiety) History of Present Illness This is a unfortunate 59 years old white male follows up with [facility] with past medical history of sudden cardiac , status post V. 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 Allen at [facility], had developed constipation, loss of appetite and early satiety since last 3 weeks. Patient d oes not complain about abdominal pain, shortness of breath, chest pain or nausea, vomiting, diarrhea. Patient follows up with oncology group in [place], but secondary to pandemic has been unable to make make an appointment there. According to patient, he was seen at PCP is and was told that he has a tumor but patient is not a good historian. All his old records were checked including outpatient records and I had a detailed discussion with patient regarding his complaints, his major complaint seems to be constipation and unable to go to bathroom and having a bowel movement. Home Medications Scheduled Amiodarone HCl (Amiodarone HCl) 200 Mg Tab, 100 MG PO Q2D, (Reported) Aspirin (Aspirin EC) 81 Mg Tab, 81 MG PO QAM, (Reported) Atorvastatin Calcium (Atorvastatin Calcium) 20 Mg Tab, 10 MG PO QHS, (Reported) Hydrocortisone (Hydrocortisone) 28.4 Gm Oint...g., 1 APPLIC RC TID, (Reported) RECTALLY Levothyroxine Sodium (Synthroid) 50 Mcg Tab, 50 MCG PO QAM, (Reported) Lisinopril (Lisinopril) 10 Mg Tab, 10 MG PO QPM, (Reported) Metoprolol Succinate (Metoprolol Succinate) 25 Mg Tab, 25 MG PO QPM, (Reported) Scheduled PRN Acetaminophen (Acetaminophen) 500 Mg Tablet, 500 MG PO QAM PRN for PAIN, (Rep orted) Acetaminophen (Acetaminophen) 500 Mg Tablet, 1,000 MG PO QHS PRN for PAIN, (Reported) Allergies Coded Allergies: hydrocodone (Verified Adverse Reaction, Mild, NAUSEA AND VOMITING, 913/19) Past Medical History Medical History Sudden cardiac due to V. tach in 2017, status post pacemaker placement, status post cardiac cath in 2017 with the EF of 69 with normal coronaries, back injury, chronic low back pain, ex-smoker, vitamin D deficiency, hyperlipidemia, erectile dysfunction, lung cancer, adenocarcinoma and small cell carcinoma status post radiotherapy Surgical History Right hip revision closed reduction of right hip, left total hip arthroplasty, EGD, colonoscopy: which was found to have a tubulovillous adenomas. Bilateral cataract surgeries, ICD bronchoscopy which showed adenocarcinoma non-small cell carcinoma in right ear surgery Social History * Smoker: former Smoker Alcohol: Denies Drugs: denies A-FIB/CHADSVASC A-FIB History Current/History of A-Fib/PAF?: No Review of Systems Constitutional: Reports: Weakness, Other (, loss of appetite, early satiety); Denies: Chills, Fever, Malaise, Night Sweats, Fatigue, Weight Loss, Lethargy Eyes: Denies: Pain, Vision change, Conjunctivae inflammation, Eyelid inflammation, Redness, Other ENT: Denies: Head Aches, Ear Pain, Dysphagia, Sinus Congestion, Post Nasal Drip, Sore Throat, Epistaxis, Other Symptoms Skin: Denies: Rash, Lesions, Jaundice, Bruising, Itching, Dry, Breakdown, Nail Changes, Other Pulmonary: Denies: Dyspnea, Cough, Pleuritic Chest Pain, Other Symptoms Cardiovascular: Denies: Chest Pain, Palpitations, Orthopnea, Paroxysmal Noc. Dyspnea, Edema, Lt Headedness, Other Symptoms Gastrointestinal: Reports: Constipation Genitourinary: Denies: Dysuria, Frequency, Incontinence, Hematuria, Retention, Other Symptoms Hematologic: Denies: Bruising, Bleeding Excessively, Petecchia, Purpura, Enlarged Lymph Nodes, Other Hematologic Endocrine: Denies: Polydipsia, Polyphagia, Polyuria, Heat Intolerance, Cold Intolerance, Other Endocrine Sx Musculoskeletal: Denies: Neck Pain, Back Pain, Shoulder Pain, Arm Pain, Hand Pain, Leg Pain, Foot Pain, Joint Pain, Muscle Pain, Spasms, Other Symptoms Neurological: Denies: Weakness, Numbness, Incoordination, Change in speech, Confusion, Seizures, Other Symptoms Physical Examination General Exam: Positive: Alert, Cooperative Eye Exam: Positive: PERRLA, Conjunctiva & lids normal ENT Exam: Positive: Atraumatic, Mucous membr. moist/pink Neck Exam: Positive: Supple Chest Exam: Positive: Other (, crackles at left lower base on auscultation) Heart Exam: Positive: Rate Normal, Normal S1, Normal S2 Abdomen Exam: Positive: Other (. Diffuse hepatomegaly. Tender on palpation at the right upper and right lower quadrant. Diminished bowel sounds) Extremity Exam: Positive: Normal pulses Skin Exam: Positive: Nl turgor and temperature Neuro Exam: Positive: Strength at 5/5 X4 ext, Sensation Intact, Cranial Nerves 3-12 NL Psych Exam: Positive: Mood NL, Oriented x 3 Vital Signs Vital Signs Date Time Temp Pulse Resp B/P (MAP) Pulse Ox O2 Delivery O2 Flow Rate FiO2 11/13/19 17:40 97.4 74 20 120/63 (82) 96 Room Air Laboratory Data Labs 24H Laboratory Tests 2 11/13/19 13:20: Immature Granulocyte % (Auto) 3.5H, Neutrophils (%) (Auto) 77.3H, Lymphocytes (%) (Auto) 8.9L, Monocytes (%) (Auto) 8.9H, Eosinophils (%) (Auto) 0.9, Basophils (%) (Auto) 0.5, Neutrophils # (Auto) 13.6H, Lymphocytes # (Auto) 1.6, Monocytes # (Auto) 1.6H, Eosinophils # (Auto) 0.2, Basophils # (Auto) 0.1, Nucleated Red Blood Cells % (auto) 0.1H, Prothrombin Time 13.7, Prothromb Time International Ratio 1.08, Activated Partial Thromboplast Time 28.8, Lactic Acid Level 1.2, Total Bilirubin 0.6, Direct Bilirubin 0.4H, Aspartate Amino Transf (AST/SGOT) 153H, Alanine Aminotransferase (ALT/SGPT) 145H, Alkaline Phosphatase 916H, Total Protein 6.8, Albumin 2.7L, Albumin/Globulin Ratio 0.7, Lipase 330 11/13/19 13:26: POC Glucose (Misc Panel) 89, POC Sodium (Misc Panel) 132L, POC Potassium (Misc Panel) 5.0, POC Chloride (Misc Panel) 101, POC Total CO2 (Misc Panel) 23.0, POC Blood Urea Nitrogen (Misc Panel 28H, POC Ionized Calcium (Misc Panel) 5.1, POC Creatinine (Misc Panel) 1.2, POC Hematocrit (Misc Panel) 34.0L 11/13/19 13:27: Urine Color MICKEY, Urine Appearance HAZY, Urine pH 5.0, Urine Specific [place] 1.023, Urine Protein NEGATIVE, Urine Glucose (UA) NEGATIVE, Urine Ketones NEGATIVE, Urine Blood NEGATIVE, Urine Nitrite NEGATIVE, Urine Bilirubin NEGATIVE, Urine Urobilinogen 4.0H, Urine Leukocyte Esterase NEGATIVE, Urine WBC (Auto) 1, Urine RBC (Auto) 1, Urine Hyaline Casts (Auto) 4, Urine Bacteria (Auto) 1+H, Urine Squamous Epithelial Cells 0, Urine Amorphous Sediment SMALLH, Urine Mucus (Auto) SMALL, Urine Sperm (Auto) CBC/BMP Laboratory Tests 11/13/19 13:20 Problems (1) Constipation Status: Acute Problem Text: Constipation, most likely secondary to massive hepatomegaly secondary to metastases, most likely from lung carcinoma [facility] IV fluids normal saline 70 mL per hour MiraLAX 1 packet by mouth twice a day MON 30 mL when necessary as per orders Patient received the mineral water enema in ED Patient does not consume a narcotics as per history The symptoms do not resolve, then probably will need a GI consultation Regular diet Activity as tolerated DVT prophylaxis with bilateral SCDs (2) Metastatic lung carcinoma Status: Chronic Problem Text: Patient was diagnosed with adenocarcinoma of left upper lobe and small cell carcinoma of right lower lobe, as per old records and he is status post chemotherapy and follows up with Dr. Allen at [facility] . He has been unable to make an appointment with his oncologist secondary to pandemic According to patient, he also follows up with Dr. silva for his lung carcinoma I do not have any records available from his oncologist as he seems to have a very large hepatomegaly with multiple metastases CT of the abdomen and pelvis done, but unofficial report is still pending . He will probably need to follow-up with his oncologist. Once his discharge from this hospital Pain control with Tylenol (3) Hepatomegaly Status: Chronic Problem Text: Massive hepatomegaly, most likely secondary to liver metastases from lung carcinoma Need all the old records from his oncologist to to get further information and compared the present findings with his old finding Once clinically stable condition. Follow-up with his primary oncologist at [place] as soon as possible (4) LLL pneumonia Status: Acute Problem Text: Chest x-ray was seen and reviewed by me as a blurring of cardiac silhouette on the left side, most likely community acquired pneumonia Is also a mass on the right lower lobe which is probably old. Lung carcinoma . His WBC count is 17.6 even though he is afebrile, but I will start him on empiric treatment with Rocephin and Zithromax Will also order pro-calcitonin to further confirm the diagnosis and will await the official report of chest x-ray done in ED (5) Hyperlipemia Status: Chronic Problem Text: Home meds Plan / VTE VTE Prophylaxis Ordered?: Yes GODWIN LOMELI MD Nov 13, 2019 21:18
[2019-11-13 22:23] VITALS: BP 119/63
[2019-11-13] MEDS: DOCUSATE SODIUM 100 MG CAP PO SCH (23:10)
[2019-11-13] MEDS: ATORVASTATIN 10 MG TAB PO SCH (23:10)
[2019-11-13] MEDS: MIRALAX *UNIT DOSE* 17GM PACKET PO SCH (23:10)
[2019-11-13] MEDS: METOPROLOL SUCC *XL* 25MG TAB (TopROL *XL*) PO SCH (23:11)
[2019-11-13] MEDS: lisinopriL 10 MG TAB PO SCH (23:11)
[2019-11-13] MEDS: cefTRIAXone SOD 1 GM in D5W MINI-BAG PLUS 50 ML IV SCH (23:12)
[2019-11-13] MEDS: ACETAMINOPHEN TAB 650MG DOSE (2X325MG) PO PRN (23:12)
[2019-11-14] MEDS ORDERED: AZITHROMYCIN INJ 500 MG, VIAL MATE ADAPTER 1 EACH in D5W 250 ML IV SCH ×3
[2019-11-14] MEDS: LEVOTHYROXINE 50MCG TABLET (0.05MG) PO SCH (05:58)
[2019-11-14 06:00] VITALS: BP 105/61
[2019-11-14 07:16] LABS: HEMATOCRIT 32.2 % (42.0-52.0); HEMOGLOBIN 10.9 g/dl (13.5-17.5); MEAN CORPUSCULAR HEMOGLOBIN 31.7 pg (27.0-33.0); MEAN CORPUSCULAR HGB CONC 33.9 g/dl (32.0-36.5); MEAN CORPUSCULAR VOLUME 93.6 fl (80.0-96.0); PLATELET COUNT, AUTOMATED 466 10^3/uL (150-450); RED BLOOD COUNT 3.44 10^6/uL (4.30-6.10); WHITE BLOOD COUNT 15.2 10^3/uL (4.0-10.0)
[2019-11-14 07:46] LABS: ALBUMIN 2.4 GM/DL (3.2-5.2); ALT/SGPT 127 U/L (12-78); BILIRUBIN,TOTAL 0.6 MG/DL (0.2-1.0); BLOOD UREA NITROGEN 22 MG/DL (7-18); CALCIUM LEVEL 9.3 MG/DL (8.5-10.1); CARBON DIOXIDE LEVEL 24 MEQ/L (21-32); CHLORIDE LEVEL 100 MEQ/L (98-107); GLOMERULAR FILTRATION RATE > 60.0 (>56); GLUCOSE, FASTING 74 MG/DL (70-100); POTASSIUM SERUM 4.9 MEQ/L (3.5-5.1); SODIUM LEVEL 133 MEQ/L (136-145); TOTAL PROTEIN 6.5 GM/DL (6.4-8.2)
[2019-11-14] MEDS: MIRALAX *UNIT DOSE* 17GM PACKET PO SCH ×2 (09:35→21:21)
[2019-11-14] MEDS: ASPIRIN 81 MG ENTERIC TAB PO SCH (09:35)
[2019-11-14] MEDS: HYDROCORTISONE 1% OINTMENT 30GM TOP SCH ×3 (09:36→21:22)
[2019-11-14] MEDS: DOCUSATE SODIUM 100 MG CAP PO SCH ×2 (09:36→21:21)
--- NOTE | 2019-11-14 10:32 | REP ---
REASON FOR EXAM: History of carcinoma of the liver. There are no prior CT examinations of the abdomen and pelvis for comparison. Contrast 100 mL Isovue 370. Chest CT of 09/11/2019 was reviewed in regards to the imaged upper abdomen and lung base images. There is a large wedge-shaped which is occupying nearly all of the right middle lobe and seen with air bronchograms. This represents a change from the prior exam. In addition, a few patchy opacities are seen in the right lower lobes representing a change from the prior chest CT. NO pleural or pericardial effusions have developed. There is massive hepatic metastasis seen with wall-enhancing hepatic masses. This is probably unchanged from 09/11/2019, although the liver was completely imaged on that examination and that examination was performed without intravenous contrast. The gallbladder, spleen, pancreas, adrenal glands, and kidneys are within normal limits. The abdominal aorta and paraaortic regions are within normal limits. There is no free fluid or free air in the abdomen or pelvis. There are a few gas-filled mildly dilated small bowel loops in the abdomen. The pelvis bowel loops are within normal limits. There is no evidence of a pelvic mass or pelvic adenopathy. There is retroperitoneal adenopathy. Bone window technique throughout the examination again shows spinal degenerative changes and bilateral femoral head lucencies likely chronic changes as well. IMPRESSION: 1. Abnormal bases as described above. Right middle lobe atelectasis/pneumonia with possible right lower lobe early pneumonia. This needs to be correlated clinically with appropriate followup. 2. Hepatic metastasis. 3. Osseous findings as described above. Consider further evaluation with bone scintigraphy if clinically relevant. ? Electronically Signed by Theo So DO 11/16/2019 10:54 A
--- NOTE | 2019-11-14 10:32 | IPNPDOC ---
Text Note Date of Service The patient was seen on 11/14/19. NOTE Subjective: Patient continues to have right upper quadrant and epigastrium sor eness. He did have 2 good bowel movements overnight. He was able to have a good breakfast. Physical Exam: Vitals; As below General Exam: Positive: Alert, Cooperative Eye Exam: Positive: PERRLA, Conjunctiva & lids normal ENT Exam: Positive: Atraumatic, Mucous membr. moist/pink Neck Exam: Positive: Supple Chest Exam: Positive: clear to auscultation, no ronchi or wheezing. Heart Exam: Positive: Rate Normal, Normal S1, Normal S2 Abdomen Exam: Positive: Other (. Diffuse hepatomegaly. Tender on palpation at the right upper and right lower quadrant. Diminished bowel sounds) Extremity Exam: Positive: Normal pulses Skin Exam: Positive: Nl turgor and temperature Neuro Exam: Positive: Strength at 5/5 X4 ext, Sensation Intact, Cranial Nerves 3-12 NL Psych Exam: Positive: Mood NL, Oriented x 3 Labs and radiology reviewed: Assessment and Plan: This is a unfortunate 59 years old white male follows up with [facility] with past medical history of sudden cardiac , status post V. tach, s/p AICD in 2017 hyperlipidemia, hypertension, hypothyroid, Synchronous lung cancer in 2018, with adenocarcinoma in left upper lobe and squamous cell carcinoma in the a right lower lobe, status post RT and follows with Dr. Allen at [facility], Mediastinal lymphadenopathy, recently found in September 2019 to have hepatic mets and Liver Biopsy on 10/11 showed Poorly differentiated Small cell cancer had developed constipation, loss of appetite and early satiety since last 3 weeks and right upper quadrant and epigastric discomfort worse after eating. Patient follows up with oncology group in [place], but secondary to pandemic has been unable to make make an appointment there. He was found to have abnormal liver function tests with hepatomegaly and severe constipation and Pneumonia. Constipation Constipation, most likely secondary to massive hepatomegaly secondary to meta stases, from lung carcinoma MiraLAX 1 packet by mouth twice a day MOM 30 mL when necessary as per orders Patient received the mineral water enema in ED Patient does not consume a narcotics as per history Regular diet seems to be resolving. 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 Allen at [facility] Recent liver Bx last month shows liver mets from poorly differentiated small cell cancer. Bone scan on 11/08 positive for uptake at the left 8th rib adn int eh parietal calvarium on both sides. Follow up with oncologist. Massive Hepatomegaly wth mets with Transaminitis/ cholestasis likely secondary to liver metastases from lung carcinoma Follow-up with his primary oncologist at [place] as soon as possible Right middle lobe pneumonia CXR which i reviewed shows possible infiltrates at right lower lobe and right middle lobe opacity new from last year. will treat as CAP continue antibiotics ceftriaxone and doxy. azithromycin stopped due to h/o cardiac arrhythmia. Leucocytosis could be due to cancer and pneumonia. Hyperlipemia Home meds Hypertension metoprolol, lisinopril Hypothyroid synthroid Vtach/ cardiac arrest 2017/ AICD continue Amiodarone VS,Fishbone, I+O VS, Fishbone, I+O Laboratory Tests 11/13/19 13:20 11/14/19 06:45 Vital Signs Date Time Temp Pulse Resp B/P (MAP) Pulse Ox O2 Delivery O2 Flow Rate FiO2 11/14/19 06:00 98.4 78 17 105/61 (76) 96 Room Air I&O- Last 24 Hours up to 6 AM 11/14/19 06:00 Intake Total 585 ml Output Total 350 ml Balance 235 ml LAURENCE QUARLES MD Nov 14, 2019 10:32
[2019-11-14] MEDS: DOXYCYCLINE HYCLATE 100MG TABLET PO SCH ×2 (11:05→21:21)
[2019-11-14] MEDS: ACETAMINOPHEN TAB 650MG DOSE (2X325MG) PO PRN ×2 (16:16→21:21)
[2019-11-14 21:00] VITALS: BP 106/63
[2019-11-14] MEDS: METOPROLOL SUCC *XL* 25MG TAB (TopROL *XL*) PO SCH (21:00)
[2019-11-14] MEDS: lisinopriL 10 MG TAB PO SCH (21:00)
[2019-11-14] MEDS: ATORVASTATIN 10 MG TAB PO SCH (21:21)
[2019-11-14] MEDS: cefTRIAXone SOD 1 GM in D5W MINI-BAG PLUS 50 ML IV SCH (21:22)
[2019-11-14 22:00] VITALS: BP 106/63
[2019-11-15] MEDS: LEVOTHYROXINE 50MCG TABLET (0.05MG) PO SCH (05:42)
[2019-11-15 06:00] VITALS: BP 112/64
[2019-11-15 07:58] LABS: BASO # 0.1 10^3/uL (0.0-0.2); BASO % 0.7 % (0.0-1.0); EOS # 0.2 10^3/uL (0.0-0.5); EOS % 1.3 % (0.0-3.0); HEMATOCRIT 33.1 % (42.0-52.0); HEMOGLOBIN 10.9 g/dl (13.5-17.5); LYMPH # 1.7 10^3/uL (1.5-5.0); LYMPH % 11.3 % (24.0-44.0); MEAN CORPUSCULAR HEMOGLOBIN 30.9 pg (27.0-33.0); MEAN CORPUSCULAR HGB CONC 32.9 g/dl (32.0-36.5); MEAN CORPUSCULAR VOLUME 93.8 fl (80.0-96.0); MONO # 1.3 10^3/uL (0.0-0.8); MONO % 8.6 % (0.0-5.0); NEUTROPHILS # 10.8 10^3/uL (1.5-8.5); NEUTROPHILS % 73.7 % (36.0-66.0); PLATELET COUNT, AUTOMATED 459 10^3/uL (150-450); RED BLOOD COUNT 3.53 10^6/uL (4.30-6.10); WHITE BLOOD COUNT 14.6 10^3/uL (4.0-10.0)
[2019-11-15 08:22] LABS: ALBUMIN 2.4 GM/DL (3.2-5.2); ALT/SGPT 159 U/L (12-78); BILIRUBIN,TOTAL 0.5 MG/DL (0.2-1.0); BLOOD UREA NITROGEN 21 MG/DL (7-18); CALCIUM LEVEL 9.2 MG/DL (8.5-10.1); CARBON DIOXIDE LEVEL 28 MEQ/L (21-32); CHLORIDE LEVEL 103 MEQ/L (98-107); CREATININE FOR GFR 0.83 MG/DL (0.70-1.30); GLOMERULAR FILTRATION RATE > 60.0 (>56); GLUCOSE, FASTING 82 MG/DL (70-100); POTASSIUM SERUM 4.8 MEQ/L (3.5-5.1); SODIUM LEVEL 137 MEQ/L (136-145); TOTAL PROTEIN 6.5 GM/DL (6.4-8.2)
[2019-11-15] MEDS: DOCUSATE SODIUM 100 MG CAP PO SCH (08:38)
[2019-11-15] MEDS: MIRALAX *UNIT DOSE* 17GM PACKET PO SCH (08:39)
[2019-11-15] MEDS: ASPIRIN 81 MG ENTERIC TAB PO SCH (08:50)
[2019-11-15] MEDS: DOXYCYCLINE HYCLATE 100MG TABLET PO SCH (08:50)
[2019-11-15] MEDS: HYDROCORTISONE 1% OINTMENT 30GM TOP SCH ×2 (08:51→14:59)
[2019-11-15] MEDS: ACETAMINOPHEN TAB 650MG DOSE (2X325MG) PO PRN ×2 (08:51→14:59)
[2019-11-15] MEDS ORDERED: AMIODARONE 100MG TABLET (PACERONE) PO SCH (09:00)
[2019-11-15] MEDS ORDERED: DOCU100C16 PO (13:15)
[2019-11-15] MEDS ORDERED: CEFD300CAP PO (13:15)
[2019-11-15] MEDS ORDERED: DOXY100T PO (13:15)
[2019-11-15] MEDS ORDERED: MIRA3350 PO (13:17)
[2019-11-15 14:00] VITALS: BP 127/75
[2019-11-15] MEDS ORDERED: cefTRIAXone SOD 1 GM in D5W MINI-BAG PLUS 50 ML IV SCH (14:00)
--- NOTE | 2019-11-16 10:02 | REP ---
REASON FOR EXAM: Leukocytosis and pyrexia. Latest prior for comparison: 02/26/2019, also portable. The technique utilized in obtaining the radiograph has magnified the cardiac silhouette and accentuated the interstitial markings. Preliminary report given by Dr. Hale. There is an opacity in the right middle lobe representing a change from the prior exam. Lung varma are otherwise clear and stable. The heart is not enlarged. The dual-chamber bipolar pacemaker device is unchanged. There is no significant change in appearance of the osseous structures. IMPRESSION: Right middle lobe opacity, atelectasis versus pneumonia versus combination of both. Electronically Signed by Theo So DO 11/16/2019 10:56 A
--- NOTE | 2019-11-16 16:29 | REP ---
REASON FOR EXAM: History of liver cancer with elevated LFTs. There are no prior ultrasound exams for comparison. Preliminary report was given by Dr. Hale. Ultrasonographic evaluation of liver shows innumerable mixed echo masses throughout, consistent with gross hepatic metastasis. The common bile duct measures 6 mm. There is no intrahepatic ductal dilatation. There is no gallbladder abnormality. The imaged portion of the pancreas and right kidney are within normal limits. IMPRESSION: Markedly abnormal liver findings, as described above. Electronically Signed by Theo So DO 11/16/2019 05:06 P
--- NOTE | 2019-11-17 10:31 | DS.PDOC ---
Discharge Summary General Date of Admission Nov 13, 2019 at 20:52 Date of Discharge 11/15/19 Discharge Summary PROCEDURES PERFORMED DURING STAY: [None]. 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 Transaminitis and cholestasis due to malignant infiltration and masses. 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 Allen at [facility], Mediastinal lymphadenopathy, recently found in September 2019 to have hepatic mets and Liver Biopsy on 10/11 showed Poorly differentiated Small cell cancer COMPLICATIONS/CHIEF COMPLAINT: Constipation Hepatomegaly. HISTORY OF PRESENT ILLNESS: See history and physical HOSPITAL COURSE: This is a unfortunate 59 years old white male follows up with [facility] with past medical history of sudden cardiac , status post V. 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 Allen at [facility], Mediastinal lymphadenopathy, recently found in September 2019 to have hepatic mets and Liver Biopsy on 10/11 showed Poorly differentiated Small cell cancer had developed constipation, loss of appetite and early satiety since last 3 weeks and right upper quadrant and epigastric discomfort worse after eating. Patient follows up with oncology group in [place], but secondary to pandemic has been unable to make make an appointment there. He was found to have abnormal liver function tests with hepatomegaly and severe constipation and Pneumonia. Constipation Constipation, most likely secondary to massive hepatomegaly secondary to me tastases, from lung carcinoma resolved with aggressive bowel regimen. Regular diet Metastatic lung carcinoma Has Synchronous Lung cancer In 2018 Patient was diagnosed with adenocarcinoma of left upper lobe and squamous cell carcinoma of right lower lobe, as per old records and he is status post RT and chemo and follows up with Dr. Allen at [facility] Recent liver Bx last month shows liver mets from poorly differentiated small cell cancer. Bone scan on 11/08 positive for uptake at the left 8th rib and in the parietal calvarium on both sides. Follow up with oncologist. Massive Hepatomegaly with mets with Transaminitis/ cholestasis likely secondary to liver metastases from lung carcinoma CT did not show any GB problem or CBD dilatation. will get US also Follow-up with his primary oncologist at [place] as soon as possible Right middle lobe pneumonia CXR which i reviewed shows possible infiltrates at right lower lobe and right middle lobe opacity new from last year. will treat as CAP continue antibiotics ceftriaxone and doxy. azithromycin stopped due to h/o cardiac arrhythmia. Leucocytosis could be due to cancer and pneumonia. Hyperlipemia Home meds Hypertension metoprolol, lisinopril Hypothyroid synthroid Vtach/ cardiac arrest 2017/ AICD continue Amiodarone DISCHARGE MEDICATIONS: Please see below. ALLERGIES: Please see below. PHYSICAL EXAMINATION ON DISCHARGE: VITAL SIGNS: Please see below. General Exam: Positive: Alert, Cooperative Eye Exam: Positive: PERRLA, Conjunctiva & lids normal ENT Exam: Positive: Atraumatic, Mucous membr. moist/pink Neck Exam: Positive: Supple Chest Exam: Positive: clear to auscultation, no ronchi or wheezing. Heart Exam: Positive: Rate Normal, Normal S1, Normal S2 Abdomen Exam: Positive: Other (. Diffuse hepatomegaly. Tender on palpation at the right upper and right lower quadrant. Diminished bowel sounds) Extremity Exam: Positive: Normal pulses Skin Exam: Positive: Nl turgor and temperature Neuro Exam: Positive: Strength at 5/5 X4 ext, Sensation Intact, Cranial Nerves 3-12 NL Psych Exam: Positive: Mood NL, Oriented x 3 LABORATORY DATA: Please see below. RADIOLOGY: CT abdomen and pelvis with contrast. There is a large wedge-shaped opacity which is occupying nearly all of the right middle lobe and seen with air bronchograms. This represents a change from the prior exam. In addition, a few patchy opacities are seen in the right lower lobes. There is massive hepatic metastasis seen with wall-enhancing hepatic masses. This is probably unchanged from 09/11/2019. The gallbladder, spleen, pancreas, adrenal glands, and kidneys are within normal limits. The abdominal aorta and paraaortic regions are within normal limits. There is no free fluid or free air in the abdomen or pelvis. There are a few gas-filled mildly dilated small bowel loops in the abdomen. The pelvis bowel loops are within normal limits. There is no evidence of a pelvic mass or pelvic adenopathy. There is retroperitoneal adenopathy. Liver US Liver shows innumerable mixed echo masses throughout, consistent with gross hepatic metastasis. The common bile duct measures 6 mm. There is no intrahepatic ductal dilatation. There is no gallbladder abnormality. The imaged portion of the pancreas and right kidney are within normal ACTIVITY: [As tolerated]. DIET: As tolerated DISCHARGE PLAN: Home DISCHARGE INSTRUCTIONS: Follow up with Oncologist in [place] Follow up With Dr Dyer. DISCHARGE CONDITION: [Stable]. TIME SPENT ON DISCHARGE:35 minutes. Vital Signs/I&Os Vital Signs Date Time Temp Pulse Resp B/P (MAP) Pulse Ox O2 Delivery O2 Flow Rate FiO2 11/15/19 06:00 97.4 70 18 112/64 (80) 97 Room Air I&O- Last 24 Hours up to 6 AM 11/15/19 06:00 Intake Total 1310 ml Output Total 0 ml Balance 1310 ml Laboratory Data Labs 24H Laboratory Tests 2 11/14/19 16:09: Methicillin-Resist S.aureus DNA PCR NOT DETECTED 11/15/19 07:38: Immature Granulocyte % (Auto) 4.4H, Neutrophils (%) (Auto) 73.7H, Lymphocytes (%) (Auto) 11.3L, Monocytes (%) (Auto) 8.6H, Eosinophils (%) (Auto) 1.3, Basophils (%) (Auto) 0.7, Neutrophils # (Auto) 10.8H, Lymphocytes # (Auto) 1.7, Monocytes # (Auto) 1.3H, Eosinophils # (Auto) 0.2, Basophils # (Auto) 0.1, Nucleated Red Blood Cells % (auto) 0.0, Anion Gap 6L, Glomerular Filtration Rate > 60.0, Calcium Level 9.2, Total Bilirubin 0.5, Aspartate Amino Transf (AST/SGOT) 217H, Alanine Aminotransferase (ALT/SGPT) 159H, Alkaline Phosphatase 974H, Total Protein 6.5, Albumin 2.4L, Albumin/Globulin Ratio 0.6 CBC/BMP Laboratory Tests 11/15/19 07:38 Discharge Medications Scheduled Amiodarone HCl (Amiodarone HCl) 200 Mg Tab, 100 MG PO Q2D, (Reported) Aspirin (Aspirin EC) 81 Mg Tab, 81 MG PO QAM, (Reported) Atorvastatin Calcium (Atorvastatin Calcium) 20 Mg Tab, 10 MG PO QHS, (Reported) Cefdinir (Cefdinir) 300 Mg Capsule, 1 CAP PO BID Docusate Sodium (Docusate Sodium) 100 Mg Capsule, 100 MG PO BID Doxycycline Hyclate (Doxycycline Hyclate) 100 Mg Tablet, 100 MG PO BID Hydrocortisone (Hydrocortisone) 28.4 Gm Oint...g., 1 APPLIC RC TID, (Reported) RECTALLY Levothyroxine Sodium (Synthroid) 50 Mcg Tab, 50 MCG PO QAM, (Reported) Lisinopril (Lisinopril) 10 Mg Tab, 10 MG PO QPM, (Reported) Metoprolol Succinate (Metoprolol Succinate) 25 Mg Tab, 25 MG PO QPM, (Reported) Scheduled PRN Acetaminophen (Acetaminophen) 500 Mg Tablet, 500 MG PO QAM PRN for PAIN, (Reported) Acetaminophen (Acetaminophen) 500 Mg Tablet, 1,000 MG PO QHS PRN for PAIN, (Reported) Polyethylene Glycol 3350 (Miralax) 119 Gm Powder, 17 GM PO DAILYPRN PRN for CONSTIPATION dilute in 8 ounces of water or juice Allergies Coded Allergies: hydrocodone (Verified Adverse Reaction, Mild, NAUSEA AND VOMITING, 02/20/19) LAURENCE QUARLES MD Nov 15, 2019 11:17
== END 2019-11-15 17:02 | disposition home or self-care (01) | DRG 254 ==
LOC: M ED 12:31 → M ED INP 20:52 → ENRESERV 21:57 → M MSPAV 22:23
PROVIDERS: ADMIT Internal Medicine; ATTEND Internal Medicine Nephrology
DX: K59.00 Constipation, unspecified (principal); J18.9 Pneumonia, unspecified organism; C78.7 Secondary malignant neoplasm of liver and intrahepatic bile duct; Z86.74 Personal history of sudden cardiac arrest; R16.1 Splenomegaly, not elsewhere classified; C34.12 Malignant neoplasm of upper lobe, left bronchus or lung; C34.31 Malignant neoplasm of lower lobe, right bronchus or lung; E78.5 Hyperlipidemia, unspecified; E55.9 Vitamin D deficiency, unspecified; N52.9 Male erectile dysfunction, unspecified; M54.5 Low back pain; Z79.899 Other long term (current) drug therapy; Z88.5 Allergy status to narcotic agent; Z87.891 Personal history of nicotine dependence; Z96.641 Presence of right artificial hip joint; Z98.41 Cataract extraction status, right eye; Z98.42 Cataract extraction status, left eye; Z92.3 Personal history of irradiation; Z95.0 Presence of cardiac pacemaker; Z79.82 Long term (current) use of aspirin

== ENCOUNTER → 2019-11-19 | Outpatient (CLI) | payer OTHER ==
[~2019-11-19] MED LIST changes: +ACET-683 PO; +CEFD300CAP PO; +DOCU100C16 PO; +DOXY100T PO; +HYDR1OIN12 RC; +ISOVUE-370 76% 100ML VIAL As Ordered ONE; +MIRA3350 PO
--- NOTE | 2019-11-19 13:54 | REP ---
Intracranial CTA: 11/19/2019. Indication: Headache. Technique: Axial images of the M intracranial circulation were performed following the IV administration of iodinated contrast with coronal, sagittal and 3-D reconstructions provided. Comparison: None. Findings: There is no aneurysm, AVM, dissection, high-grade stenosis or additional acute abnormality. Impression: Unremarkable intracranial CT. No aneurysm. Electronically Signed by Lyndon Anne DO 11/19/2019 01:46 P
== END ==
LOC: M RAD 12:32
PROVIDERS: ATTEND Family Medicine
DX: R51 Headache (principal)
CPT/HCPCS: 70496; Q9967

== ENCOUNTER → 2019-11-25 | Outpatient (REF) | payer OTHER ==
[~2019-11-25] MED LIST changes: -ISOVUE-370 76% 100ML VIAL As Ordered ONE
[2019-11-25 13:14] LABS: BASO # 0.1 10^3/uL (0.0-0.2); BASO % 0.3 % (0.0-1.0); EOS # 0.2 10^3/uL (0.0-0.5); EOS % 1.3 % (0.0-3.0); HEMATOCRIT 31.3 % (42.0-52.0); HEMOGLOBIN 10.5 g/dl (13.5-17.5); LYMPH # 0.9 10^3/uL (1.5-5.0); LYMPH % 5.7 % (24.0-44.0); MEAN CORPUSCULAR HEMOGLOBIN 31.4 pg (27.0-33.0); MEAN CORPUSCULAR HGB CONC 33.5 g/dl (32.0-36.5); MEAN CORPUSCULAR VOLUME 93.7 fl (80.0-96.0); MONO # 0.5 10^3/uL (0.0-0.8); MONO % 3.1 % (0.0-5.0); NEUTROPHILS # 14.6 10^3/uL (1.5-8.5); NEUTROPHILS % 88.7 % (36.0-66.0); PLATELET COUNT, AUTOMATED 495 10^3/uL (150-450); RED BLOOD COUNT 3.34 10^6/uL (4.30-6.10); WHITE BLOOD COUNT 16.5 10^3/uL (4.0-10.0)
[2019-11-25 13:55] LABS: ERYTHROCYTE SEDIMENTATION RATE 75 mm/hr (0-20)
== END ==
LOC: M SFHCADAM 10:48
PROVIDERS: ATTEND Family Medicine
DX: R51 Headache (principal); J18.9 Pneumonia, unspecified organism

== ENCOUNTER → 2019-11-25 | Outpatient (CLI) | payer OTHER ==
--- NOTE | 2019-11-25 14:29 | REP ---
SKULL SERIES: Six views. HISTORY: None intractable headache. Comparison is made with CT study of the brain from November 19, 2019. FINDINGS: Six view skull series demonstrates an intact bony calvarium. The patient is edentulous. No bony destructive lesion is seen. Orbital margins are intact. The visualized paranasal sinuses are clear. No mandibular or maxillary lesion is seen. IMPRESSION: Negative skull radiographs. Electronically Signed by Doe Navarro MD 11/25/2019 05:15 P
== END ==
LOC: M ADAMS 10:50
PROVIDERS: ATTEND Family Medicine
DX: R51 Headache (principal)

== ENCOUNTER → 2020-07-01 | Outpatient (CLI) | payer OTHER ==
[~2020-07-01] MED LIST changes: -AMIO200T PO; +AMIO200T3 PO; +DECA4TAB PO; +LISI10TA22 PO; -LISI10TA4 PO; +LISI2.5T2 PO; +NAME10TA PO; +ZYLO300T6 PO; +[UNRECOGNIZED DRUG - CODE] PO
--- NOTE | 2020-07-01 16:27 | RADONC.CN ---
Radiation Oncology Hx/Consult Radiation Oncology Consult Date of Service: Jul 01, 2020 Pt Identifier Wilmar Josue is a 59 year old male former smoker with an AICD and history of early stage NSCLC of the ESTEFANY s/p SBRT 60 Gy in 5 fractions completed 12/16/17 and LLL s/p SBRT 55 Gy in 5 fractions completed 03/12/18. 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 He completed 6 cycles of carbo/peter/atezo on 02/23/20 with good response in the chest and body. However on restaging MRI head on 06/28/20 (done in [place] due to AICD) he was found to have several agevo-ot-wwtjlpzoff sized brain metastases. He is referred to undergo WBRT closer to home. Diagnosis/Treatment History Oncologic History As above Recent data: 06/28/20 MRI head Approximately 5 enhancing lesions on T1+C SPACE Largest are hemorrhagic and located in the right cerebellum and right occipital lobe 05/10/20 CT Abdomen pelvis Improving liver metastases Widespread osseous mets Interval History Neftaly feels some fatigue, no skeletal pain. No LANDRUM or cough. He has no DOS SANTOS, N, V. He has some BL ocular pain attributes this to amiodarone. Appetite good, not losing weight. No fevers, chills. Past Medical History: Anxiety/depression Cataracts ED HSV GERD [place] s/p AICD V tac Past Surgical History: AICD Cataracts Family History: Father/Mother lung cancer Social History: 20 pack year former smoker Non-drinker Works for a [employer] Allergies / Meds Allergies: Coded Allergies: hydrocodone (Verified Adverse Reaction, Mild, NAUSEA AND VOMITING, 02/20/19) Home Meds Active Scripts Polyethylene Glycol 3350 (Miralax) 119 Gm Powder, 17 GM PO DAILYPRN PRN for CONSTIPATION, #10 BOTTLE dilute in 8 ounces of water or juice Prov:LAURENCE QUARLES MD 11/15/19 Cefdinir (Cefdinir) 300 Mg Capsule, 1 CAP PO BID, #16 CAP Prov:LAURENCE QUARLES MD 11/15/19 Doxycycline Hyclate (Doxycycline Hyclate) 100 Mg Tablet, 100 MG PO BID, #16 TAB Prov:LAURENCE QUARLES MD 11/15/19 Docusate Sodium (Docusate Sodium) 100 Mg Capsule, 100 MG PO BID, #30 CAP Prov:LAURENCE QUARLES MD 11/15/19 Reported Medications Acetaminophen (Acetaminophen) 500 Mg Tablet, 1000 MG PO QHS PRN for PAIN 11/13/19 Acetaminophen (Acetaminophen) 500 Mg Tablet, 500 MG PO QAM PRN for PAIN 11/13/19 Hydrocortisone (Hydrocortisone) 28.4 Gm Oint...g., 1 APPLIC RC TID RECTALLY 11/13/19 Levothyroxine Sodium (Synthroid) 50 Mcg Tab, 50 MCG PO QAM, TAB 07/21/18 Atorvastatin Calcium (Atorvastatin Calcium) 20 Mg Tab, 10 MG PO QHS 08/21/17 Amiodarone HCl (Amiodarone HCl) 200 Mg Tab, 100 MG PO Q2D 08/21/17 Lisinopril (Lisinopril) 10 Mg Tab, 10 MG PO QPM, TAB 10/16/16 Aspirin (Aspirin EC) 81 Mg Tab, 81 MG PO QAM, TAB 07/10/16 Metoprolol Succinate (Metoprolol Succinate) 25 Mg Tab, 25 MG PO QPM, TAB 07/10/16 Review of Systems Constitutional: Denies: Chills, Fever, Night Sweats Eyes: Reports: Pain; Denies: Vision change HEENT: Denies: Head Aches, Dysphagia, Sore Throat Skin: Denies: Rash, Lesions, Bruising Pulmonary: Denies: Dyspnea, Cough Cardiovascular: Denies: Chest Pain, Palpitations, Edema Gastrointestinal: Denies: Nausea, Vomiting, Abdominal Pain, Diarrhea Genitourinary: Denies: Dysuria, Frequency, Incontinence Hematologic: Denies: Bruising, Petecchia, Enlarged Lymph Nodes Musculoskeletal: Denies: Neck pain, Back pain Neurological: Denies: Weakness, Numbness, Incoordination Psych: Reports: Mood Normal; Denies: Memory Issues, Thoughts of Self Harm Vital Signs Ht 63" Wt 148 lb BMI 26 T 99 P 66 RR 18 BP 127/77 O2 97% Pain 0 Fatigue 3 General Exam: Positive: Alert, Cooperative, No Acute Distress Eye Exam: Positive: PERRLA, EOMI ENT EXAM: Positive: Mucous membr. moist/pink, Pharynx Normal Neck Exam: Negative: Thyromegaly, Lymphadenopathy Chest Exam: Positive: Normal air movement; Negative: Rales, Rhonchi, Wheezing Heart Exam: Positive: Rate Normal, Regular Rhythm Abdomen Exam: Positive: Soft; Negative: Tenderness, Mass Extremity Exam: Negative: Edema, Tenderness Skin Exam: Positive: Nl turgor and temperature; Negative: Rash, Breakdown, Lesion, Pruritus, Other skin issue Neuro Exam: Positive: Normal Gait, Normal Speech, Cranial Nerves 3-12 NL Psych Exam: Positive: Mental status NL, Mood NL, Memory Intact Diagnostic and Laboratory Diagnostic Review Radiologic images, relevant labs and pathology reports were personally reviewed and discussed with Mr. Josue. Assessment and Plan Impression Mr. Josue is a 59 year old male former smoker with an AICD s/p [place] 2016 and history of early stage NSCLC of the ESTEFANY s/p SBRT 60 Gy in 5 fractions completed 12/16/17 and LLL s/p SBRT 55 Gy in 5 fractions completed 03/12/18. 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 He completed 6 cycles of carbo/peter/atezo on 02/23/20 with good response in the chest and body. However on restaging MRI head on 06/28/20 (done in [place] due to AICD) he was found to have several alzon-xy-cymuprbaro sized brain metastases. He is referred to undergo WBRT closer to home. Stage Stage IV SCLC RLL [id number] Performance Status ECOG 1 Plan We had an extensive discussion with Mr. Josue regarding the diagnosis at hand and available therapeutic options. He has experienced a favorable response in the body to chemoimmunotherapy and continues on atezolizumab monotherapy. He has 5 brain metastases the largest are in the right cerebellar hemisphere and right occipital lobe. These are asymptomatic. We discussed that standard of care is WBRT 30 Gy in 10 fractions in cases of SCLC. As NRG CC001 excluded SCLC patients, I would not offer hippocampal avoidance in his case. I did offer a 6 month course of namenda which is thought to be neuroprotective. He agrees to proceed. We discussed the logistics of receiving radiation therapy in detail including the need for a 1-time planning session. This can occur next week. We reviewed the anticipated side effects of treatment; fatigue, hair loss, and neurocognitive dysfunction. Given his cardiac history and relatively low burden of thoracic disease on imaging both zcp-hoj-yuld chemo, I would not offer him consolidative chest RT at this time. After discussing the risks, benefits and alternatives to radiation therapy, Mr. Josue was amenable to pursuing radiotherapy. All questions were answered to the patient's satisfaction. We instructed the patient that if there were any questions,concerns or changes in clinical status in the interim to contact us. Recommendations WBRT 30 Gy in 10 fractions with namenda Simulation next week Do not recommend consolidative chest RT in this patient with significant cardiac history and low overall thoracic disease burden at presentation EDMAR GRIMM MD Jul 01, 2020 16:27
== END ==
LOC: M ONCR 14:30
PROVIDERS: ATTEND General Practice
DX: C79.31 Secondary malignant neoplasm of brain (principal)

== ENCOUNTER 2020-07-08 13:03 | Outpatient (RCR) | payer OTHER ==
[~2020-07-08 13:03] MED LIST changes: -DECA4TAB PO; -LISI10TA22 PO; +LISI10TA4 PO
[2020-07-12] MEDS ORDERED: DECA4TAB PO (13:42)
== END 2020-07-10 ==
LOC: M ONCR 13:03
PROVIDERS: ATTEND General Practice
DX: C79.31 Secondary malignant neoplasm of brain (principal)

== ENCOUNTER 2020-07-21 12:50 | Outpatient (RCR) | payer OTHER ==
[~2020-07-21 12:50] MED LIST changes: +DECA4TAB PO; +LISI10TA22 PO; -LISI10TA4 PO
== END 2020-08-07 ==
LOC: M ONCR 12:50
PROVIDERS: ATTEND General Practice
DX: C79.31 Secondary malignant neoplasm of brain (principal)

== ENCOUNTER → 2020-08-16 | Outpatient (REF) | payer OTHER ==
[2020-08-16 16:55] LABS: HEMATOCRIT 45.6 % (42.0-52.0); HEMOGLOBIN 14.7 g/dl (13.5-17.5); MEAN CORPUSCULAR HEMOGLOBIN 30.3 pg (27.0-33.0); MEAN CORPUSCULAR HGB CONC 32.2 g/dl (32.0-36.5); PLATELET COUNT, AUTOMATED 257 10^3/uL (150-450); RED BLOOD COUNT 4.85 10^6/uL (4.30-6.10); WHITE BLOOD COUNT 7.7 10^3/uL (4.0-10.0)
[2020-08-16 17:26] LABS: ALBUMIN 3.9 GM/DL (3.2-5.2); BILIRUBIN,TOTAL 0.6 MG/DL (0.2-1.0); CALCIUM LEVEL 9.3 MG/DL (8.8-10.2); CREATININE FOR GFR 1.38 MG/DL (0.70-1.30); FREE T4 0.35 NG/DL (0.76-1.46); POTASSIUM SERUM 4.5 MEQ/L (3.5-5.1); THYROID STIMULATING HORMONE 87.4 uIU/ML (0.358-3.740); TOTAL PROTEIN 7.8 GM/DL (6.4-8.2)
== END ==
LOC: M SFHCADAM 14:54
PROVIDERS: ATTEND Family Medicine
DX: C78.7 Secondary malignant neoplasm of liver and intrahepatic bile duct (principal); R53.83 Other fatigue; E03.2 Hypothyroidism due to medicaments and other exogenous substances

== ENCOUNTER → 2021-02-22 | Outpatient (REF) | payer OTHER ==
[~2021-02-22] MED LIST changes: -DOXY100C37 PO; +DOXY1CAP62 PO; -LISI2.5T2 PO; +LISI2.5T9 PO; +OMEP40CA4 PO; -OMEP40CA97 PO
[2021-02-22 17:37] LABS: HEMATOCRIT 41.4 % (42.0-52.0); HEMOGLOBIN 13.6 g/dl (13.5-17.5); MEAN CORPUSCULAR HEMOGLOBIN 32.2 pg (27.0-33.0); MEAN CORPUSCULAR HGB CONC 32.9 g/dl (32.0-36.5); MEAN CORPUSCULAR VOLUME 97.9 fl (80.0-96.0); PLATELET COUNT, AUTOMATED 308 10^3/uL (150-450); RED BLOOD COUNT 4.23 10^6/uL (4.30-6.10); WHITE BLOOD COUNT 9.9 10^3/uL (4.0-10.0)
[2021-02-22 18:04] LABS: ALT/SGPT 18 U/L (12-78); BILIRUBIN,TOTAL 0.5 MG/DL (0.2-1.0); BLOOD UREA NITROGEN 21 MG/DL (7-18); CALCIUM LEVEL 9.1 MG/DL (8.8-10.2); CARBON DIOXIDE LEVEL 29 MEQ/L (21-32); CHLORIDE LEVEL 103 MEQ/L (98-107); CHOLESTEROL LEVEL 206 MG/DL (<200); CHOLESTEROL RISK RATIO 5.024 (<5); GLOMERULAR FILTRATION RATE > 60.0 (>49); GLUCOSE, FASTING 138 MG/DL (70-100); HDL CHOLESTEROL 41 MG/DL (>40); LDL CHOLESTEROL 137 MG/DL (<100); NON-HDL-C 165 MG/DL; POTASSIUM SERUM 4.4 MEQ/L (3.5-5.1); SODIUM LEVEL 137 MEQ/L (136-145); TRIGLYCERIDES LEVEL 141 MG/DL (<150)
[2021-02-22 18:05] LABS: ALBUMIN 3.5 GM/DL (3.2-5.2); FREE T4 1.11 NG/DL (0.76-1.46); THYROID STIMULATING HORMONE 0.983 uIU/ML (0.358-3.740); TOTAL PROTEIN 6.9 GM/DL (6.4-8.2); URIC ACID 1.6 MG/DL (3.5-7.2)
== END ==
LOC: M SFHCADAM 14:48
PROVIDERS: ATTEND Family Medicine
DX: C34.90 Malignant neoplasm of unspecified part of unspecified bronchus or lung (principal); C78.7 Secondary malignant neoplasm of liver and intrahepatic bile duct; R53.82 Chronic fatigue, unspecified; E03.2 Hypothyroidism due to medicaments and other exogenous substances; E78.5 Hyperlipidemia, unspecified; Z86.79 Personal history of other diseases of the circulatory system

== ENCOUNTER → 2021-04-27 | Outpatient (CLI) | payer OTHER ==
[~2021-04-27] MED LIST changes: +DOXY-443 PO; -DOXY1CAP62 PO; +LEVO150T7; +OXYC-423 PO
--- NOTE | 2021-04-27 09:37 | RADONC ---
Radiation Oncology Hx/FUP Radiation Oncology Hx/FUP Date of Service: Apr 27, 2021 Pt Identifier Wilmar Josue is a 60 year old male former smoker with an AICD and history of early stage NSCLC of the ESTEFANY s/p SBRT 60 Gy in 5 fractions completed 12/16/17 and LLL s/p SBRT 55 Gy in 5 fractions completed 03/12/18. 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 He completed 6 cycles of carbo/peter/atezo on 02/23/20 with good response in the chest and body. However on restaging MRI head on 06/28/20 (done in [place] due to AICD) he was found to have several ocabn-hs-rqwywhjnov sized brain metastases for which he underwent WBRT 30 Gy in 10 fractions with namenda 07/07/20-07/21/20. He elected to continue his follow up @ [facility] and has been re-referred here for concern of new bone metastases causing pain. Diagnosis/Treatment History Oncologic History As above Recent data: 03/13/21 MRI brain CR with no residual metastases 04/14/21 MRI T spine Extensive metastases NB T3 with large metastasis with epidural extension T10-11 with less extensively involved lesions No rigo cord compression Interval History Neftaly has excruciating mid back pain. 03/19 at all times. Taking oxycodone 5 mg PRN without much improvement. Moving his bowel well. Also complains of pain in the left elbow new in the past few weeks. He has had some paresthesias in the legs, tingling and pain, radiating down the back. No loss of bowel or bladder, no leg weakness. Current Therapy Atezolizumab on hold Stage Stage IV SCLC RLL [id number] Social History: 20 pack year former smoker Non-drinker Allergies / Meds Allergies: Coded Allergies: hydrocodone (Verified Adverse Reaction, Mild, NAUSEA AND VOMITING, 02/20/19) Home Meds Active Scripts Memantine HCl (Namenda) 10 Mg Tablet, 1 TAB PO BID for 30 Days, #60 TAB 5 Refills Start after completion of titration pack Prov:EDMAR GRIMM MD 07/13/20 Memantine HCl (Namenda) 1 Each Tab.ds.pk, 1 TAB PO ASDIRECTED, #1 PKG Follow instructions on packaging. Once dose pack complete, begin 10 mg by mouth twice daily Prov:EDMAR GRIMM MD 07/13/20 Dexamethasone (Decadron) 4 Mg Tablet, 1 TAB PO DAILY for 5 Days, #5 TAB Prov:EDMAR GRIMM MD 07/12/20 Docusate Sodium (Docusate Sodium) 100 Mg Capsule, 100 MG PO BID, #30 CAP Prov:Nicole Jackson MD 11/15/19 Reported Medications Allopurinol (Zyloprim) 300 Mg Tablet, 1 TAB PO DAILY 07/01/20 Lisinopril (Lisinopril) 2.5 Mg Tablet, 1 TAB PO DAILY 07/01/20 Acetaminophen (Acetaminophen) 500 Mg Tablet, 1000 MG PO QHS PRN for PAIN 11/13/19 Acetaminophen (Acetaminophen) 500 Mg Tablet, 500 MG PO QAM PRN for PAIN 11/13/19 Amiodarone HCl (Amiodarone HCl) 200 Mg Tab, 100 MG PO Q2D 08/21/17 Aspirin (Aspirin EC) 81 Mg Tab, 81 MG PO QAM, TAB 07/10/16 Metoprolol Succinate (Metoprolol Succinate) 25 Mg Tab, 25 MG PO QPM, TAB 07/10/16 Review of Systems Review of Systems Constitutional: Reports: Fatigue, Weight Loss HEENT: Denies: Head Aches Cardiovascular: Reports: Chest Pain; Denies: Edema Gastrointestinal: Denies: Abdominal Pain, Diarrhea, Constipation Musculoskeletal: Reports: Arm pain, Back pain, Leg pain Neurological: Reports: Numbness; Denies: Weakness Psych: Reports: Mood Normal Physical Examination Vital Signs Wt 127 lbs T 97.2 P 67 RR 17 BP 106/69 O2 97% Pain 8 Fatigue 8 General Exam: Alert, Cooperative, Mild Distress Eye Exam: PERRLA, EOMI ENT EXAM: Atraumatic Extremity Exam: Tenderness (Left elbow olecrannon very tender); Negative: Edema Neuro Exam: Normal Gait, Normal Speech, Cranial Nerves 3-12 NL Psych Exam: Mental status NL Other Physical Findings Exquisitely tender between shoulder blades R>L in paraspinal musculature no p alpable mass Diagnostic and Laboratory Diagnostic Review Radiologic images, relevant labs and pathology reports were personally reviewed and discussed with Mr. Josue. Assessment and Plan Impression Assessment Mr. Josue is a 60 year old male former smoker with an AICD and history of early stage NSCLC of the ESTEFANY s/p SBRT 60 Gy in 5 fractions completed 12/16/17 and LLL s/p SBRT 55 Gy in 5 fractions completed 03/12/18. 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 He completed 6 cycles of carbo/peter/atezo on 02/23/20 with good response in the chest and body. However on restaging MRI head on 06/28/20 (done in [place] due to AICD) he was found to have several fataq-as-uaqrhmshih sized brain metastases for which he underwent WBRT 30 Gy in 10 fractions with namenda 07/07/20-07/21/20. He elected to continue his follow up @ [facility] and has been re-referred here for concern of new bone metastases causing pain. He has had progression of the metastasis @ T3 on imaging, this is the source of his pain and is threatening the cord, therefore I recommend urgent palliative RT 30 Gy in 10 fractions to this site. We will also scan the left elbow at the time of simulation to see if there is a lesion there, if so we can include that. Simulation will be tomorrow @ 2:00, treatment will commence on Saturday05/01/21. I encouraged him to take 10 mg oxycodone PRN for his uncontrolled pain, I offered to help titrate this medication, he is on a bowel regimen. He agreed to keep follow up @ [facility] radiation oncology, and here, in the event he needs additional palliative RT. Performance Status ECOG 2 Plan Palliative RT to T3 lesion +/- left elbow 30 Gy in 10 fractions Simulation tomorrow Increase oxycodone to 10 mg PRN Contact cardiology regarding AICD, will need interrogation after first fraction and at end of tx Mr. Josue was encouraged to call with questions or concerns in the interim period. Billing Statement Total time of [34] minutes was spent preparing for the visit [2], obtaining HPI [7], examining the patient [4], reviewing diagnostic tests [3], discussing management options [8], coordinating care [2], and writing this note [8]. EDMAR GRIMM MD Apr 27, 2021 09:37
== END ==
LOC: M ONCR 08:23
PROVIDERS: ATTEND General Practice
DX: C34.12 Malignant neoplasm of upper lobe, left bronchus or lung (principal); C79.31 Secondary malignant neoplasm of brain; Z92.3 Personal history of irradiation; Z88.5 Allergy status to narcotic agent; Z79.891 Long term (current) use of opiate analgesic; Z79.899 Other long term (current) drug therapy; Z87.891 Personal history of nicotine dependence

== ENCOUNTER → 2021-05-09 | Outpatient (RCR) | payer OTHER ==
[~2021-05-09] MED LIST changes: +ALLO300T2; -AMIO200T3 PO; +AMIO200T49 PO; +MORP-69 PO; +ROXI1TAB2 PO
== END ==
LOC: M ONCR 04-28 11:00
PROVIDERS: ATTEND General Practice
DX: C79.51 Secondary malignant neoplasm of bone (principal)

== ENCOUNTER 2021-05-17 09:07 | Outpatient (RCR) | payer OTHER ==
[~2021-05-17 09:07] MED LIST changes: +AMIO200T3 PO; -AMIO200T49 PO
== END 2021-06-09 ==
LOC: M ONCR 09:07
PROVIDERS: ATTEND General Practice
DX: C79.51 Secondary malignant neoplasm of bone (principal)

== ENCOUNTER → 2021-07-12 | Outpatient (CLI) | payer OTHER ==
[~2021-07-12] MED LIST changes: -AMIO200T3 PO; +AMIO200T49 PO
[2021-07-12 10:41] LABS: HEMATOCRIT 31.5 % (42.0-52.0); HEMOGLOBIN 10.7 g/dl (13.5-17.5); MEAN CORPUSCULAR HEMOGLOBIN 32.7 pg (27.0-33.0); MEAN CORPUSCULAR VOLUME 96.3 fl (80.0-96.0); PLATELET COUNT, AUTOMATED 165 10^3/uL (150-450); RED BLOOD COUNT 3.27 10^6/uL (4.30-6.10); WHITE BLOOD COUNT 21.6 10^3/uL (4.0-10.0)
[2021-07-12 11:04] LABS: ALT/SGPT 44 U/L (12-78); BILIRUBIN,TOTAL 0.4 MG/DL (0.2-1.0); BLOOD UREA NITROGEN 31 MG/DL (7-18); CALCIUM LEVEL 8.8 MG/DL (8.8-10.2); CARBON DIOXIDE LEVEL 28 MEQ/L (21-32); CHLORIDE LEVEL 102 MEQ/L (98-107); CREATININE FOR GFR 0.75 MG/DL (0.70-1.30); GLOMERULAR FILTRATION RATE > 60.0 (>49); GLUCOSE, FASTING 154 MG/DL (70-100); SODIUM LEVEL 135 MEQ/L (136-145)
[2021-07-12 11:13] LABS: ATYPICAL LYMPH 1 % (0-5); LYMPHOCYTES 2 % (16-44); METAMYELOCYTES 10 % (0-0); MONOCYTES 9 % (0-5); MYELOCYTES 5 % (0-0); NEUTROPHILS 69 % (28-66); PLATELET ESTIMATE NORMAL (NORMAL)
[2021-07-12 11:14] LABS: ANISOCYTOSIS 1+; OVALOCYTES 1+
== END ==
LOC: M LAB 10:14
PROVIDERS: ATTEND Nurse Practitioner Acute Care
DX: C34.90 Malignant neoplasm of unspecified part of unspecified bronchus or lung (principal)

== ENCOUNTER 2021-08-20 10:28 | Emergency (ER) | payer OTHER ==
[~2021-08-20] VITALS: Ht 165.1 cm; Wt 48.6 kg
[2021-08-20] MEDS ORDERED: COMBIVENT RESPIMAT 100-20MCG INHALER 4GM INH STA (10:51)
[2021-08-20 11:32] LABS: VENOUS BASE EXCESS -1.9 (-2.0-2.0); VENOUS HCO3 22.6 MEQ/L (23.0-27.0); VENOUS O2 SATURATION 84.7 % (60.0-80.0); VENOUS PARTIAL PRESSURE CO2 37.6 mmHg (38.0-50.0); VENOUS PARTIAL PRESSURE O2 49.2 mmHg (30.0-50.0); VENOUS PH 7.396 UNITS (7.330-7.430); VENOUS STANDARD HCO3 22.6 MEQ/L; VENOUS TOTAL CO2 23.7 MEQ/L (24.0-28.0)
[2021-08-20 11:38] LABS: HEMATOCRIT 33.2 % (42.0-52.0); HEMOGLOBIN 11.3 g/dl (13.5-17.5); MEAN CORPUSCULAR HEMOGLOBIN 33.8 pg (27.0-33.0); MEAN CORPUSCULAR VOLUME 99.4 fl (80.0-96.0); PLATELET COUNT, AUTOMATED 136 10^3/uL (150-450); RED BLOOD COUNT 3.34 10^6/uL (4.30-6.10); WHITE BLOOD COUNT 3.7 10^3/uL (4.0-10.0)
[2021-08-20 12:14] LABS: ANISOCYTOSIS 2+; LYMPHOCYTES 4 % (16-44); METAMYELOCYTES 15 % (0-0); MONOCYTES 3 % (0-5); MYELOCYTES 6 % (0-0); NEUTROPHILS 66 % (28-66); PLATELET ESTIMATE DECREASED (NORMAL); PROMYELOCYTES 1 % (0-0)
[2021-08-20 12:15] LABS: ALBUMIN 2.7 GM/DL (3.2-5.2); ALT/SGPT 44 U/L (12-78); BILIRUBIN,DIRECT 0.2 MG/DL (0.0-0.2); BILIRUBIN,TOTAL 0.4 MG/DL (0.2-1.0); BLOOD UREA NITROGEN 26 MG/DL (7-18); CALCIUM LEVEL 8.5 MG/DL (8.8-10.2); CARBON DIOXIDE LEVEL 26 MEQ/L (21-32); CHLORIDE LEVEL 110 MEQ/L (98-107); CREATININE FOR GFR 0.73 MG/DL (0.70-1.30); GLOMERULAR FILTRATION RATE > 60.0 (>49); GLUCOSE, FASTING 95 MG/DL (70-100); NT-PRO BNP 1042 PG/ML (<125); POIKILOCYTOSIS 1+; POTASSIUM SERUM 3.9 MEQ/L (3.5-5.1); SODIUM LEVEL 141 MEQ/L (136-145); THYROID STIMULATING HORMONE < 0.005 uIU/ML (0.358-3.740); TOTAL PROTEIN 5.6 GM/DL (6.4-8.2)
[2021-08-20 12:16] LABS: HELMET CELLS 1+
[2021-08-20] MEDS ORDERED: ISOVUE-370 76% 100ML VIAL As Ordered ONE (12:25)
[2021-08-20] MEDS ORDERED: EASYMIS17 XX (13:36)
[2021-08-20] MEDS ORDERED: PRED20TA PO ×2 (13:37→14:29)
[2021-08-20] MEDS ORDERED: ALBU83IN NEB ×2 (13:37→14:29)
[2021-08-20 14:00] VITALS: BP 124/79; O2SAT 95
== END 2021-08-20 14:51 | disposition home or self-care (01) ==
LOC: M ED 10:28
DX: J44.1 Chronic obstructive pulmonary disease with (acute) exacerbation (principal); J98.11 Atelectasis; R93.2 Abnormal findings on diagnostic imaging of liver and biliary tract; C79.31 Secondary malignant neoplasm of brain; C79.51 Secondary malignant neoplasm of bone; Z95.0 Presence of cardiac pacemaker; R10.9 Unspecified abdominal pain; E07.9 Disorder of thyroid, unspecified; Z88.5 Allergy status to narcotic agent; Z79.899 Other long term (current) drug therapy; Z79.82 Long term (current) use of aspirin
CPT/HCPCS: 71045; 71275; 80048; 80076; 82803; 83605; 83880; 84443; 85025; 87040; 87798; 93005; 93041; 94640; 94664; 99285; Q9967